=== PATIENT | female | born 1955 | race Caucasian/White ===

== ENCOUNTER 2018-09-19 03:18 | Emergency (ER) | payer MEDICARE, OTHER ==
[2018-09-19 03:24] VITALS: RESP 18
[2018-09-19] MEDS ORDERED: SODIUM CHLORIDE 0.9% 1,000 ML IV STA (03:46)
[2018-09-19] MEDS ORDERED: IPRATROPIUM-ALBUTEROL 3 ML NEB INHALATION STA ×2 (03:46→05:20)
[2018-09-19] MEDS ORDERED: ASPIRIN 81 MG PO STA (03:46)
--- NOTE | 2018-09-19 03:55 | ED ---
SOB HPI - General Chief Complaint: Shortness of Breath Stated Complaint: SOB Time Seen by Provider: 09/19/18 03:28 Source: patient Mode of arrival: wheelchair Limitations: no limitations - History of Present Illness Initial Comments: Jessy is a 53 yo female who is brought to the ED today by her son for evaluation of shortness of breath and palpitations. Patient reports that around 1 AM this morning she was watching TV when she began to feel worsening shortness of breath and palpitations and she did feel some mild discomfort upon deep inspiration in her left shoulder blade. Patient reports that this seemed to improve for a while but then got worse. Patient states she did not try to use a breathing treatment had her son bring her to the ER for evaluation. Patient denies any recent fevers, chills, nausea or vomiting. She does have a history of COPD, she does use breathing treatments at home, she does still smoke. - Related Data Home Medications Medication Instructions Recorded Confirmed Albuterol Nebulized [Ventolin 1 ampul INHALATION BID 01/28/14 01/29/14 Nebulized] Albuterol Sulfate [Proair Hfa] 2 puff INHALATION DIRECTED PRN 01/28/14 Ibuprofen [Motrin] 800 mg PO QID PRN 01/28/14 01/29/14 Omeprazole [PriLOSEC] 20 mg PO DAILY 01/28/14 01/29/14 Oxybutynin Chloride [Ditropan XL] 15 mg PO BID 01/28/14 01/29/14 Topiramate [Topamax] 50 mg PO BID 01/28/14 01/29/14 Vortioxetine Hydrobromide 10 mg PO DAILY 01/28/14 01/29/14 [Trintellix] metFORMIN HCL [Glucophage] 500 mg PO DAILY 01/28/14 01/29/14 risperiDONE [RisperDAL] 2 mg PO HS 01/28/14 01/29/14 traZODone HCL 2 tab PO HS 01/28/14 01/29/14 Allergies Allergy/AdvReac Type Severity Reaction Status Date / Time fluticasone propionate Allergy Rash/Hives Verified 01/29/14 11:22 [From Advair Diskus] oxycodone HCl [From Percodan] Allergy Rash/Hives Verified 01/29/14 11:22 oxycodone terephthalate Allergy Rash/Hives Verified 01/29/14 11:22 [From Percodan] propoxyphene HCl Allergy Rash/Hives Verified 01/29/14 11:22 [From Darvon] salmeterol xinafoate Allergy Rash/Hives Verified 01/29/14 11:22 [From Advair Diskus] tramadol HCl [From Ultram] Allergy Rash/Hives Verified 01/29/14 11:22 Review of Systems ROS Statement: Those systems with pertinent positive or pertinent negative responses have been documented in the HPI. ROS Other: All systems not noted in ROS Statement are negative. Past Medical History Past Medical History: Asthma, COPD, Diabetes Mellitus, GERD/Reflux, Neurologic Disorder, Osteoarthritis (OA), Respiratory Disorder Additional Past Medical History / Comment(s): MIGRAINES History of Any Multi-Drug Resistant Organisms: None Reported Past Surgical History: Bariatric Surgery, Cholecystectomy, Hysterectomy, Tonsillectomy Additional Past Surgical History / Comment(s): LAP BAND Past Anesthesia/Blood Transfusion Reactions: No Reported Reaction Past Psychological History: Anxiety Smoking Status: Current every day smoker Past Alcohol Use History: None Reported Past Drug Use History: None Reported - Past Family History Mother Family Medical History: Cancer Father Family Medical History: Cancer General Exam - General Exam Comments Initial Comments: Physical Exam GENERAL: Appears much older than stated age skin changes consistent with chronic tobacco abuse In no acute distress HENT: Normocephalic, Atraumatic. Edentulous EYES: PERRL, EOMI PULMONARY: Mild expiratory wheezing in all lung gilman CARDIOVASCULAR: There is a regular rate and rhythm without any murmurs gallops or rubs. ABDOMEN: Soft and nontender with normal bowel sounds. SKIN: Skin is clear with no lesions or rashes and otherwise unremarkable. Color change to the skin and nails of the hands consistent with cigarette smoking : Deferred NEUROLOGIC: Patient is alert and oriented x3. Moving all extremities spontaneously MUSCULOSKELETAL: Normal extremities with adequate strength and full range of motion. No lower extremity swelling or edema. No calf tenderness. PSYCHIATRIC: Normal psychiatric evaluation. Limitations: no limitations Limitations: no limitations Course Vital Signs 09/19/18 09/19/18 09/19/18 03:19 03:58 04:02 Temperature 98.1 F Pulse Rate 106 H 106 H 108 H Respiratory 18 Rate Blood Pressure 99/64 O2 Sat by Pulse 98 Oximetry 09/19/18 09/19/18 05:30 05:45 Temperature Pulse Rate 86 90 Respiratory Rate Blood Pressure O2 Sat by Pulse Oximetry Medical Decision Making - Medical Decision Making Patient was seen and evaluated upon arrival, patient with a history of COPD has not been oozing her nebulizer over the past 48 hours presenting to the ER today with wheezing and shortness of breath On physical exam the patient has mild retraction and wheezing in all lung gilman Labs chest x-ray DuoNeb's were ordered Patient improved significantly after DuoNeb, patient reported feeling better at this time and will give patient a repeat dose of DuoNeb. Neck Evaluated the patient after repeat dose of DuoNeb she reports significant improvement in her wheezing and shortness of breath. She is no longer hypoxic or tachycardic at this time I feel the patient is stable for discharge home, I did discuss with her the importance of compliance with use of her nebulizer. All questions pertaining care were answered best my ability patient was discharged home in stable condition. - Lab Data Result diagrams: 09/19/18 04:05 09/19/18 04:05 Lab Results 09/19/18 09/19/18 09/19/18 Range/Units 04:05 04:05 04:05 WBC 9.3 (3.8-10.6) k/uL RBC 5.18 (3.80-5.40) m/uL Hgb 15.3 (11.4-16.0) gm/dL Hct 48.5 H (34.0-46.0) % MCV 93.6 (80.0-100.0) fL MCH 29.6 (25.0-35.0) pg MCHC 31.6 (31.0-37.0) g/dL RDW 14.3 (11.5-15.5) % Plt Count 224 (150-450) k/uL Neutrophils % 58 % Lymphocytes % 31 % Monocytes % 6 % Eosinophils % 3 % Basophils % 1 % Neutrophils # 5.3 (1.3-7.7) k/uL Lymphocytes # 2.9 (1.0-4.8) k/uL Monocytes # 0.6 (0-1.0) k/uL Eosinophils # 0.3 (0-0.7) k/uL Basophils # 0.0 (0-0.2) k/uL PT (9.0-12.0) sec INR (<1.2) APTT (22.0-30.0) sec Sodium 139 (137-145) mmol/L Potassium 4.3 (3.5-5.1) mmol/L Chloride 107 (98-107) mmol/L Carbon Dioxide 26 (22-30) mmol/L Anion Gap 6 mmol/L BUN 5 L (7-17) mg/dL Creatinine 0.44 L (0.52-1.04) mg/dL Est GFR (CKD-EPI)AfAm >90 (>60 ml/min/1.73 sqM) Est GFR (CKD-EPI)NonAf >90 (>60 ml/min/1.73 sqM) Glucose 112 H (74-99) mg/dL Calcium 9.8 (8.4-10.2) mg/dL Magnesium 1.8 (1.6-2.3) mg/dL Total Bilirubin 0.5 (0.2-1.3) mg/dL AST 17 (14-36) U/L ALT 26 (9-52) U/L Alkaline Phosphatase 65 (38-126) U/L Total Creatine Kinase 46 (30-135) U/L CK-MB (CK-2) 0.5 (0.0-2.4) ng/mL CK-MB (CK-2) Rel Index 1.1 Troponin I <0.012 (0.000-0.034) ng/mL NT-Pro-B Natriuret Pep pg/mL Total Protein 7.1 (6.3-8.2) g/dL Albumin 4.3 (3.5-5.0) g/dL 09/19/18 09/19/18 Range/Units 04:05 04:05 WBC (3.8-10.6) k/uL RBC (3.80-5.40) m/uL Hgb (11.4-16.0) gm/dL Hct (34.0-46.0) % MCV (80.0-100.0) fL MCH (25.0-35.0) pg MCHC (31.0-37.0) g/dL RDW (11.5-15.5) % Plt Count (150-450) k/uL Neutrophils % % Lymphocytes % % Monocytes % % Eosinophils % % Basophils % % Neutrophils # (1.3-7.7) k/uL Lymphocytes # (1.0-4.8) k/uL Monocytes # (0-1.0) k/uL Eosinophils # (0-0.7) k/uL Basophils # (0-0.2) k/uL PT 10.5 (9.0-12.0) sec INR 1.0 (<1.2) APTT 26.0 (22.0-30.0) sec Sodium (137-145) mmol/L Potassium (3.5-5.1) mmol/L Chloride (98-107) mmol/L Carbon Dioxide (22-30) mmol/L Anion Gap mmol/L BUN (7-17) mg/dL Creatinine (0.52-1.04) mg/dL Est GFR (CKD-EPI)AfAm (>60 ml/min/1.73 sqM) Est GFR (CKD-EPI)NonAf (>60 ml/min/1.73 sqM) Glucose (74-99) mg/dL Calcium (8.4-10.2) mg/dL Magnesium (1.6-2.3) mg/dL Total Bilirubin (0.2-1.3) mg/dL AST (14-36) U/L ALT (9-52) U/L Alkaline Phosphatase (38-126) U/L Total Creatine Kinase (30-135) U/L CK-MB (CK-2) (0.0-2.4) ng/mL CK-MB (CK-2) Rel Index Troponin I (0.000-0.034) ng/mL NT-Pro-B Natriuret Pep 40 pg/mL Total Protein (6.3-8.2) g/dL Albumin (3.5-5.0) g/dL Disposition Clinical Impression: COPD exacerbation Disposition: HOME SELF-CARE Instructions: Chronic Cough (ED) Additional Instructions: Use your nebulizer every 4 hours as needed for wheezing or shortness of breath Is patient prescribed a controlled substance at d/c from ED?: No Referrals: Ky De La O MD [Primary Care Provider] - 1-2 days
--- NOTE | 2018-09-19 04:01 | XR ---
EXAMINATION TYPE: XR chest 2V DATE OF EXAM: 09/19/2018 COMPARISON: NONE HISTORY: Difficulty breathing TECHNIQUE: Frontal and lateral views of the chest are obtained. FINDINGS: Heart and mediastinum are normal. Lungs are clear. Costophrenic angles are clear. There ar e no hilar masses. There is cervical spine fusion surgery. Bony thorax appears intact. IMPRESSION: No active cardiopulmonary disease.
[2018-09-19 04:25] LABS: Basophils % (A) 1 %; Eosinophils # (A) 0.3 k/uL (0-0.7); Eosinophils % (A) 3 %; HCT 48.5 % (34.0-46.0); HGB 15.3 gm/dL (11.4-16.0); Lymphocytes # (A) 2.9 k/uL (1.0-4.8); Lymphocytes % (A) 31 %; MCH 29.6 pg (25.0-35.0); MCHC 31.6 g/dL (31.0-37.0); MCV 93.6 fL (80.0-100.0); Mean Platelet Volume 6.8; Monocytes # (A) 0.6 k/uL (0-1.0); Monocytes % (A) 6 %; Neutrophils # (A) 5.3 k/uL (1.3-7.7); Neutrophils % (A) 58 %; Platelet Count 224 k/uL (150-450); RBC 5.18 m/uL (3.80-5.40); RDW 14.3 % (11.5-15.5); WBC 9.3 k/uL (3.8-10.6)
[2018-09-19 04:28] LABS: Prothrombin Time 10.5 sec (9.0-12.0)
[2018-09-19 04:29] LABS: ALT 26 U/L (9-52); AST 17 U/L (14-36); Albumin 4.3 g/dL (3.5-5.0); Alkaline Phosphatase 65 U/L (38-126); Anion Gap 6 mmol/L; Blood Urea Nitrogen 5 mg/dL (7-17); Calcium 9.8 mg/dL (8.4-10.2); Carbon Dioxide 26 mmol/L (22-30); Chloride 107 mmol/L (98-107); Glucose 112 mg/dL (74-99); Magnesium 1.8 mg/dL (1.6-2.3); Potassium 4.3 mmol/L (3.5-5.1); Sodium 139 mmol/L (137-145); Total Bilirubin 0.5 mg/dL (0.2-1.3); Total Protein 7.1 g/dL (6.3-8.2)
[2018-09-19 04:41] LABS: Creatine Kinase 46 U/L (30-135)
[2018-09-19 04:54] LABS: Creatine Kinase MB 0.5 ng/mL (0.0-2.4); Troponin I <0.012 ng/mL (0.000-0.034)
[2018-09-19 07:02] VITALS: BP 109/73; PULSE 87; TEMP 98.7
== END 2018-09-19 07:02 | disposition home or self-care (01) ==
LOC: EC 03:18
DX: J44.1 Chronic obstructive pulmonary disease with (acute) exacerbation (principal); R00.0 Tachycardia, unspecified; K21.9 Gastro-esophageal reflux disease without esophagitis; E11.9 Type 2 diabetes mellitus without complications; F41.9 Anxiety disorder, unspecified; F17.210 Nicotine dependence, cigarettes, uncomplicated; Z88.5 Allergy status to narcotic agent; Z88.8 Allergy status to other drugs, medicaments and biological substances; Z79.84 Long term (current) use of oral hypoglycemic drugs; Z79.899 Other long term (current) drug therapy; Z86.69 Personal history of other diseases of the nervous system and sense organs
CPT/HCPCS: 36415; 71046; 80053; 82550; 82553; 83735; 83880; 84484; 85025; 85610; 85730; 93005; 94640; 96360; 99285

== ENCOUNTER 2018-11-01 00:18 | Emergency (ER) | payer MEDICARE, OTHER ==
[2018-11-01] MEDS ORDERED: SODIUM CHLORIDE 0.9% 500 ML 500 ML IV STA (00:56)
[2018-11-01] MEDS ORDERED: IPRATROPIUM-ALBUTEROL 3 ML NEB INHALATION STA (01:08)
[2018-11-01] MEDS ORDERED: methylPREDNISolone SOD SUCCI 125 MG/2 ML VIAL IV STA (01:08)
--- NOTE | 2018-11-01 01:09 | ED ---
General Adult HPI - General Source: patient Mode of arrival: wheelchair Limitations: no limitations <Nadira Vargas - Last Filed: 11/01/18 05:44> <Rosa Isela Awan - Last Filed: 11/01/18 06:45> - General Chief complaint: Dizziness Stated complaint: Dizziness, Weakness Time Seen by Provider: 11/01/18 00:55 - History of Present Illness Initial comments: 62-year-old female presenting today for chief complaint of lightheadedness, dizziness, presyncopal episode and decreased appetite for past 3 months. Patient states she has not had much to eat a decreased appetite for the past 3 months, she states she has been drinking a lot of coffee and creamer. Patient states she tries to eat and expresses nausea, she states she does tolerate water. Patient states that for the past few day she's felt lightheaded and dizzy, she states today she fell forward feeling as though she might pass out. Patient states she did not hit her head or experienced injury to neck or extremities. Patient denies any chest pain, dyspnea, dyspnea on exertion. She states she hasn't ever day smoker and has COPD. Patient denies any fever, chills, night sweats, cough, bowel pain, nausea, vomiting, jaw pain, upper etc. he paresthesias. Patient denies any thoracic back pain, headache, visual changes, diplopia, speech changes or focalized muscle weakness. Patient does admit to generalized weakness. Patient states she is concerned as to why she has not been able to eat very much over the past 3 months. She states this is the most concerning thing to her today. Remaining review of systems negative, upon arrival patient is well-appearing. Vital signs within acceptable limits.Patient denies anyabdominal pain, numbness or tingling, dysuria or hematuria, constipation or diarrhea, melena, hematochezia, hemoptysis, vomiting any other complaints. (Nadira Vagras) - Related Data Home Medications Medication Instructions Recorded Confirmed Albuterol Nebulized [Ventolin 1 ampul INHALATION BID 01/28/14 11/01/18 Nebulized] Albuterol Sulfate [Proair Hfa] 2 puff INHALATION DIRECTED PRN 01/28/14 Ibuprofen [Motrin] 800 mg PO QID PRN 01/28/14 11/01/18 Omeprazole [PriLOSEC] 20 mg PO DAILY 01/28/14 11/01/18 Oxybutynin Chloride [Ditropan XL] 15 mg PO BID 01/28/14 11/01/18 Topiramate [Topamax] 50 mg PO BID 01/28/14 11/01/18 Vortioxetine Hydrobromide 10 mg PO DAILY 01/28/14 11/01/18 [Trintellix] metFORMIN HCL [Glucophage] 500 mg PO DAILY 01/28/14 11/01/18 risperiDONE [RisperDAL] 2 mg PO HS 01/28/14 11/01/18 traZODone HCL 2 tab PO HS 01/28/14 11/01/18 Previous Rx's Medication Instructions Recorded Cephalexin [Keflex] 500 mg PO Q12HR 5 Days #10 cap 11/01/18 Allergies Allergy/AdvReac Type Severity Reaction Status Date / Time fluticasone propionate Allergy Rash/Hives Verified 01/29/14 11:22 [From Advair Diskus] oxycodone HCl [From Percodan] Allergy Rash/Hives Verified 01/29/14 11:22 oxycodone terephthalate Allergy Rash/Hives Verified 01/29/14 11:22 [From Percodan] propoxyphene HCl Allergy Rash/Hives Verified 01/29/14 11:22 [From Darvon] salmeterol xinafoate Allergy Rash/Hives Verified 01/29/14 11:22 [From Advair Diskus] tramadol HCl [From Ultram] Allergy Rash/Hives Verified 01/29/14 11:22 Review of Systems ROS Other: All systems not noted in ROS Statement are negative. <Nadira Vargas L - Last Filed: 11/01/18 05:44> ROS Other: All systems not noted in ROS Statement are negative. <Rosa Isela Awan P - Last Filed: 11/01/18 06:45> ROS Statement: Those systems with pertinent positive or pertinent negative responses have been documented in the HPI. Past Medical History Past Medical History: Asthma, COPD, Diabetes Mellitus, GERD/Reflux, Neurologic Disorder, Osteoarthritis (OA), Respiratory Disorder Additional Past Medical History / Comment(s): MIGRAINES History of Any Multi-Drug Resistant Organisms: None Reported Past Surgical History: Bariatric Surgery, Cholecystectomy, Hysterectomy, Tonsillectomy Additional Past Surgical History / Comment(s): LAP BAND Past Anesthesia/Blood Transfusion Reactions: No Reported Reaction Past Psychological History: Anxiety Smoking Status: Current every day smoker Past Alcohol Use History: None Reported Past Drug Use History: None Reported - Past Family History Mother Family Medical History: Cancer Father Family Medical History: Cancer <Nadira Vargas - Last Filed: 11/01/18 05:44> General Exam Limitations: no limitations <Nadira Vargas - Last Filed: 11/01/18 05:44> <Rosa Isela Awan Lucas - Last Filed: 11/01/18 06:45> - General Exam Comments Initial Comments: General: The patient is awake and alert, in no distress, and does not appear acutely ill. Eye: +3 mm pupils are equal, round and reactive to light, extra-ocular movements are intact. No nystagmus. There is normal conjunctiva bilaterally. No signs of icterus. Ears, nose, mouth and throat: There are moist mucous membranes and no oral lesions. Neck: The neck is supple, there is no tenderness or JVD. Cardiovascular: There is a regular rate and rhythm. No murmur, rub or gallop is appreciated. Respiratory: Respirations are non-labored, breath sounds are equal. End Expiratory wheezes, no stridor rales or rhonchi. No signs of respiratory distress, patient denies any current dyspnea. Gastrointestinal: Soft, non-distended, non-tender abdomen without masses or organomegaly noted. There is no rebound or guarding present. No CVA tenderness. Bowel sounds are unremarkable. Musculoskeletal: Normal ROM, no tenderness. Strength 5/5. Sensation intact. Pulses equal bilaterally 2+. Neurological: A&O x 3. CN II-XII intact, There are no obvious motor or sensory deficits. Coordination appears grossly intact. Speech is normal. Skin: Skin is warm and dry and no rashes or lesions are noted. Negative Homans , no lower extremity edema Psychiatric: Cooperative, appropriate mood & affect, normal judgment. (Nadira Vargas) Vital Signs 11/01/18 11/01/18 11/01/18 00:21 00:37 00:40 Temperature 98.5 F Pulse Rate 94 92 101 H Respiratory 18 19 17 Rate Blood Pressure 117/81 O2 Sat by Pulse 96 Oximetry 11/01/18 11/01/18 11/01/18 00:50 01:00 01:20 Temperature Pulse Rate 92 104 H 85 Respiratory 18 9 L 16 Rate Blood Pressure 120/87 103/79 O2 Sat by Pulse 94 L 96 Oximetry 11/01/18 11/01/18 11/01/18 01:21 01:28 01:30 Temperature Pulse Rate 85 85 97 Respiratory 19 Rate Blood Pressure 103/79 O2 Sat by Pulse 97 Oximetry 11/01/18 11/01/18 11/01/18 01:40 01:50 02:10 Temperature Pulse Rate 92 97 91 Respiratory 12 18 14 Rate Blood Pressure 109/72 94/74 113/63 O2 Sat by Pulse 92 L 95 92 L Oximetry 11/01/18 11/01/18 11/01/18 02:20 02:40 02:41 Temperature Pulse Rate 97 90 Respiratory 20 15 16 Rate Blood Pressure 109/68 107/76 121/76 O2 Sat by Pulse 92 L 96 Oximetry 11/01/18 11/01/18 11/01/18 02:50 03:10 04:19 Temperature 98.3 F Pulse Rate 96 Respiratory 15 Rate Blood Pressure 112/69 111/71 O2 Sat by Pulse 90 L Oximetry EKG Findings - EKG Comments: EKG Findings:: Ventricular rate 95 bpm, NJ interval 134 ms, QRS duration 92 ms, QT/QTC 354/444 ms, this is a normal sinus rhythm, there is a nonspecific T-wave abnormality. There is no ST elevation or depression. No findings concerning for acute coronary syndrome at this time. Normal R-wave progression. EKG was reviewed by myself and Dr. Awan <Nadira Vargas - Last Filed: 11/01/18 05:44> Medical Decision Making - Lab Data Result diagrams: 11/01/18 00:42 11/01/18 00:42 <Nadira Vargas - Last Filed: 11/01/18 05:44> - Lab Data Result diagrams: 11/01/18 00:42 11/01/18 00:42 <Rosa Isela Awan - Last Filed: 11/01/18 06:45> - Medical Decision Making 63-year-old female past history of COPD. Patient states she has not been eating very much for the past few months, she states she does drink some water mostly coughing creamer. Patient is complaining of dizziness week and asked that is generalized and possible presyncopal episode when she got up to walk today. Patient appears dry on exam. EKG revealed no acute abdomen abnormalities. Patient denies any chest pain or dyspnea.. Troponin negative. After studies unremarkable. Lipase elevated, CT of the abdomen negative for acute process of the pancreas. Alk phos and transaminases within normal limits. Patient did have previous gallbladder removal. Chest x-ray negative for acute cardiopulmonary process. She does have chronic COPD and had an expiratory wheeze consistent with this diagnosis, denied any shortness of breath. Patient was given DuoNeb and Solu-Medrol. This significantly improved patient's x-ray wheeze. Patient given 1 L bolus of IV fluids. I do feel patient's symptoms most likely due to months of decreased ingestion of food and decreased water intake. Patient had +1 ketones and urine. I did discuss the case with attending provider Dr. Awan at this time we do feel patient is stable for discharge with outpatient follow-up with gastroenterology for decreased appetite as well as primary care provider. Patient is agreeable plan discharge. Patient denies questions at this time. Return parameters were discussed at length with patient who verbalizes understanding. (Nadira Vargas) I was available for consultation in the emergency department. The history and physical exam were done by the midlevel provider. I was consulted for this patient's care. I reviewed the case with the midlevel provider and based on their presentation of the patient, I agree with the assessment, medical decision making and plan of care as documented. (Rosa Isela Awan) - Lab Data Lab Results 11/01/18 11/01/18 11/01/18 Range/Units 00:42 00:42 00:42 WBC 9.4 (3.8-10.6) k/uL RBC 5.14 (3.80-5.40) m/uL Hgb 14.7 (11.4-16.0) gm/dL Hct 47.5 H (34.0-46.0) % MCV 92.4 (80.0-100.0) fL MCH 28.6 (25.0-35.0) pg MCHC 31.0 (31.0-37.0) g/dL RDW 14.0 (11.5-15.5) % Plt Count 272 (150-450) k/uL Neutrophils % 45 % Lymphocytes % 43 % Monocytes % 6 % Eosinophils % 3 % Basophils % 1 % Neutrophils # 4.3 (1.3-7.7) k/uL Lymphocytes # 4.0 (1.0-4.8) k/uL Monocytes # 0.6 (0-1.0) k/uL Eosinophils # 0.3 (0-0.7) k/uL Basophils # 0.1 (0-0.2) k/uL PT (9.0-12.0) sec INR (<1.2) Sodium 137 (137-145) mmol/L Potassium 4.1 (3.5-5.1) mmol/L Chloride 105 (98-107) mmol/L Carbon Dioxide 26 (22-30) mmol/L Anion Gap 6 mmol/L BUN 7 (7-17) mg/dL Creatinine 0.48 L (0.52-1.04) mg/dL Est GFR (CKD-EPI)AfAm >90 (>60 ml/min/1.73 sqM) Est GFR (CKD-EPI)NonAf >90 (>60 ml/min/1.73 sqM) Glucose 95 (74-99) mg/dL Plasma Lactic Acid Nehemias 1.3 (0.7-2.0) mmol/L Calcium 9.7 (8.4-10.2) mg/dL Total Bilirubin 0.6 (0.2-1.3) mg/dL AST 15 (14-36) U/L ALT 20 (9-52) U/L Alkaline Phosphatase 66 (38-126) U/L Troponin I (0.000-0.034) ng/mL Total Protein 7.0 (6.3-8.2) g/dL Albumin 4.1 (3.5-5.0) g/dL Lipase 475 H (23-300) U/L Urine Color Urine Appearance (Clear) Urine pH (5.0-8.0) Ur Specific [place] (1.001-1.035) Urine Protein (Negative) Urine Glucose (UA) (Negative) Urine Ketones (Negative) Urine Blood (Negative) Urine Nitrite (Negative) Urine Bilirubin (Negative) Urine Urobilinogen (<2.0) mg/dL Ur Leukocyte Esterase (Negative) Urine RBC (0-5) /hpf Urine WBC (0-5) /hpf Ur Squamous Epith Cells (0-4) /hpf Amorphous Sediment (None) /hpf Urine Bacteria (None) /hpf Urine Mucus (None) /hpf 11/01/18 11/01/18 11/01/18 Range/Units 00:42 00:42 02:40 WBC (3.8-10.6) k/uL RBC (3.80-5.40) m/uL Hgb (11.4-16.0) gm/dL Hct (34.0-46.0) % MCV (80.0-100.0) fL MCH (25.0-35.0) pg MCHC (31.0-37.0) g/dL RDW (11.5-15.5) % Plt Count (150-450) k/uL Neutrophils % % Lymphocytes % % Monocytes % % Eosinophils % % Basophils % % Neutrophils # (1.3-7.7) k/uL Lymphocytes # (1.0-4.8) k/uL Monocytes # (0-1.0) k/uL Eosinophils # (0-0.7) k/uL Basophils # (0-0.2) k/uL PT 10.4 (9.0-12.0) sec INR 1.0 (<1.2) Sodium (137-145) mmol/L Potassium (3.5-5.1) mmol/L Chloride (98-107) mmol/L Carbon Dioxide (22-30) mmol/L Anion Gap mmol/L BUN (7-17) mg/dL Creatinine (0.52-1.04) mg/dL Est GFR (CKD-EPI)AfAm (>60 ml/min/1.73 sqM) Est GFR (CKD-EPI)NonAf (>60 ml/min/1.73 sqM) Glucose (74-99) mg/dL Plasma Lactic Acid Nehemias (0.7-2.0) mmol/L Calcium (8.4-10.2) mg/dL Total Bilirubin (0.2-1.3) mg/dL AST (14-36) U/L ALT (9-52) U/L Alkaline Phosphatase (38-126) U/L Troponin I <0.012 (0.000-0.034) ng/mL Total Protein (6.3-8.2) g/dL Albumin (3.5-5.0) g/dL Lipase (23-300) U/L Urine Color Yellow Urine Appearance Clear (Clear) Urine pH 5.5 (5.0-8.0) Ur Specific [place] 1.008 (1.001-1.035) Urine Protein Negative (Negative) Urine Glucose (UA) Negative (Negative) Urine Ketones 1+ H (Negative) Urine Blood Negative (Negative) Urine Nitrite Positive H (Negative) Urine Bilirubin Negative (Negative) Urine Urobilinogen <2.0 (<2.0) mg/dL Ur Leukocyte Esterase Trace H (Negative) Urine RBC <1 (0-5) /hpf Urine WBC 3 (0-5) /hpf Ur Squamous Epith Cells 1 (0-4) /hpf Amorphous Sediment Rare H (None) /hpf Urine Bacteria Occasional H (None) /hpf Urine Mucus Rare H (None) /hpf Disposition Is patient prescribed a controlled substance at d/c from ED?: No Time of Disposition: 03:59 <Nadira Vargas L - Last Filed: 11/01/18 05:44> <Rosa Isela Awan P - Last Filed: 11/01/18 06:45> Clinical Impression: General weakness, UTI (urinary tract infection), Dizziness Disposition: HOME SELF-CARE Condition: Good Instructions (If sedation given, give patient instructions): Weakness (ED), Dizziness (ED) Additional Instructions: Please use medication as discussed. Please follow-up with family doctor in the next 2 days. Please return to emergency room if the symptoms increase or worsen or for any other concerns. Prescriptions: Cephalexin [Keflex] 500 mg PO Q12HR 5 Days #10 cap Referrals: Ky De La O MD [Primary Care Provider] - 1-2 days Rickie De La O MD [STAFF PHYSICIAN] - 1-2 days
[2018-11-01 01:38] LABS: Prothrombin Time 10.4 sec (9.0-12.0)
--- NOTE | 2018-11-01 01:45 | XR ---
EXAM: XR Chest, 2 Views CLINICAL HISTORY: ITS.REASON XR Reason: lightheaded TECHNIQUE: Frontal and lateral views of the chest. COMPARISON: Chest x-ray dated 09/19/2018. FINDINGS: Lungs: Unremarkable. The lungs are clear. Pleural space: Unremarkable. No pneumothorax. Heart: Unremarkable. No cardiomegaly. Mediastinum: Unremarkable. Bones/joints: Partially imaged anterior cervical fusion. Mild degenerative changes of the thoracic spine. IMPRESSION: No acute findings.
[2018-11-01 01:46] LABS: Basophils # (A) 0.1 k/uL (0-0.2); Basophils % (A) 1 %; Eosinophils # (A) 0.3 k/uL (0-0.7); Eosinophils % (A) 3 %; HCT 47.5 % (34.0-46.0); HGB 14.7 gm/dL (11.4-16.0); Lymphocytes % (A) 43 %; MCH 28.6 pg (25.0-35.0); MCV 92.4 fL (80.0-100.0); Mean Platelet Volume 7.2; Monocytes # (A) 0.6 k/uL (0-1.0); Monocytes % (A) 6 %; Neutrophils # (A) 4.3 k/uL (1.3-7.7); Neutrophils % (A) 45 %; Platelet Count 272 k/uL (150-450); RBC 5.14 m/uL (3.80-5.40); WBC 9.4 k/uL (3.8-10.6)
[2018-11-01 01:54] LABS: ALT 20 U/L (9-52); AST 15 U/L (14-36); Albumin 4.1 g/dL (3.5-5.0); Alkaline Phosphatase 66 U/L (38-126); Anion Gap 6 mmol/L; Blood Urea Nitrogen 7 mg/dL (7-17); Calcium 9.7 mg/dL (8.4-10.2); Carbon Dioxide 26 mmol/L (22-30); Chloride 105 mmol/L (98-107); Glucose 95 mg/dL (74-99); Lipase 475 U/L (23-300); Potassium 4.1 mmol/L (3.5-5.1); Sodium 137 mmol/L (137-145); Total Bilirubin 0.6 mg/dL (0.2-1.3)
[2018-11-01 02:51] LABS: Amorphous Sediment,Urine Rare /hpf; Appearance,Urine Clear (Clear); Bacteria,Urine Occasional /hpf; Bilirubin,Urine Negative (Negative); Blood,Urine Negative (Negative); Color,Urine Yellow; Glucose,Urine (UA) Negative (Negative); Ketones,Urine 1+ (Negative); Leukocyte Esterase,Urine Trace (Negative); Mucus,Urine Rare /hpf; Nitrite,Urine Positive (Negative); PH, Urine 5.5 (5.0-8.0); Protein,Urine Negative (Negative); RBC,Urine <1 /hpf (0-5); Specific Gravity,Urine 1.008 (1.001-1.035); Squamous Epithelial Cell,Urine 1 /hpf (0-4); Urobilinogen,Urine <2.0 mg/dL (<2.0); WBC,Urine 3 /hpf (0-5)
[2018-11-01 03:36] VITALS: BP 111/71; PULSE 96; RESP 15
--- NOTE | 2018-11-01 03:43 | CT ---
EXAM: CT Abdomen and Pelvis With Intravenous Contrast CLINICAL HISTORY: ITS.REASON CT Reason: Pain TECHNIQUE: Axial computed tomography images of the abdomen and pelvis with intravenous contrast. CTDI is 416.7+261.9+4.7+4.7 mGy and DLP is 688 mGy- cm. This CT exam was performed using one or more of the following dose reduction techniques: automated exposure control, adjustment of the mA and/or kV according to patient size, and/or use of iterative reconstruction technique. COMPARISON: CT dated 07/21/2015. FINDINGS: Lung bases: Unremarkable. No mass. No consolidation. ABDOMEN: Liver: Unremarkable. No mass. Gallbladder and bile ducts: Prior cholecystectomy. No ductal dilation. Pancreas: Unremarkable. No evidence of mass. No ductal dilation. Spleen: Unremarkable. No splenomegaly. Adrenals: Unremarkable. No mass. 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 No hydronephrosis. Stomach and bowel: Diverticulosis without evidence of diverticulitis. Moderate amount of stool throughout the colon. No obstruction. PELVIS: Appendix: No findings to suggest acute appendicitis. Bladder: Unremarkable. No evidence of mass. Reproductive: Unremarkable as visualized. ABDOMEN and PELVIS: Intraperitoneal space: Unremarkable. No free air. No significant fluid collection. Bones/joints: Small sclerotic focus in the right hemisacrum likely represents a benign bone island. Soft tissues: Unremarkable. Vasculature: Unremarkable. No abdominal aortic aneurysm. Lymph nodes: Unremarkable. No enlarged lymph nodes. Tubes, lines and devices: Lap band in position without evidence of complication. IMPRESSION: 1. Lap band in position without evidence of complication. 2. 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 3. Diverticulosis without evidence of diverticulitis.
[2018-11-01] MEDS ORDERED: CEPHALEXIN 500MG STARTER PACK 4 CAP BTL PO STA (03:57)
[2018-11-01] MEDS ORDERED: ONDANSETRON 4 MG ODT STARTER PACK 2 TAB BTL PO STA (04:05)
[2018-11-01 04:21] VITALS: TEMP 98.3
== END 2018-11-01 04:19 | disposition home or self-care (01) ==
LOC: EC 00:18
DX: N39.0 Urinary tract infection, site not specified (principal); R53.1 Weakness; R42 Dizziness and giddiness; R74.8 Abnormal levels of other serum enzymes; R63.8 Other symptoms and signs concerning food and fluid intake; R11.0 Nausea; J44.9 Chronic obstructive pulmonary disease, unspecified; E11.9 Type 2 diabetes mellitus without complications; K21.9 Gastro-esophageal reflux disease without esophagitis; F41.9 Anxiety disorder, unspecified; F17.200 Nicotine dependence, unspecified, uncomplicated; Z88.5 Allergy status to narcotic agent; Z88.8 Allergy status to other drugs, medicaments and biological substances; Z79.84 Long term (current) use of oral hypoglycemic drugs; Z79.899 Other long term (current) drug therapy; Z86.69 Personal history of other diseases of the nervous system and sense organs; Z90.49 Acquired absence of other specified parts of digestive tract; Z98.84 Bariatric surgery status; Z90.89 Acquired absence of other organs; W19.XXXA Unspecified fall, initial encounter
CPT/HCPCS: 99284; 96374; 36415; 94640; 93005; 80053; 83605; 83690; 84484; 85025; 85610; 81001; 71046; 74177; J2930; S0119; Q9967

== ENCOUNTER 2018-11-08 15:00 | Emergency (ER) | payer MEDICARE, OTHER ==
[2018-11-08] MEDS ORDERED: SODIUM CHLORIDE 0.9% 1,000 ML IV STA ×2 (15:12→15:34)
[2018-11-08 15:55] LABS: Basophils # (A) 0.1 k/uL (0-0.2); Basophils % (A) 1 %; Eosinophils # (A) 0.2 k/uL (0-0.7); Eosinophils % (A) 3 %; HCT 49.4 % (34.0-46.0); HGB 15.4 gm/dL (11.4-16.0); Lymphocytes % (A) 32 %; MCH 28.4 pg (25.0-35.0); MCHC 31.1 g/dL (31.0-37.0); MCV 91.4 fL (80.0-100.0); Mean Platelet Volume 6.4; Monocytes # (A) 0.5 k/uL (0-1.0); Monocytes % (A) 8 %; Neutrophils # (A) 3.4 k/uL (1.3-7.7); Neutrophils % (A) 54 %; Platelet Count 241 k/uL (150-450); RDW 13.8 % (11.5-15.5); WBC 6.3 k/uL (3.8-10.6)
[2018-11-08 16:07] LABS: ALT 22 U/L (9-52); AST 17 U/L (14-36); Albumin 3.6 g/dL (3.5-5.0); Alkaline Phosphatase 54 U/L (38-126); Anion Gap 6 mmol/L; Blood Urea Nitrogen 9 mg/dL (7-17); Calcium 9.1 mg/dL (8.4-10.2); Carbon Dioxide 23 mmol/L (22-30); Chloride 108 mmol/L (98-107); Glucose 101 mg/dL (74-99); INR 0.9 (<1.2); Magnesium 1.9 mg/dL (1.6-2.3); Partial Thromboplastin Time 24.1 sec (22.0-30.0); Potassium 4.1 mmol/L (3.5-5.1); Prothrombin Time 10.2 sec (9.0-12.0); Sodium 137 mmol/L (137-145); Total Bilirubin 0.8 mg/dL (0.2-1.3); Total Protein 6.4 g/dL (6.3-8.2)
--- NOTE | 2018-11-08 16:50 | CT ---
EXAMINATION TYPE: CT brain bereket rocha DATE OF EXAM: 11/08/2018 COMPARISON: None HISTORY: 63-year-old female syncope CT DLP: 1262.8 mGycm Automated exposure control for dose reduction was used. Technique: Examination of the head was done in axial plane without intravenous contrast. Coronal and sagittal reconstructions performed. CT of the cervical spine was obtained in axial plane without intravenous injection of contrast mater ial. Coronal and sagittal reformatted images were obtained from the axial views for evaluation of f ractures, spinal alignment and canal. FINDINGS: Head: There is scattered mild subarachnoid blood seen along the bifrontal convexities, for example, refer t o coronal image 19 and axial image 41. No subdural or epidural hematoma seen. No mass effect or midli ne shift. No hydrocephalus or herniation. Mild mucosal thickening ethmoid air cells and right maxillary sinus. Mastoid air cells well pneumatiz ed. Orbits and globes are intact. No calvarial fracture. Cervical spine: No craniocervical junction and remotely, predental space widening, or prevertebral soft tissue swelli ng. Preserved alignment of the cervical spine. Post surgical changes of C5-C7 ACDF. Posterior osteophytic ridging at the fused C6-C7 level. This mil dly narrows the spinal canal. No acute fracture. There is a focal posterior disc protrusion at C3-C4 which does not seem to contribute any significant spinal canal stenosis. Scattered facet and uncovertebral joint degenerative change with very minimal mild narrowing of the s pratima canal. Minimal emphysematous change in the upper lungs. Sagittal and coronal reformatted images confirm above findings. COMBINED IMPRESSION: 1. Scattered mild subarachnoid hemorrhage along the frontal convexities. No mass effect or midline sh ift. 2. No acute fracture or malalignment of the cervical spine. C5-C7 ACDF changes. 3. Posterior disc protrusion at C3-C4 could be on a degenerative basis or could be posttraumatic. No spinal canal compromise at this level. Critical findings called to Dr. Wilson in the ER at 4:45 PM.
--- NOTE | 2018-11-08 17:02 | ED ---
Syncope HPI - General Chief Complaint: Syncope Stated Complaint: Syncope Time Seen by Provider: 11/08/18 15:12 Source: patient, EMS Mode of arrival: EMS Limitations: no limitations - History of Present Illness Initial Comments: Patient presents with a syncopal episode. She is complaining of a headache. She might of hit her head. She does not think her neck hurts. She has no chest or belly or back pain. She has no nausea or vomiting. She has no change in vision or hearing. She does rate her headache 8/10. Nothing makes it better or worse. She has taken no pain medicine for this. She denies any recent illnesses or sick contacts. - Related Data Home Medications Medication Instructions Recorded Confirmed Albuterol Nebulized [Ventolin 2.5 mg INHALATION RT-BID 01/28/14 11/08/18 Nebulized] Albuterol Sulfate [Proair Hfa] 2 puff INHALATION RT-QID PRN 01/28/14 11/08/18 Omeprazole [PriLOSEC] 20 mg PO DAILY 01/28/14 11/08/18 Oxybutynin Chloride [Ditropan XL] 15 mg PO BID 01/28/14 11/08/18 Topiramate [Topamax] 50 mg PO BID 01/28/14 11/08/18 metFORMIN HCL [Glucophage] 500 mg PO DAILY 01/28/14 11/08/18 Atorvastatin [Lipitor] 40 mg PO HS 11/08/18 11/08/18 Fluticasone Nasal [place] [Flonase 2 spray EA NOSTRIL BID PRN 11/08/18 11/08/18 Nasal [place]] Vortioxetine Hydrobromide 20 mg PO DAILY 11/08/18 11/08/18 [Trintellix] risperiDONE 3 mg PO HS 11/08/18 11/08/18 traZODone HCL 100 mg PO HS 11/08/18 11/08/18 Allergies Allergy/AdvReac Type Severity Reaction Status Date / Time fluticasone propionate Allergy Rash/Hives Verified 11/08/18 15:56 [From Advair Diskus] oxycodone HCl [From Percodan] Allergy Rash/Hives Verified 11/08/18 15:56 oxycodone terephthalate Allergy Rash/Hives Verified 11/08/18 15:56 [From Percodan] propoxyphene HCl Allergy Rash/Hives Verified 11/08/18 15:56 [From Darvon] salmeterol xinafoate Allergy Rash/Hives Verified 11/08/18 15:56 [From Advair Diskus] tramadol HCl [From Ultram] Allergy Rash/Hives Verified 11/08/18 15:56 Review of Systems ROS Statement: Those systems with pertinent positive or pertinent negative responses have been documented in the HPI. ROS Other: All systems not noted in ROS Statement are negative. Past Medical History Past Medical History: Asthma, COPD, GERD/Reflux, Neurologic Disorder, Osteoarthritis (OA), Respiratory Disorder Additional Past Medical History / Comment(s): MIGRAINES History of Any Multi-Drug Resistant Organisms: None Reported Past Surgical History: Bariatric Surgery, Cholecystectomy, Hysterectomy, Tonsillectomy Additional Past Surgical History / Comment(s): LAP BAND Past Anesthesia/Blood Transfusion Reactions: No Reported Reaction Past Psychological History: Anxiety Smoking Status: Current every day smoker Past Alcohol Use History: None Reported Past Drug Use History: None Reported - Past Family History Mother Family Medical History: Cancer Father Family Medical History: Cancer General Exam Limitations: no limitations General appearance: alert, in no apparent distress Head exam: Present: atraumatic, normocephalic, normal inspection Eye exam: Present: normal appearance, PERRL, EOMI. Absent: scleral icterus, conjunctival injection, periorbital swelling ENT exam: Present: normal exam, mucous membranes moist Neck exam: Present: normal inspection. Absent: tenderness, meningismus, lymphadenopathy Respiratory exam: Present: normal lung sounds bilaterally. Absent: respiratory distress, wheezes, rales, rhonchi, stridor Cardiovascular Exam: Present: regular rate, normal rhythm, normal heart sounds. Absent: systolic murmur, diastolic murmur, rubs, gallop, clicks GI/Abdominal exam: Present: soft, normal bowel sounds. Absent: distended, tenderness, guarding, rebound, rigid Extremities exam: Present: normal inspection, full ROM, normal capillary refill. Absent: tenderness, pedal edema, joint swelling, calf tenderness Back exam: Present: normal inspection Neurological exam: Present: alert, oriented X3, CN II-XII intact Psychiatric exam: Present: normal affect, normal mood Skin exam: Present: warm, dry, intact, normal color. Absent: rash Course Vital Signs 11/08/18 11/08/18 11/08/18 15:01 15:06 15:10 Temperature 98.4 F Pulse Rate 110 H Respiratory 20 Rate Blood Pressure 111/78 111/78 O2 Sat by Pulse 94 L 89 L Oximetry 11/08/18 11/08/18 11/08/18 15:20 15:30 15:40 Temperature Pulse Rate Respiratory 20 Rate Blood Pressure 111/78 111/78 101/87 O2 Sat by Pulse 94 L Oximetry 11/08/18 11/08/18 11/08/18 15:50 16:00 16:10 Temperature Pulse Rate 102 H 96 94 Respiratory 22 22 21 Rate Blood Pressure 101/87 101/87 106/67 O2 Sat by Pulse 91 L 87 L 89 L Oximetry 11/08/18 11/08/18 16:20 16:30 Temperature Pulse Rate 96 Respiratory 11 L Rate Blood Pressure 106/67 104/51 O2 Sat by Pulse 92 L Oximetry EKG Findings - EKG Comments: EKG Findings:: Twelve-lead EKG shows ventricular rate 100 bpm, normal CA interval and QRS complexes, no ST elevation or depression, interpreted by me as normal sinus rhythm. Medical Decision Making - Medical Decision Making Patient presents with syncope. Her laboratory studies are essentially unremarkable. EKG is normal. CT the head does show a subarachnoid bleed. Therefore patient be transferred to outside facility or higher level of care. - Lab Data Result diagrams: 11/08/18 15:25 11/08/18 15:25 Lab Results 11/08/18 11/08/18 11/08/18 Range/Units 15:25 15:25 15:25 WBC 6.3 (3.8-10.6) k/uL RBC 5.40 (3.80-5.40) m/uL Hgb 15.4 (11.4-16.0) gm/dL Hct 49.4 H (34.0-46.0) % MCV 91.4 (80.0-100.0) fL MCH 28.4 (25.0-35.0) pg MCHC 31.1 (31.0-37.0) g/dL RDW 13.8 (11.5-15.5) % Plt Count 241 (150-450) k/uL Neutrophils % 54 % Lymphocytes % 32 % Monocytes % 8 % Eosinophils % 3 % Basophils % 1 % Neutrophils # 3.4 (1.3-7.7) k/uL Lymphocytes # 2.0 (1.0-4.8) k/uL Monocytes # 0.5 (0-1.0) k/uL Eosinophils # 0.2 (0-0.7) k/uL Basophils # 0.1 (0-0.2) k/uL PT 10.2 (9.0-12.0) sec INR 0.9 (<1.2) APTT 24.1 (22.0-30.0) sec Sodium 137 (137-145) mmol/L Potassium 4.1 (3.5-5.1) mmol/L Chloride 108 H (98-107) mmol/L Carbon Dioxide 23 (22-30) mmol/L Anion Gap 6 mmol/L BUN 9 (7-17) mg/dL Creatinine 0.47 L (0.52-1.04) mg/dL Est GFR (CKD-EPI)AfAm >90 (>60 ml/min/1.73 sqM) Est GFR (CKD-EPI)NonAf >90 (>60 ml/min/1.73 sqM) Glucose 101 H (74-99) mg/dL Calcium 9.1 (8.4-10.2) mg/dL Magnesium 1.9 (1.6-2.3) mg/dL Total Bilirubin 0.8 (0.2-1.3) mg/dL AST 17 (14-36) U/L ALT 22 (9-52) U/L Alkaline Phosphatase 54 (38-126) U/L Troponin I (0.000-0.034) ng/mL Total Protein 6.4 (6.3-8.2) g/dL Albumin 3.6 (3.5-5.0) g/dL 11/08/18 Range/Units 15:25 WBC (3.8-10.6) k/uL RBC (3.80-5.40) m/uL Hgb (11.4-16.0) gm/dL Hct (34.0-46.0) % MCV (80.0-100.0) fL MCH (25.0-35.0) pg MCHC (31.0-37.0) g/dL RDW (11.5-15.5) % Plt Count (150-450) k/uL Neutrophils % % Lymphocytes % % Monocytes % % Eosinophils % % Basophils % % Neutrophils # (1.3-7.7) k/uL Lymphocytes # (1.0-4.8) k/uL Monocytes # (0-1.0) k/uL Eosinophils # (0-0.7) k/uL Basophils # (0-0.2) k/uL PT (9.0-12.0) sec INR (<1.2) APTT (22.0-30.0) sec Sodium (137-145) mmol/L Potassium (3.5-5.1) mmol/L Chloride (98-107) mmol/L Carbon Dioxide (22-30) mmol/L Anion Gap mmol/L BUN (7-17) mg/dL Creatinine (0.52-1.04) mg/dL Est GFR (CKD-EPI)AfAm (>60 ml/min/1.73 sqM) Est GFR (CKD-EPI)NonAf (>60 ml/min/1.73 sqM) Glucose (74-99) mg/dL Calcium (8.4-10.2) mg/dL Magnesium (1.6-2.3) mg/dL Total Bilirubin (0.2-1.3) mg/dL AST (14-36) U/L ALT (9-52) U/L Alkaline Phosphatase (38-126) U/L Troponin I <0.012 (0.000-0.034) ng/mL Total Protein (6.3-8.2) g/dL Albumin (3.5-5.0) g/dL Disposition Clinical Impression: Subarachnoid bleed Disposition: OTHER INSTITUTION NOT DEFINED Condition: Serious Is patient prescribed a controlled substance at d/c from ED?: No Referrals: Ky De La O MD [Primary Care Provider] - 1-2 days - Out of Hospital Transfer - Req. Specs Out of Hospital Transfer - Requested Specifics: Other Emergency Center ([facility]
[2018-11-08] MEDS ORDERED: HYDROcodone/APAP 5-325MG 1 EACH TAB PO STA (17:23)
[2018-11-08 17:27] VITALS: BP 113/57
[2018-11-08 17:37] VITALS: PULSE 88
[2018-11-08 17:38] VITALS: RESP 14; TEMP 98
--- NOTE | 2018-11-08 17:41 | XR ---
EXAMINATION TYPE: XR chest 1V DATE OF EXAM: 11/08/2018 COMPARISON: 11/01/2018 HISTORY: Syncope TECHNIQUE: Single frontal view of the chest is obtained. FINDINGS: There is no heart failure nor confluent pneumonic infiltrate. Costophrenic angles are brianna r. There are chest leads. Heart and mediastinum are normal. There is cervical spine fusion surgery no savage. IMPRESSION: Normal chest. No change.
[2018-11-08 17:45] LABS: Appearance,Urine Clear (Clear); Bacteria,Urine Rare /hpf; Bilirubin,Urine Negative (Negative); Blood,Urine Negative (Negative); Color,Urine Yellow; Glucose,Urine (UA) Negative (Negative); Hyaline Casts,Urine 9 /lpf (0-2); Ketones,Urine 1+ (Negative); Leukocyte Esterase,Urine Negative (Negative); Mucus,Urine Moderate /hpf; Nitrite,Urine Negative (Negative); Protein,Urine 1+ (Negative); RBC,Urine 5 /hpf (0-5); Specific Gravity,Urine 1.016 (1.001-1.035); Squamous Epithelial Cell,Urine 1 /hpf (0-4); WBC,Urine 2 /hpf (0-5)
== END 2018-11-08 17:49 | disposition other institution (70) ==
LOC: EC 15:00
DX: I60.9 Nontraumatic subarachnoid hemorrhage, unspecified (principal); J44.9 Chronic obstructive pulmonary disease, unspecified; K21.9 Gastro-esophageal reflux disease without esophagitis; M19.90 Unspecified osteoarthritis, unspecified site; G43.909 Migraine, unspecified, not intractable, without status migrainosus; F41.9 Anxiety disorder, unspecified; F17.200 Nicotine dependence, unspecified, uncomplicated; Z79.84 Long term (current) use of oral hypoglycemic drugs; Z79.899 Other long term (current) drug therapy; Z88.5 Allergy status to narcotic agent; Z88.8 Allergy status to other drugs, medicaments and biological substances
CPT/HCPCS: 36415; 70450; 71045; 72125; 80053; 81001; 83735; 84484; 85025; 85610; 85730; 93005; 96360; 96361; 99285

== ENCOUNTER 2018-11-21 20:35 | Emergency (ER) | payer MEDICARE, OTHER ==
[2018-11-21 20:44] VITALS: RESP 16
--- NOTE | 2018-11-21 21:39 | ED ---
Syncope HPI - General Chief Complaint: Syncope Stated Complaint: Syncope,face injury Time Seen by Provider: 11/21/18 21:30 Source: patient Mode of arrival: ambulatory Limitations: no limitations - History of Present Illness Initial Comments: Recent is a 63-year-old female with extensive past medical history most significant for recent stroke who presents to the emergency department today for evaluation of nasal pain after a syncopal episode at home resulted in her falling forward and injuring her nose. Patient reports that between 1:30 and 2 AM today she got up from bed to use the restroom. Upon standing after using the restroom she felt very lightheaded and passed out falling forward striking her face on the ground. She doesn't believe she had a bloody nose. She reports that this morning she continued to feel somewhat lightheaded but that is improving throughout the day. Despite taking her home oral narcotic she reports she has persistent pain in her nose which prompted her to come to the ER for evaluation. She reports she has frequent bouts of lightheadedness, dizziness and his experienced syncope multiple times in the past. - Related Data Home Medications Medication Instructions Recorded Confirmed Albuterol Nebulized [Ventolin 2.5 mg INHALATION RT-BID 01/28/14 11/21/18 Nebulized] Albuterol Sulfate [Proair Hfa] 2 puff INHALATION RT-QID PRN 01/28/14 11/21/18 Omeprazole [PriLOSEC] 20 mg PO DAILY 01/28/14 11/21/18 Oxybutynin Chloride [Ditropan XL] 15 mg PO BID 01/28/14 11/21/18 Topiramate [Topamax] 50 mg PO BID 01/28/14 11/21/18 Atorvastatin [Lipitor] 40 mg PO HS 11/08/18 11/21/18 Vortioxetine Hydrobromide 20 mg PO DAILY 11/08/18 11/21/18 [Trintellix] risperiDONE 3 mg PO HS 11/08/18 11/21/18 traZODone HCL 100 mg PO HS 11/08/18 11/21/18 HYDROcodone/APAP 7.5-325MG [[place] 1 tab PO BID PRN 11/21/18 11/21/18 7.5-325] Allergies Allergy/AdvReac Type Severity Reaction Status Date / Time fluticasone propionate Allergy Rash/Hives Verified 11/21/18 21:32 [From Advair Diskus] oxycodone HCl [From Percodan] Allergy Rash/Hives Verified 11/21/18 21:32 oxycodone terephthalate Allergy Rash/Hives Verified 11/21/18 21:32 [From Percodan] propoxyphene HCl Allergy Rash/Hives Verified 11/21/18 21:32 [From Darvon] salmeterol xinafoate Allergy Rash/Hives Verified 11/21/18 21:32 [From Advair Diskus] tramadol HCl [From Ultram] Allergy Rash/Hives Verified 11/21/18 21:32 Review of Systems ROS Statement: Those systems with pertinent positive or pertinent negative responses have been documented in the HPI. ROS Other: All systems not noted in ROS Statement are negative. Past Medical History Past Medical History: Asthma, COPD, CVA/TIA, GERD/Reflux, Neurologic Disorder, Osteoarthritis (OA), Respiratory Disorder Additional Past Medical History / Comment(s): MIGRAINES History of Any Multi-Drug Resistant Organisms: None Reported Past Surgical History: Bariatric Surgery, Cholecystectomy, Hysterectomy, Tonsillectomy Additional Past Surgical History / Comment(s): LAP BAND Past Anesthesia/Blood Transfusion Reactions: No Reported Reaction Past Psychological History: Anxiety Smoking Status: Current every day smoker Past Alcohol Use History: None Reported Past Drug Use History: None Reported - Past Family History Mother Family Medical History: Cancer Father Family Medical History: Cancer General Exam - General Exam Comments Initial Comments: Physical Exam GENERAL: Chronically ill-appearing, appears much older than stated age, smells of cigarette smoke HENT: Normocephalic Slight bruising over bridge of nose, no septal hematoma no evidence of epistaxis Hands normal bilaterally with no hemotympanum EYES: Pupils 2 mm minimally reactive bilaterally consistent with narcotic use EOMI PULMONARY: Unlabored respirations CARDIOVASCULAR: RRR ABDOMEN: Soft and nontender with normal bowel sounds. SKIN: Skin is clear with no lesions or rashes and otherwise unremarkable. : Deferred NEUROLOGIC: Patient is alert and oriented x3. Moving all extremities spontaneously MUSCULOSKELETAL: Normal extremities with adequate strength and full range of motion. No lower extremity swelling or edema. No calf tenderness. PSYCHIATRIC: Normal psychiatric evaluation. Limitations: no limitations Limitations: no limitations Course Vital Signs 11/21/18 11/21/18 11/22/18 20:39 23:47 01:47 Temperature 98.2 F 98.0 F 98.3 F Pulse Rate 94 72 75 Respiratory 16 16 16 Rate Blood Pressure 107/72 102/67 110/65 O2 Sat by Pulse 99 96 95 Oximetry EKG Findings - EKG Comments: EKG Findings:: EKG was obtained at 1 04/27/2011, rate is 87 rhythm is sinus there is normal axis there are normal intervals, IN 126, QRS 90, QTC is 464. There are no acute ST elevations or depressions there is no evidence of acute ischemia or infarction or arrhythmia. Medical Decision Making - Medical Decision Making Patient was seen and evaluated history is obtained from patient and review of medical records next line patient with episodes of syncope in the past, apparent orthostatic hypotension reports that she had a syncopal episode after using the restroom at 1:30 this morning fell forward and feels that her nose is bruised. In certain for nasal fracture. Physical Exam was unremarkable Imaging was obtained Labs are baseline CT of the brain revealed resolution of the previously identified subarachnoid hemorrhage, CT of the face revealed no acute fractures Results were discussed with the patient who expresses relief of this. At this time I offered the patient admission for reevaluation of her recurrent syncope at this time patient would prefer to be discharged home. Patient remained hemodynamically stable in the emergency department return parameters were discussed patient was discharged home in stable condition. - Lab Data Result diagrams: 11/21/18 22:16 11/21/18 22:16 Lab Results 11/21/18 11/21/18 11/21/18 Range/Units 22:16 22:16 22:16 WBC 8.7 (3.8-10.6) k/uL RBC 5.01 (3.80-5.40) m/uL Hgb 14.5 (11.4-16.0) gm/dL Hct 45.6 (34.0-46.0) % MCV 90.9 (80.0-100.0) fL MCH 28.9 (25.0-35.0) pg MCHC 31.7 (31.0-37.0) g/dL RDW 14.1 (11.5-15.5) % Plt Count 275 (150-450) k/uL Neutrophils % 58 % Lymphocytes % 33 % Monocytes % 4 % Eosinophils % 3 % Basophils % 1 % Neutrophils # 5.0 (1.3-7.7) k/uL Lymphocytes # 2.9 (1.0-4.8) k/uL Monocytes # 0.3 (0-1.0) k/uL Eosinophils # 0.2 (0-0.7) k/uL Basophils # 0.1 (0-0.2) k/uL PT 10.2 (9.0-12.0) sec INR 0.9 (<1.2) APTT 24.0 (22.0-30.0) sec Sodium 138 (137-145) mmol/L Potassium 4.2 (3.5-5.1) mmol/L Chloride 105 (98-107) mmol/L Carbon Dioxide 27 (22-30) mmol/L Anion Gap 6 mmol/L BUN 7 (7-17) mg/dL Creatinine 0.45 L (0.52-1.04) mg/dL Est GFR (CKD-EPI)AfAm >90 (>60 ml/min/1.73 sqM) Est GFR (CKD-EPI)NonAf >90 (>60 ml/min/1.73 sqM) Glucose 119 H (74-99) mg/dL Calcium 9.6 (8.4-10.2) mg/dL Total Bilirubin 0.5 (0.2-1.3) mg/dL AST 15 (14-36) U/L ALT 22 (9-52) U/L Alkaline Phosphatase 90 (38-126) U/L Troponin I (0.000-0.034) ng/mL Total Protein 6.4 (6.3-8.2) g/dL Albumin 3.9 (3.5-5.0) g/dL Urine Color Urine Appearance (Clear) Urine pH (5.0-8.0) Ur Specific [place] (1.001-1.035) Urine Protein (Negative) Urine Glucose (UA) (Negative) Urine Ketones (Negative) Urine Blood (Negative) Urine Nitrite (Negative) Urine Bilirubin (Negative) Urine Urobilinogen (<2.0) mg/dL Ur Leukocyte Esterase (Negative) 11/21/18 11/21/18 Range/Units 22:16 22:16 WBC (3.8-10.6) k/uL RBC (3.80-5.40) m/uL Hgb (11.4-16.0) gm/dL Hct (34.0-46.0) % MCV (80.0-100.0) fL MCH (25.0-35.0) pg MCHC (31.0-37.0) g/dL RDW (11.5-15.5) % Plt Count (150-450) k/uL Neutrophils % % Lymphocytes % % Monocytes % % Eosinophils % % Basophils % % Neutrophils # (1.3-7.7) k/uL Lymphocytes # (1.0-4.8) k/uL Monocytes # (0-1.0) k/uL Eosinophils # (0-0.7) k/uL Basophils # (0-0.2) k/uL PT (9.0-12.0) sec INR (<1.2) APTT (22.0-30.0) sec Sodium (137-145) mmol/L Potassium (3.5-5.1) mmol/L Chloride (98-107) mmol/L Carbon Dioxide (22-30) mmol/L Anion Gap mmol/L BUN (7-17) mg/dL Creatinine (0.52-1.04) mg/dL Est GFR (CKD-EPI)AfAm (>60 ml/min/1.73 sqM) Est GFR (CKD-EPI)NonAf (>60 ml/min/1.73 sqM) Glucose (74-99) mg/dL Calcium (8.4-10.2) mg/dL Total Bilirubin (0.2-1.3) mg/dL AST (14-36) U/L ALT (9-52) U/L Alkaline Phosphatase (38-126) U/L Troponin I <0.012 (0.000-0.034) ng/mL Total Protein (6.3-8.2) g/dL Albumin (3.5-5.0) g/dL Urine Color Light Yellow Urine Appearance Clear (Clear) Urine pH 6.5 (5.0-8.0) Ur Specific [place] 1.002 (1.001-1.035) Urine Protein Negative (Negative) Urine Glucose (UA) Negative (Negative) Urine Ketones Negative (Negative) Urine Blood Negative (Negative) Urine Nitrite Negative (Negative) Urine Bilirubin Negative (Negative) Urine Urobilinogen <2.0 (<2.0) mg/dL Ur Leukocyte Esterase Negative (Negative) - EKG Data -: EKG Interpreted by Me Disposition Clinical Impression: Syncope due to orthostatic hypotension, Nasal contusion Disposition: HOME SELF-CARE Condition: Good Instructions (If sedation given, give patient instructions): Fall Prevention for Older Adults (ED) Is patient prescribed a controlled substance at d/c from ED?: No Referrals: Ky De La O MD [Primary Care Provider] - 1-2 days
[2018-11-21] MEDS ORDERED: SODIUM CHLORIDE 0.9% 1,000 ML IV STA (21:57)
[2018-11-21 22:28] LABS: Appearance,Urine Clear (Clear); Bilirubin,Urine Negative (Negative); Blood,Urine Negative (Negative); Color,Urine Light Yellow; Glucose,Urine (UA) Negative (Negative); Ketones,Urine Negative (Negative); Leukocyte Esterase,Urine Negative (Negative); Nitrite,Urine Negative (Negative); PH, Urine 6.5 (5.0-8.0); Protein,Urine Negative (Negative); Specific Gravity,Urine 1.002 (1.001-1.035); Urobilinogen,Urine <2.0 mg/dL (<2.0)
[2018-11-21 22:31] LABS: Basophils # (A) 0.1 k/uL (0-0.2); Basophils % (A) 1 %; Eosinophils # (A) 0.2 k/uL (0-0.7); Eosinophils % (A) 3 %; HCT 45.6 % (34.0-46.0); HGB 14.5 gm/dL (11.4-16.0); Lymphocytes # (A) 2.9 k/uL (1.0-4.8); Lymphocytes % (A) 33 %; MCH 28.9 pg (25.0-35.0); MCHC 31.7 g/dL (31.0-37.0); MCV 90.9 fL (80.0-100.0); Mean Platelet Volume 6.3; Monocytes # (A) 0.3 k/uL (0-1.0); Monocytes % (A) 4 %; Neutrophils % (A) 58 %; Platelet Count 275 k/uL (150-450); RBC 5.01 m/uL (3.80-5.40); RDW 14.1 % (11.5-15.5); WBC 8.7 k/uL (3.8-10.6)
[2018-11-21 22:39] LABS: INR 0.9 (<1.2); Prothrombin Time 10.2 sec (9.0-12.0)
[2018-11-21 22:44] LABS: Albumin 3.9 g/dL (3.5-5.0); Chloride 105 mmol/L (98-107); Glucose 119 mg/dL (74-99); Potassium 4.2 mmol/L (3.5-5.1); Total Protein 6.4 g/dL (6.3-8.2)
[2018-11-21 22:45] LABS: ALT 22 U/L (9-52); AST 15 U/L (14-36); Alkaline Phosphatase 90 U/L (38-126); Anion Gap 6 mmol/L; Blood Urea Nitrogen 7 mg/dL (7-17); Calcium 9.6 mg/dL (8.4-10.2); Carbon Dioxide 27 mmol/L (22-30); Sodium 138 mmol/L (137-145); Total Bilirubin 0.5 mg/dL (0.2-1.3)
--- NOTE | 2018-11-21 23:17 | XR ---
EXAM: XR Chest, 2 Views CLINICAL HISTORY: ITS.REASON XR Reason: syncope TECHNIQUE: Frontal and lateral views of the chest. COMPARISON: No relevant prior studies available. FINDINGS: Lungs:. Pulmonary hyperexpansion. No consolidation. Pleural space: Unremarkable. No pneumothorax. Heart: Unremarkable. No cardiomegaly. Mediastinum: Unremarkable. Bones/joints: Cervical spinal fusion hardware.. Thoracolumbar spondylosis. IMPRESSION: Pulmonary hyperexpansion. No consolidation
--- NOTE | 2018-11-21 23:43 | CT ---
EXAM: CT Maxillofacial Without Intravenous Contrast CLINICAL HISTORY: ITS.REASON CT Reason: syncope, nasal trauma hx hemorrhagic cva TECHNIQUE: Axial computed tomography images of the face without intravenous contrast. CTDI is 7.1 mGy and DLP is 199.4 mGy-cm. This CT exam was performed using one or more of the following dose reduction techniques: automated exposure control, adjustment of the mA and/or kV according to patient size, and/or use of iterative reconstruction technique. COMPARISON: 11/08/18 FINDINGS: Bones/joints: No acute fracture. Incompletely assessed. Cervical spinal fusion hardware. Soft tissues: Unremarkable. Orbits: Unremarkable. Sinuses: Mild maxillary sinus mucosal thickening. IMPRESSION: No facial fracture.
--- NOTE | 2018-11-21 23:49 | CT ---
EXAM: CT Head Without Intravenous Contrast CLINICAL HISTORY: ITS.REASON CT Reason: syncope, nasal trauma hx hemorrhagic cva TECHNIQUE: Axial computed tomography images of the head/brain without intravenous contrast. CTDI is 25.8 mGy and DLP is 754.7 mGy-cm. This CT exam was performed using one or more of the following dose reduction techniques: automated exposure control, adjustment of the mA and/or kV according to patient size, and/or use of iterative reconstruction technique. COMPARISON: 11/08/18 FINDINGS: Brain: No intracranial hemorrhage. Previously noted subarachnoid blood has resorbed in the interval. No mass effect. Mild atrophy. Ventricles: Unremarkable. No ventriculomegaly. Bones/joints: Unremarkable. No acute fracture. Soft tissues: Unremarkable. Mastoid air cells: Unremarkable as visualized. No mastoid effusion. IMPRESSION: No acute brain or skull injury EXAM: CT Cervical Spine Without Intravenous Contrast CLINICAL HISTORY: ITS.REASON CT Reason: syncope, nasal trauma hx hemorrhagic cva TECHNIQUE: Axial computed tomography images of the cervical spine without intravenous contrast. CTDI is 7.1 mGy and DLP is 199.4 mGy-cm. This CT exam was performed using one or more of the following dose reduction techniques: automated exposure control, adjustment of the mA and/or kV according to patient size, and/or use of iterative reconstruction technique. COMPARISON: 11/08/18 FINDINGS: Vertebrae: No acute fracture. Redemonstrated is C5-C7 fusion with anterior plate and screws and interbody grafts, which are well integrated. Discs/spinal canal/neural foramina: Small disc protrusion and osteophyte complex again noted at or. Other multilevel disc and facet degenerative changes. Soft tissues: Mild calcification of the left internal carotid artery. IMPRESSION: No fracture.
[2018-11-22 01:48] VITALS: BP 110/65; PULSE 75; TEMP 98.3
== END 2018-11-22 01:47 | disposition home or self-care (01) ==
LOC: EC 20:35
DX: S00.33XA Contusion of nose, initial encounter (principal); I95.1 Orthostatic hypotension; J44.9 Chronic obstructive pulmonary disease, unspecified; K21.9 Gastro-esophageal reflux disease without esophagitis; G43.909 Migraine, unspecified, not intractable, without status migrainosus; F41.9 Anxiety disorder, unspecified; F17.200 Nicotine dependence, unspecified, uncomplicated; Z86.73 Personal history of transient ischemic attack (TIA), and cerebral infarction without residual deficits; Z79.899 Other long term (current) drug therapy; Z88.8 Allergy status to other drugs, medicaments and biological substances; Z88.5 Allergy status to narcotic agent; W19.XXXA Unspecified fall, initial encounter; Y92.009 Unspecified place in unspecified non-institutional (private) residence as the place of occurrence of the external cause
CPT/HCPCS: 36415; 70450; 70486; 71046; 72125; 80053; 81003; 84484; 85025; 85610; 85730; 93005; 96360; 99284

== ENCOUNTER 2018-12-21 22:04 | Emergency (ER) | payer MEDICARE, OTHER ==
[2018-12-21 22:22] VITALS: RESP 18; TEMP 97.9
[2018-12-21] MEDS ORDERED: SODIUM CHLORIDE 0.9% 1,000 ML IV STA (22:33)
[2018-12-21 22:57] LABS: Basophils % (A) 1 %; Eosinophils # (A) 0.4 k/uL (0-0.7); Eosinophils % (A) 4 %; Hypochromasia Slight; Lymphocytes % (A) 47 %; MCH 28.4 pg (25.0-35.0); MCHC 31.7 g/dL (31.0-37.0); MCV 89.5 fL (80.0-100.0); Mean Platelet Volume 6.8; Monocytes # (A) 0.6 k/uL (0-1.0); Monocytes % (A) 7 %; Neutrophils # (A) 3.3 k/uL (1.3-7.7); Neutrophils % (A) 40 %; Platelet Count 257 k/uL (150-450); RBC 4.91 m/uL (3.80-5.40); RDW 14.3 % (11.5-15.5); WBC 8.4 k/uL (3.8-10.6)
[2018-12-21 23:03] LABS: Appearance,Urine Clear (Clear); Bilirubin,Urine Negative (Negative); Blood,Urine Negative (Negative); Color,Urine Light Yellow; Glucose,Urine (UA) Negative (Negative); Ketones,Urine Negative (Negative); Leukocyte Esterase,Urine Negative (Negative); Nitrite,Urine Negative (Negative); Protein,Urine Negative (Negative); Urobilinogen,Urine <2.0 mg/dL (<2.0)
[2018-12-21 23:05] LABS: INR 0.9 (<1.2); Prothrombin Time 9.9 sec (9.0-12.0)
[2018-12-21 23:06] LABS: ALT 20 U/L (9-52); AST 17 U/L (14-36); Alkaline Phosphatase 73 U/L (38-126); Anion Gap 6 mmol/L; Blood Urea Nitrogen 6 mg/dL (7-17); Calcium 9.6 mg/dL (8.4-10.2); Carbon Dioxide 22 mmol/L (22-30); Chloride 107 mmol/L (98-107); Glucose 94 mg/dL (74-99); Magnesium 1.8 mg/dL (1.6-2.3); Potassium 4.2 mmol/L (3.5-5.1); Sodium 135 mmol/L (137-145); Total Bilirubin 0.5 mg/dL (0.2-1.3); Total Protein 6.6 g/dL (6.3-8.2)
--- NOTE | 2018-12-21 23:08 | ED ---
Syncope HPI - General Chief Complaint: Syncope Stated Complaint: Fall, head injury Time Seen by Provider: 12/21/18 22:33 Source: patient Mode of arrival: ambulatory Limitations: no limitations - History of Present Illness Initial Comments: Jessy is a 63 yo female who presents to the emergency department today for evaluation of headache after a syncopal episode and striking her head around. Patient reports she was in her usual state of health throughout the day, she's not been feeling that great but she's been eating and drinking well afebrile no chest pain or palpitations. She reports she's been sitting on the couch watching TV when she decided to stand up. She reports she stood up became very lightheaded and fell forward striking her head on the table in front of her. Patient does believe she lost consciousness briefly. She was then able to ambulate independently. She reports a mild headache. Patient is not on any antiplatelet or anticoagulant medications. He reports she is currently following with her primary care physician for evaluation of low blood pressures chronically. - Related Data Home Medications Medication Instructions Recorded Confirmed Albuterol Nebulized [Ventolin 2.5 mg INHALATION RT-BID 01/28/14 12/21/18 Nebulized] Albuterol Sulfate [Proair Hfa] 2 puff INHALATION RT-QID PRN 01/28/14 12/21/18 Omeprazole [PriLOSEC] 20 mg PO DAILY 01/28/14 12/21/18 Oxybutynin Chloride [Ditropan XL] 15 mg PO BID 01/28/14 12/21/18 Topiramate [Topamax] 50 mg PO BID 01/28/14 12/21/18 Atorvastatin [Lipitor] 40 mg PO HS 11/08/18 12/21/18 Vortioxetine Hydrobromide 20 mg PO DAILY 11/08/18 12/21/18 [Trintellix] risperiDONE 3 mg PO HS 11/08/18 12/21/18 traZODone HCL 100 mg PO HS 11/08/18 12/21/18 HYDROcodone/APAP 7.5-325MG [[place] 1 tab PO TID PRN 11/21/18 12/21/18 7.5-325] Multivitamin,Therapeutic [Thera] 1 tab PO DAILY 12/21/18 12/21/18 Allergies Allergy/AdvReac Type Severity Reaction Status Date / Time fluticasone propionate Allergy Rash/Hives Verified 12/21/18 22:43 [From Advair Diskus] oxycodone HCl [From Percodan] Allergy Rash/Hives Verified 12/21/18 22:43 oxycodone terephthalate Allergy Rash/Hives Verified 12/21/18 22:43 [From Percodan] propoxyphene HCl Allergy Rash/Hives Verified 12/21/18 22:43 [From Darvon] salmeterol xinafoate Allergy Rash/Hives Verified 12/21/18 22:43 [From Advair Diskus] tramadol HCl [From Ultram] Allergy Rash/Hives Verified 12/21/18 22:43 Review of Systems ROS Statement: Those systems with pertinent positive or pertinent negative responses have been documented in the HPI. ROS Other: All systems not noted in ROS Statement are negative. Past Medical History Past Medical History: Asthma, COPD, CVA/TIA, GERD/Reflux, Neurologic Disorder, Osteoarthritis (OA), Respiratory Disorder Additional Past Medical History / Comment(s): MIGRAINES History of Any Multi-Drug Resistant Organisms: None Reported Past Surgical History: Bariatric Surgery, Cholecystectomy, Hysterectomy, Tonsillectomy Additional Past Surgical History / Comment(s): LAP BAND Past Anesthesia/Blood Transfusion Reactions: No Reported Reaction Past Psychological History: Anxiety, Depression Smoking Status: Current every day smoker Past Alcohol Use History: None Reported Past Drug Use History: None Reported - Past Family History Mother Family Medical History: Cancer Father Family Medical History: Cancer General Exam - General Exam Comments Initial Comments: Physical Exam GENERAL: Chronically ill-appearing female appears much older than stated age HENT: Normocephalic, Atraumatic, obvious signs of head injury Edentulous EYES: PERRL, EOMI PULMONARY: Unlabored respirations. No audible rales rhonchi or wheezing was noted. CARDIOVASCULAR: There is a regular rate and rhythm without any murmurs gallops or rubs. ABDOMEN: Soft and nontender with normal bowel sounds. SKIN: Skin is clear with no lesions or rashes and otherwise unremarkable. : Deferred NEUROLOGIC: Patient is alert and oriented x3. Moving all extremities spontaneously MUSCULOSKELETAL: Normal extremities with adequate strength and full range of motion. No lower extremity swelling or edema. No calf tenderness. PSYCHIATRIC: Normal psychiatric evaluation. Limitations: no limitations Limitations: no limitations Course Vital Signs 12/21/18 12/21/18 12/22/18 22:19 23:33 01:12 Temperature 97.9 F Pulse Rate 78 71 72 Respiratory 18 18 18 Rate Blood Pressure 108/60 105/65 97/62 Blood Pressure [Left Arm] O2 Sat by Pulse 97 95 96 Oximetry 12/22/18 01:43 Temperature Pulse Rate Respiratory Rate Blood Pressure Blood Pressure 93/65 [Left Arm] O2 Sat by Pulse Oximetry EKG Findings - EKG Comments: EKG Findings:: EKG obtained at 2230, rate is 73 there is a P-wave before each QRS, rhythm is sinus, there is a normal axis, there are normal intervals, NC 138, QRS 92, QTc 438 there are no acute ST elevations or depressions there is no evidence of acute ischemia or infarction. Medical Decision Making - Medical Decision Making She was seen and evaluated history was obtained from the patient and son at bedside Patient presents after an apparent orthostatic syncopal episode in which she stood from the couch became lightheaded fell forward struck her forehead on the ground sign labs and imaging ordered EKG was nonischemic next I labs are unremarkable neck sign Patient received 1 L IV fluid orthostatic vital signs were reviewed Laying flat blood pressure 93/65 heart rate 63 Sitting blood pressure 107/67 heart rate 78 Standing blood pressure 97/72 heart rate 97 Patient's blood pressure did not have a significant change in position patient also reports no symptoms at that time. Results were discussed with the patient at this time is comfortable with the plan for discharge home She has established follow-up visit with her primary care physician for Tuesday of next week - Lab Data Result diagrams: 12/21/18 22:33 12/21/18 22:33 Lab Results 12/21/18 12/21/18 12/21/18 Range/Units 22:33 22:33 22:33 WBC 8.4 (3.8-10.6) k/uL RBC 4.91 (3.80-5.40) m/uL Hgb 14.0 (11.4-16.0) gm/dL Hct 44.0 (34.0-46.0) % MCV 89.5 (80.0-100.0) fL MCH 28.4 (25.0-35.0) pg MCHC 31.7 (31.0-37.0) g/dL RDW 14.3 (11.5-15.5) % Plt Count 257 (150-450) k/uL Neutrophils % 40 % Lymphocytes % 47 % Monocytes % 7 % Eosinophils % 4 % Basophils % 1 % Neutrophils # 3.3 (1.3-7.7) k/uL Lymphocytes # 4.0 (1.0-4.8) k/uL Monocytes # 0.6 (0-1.0) k/uL Eosinophils # 0.4 (0-0.7) k/uL Basophils # 0.0 (0-0.2) k/uL Hypochromasia Slight PT 9.9 (9.0-12.0) sec INR 0.9 (<1.2) APTT 25.0 (22.0-30.0) sec Sodium 135 L (137-145) mmol/L Potassium 4.2 (3.5-5.1) mmol/L Chloride 107 (98-107) mmol/L Carbon Dioxide 22 (22-30) mmol/L Anion Gap 6 mmol/L BUN 6 L (7-17) mg/dL Creatinine 0.47 L (0.52-1.04) mg/dL Est GFR (CKD-EPI)AfAm >90 (>60 ml/min/1.73 sqM) Est GFR (CKD-EPI)NonAf >90 (>60 ml/min/1.73 sqM) Glucose 94 (74-99) mg/dL Calcium 9.6 (8.4-10.2) mg/dL Magnesium 1.8 (1.6-2.3) mg/dL Total Bilirubin 0.5 (0.2-1.3) mg/dL AST 17 (14-36) U/L ALT 20 (9-52) U/L Alkaline Phosphatase 73 (38-126) U/L Troponin I (0.000-0.034) ng/mL Total Protein 6.6 (6.3-8.2) g/dL Albumin 4.0 (3.5-5.0) g/dL Urine Color Urine Appearance (Clear) Urine pH (5.0-8.0) Ur Specific [place] (1.001-1.035) Urine Protein (Negative) Urine Glucose (UA) (Negative) Urine Ketones (Negative) Urine Blood (Negative) Urine Nitrite (Negative) Urine Bilirubin (Negative) Urine Urobilinogen (<2.0) mg/dL Ur Leukocyte Esterase (Negative) 12/21/18 12/21/18 Range/Units 22:33 22:51 WBC (3.8-10.6) k/uL RBC (3.80-5.40) m/uL Hgb (11.4-16.0) gm/dL Hct (34.0-46.0) % MCV (80.0-100.0) fL MCH (25.0-35.0) pg MCHC (31.0-37.0) g/dL RDW (11.5-15.5) % Plt Count (150-450) k/uL Neutrophils % % Lymphocytes % % Monocytes % % Eosinophils % % Basophils % % Neutrophils # (1.3-7.7) k/uL Lymphocytes # (1.0-4.8) k/uL Monocytes # (0-1.0) k/uL Eosinophils # (0-0.7) k/uL Basophils # (0-0.2) k/uL Hypochromasia PT (9.0-12.0) sec INR (<1.2) APTT (22.0-30.0) sec Sodium (137-145) mmol/L Potassium (3.5-5.1) mmol/L Chloride (98-107) mmol/L Carbon Dioxide (22-30) mmol/L Anion Gap mmol/L BUN (7-17) mg/dL Creatinine (0.52-1.04) mg/dL Est GFR (CKD-EPI)AfAm (>60 ml/min/1.73 sqM) Est GFR (CKD-EPI)NonAf (>60 ml/min/1.73 sqM) Glucose (74-99) mg/dL Calcium (8.4-10.2) mg/dL Magnesium (1.6-2.3) mg/dL Total Bilirubin (0.2-1.3) mg/dL AST (14-36) U/L ALT (9-52) U/L Alkaline Phosphatase (38-126) U/L Troponin I <0.012 (0.000-0.034) ng/mL Total Protein (6.3-8.2) g/dL Albumin (3.5-5.0) g/dL Urine Color Light Yellow Urine Appearance Clear (Clear) Urine pH 7.0 (5.0-8.0) Ur Specific [place] 1.000 L (1.001-1.035) Urine Protein Negative (Negative) Urine Glucose (UA) Negative (Negative) Urine Ketones Negative (Negative) Urine Blood Negative (Negative) Urine Nitrite Negative (Negative) Urine Bilirubin Negative (Negative) Urine Urobilinogen <2.0 (<2.0) mg/dL Ur Leukocyte Esterase Negative (Negative) Disposition Clinical Impression: Fainting spell Disposition: HOME SELF-CARE Condition: Stable Instructions (If sedation given, give patient instructions): Syncope (DC) Is patient prescribed a controlled substance at d/c from ED?: No Referrals: Ky De La O MD [Primary Care Provider] - 1-2 days
[2018-12-22 01:12] VITALS: PULSE 72
[2018-12-22 02:01] VITALS: BP 97/72
--- NOTE | 2018-12-22 08:49 | CT ---
EXAMINATION TYPE: CT brain cspine wo con DATE OF EXAM: 12/22/2018 COMPARISON: CT brain and cervical spine November 21, 2018 HISTORY: Fall after syncopal episode with headache and neck pain. CT DLP: 1157.5 mGycm. Automated Exposure Control for Dose Reduction was Utilized. TECHNIQUE: CT scan of the head and cervical spine are performed without contrast. FINDINGS: There is no acute intracranial hemorrhage, mass effect, or midline shift identified. The ventricles and sulci are within normal limits in size for patient's age. Buckley-white matter different iation is preserved. The globes are intact and the visualized sinuses are clear. The calvarium is int act. Cervical spine is visualized in its entirety from C1 through upper thoracic levels and demonstrates s table alignment without evidence of acute fracture or dislocation. Prevertebral soft tissue appears within normal limits. The C1-C2 articulation is within normal limits on the coronal images. There i s persistent anterior fusion plate C5-C7 levels with inferior screws extending into the C7-T1 disc sp vince. Some ossific fusion at this level is redemonstrated. There is moderate disc space narrowing with moderate to severe anterior spurring C7-T1 level redemonstrated. There is mild to moderate anterior spurring T1-T2 level. There is severe anterior spurring C4-C5 level redemonstrated. Posterior spurrin g C3-C4 level effaces anterior thecal sac. Posterior spurring or ossific projection at C6 level sagit alice image 51 effaces anterior thecal sac similar to prior. Review of axial images shows right-sided u ncovertebral facet degenerative changes C3-C4 and left-sided C4-C5 levels causing mild neural foramin al narrowing. Thyroid gland is normal in size. Lung apices show respiratory motion artifact degradati on without pneumothorax. IMPRESSION: 1. There is no acute fracture or dislocation evident in the cervical spine. 2. No acute intracranial hemorrhage or midline shift is seen. No significant change from recent prior CT. Preliminary report for this study was provided by [facility] .
--- NOTE | 2018-12-22 08:58 | XR ---
EXAMINATION TYPE: XR chest 2V DATE OF EXAM: 12/22/2018 COMPARISON: 11/21/2018 TECHNIQUE: PA and lateral views submitted. HISTORY: Pain FINDINGS: Preliminary report provided by stat rad The lungs are clear and there is no pneumothorax, pleural effusion, or focal pneumonia. Postsurgica l change overlying cervical spine. No overt failure or pneumothorax. Hyperinflation suggests COPD. De generative change of the spine. Previous lap band surgery noted. IMPRESSION: 1. Findings suggestive of COPD.
== END 2018-12-22 02:10 | disposition home or self-care (01) ==
LOC: EC 22:04
DX: S09.90XA Unspecified injury of head, initial encounter (principal); J44.9 Chronic obstructive pulmonary disease, unspecified; K21.9 Gastro-esophageal reflux disease without esophagitis; G43.909 Migraine, unspecified, not intractable, without status migrainosus; F41.9 Anxiety disorder, unspecified; F32.9 Major depressive disorder, single episode, unspecified; F17.200 Nicotine dependence, unspecified, uncomplicated; Z86.73 Personal history of transient ischemic attack (TIA), and cerebral infarction without residual deficits; Z79.899 Other long term (current) drug therapy; Z88.8 Allergy status to other drugs, medicaments and biological substances; Z88.5 Allergy status to narcotic agent; W19.XXXA Unspecified fall, initial encounter; Y92.009 Unspecified place in unspecified non-institutional (private) residence as the place of occurrence of the external cause
CPT/HCPCS: 36415; 70450; 71046; 72125; 80053; 81003; 83735; 84484; 85025; 85610; 85730; 93005; 96360; 99284

== ENCOUNTER → 2019-01-04 | Outpatient (CLI) | payer MEDICARE, OTHER ==
--- NOTE | 2019-01-04 12:30 | US ---
EXAMINATION TYPE: US carotid duplex BILAT DATE OF EXAM: 01/04/2019 COMPARISON: NONE CLINICAL HISTORY: R55 syncope. Syncope, TIA EXAM MEASUREMENTS: RIGHT: Peak Systolic Velocity (PSV) cm/sec ----- Right CCA: 71.1 ----- Right ICA: 58.2 ----- Right ECA: 51.5 ICA/CCA ratio: 0.8 RIGHT: End Diastole cm/sec ----- Right CCA: 32.6 ----- Right ICA: 37.1 ----- Right ECA: 8.3 LEFT: Peak Systolic Velocity (PSV) cm/sec ----- Left CCA: 65.8 ----- Left ICA: 100.3 ----- Left ECA: 55.1 ICA/CCA ratio: 1.5 LEFT: End Diastole cm/sec ----- Left CCA: 31.9 ----- Left ICA: 56.3 ----- Left ECA: 13.0 VERTEBRALS (direction of flow): Right Vertebral: Antegrade Left Vertebral: Antegrade Rhythm: Normal Bilateral intimal thickening, plaque left bulb, no elevated velocities, no significant stenosis. Grayscale, color Doppler, spectral Doppler imaging performed of the carotid arteries. Waveform analys is does not show significant stenosis in the internal carotid arteries. IMPRESSION: No hemodynamic significant stenosis of the proximal internal carotid arteries bilaterall y by Doppler criteria, an indirect measurement of carotid stenosis
--- NOTE | 2019-01-05 12:00 | P.STRESS ---
- Stress Test Note Stress Test Results/Findings: Exam Performed: stress test Exam Date: 01/04/19 Reason for Exam: SYNCOPE Height: 5 ft 2 in Weight: 62.596 kg Protocol: OMAR Stage: 2 Duration of Exercise: 3:35 Resting Heart Rate: 73 Resting Blood Pressure: 109/73 Maximum Achieved Heart Rate: 136 Maximum Achieved Blood Pressure: 114/83 85% PMHR: 133 100% PMHR: 157 METS: 5.0 Technologist Comment: Stress Test Results/Findings: This is a 62-year-old female being evaluated for symptoms of syncope. Patient has history of CVA, hypercholesterolemia, palpitation and smoking. Stress data: Baseline EKG showed sinus rhythm with normal TN interval and QRS duration. Blood pressure at rest is on 9/73 with pulse rate of 73. Patient walked on the Omar protocol for 3 minutes and 35 seconds achieving a maximal heart rate of 136 with a blood pressure 114/83. EKGs taken during and after exercise did not reveal reveal any changes compared to the baseline. Patient did not express any chest pain. The test was stopped because patient has achieved 86% of the predicted heart rate. Final impression: #1. Negative stress test #2. Limited excess capacity #3. No arrhythmias detected #4. Patient did not express any symptoms.
--- NOTE | 2019-01-08 17:21 | EST ---
Stress Test Results/Findings: Exam Performed: stress test Exam Date: 01/04/19 Reason for Exam: SYNCOPE Height: 5 ft 2 in Weight: 62.596 kg Protocol: OMAR Stage: 2 Duration of Exercise: 3:35 Resting Heart Rate: 73 Resting Blood Pressure: 109/73 Maximum Achieved Heart Rate: 136 Maximum Achieved Blood Pressure: 114/83 85% PMHR: 133 100% PMHR: 157 METS: 5.0 Technologist Comment: Stress Test Results/Findings: This is a 62-year-old female being evaluated for symptoms of syncope. Patient has history of CVA, hypercholesterolemia, palpitation and smoking. Stress data: Baseline EKG showed sinus rhythm with normal MD interval and QRS duration. Blood pressure at rest is on 9/73 with pulse rate of 73. Patient walked on the Omar protocol for 3 minutes and 35 seconds achieving a maximal heart rate of 136 with a blood pressure 114/83. EKGs taken during and after exercise did not reveal reveal any changes compared to the baseline. Patient did not express any chest pain. The test was stopped because patient has achieved 86% of the predicted heart rate. Final impression: #1. Negative stress test #2. Limited excess capacity #3. No arrhythmias detected #4. Patient did not express any symptoms. MTDD
--- NOTE | 2019-01-13 09:40 | HM ---
HOLTER MONITOR REPORT A 24-hour Holter report. Patient in her diary indicated mostly activities. Apparently she did not have any significant symptoms. Predominant rhythm is sinus with a heart rate ranging from 54 to 156 beats per minute with average heart rate of 87 beats per minute. There were rare isolated PACs and PVCs noted. There was no evidence of any significant bradyarrhythmia. The patient did not report any symptoms in the diary. There is also evidence of some sinus arrhythmia. FINAL IMPRESSION: Predominant rhythm is sinus. There is evidence of sinus tachycardia that occurred at 5:45 in the morning, but no specific activities were reported at that time. There were rare isolated PACs and PVCs. Average heart rate is 87 beats per minute. No ventricular or supraventricular ectopy of significance was noted and there was no bradyarrhythmia. MMODL / IJN: [id number] /
== END ==
LOC: RADUSMAIN 08:24
PROVIDERS: ATTEND Family Medicine
DX: R55 Syncope and collapse (principal)
CPT/HCPCS: 93017; 93225; 93226; 93880

== ENCOUNTER → 2019-01-11 | Day surgery (SDC) | payer MEDICARE, OTHER ==
[2019-01-08 11:38] VITALS: BMI 25.2
[~2019-01-11] MED LIST: SODIUM CHLORIDE 0.9% 500 ML 500 ML IV ONE
[2019-01-11 11:28] VITALS: BP 110/58; PULSE 78; RESP 16; TEMP 98
--- NOTE | 2019-01-11 18:59 | P.PCN ---
Preoperative Diagnosis: Diagnosis Recurrent dizzy spells Twelve-lead ECG shows sinus rhythm normal heart rates normal TX narrow QRS normal ST segments normal QT interval no delta waves Tilt table test per protocol Baseline blood pressure 107/61 mmHg Baseline heart rate 72 beats a minute patient was tilted upright at an angle of 70 per protocol in the heart rates immediately increased 200 beats a minute and remained between 100 and 120 beats a minute. 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
== END | disposition home or self-care (01) ==
LOC: CATHEP 10:52
PROVIDERS: ATTEND Internal Medicine Clinical Cardiac Electrophysiology
DX: R42 Dizziness and giddiness (principal)
CPT/HCPCS: 93660

== ENCOUNTER → 2019-06-28 | Outpatient (CLI) | payer MEDICARE, OTHER ==
--- NOTE | 2019-06-28 09:20 | CTL ---
EXAMINATION TYPE: CT Low Dose Lung DATE OF EXAM ORDERED: 06/28/2019 HISTORY: 64-year-old female Personal history of tobacco use. Lung cancer screening CT DLP: 63.[address] CTDI: 1.9 mGy Automated exposure control for dose reduction was used. SCREENING VISIT: Baseline COMPARISON: 07/21/2015 TECHNIQUE: Low dose computed tomography scan was performed through the chest at 1 mm thick sections a nd reconstructed images in the coronal and sagittal plane. Additional coronal MIP reconstructions per formed. CT DIAGNOSTIC QUALITY: Satisfactory FINDINGS: Heart normal size with trace anterior pericardial fluid measuring 4 mm thick. Mild scattered coronary vessel calcifications are present. Aorta normal caliber with mild atherosclerotic arch calcifications and conventional arterial branchin g anatomy. No thoracic lymphadenopathy by CT size criteria. Mild diffuse bronchial wall thickening. Prominent dependent atelectasis posterior right base and stra ndy left basilar atelectasis. 4 mm peripheral left basilar pulmonary nodule, axial image 246. Not clearly seen previously. 4 mm peripheral left lower lobe pulmonary nodule, axial image 216 is stable. 4 mm fissural pulmonary nodule left midlung, axial image 131 subtly seen previously. 4 mm left upper lobe pulmonary nodule, axial and 123 subtly seen previously. Axial image 123. 4 mm left upper lobe pulmonary nodule, axial image 95 subtly seen previously. Some endobronchial opacification involving segmental basilar right lower lobe bronchus, axial image 1 97. No consolidation or pleural effusion. A less than device is demonstrated. Cholecystectomy clips. Moderate degenerative disc disease lower thoracic spine. IMPRESSION: 1. LungsRADS 3, probably benign - Focal endobronchial opacification basilar right lower lobe segmenta l bronchus (mucoid debris versus endobronchial lesion) and a new 4 mm peripheral left basilar pulmona ry nodule. RECOMMENDATION: 1. Six-month follow-up low-dose CT chest. 2. Smoking cessation. FOLLOW UP CT CHEST RECOMMENDATION: [address] LUNG RAD: Lung-Rad 3 Probably Benign
== END | disposition home or self-care (01) ==
LOC: RADCTMAIN 08:14
PROVIDERS: ATTEND Family Medicine
DX: Z12.2 Encounter for screening for malignant neoplasm of respiratory organs (principal); R91.1 Solitary pulmonary nodule; Z87.891 Personal history of nicotine dependence

== ENCOUNTER 2019-07-04 10:24 | Day surgery (SDC) | payer MEDICARE, OTHER ==
[2019-07-02 15:34] VITALS: BMI 24.4
[~2019-07-04 10:24] MED LIST changes: +LACTATED RINGERS 1,000 ML IV SCH; +LIDOCAINE 1% 20 ML VIAL (10MG/ML) FOR IV START INTRADERMA PRN; -SODIUM CHLORIDE 0.9% 500 ML 500 ML IV ONE
[2019-07-04 10:54] VITALS: TEMP 96.4
--- NOTE | 2019-07-04 11:02 | P.GSHP ---
History of Present Illness H&P Date: 07/04/19 Chief Complaint: Reflux, intractable vomiting Patient presents today for upper endoscopy. Patient is followed in the bariatric clinic at [facility]. Patient has history of previous lap band placement. Her band has been emptied for the last several months. Patient has had difficulty maintaining her weight despite emptying the band. Lately she has noticed some increased reflux and vomiting. Here today for upper endoscopy. Past Medical History Past Medical History: Asthma, COPD, CVA/TIA, GERD/Reflux, Neurologic Disorder, Osteoarthritis (OA), Respiratory Disorder Additional Past Medical History / Comment(s): MIGRAINES, stroke & then TIA in 2018-intermittent dizziness, balance issues, can't eat much, gets full quickly, states no fluid in lap band History of Any Multi-Drug Resistant Organisms: None Reported Past Surgical History: Bariatric Surgery, Cholecystectomy, Hysterectomy, Tonsillectomy Additional Past Surgical History / Comment(s): LAP BAND Past Anesthesia/Blood Transfusion Reactions: No Reported Reaction Smoking Status: Current every day smoker - Past Family History Mother Family Medical History: Cancer Father Family Medical History: Cancer Medications and Allergies Home Medications Medication Instructions Recorded Confirmed Type Albuterol Nebulized [Ventolin 2.5 mg INHALATION RT-BID PRN 01/28/14 07/02/19 History Nebulized] Albuterol Sulfate [Proair Hfa] 2 puff INHALATION RT-QID PRN 01/28/14 07/02/19 History Omeprazole [PriLOSEC] 20 mg PO DAILY 01/28/14 07/02/19 History Oxybutynin Chloride [Ditropan XL] 15 mg PO BID 01/28/14 07/02/19 History Topiramate [Topamax] 50 mg PO BID 01/28/14 07/02/19 History Atorvastatin [Lipitor] 40 mg PO HS 11/08/18 07/02/19 History Vortioxetine Hydrobromide 20 mg PO DAILY 11/08/18 07/02/19 History [Trintellix] risperiDONE 3 mg PO HS 11/08/18 07/02/19 History traZODone HCL 100 mg PO HS 11/08/18 07/02/19 History HYDROcodone/APAP 7.5-325MG [[place] 1 tab PO BID PRN 11/21/18 07/02/19 History 7.5-325] Multivitamin,Therapeutic [Thera] 1 tab PO DAILY 12/21/18 07/02/19 History Allergies Allergy/AdvReac Type Severity Reaction Status Date / Time fluticasone propionate Allergy Rash/Hives Verified 07/04/19 10:54 [From Advair Diskus] oxycodone HCl [From Percodan] Allergy Rash/Hives Verified 07/04/19 10:54 oxycodone terephthalate Allergy Rash/Hives Verified 07/04/19 10:54 [From Percodan] propoxyphene HCl Allergy Rash/Hives Verified 07/04/19 10:54 [From Darvon] salmeterol xinafoate Allergy Rash/Hives Verified 07/04/19 10:54 [From Advair Diskus] tramadol HCl [From Ultram] Allergy Rash/Hives Verified 07/04/19 10:54 Surgical - Exam Vital Signs Temp Pulse Resp BP Pulse Ox 96.4 F L 102 H 20 119/69 95 07/04/19 10:52 07/04/19 10:52 07/04/19 10:52 07/04/19 10:52 07/04/19 10:52 Physical exam: General: Well-developed, somewhat malnourished appearing HEENT: Normocephalic, sclerae nonicteric Abdomen: Nontender, nondistended Extremities: No edema Neuro: Alert and oriented Assessment and Plan (1) GERD (gastroesophageal reflux disease) Narrative/Plan: Will proceed with upper endoscopy at this time. Current Visit: Yes Status: Acute Code(s): K21.9 - GASTRO-ESOPHAGEAL REFLUX DISEASE WITHOUT ESOPHAGITIS SNOMED Code(s): 302560730
[2019-07-04] MEDS ORDERED: PROPOFOL 10 MG/ML 20 ML VIAL IV ONE (11:17)
[2019-07-04] MEDS ORDERED: LIDOCAINE 1% INJ 10MG/ML (20 ML MDV) ONE (11:17)
[2019-07-04 11:43] VITALS: BP 95/65; PULSE 100; RESP 17
--- NOTE | 2019-07-04 12:11 | P.PCN ---
Date of Procedure: 07/04/19 Procedure(s) Performed: Preoperative Dx: Vomiting, GERD Postoperative Dx: Gastritis Procedure: EGD with Bx Anesthesia: Sedation Endoscopist: Dr. Nix Specimens: Antrum Endoscopic Procedure: The patient was on the endoscopy table in the left decubitus position. The Olympus gastroscope was inserted into the oropharynx and passed under direct visualization to the region of the third portion of the duodenum. From that point the scope was slowly withdrawn inspecting all surfaces carefully. There were no neoplastic inflammatory or polypoid lesions throughout the duodenum. The pylorus was widely patent. The stomach was carefully inspected. There was gastritis present in the prepyloric region. Bio psies were taken. Retroflexion revealed a band plication. There was no evidence of prolapse or erosion.. The esophagus was then carefully examined. There were no neoplastic inflammatory or polypoid lesions throughout the visualized esophagus. The patient was then taken to the recovery room in stable condition per anesthesia guidelines. Recommendations: Resume diet. Await biopsy results. Consider oncology evaluation given persistent weight loss.
== END 2019-07-04 12:09 | disposition home or self-care (01) ==
LOC: ORWHC2ENDO 10:24
PROVIDERS: ATTEND Surgery
DX: K29.50 Unspecified chronic gastritis without bleeding (principal); K21.9 Gastro-esophageal reflux disease without esophagitis; Z98.84 Bariatric surgery status; R68.81 Early satiety; J44.9 Chronic obstructive pulmonary disease, unspecified; R63.4 Abnormal weight loss; Z68.24 Body mass index [BMI] 24.0-24.9, adult; M19.90 Unspecified osteoarthritis, unspecified site; G43.909 Migraine, unspecified, not intractable, without status migrainosus; I69.398 Other sequelae of cerebral infarction; Z90.49 Acquired absence of other specified parts of digestive tract; Z90.710 Acquired absence of both cervix and uterus; Z97.2 Presence of dental prosthetic device (complete) (partial); F17.200 Nicotine dependence, unspecified, uncomplicated; Z79.899 Other long term (current) drug therapy; Z88.5 Allergy status to narcotic agent; Z88.8 Allergy status to other drugs, medicaments and biological substances; E78.49 Other hyperlipidemia
CPT/HCPCS: 88305; 43239; J2001; J2704

== ENCOUNTER → 2019-08-14 | Outpatient (CLI) | payer MEDICARE, OTHER ==
[2019-08-14 13:25] VITALS: BP 116/76; PULSE 74; TEMP 98.3; BMI 24.3
--- NOTE | 2019-08-14 13:50 | P.BASOAP ---
Subjective Progress Note Date: 08/14/19 Principal diagnosis: Morbid obesity Patient follows up with us here now from [facility]. Patient was having ongoing weight loss and ongoing anorexia. She has gained 3 pounds since her last visit. She has undergone a recent EGD and also bronchoscopy. No signs of malignancy seen. Patient still having some anorexia. Denies nausea or vomiting. No GERD symptoms currently. Band is empty. Objective - Vital Signs Vital signs: Vital Signs Temp 98.3 F 08/14/19 13:20 Pulse 74 08/14/19 13:20 Resp BP 116/76 08/14/19 13:20 Pulse Ox Intake & Output 08/13/19 08/14/19 08/14/19 18:59 06:59 18:59 Weight 60.328 kg - Exam Abdomen: Soft, nontender, nondistended Assessment/Plan (1) Morbid obesity Narrative/Plan: Patient seems to be doing better. She has gained some weight recently. If weight loss and anorexia persist patient will discuss oncology evaluation with her primary care physician. Will plan follow-up visit 2 months. Plan: Date: 08/14/19 Initial Weight: 119.748 kg Initial BMI: 48.2 Current Weight: 60.328 kg Current BMI: 24.3 Type of Surgery: Total Volume in Band: Previous Volume: 0 Volume Removed: Volume Added: Band Size:
== END | disposition home or self-care (01) ==
LOC: BARWHC3 12:30
PROVIDERS: ATTEND Surgery
DX: E66.01 Morbid (severe) obesity due to excess calories (principal); Z68.24 Body mass index [BMI] 24.0-24.9, adult
CPT/HCPCS: 99211

== ENCOUNTER → 2019-10-09 | Outpatient (CLI) | payer MEDICARE, OTHER ==
[2019-10-09 13:12] VITALS: BP 103/68; PULSE 76; TEMP 97.7; BMI 23.6
--- NOTE | 2019-10-09 14:18 | P.BASOAP ---
Subjective Progress Note Date: 10/09/19 Principal diagnosis: Morbid obesity Patient states she is doing better. Eating more. Unfortunately she did lose 4 pounds. No additional symptoms. Denies nausea vomiting or reflux. No abdominal pain. She is willing to see the dietitian next visit. She states she does not have time today. Objective - Vital Signs Vital signs: Vital Signs Temp 97.7 F 10/09/19 13:09 Pulse 76 10/09/19 13:09 Resp BP 103/68 10/09/19 13:09 Pulse Ox Intake & Output 10/08/19 10/09/19 10/09/19 18:59 06:59 18:59 Weight 58.513 kg - Exam Abdomen: Soft, nontender, nondistended Assessment/Plan (1) Morbid obesity Narrative/Plan: Patient with history of morbid obesity and progressive weight loss. Band remains empty. Continue encouraging oral intake. Continue encouraging calorie count. We'll see dietitian next visit. Follow-up 2 months. Plan: Date: 10/09/19 Initial Weight: 119.748 kg Initial BMI: 48.2 Current Weight: 58.513 kg Current BMI: 23.6 Type of Surgery: Total Volume in Band: Previous Volume: Volume Removed: Volume Added: Band Size:
== END | disposition home or self-care (01) ==
LOC: BARWHC3 12:30
PROVIDERS: ATTEND Surgery
DX: E66.01 Morbid (severe) obesity due to excess calories (principal); Z68.23 Body mass index [BMI] 23.0-23.9, adult
CPT/HCPCS: 99211

== ENCOUNTER → 2019-12-04 | Outpatient (CLI) | payer MEDICARE, OTHER ==
[2019-12-04 13:27] VITALS: BP 99/67; PULSE 103; TEMP 97.5; BMI 24.1
--- NOTE | 2019-12-04 13:46 | P.BASOAP ---
Subjective Progress Note Date: 12/04/19 Principal diagnosis: Morbid obesity Patient doing well today. She has gained 3 pounds. She says she eats about 40- 60 g of protein per day. No GERD or nausea vomiting. Patient is not interested in seeing the dietitian. Denies pain. Objective - Vital Signs Vital signs: Vital Signs Temp 97.5 F L 12/04/19 13:25 Pulse 103 H 12/04/19 13:25 Resp BP 99/67 12/04/19 13:25 Pulse Ox Intake & Output 12/03/19 12/04/19 12/04/19 18:59 06:59 18:59 Weight 59.874 kg - Exam Abdomen: Soft, nontender, nondistended Assessment/Plan (1) Morbid obesity Narrative/Plan: Patient history of morbid obesity. Doing better at this time. 3 pound weight gain. Band remains empty. She is not interested in dietitian evaluation unless her weight loss resumes. Plan follow up 2 months. Plan: Date: 12/04/19 Initial Weight: 119.748 kg Initial BMI: 48.2 Current Weight: 59.874 kg Current BMI: 24.1 Type of Surgery: Total Volume in Band: Previous Volume: Volume Removed: Volume Added: Band Size:
== END | disposition home or self-care (01) ==
LOC: BARWHC3 13:03
PROVIDERS: ATTEND Surgery
DX: E66.01 Morbid (severe) obesity due to excess calories (principal); Z68.24 Body mass index [BMI] 24.0-24.9, adult
CPT/HCPCS: 99211

== ENCOUNTER 2019-12-05 18:45 | Inpatient (IN) | payer MEDICARE, OTHER ==
[2019-12-05] MEDS ORDERED: ONDANSETRON 4 MG/2 ML VIAL IVP STA (20:33)
[2019-12-05] MEDS ORDERED: SODIUM CHLORIDE 0.9% 1,000 ML IV STA (20:33)
[2019-12-05] MEDS ORDERED: MORPHINE SULFATE 4 MG/ML SYRINGE IV STA (20:33)
[2019-12-05 21:14] LABS: Basophils % (A) 0 %; Eosinophils # (A) 0.3 k/uL (0-0.7); Eosinophils % (A) 3 %; HCT 43.9 % (34.0-46.0); HGB 13.8 gm/dL (11.4-16.0); Lymphocytes # (A) 3.6 k/uL (1.0-4.8); Lymphocytes % (A) 36 %; MCH 29.5 pg (25.0-35.0); MCHC 31.4 g/dL (31.0-37.0); MCV 93.9 fL (80.0-100.0); Mean Platelet Volume 7.8; Monocytes # (A) 0.6 k/uL (0-1.0); Monocytes % (A) 6 %; Neutrophils # (A) 5.3 k/uL (1.3-7.7); Neutrophils % (A) 53 %; Platelet Count 250 k/uL (150-450); RBC 4.67 m/uL (3.80-5.40); RDW 13.9 % (11.5-15.5)
[2019-12-05 21:22] LABS: Appearance,Urine Cloudy (Clear); Bacteria,Urine Rare /hpf; Bilirubin,Urine Negative (Negative); Blood,Urine Large (Negative); Color,Urine Yellow; Glucose,Urine (UA) Negative (Negative); Ketones,Urine 1+ (Negative); Leukocyte Esterase,Urine Large (Negative); Mucus,Urine Rare /hpf; Nitrite,Urine Negative (Negative); Protein,Urine 1+ (Negative); RBC,Urine >182 /hpf (0-5); Specific Gravity,Urine 1.012 (1.001-1.035); Urobilinogen,Urine <2.0 mg/dL (<2.0); WBC,Urine 107 /hpf (0-5)
[2019-12-05 21:23] LABS: Partial Thromboplastin Time 25.5 sec (22.0-30.0); Prothrombin Time 10.1 sec (9.0-12.0)
[2019-12-05 21:32] LABS: ALT 16 U/L (4-34); AST 24 U/L (14-36); African American GFR (CKD) >90 (>60 ml/min/1.73 sqM); Albumin 4.4 g/dL (3.5-5.0); Alkaline Phosphatase 82 U/L (38-126); Anion Gap 8 mmol/L; Blood Urea Nitrogen 9 mg/dL (7-17); Calcium 9.7 mg/dL (8.4-10.2); Carbon Dioxide 22 mmol/L (22-30); Chloride 104 mmol/L (98-107); Glucose 115 mg/dL (74-99); Non-African American GFR(CKD) >90 (>60 ml/min/1.73 sqM); Potassium 3.8 mmol/L (3.5-5.1); Sodium 134 mmol/L (137-145); Total Bilirubin 0.4 mg/dL (0.2-1.3)
[2019-12-05] MEDS ORDERED: cefTRIAXone IN SWFI 1,000 MG/10 ML SYRINGE IVP STA (22:00)
--- NOTE | 2019-12-05 22:32 | CT ---
EXAMINATION TYPE: CT abdomen pelvis w con DATE OF EXAM: 12/05/2019 COMPARISON: 11/01/2018 HISTORY: abd pain CT DLP: 725 mGycm Automated exposure control for dose reduction was used. CONTRAST: Performed with IV Contrast, patient injected with 80 mL of Isovue 300. There is a gastric sleeve noted at the gastric fundus. There is minimal subsegmental atelectasis at t he lung bases. There is no pleural effusion. Heart size is normal. Liver shows no focal defect. There are clips from cholecystectomy. Spleen appears normal. There is no pancreatic mass. There is no adrenal mass. There is 8 mm calculus at the right renal pelvis. Kidneys show satisfactory contrast opacification. There is no hydronephrosis. There is 1 cm lipoma in the lateral right kidney . Unchanged. There is mild right side hydronephrosis and hydroureter. No calculus seen. There is fair ly symmetric renal function on the delayed images. There is no retroperitoneal adenopathy. Abdominal aorta is atheromatous. Bladder distends smoothly. There is no inguinal hernia. There is no free fluid in the pelvis. There is hysterectomy. Appendix is not seen. There is no sign of thickened appendix. There is no mesenteric edema. There is no ascites or free air. There is no sign of a bowel obstructio n.. Lumbar vertebra show fairly normal alignment. There is mild disc space narrowing at L1-L2 3 with spurring. There is no lumbar compression fracture. Bony pelvis appears intact. IMPRESSION: Compared to last exam there is new right side hydronephrosis and hydroureter. Renal function is fairl y normal. No obstructing calculus seen. There is a calculus in the right renal pelvis. Calculus is ne w compared to old exam. Appearance could relate to nonopaque stone with partial obstruction or recent ly passed stone.
[2019-12-05] MEDS ORDERED: ONDANSETRON 4 MG/2 ML VIAL IVP PRN (23:32)
[2019-12-05] MEDS ORDERED: NALOXONE 0.4 MG/ML 1 ML VIAL IV PRN (23:32)
--- NOTE | 2019-12-05 23:32 | ED ---
Abdominal Pain HPI - General Chief Complaint: Abdominal Pain Stated Complaint: rt sided abd pain Time Seen by Provider: 12/05/19 19:30 Source: patient Mode of arrival: wheelchair Limitations: no limitations - History of Present Illness Initial Comments: The patient is a 64-year-old female who presents to the ER with reported right- sided flank pain. She states it started approximately 3 hours prior to hospital arrival. It is described as a sharp shooting pain in her right lower quadrant without radiation. Admits that is worse with movement. Denies any provocative factors. States she was just sitting at home when the pain came on. She denies any changes in her urination to include dysuria, hematuria or difficulty voiding. Denies any issues with her stooling to include melanic stools, hematochezia, diarrhea or constipation. No fevers or chills. No history of similar pain in the past. Denies any chest pain or shortness of breath. No f katherine or chills. There are no other alleviating, precipitating or modifying factors - Related Data Home Medications Medication Instructions Recorded Confirmed Albuterol Nebulized [Ventolin 2.5 mg INHALATION RT-QID PRN 01/28/14 12/06/19 Nebulized] Albuterol Sulfate [Proair Hfa] 2 puff INHALATION RT-QID PRN 01/28/14 12/06/19 Omeprazole [PriLOSEC] 20 mg PO DAILY 01/28/14 12/06/19 Oxybutynin Chloride [Ditropan XL] 15 mg PO BID 01/28/14 12/06/19 Topiramate [Topamax] 50 mg PO BID 01/28/14 12/06/19 Vortioxetine Hydrobromide 20 mg PO DAILY 11/08/18 12/06/19 [Trintellix] risperiDONE 3 mg PO HS 11/08/18 12/06/19 traZODone HCL 100 mg PO HS 11/08/18 12/06/19 HYDROcodone/APAP 7.5-325MG [[place] 1 tab PO BID PRN 11/21/18 12/06/19 7.5-325] Multivitamin,Therapeutic [Thera] 1 tab PO DAILY 12/21/18 12/06/19 Atorvastatin [Lipitor] 80 mg PO HS 12/06/19 12/06/19 Ergocalciferol (Vitamin D2) 50,000 unit PO Q14D 12/06/19 12/06/19 [Drisdol] Allergies Allergy/AdvReac Type Severity Reaction Status Date / Time fluticasone propionate Allergy Rash/Hives Verified 12/06/19 09:03 [From Advair Diskus] oxycodone HCl [From Percodan] Allergy Rash/Hives Verified 12/06/19 09:03 oxycodone terephthalate Allergy Rash/Hives Verified 12/06/19 09:03 [From Percodan] propoxyphene HCl Allergy Rash/Hives Verified 12/06/19 09:03 [From Darvon] salmeterol xinafoate Allergy Rash/Hives Verified 12/06/19 09:03 [From Advair Diskus] tramadol HCl [From Ultram] Allergy Rash/Hives Verified 12/06/19 09:03 Review of Systems ROS Statement: Those systems with pertinent positive or pertinent negative responses have been documented in the HPI. ROS Other: All systems not noted in ROS Statement are negative. Past Medical History Past Medical History: Asthma, COPD, CVA/TIA, GERD/Reflux, Neurologic Disorder, Osteoarthritis (OA), Respiratory Disorder Additional Past Medical History / Comment(s): MIGRAINES, stroke & then TIA in 2018-intermittent dizziness, balance issues, can't eat much, gets full quickly, states no fluid in lap band History of Any Multi-Drug Resistant Organisms: None Reported Past Surgical History: Bariatric Surgery, Cholecystectomy, Hysterectomy, Tonsillectomy Additional Past Surgical History / Comment(s): LAP BAND 2014 Past Anesthesia/Blood Transfusion Reactions: No Reported Reaction Past Psychological History: Anxiety, Depression Smoking Status: Current every day smoker Past Alcohol Use History: None Reported Past Drug Use History: None Reported - Past Family History Mother Family Medical History: Cancer Father Family Medical History: Cancer General Exam Limitations: no limitations General appearance: alert, in no apparent distress Head exam: Present: atraumatic, normocephalic, normal inspection Eye exam: Present: normal appearance, PERRL, EOMI. Absent: scleral icterus, conjunctival injection, periorbital swelling ENT exam: Present: normal exam, mucous membranes moist Neck exam: Present: normal inspection. Absent: tenderness, meningismus, lymphadenopathy Respiratory exam: Present: normal lung sounds bilaterally. Absent: respiratory distress, wheezes, rales, rhonchi, stridor Cardiovascular Exam: Present: regular rate, normal rhythm, normal heart sounds. Absent: systolic murmur, diastolic murmur, rubs, gallop, clicks GI/Abdominal exam: Present: soft, tenderness (RLQ), normal bowel sounds. Absent: distended, guarding, rebound, rigid Extremities exam: Present: normal inspection, full ROM, normal capillary refill. Absent: tenderness, pedal edema, joint swelling, calf tenderness Back exam: Present: normal inspection Neurological exam: Present: alert, oriented X3, CN II-XII intact Psychiatric exam: Present: normal mood, flat affect Skin exam: Present: warm, dry, intact, normal color. Absent: rash Course Vital Signs 12/05/19 12/05/19 12/05/19 19:26 20:53 21:30 Temperature 97.7 F Pulse Rate 74 75 68 Pulse Rate [ Pulse Oximetery ] Respiratory 18 16 18 Rate Blood Pressure 121/78 113/61 108/61 Blood Pressure [Left Arm] O2 Sat by Pulse 95 95 97 Oximetry 12/06/19 12/06/19 12/06/19 00:29 01:00 07:00 Temperature 97.3 F L Pulse Rate 60 72 Pulse Rate [ 54 L Pulse Oximetery ] Respiratory 16 16 16 Rate Blood Pressure 110/64 110/64 Blood Pressure 111/58 [Left Arm] O2 Sat by Pulse 96 96 95 Oximetry Medical Decision Making - Medical Decision Making Upon arrival the patient was placed into room 6. A thorough history and physical exam was performed. Peripheral IV was established. The patient was given morphine for pain control and Zofran for nausea. Laboratory studies were conducted. CBC is unremarkable. CMP shows a glucose of 1:15. Urinalysis is abnormal with 1+ ketones, large blood, large leukocyte esterase, greater than 182 red blood cells, 107 white blood cells and rare bacteria. I did obtain blood cultures and initiate the patient on Rocephin. The patient was sent for a CT of her abdomen and pelvis which demonstrates a right renal stone measuring 8 mm. There is also right-sided hydronephrosis and hydroureter. Considerations are for previously passed stone or nonopaque stone. I did reevaluate the patient. She continues to have 8 out of 10 flank pain. Because of this I did call discuss case with Dr. Etienne who requested that we place the patient on antibiotics and admits. He requests to have her nothing by mouth. I called and discussed case with Dr. De La O who accepted admission for the patient. She is currently awaiting a bed on the floor - Lab Data Result diagrams: 12/06/19 10:07 12/06/19 10:07 Lab Results 12/05/19 12/05/19 12/05/19 Range/Units 20:10 20:10 20:10 WBC 10.0 (3.8-10.6) k/uL RBC 4.67 (3.80-5.40) m/uL Hgb 13.8 (11.4-16.0) gm/dL Hct 43.9 (34.0-46.0) % MCV 93.9 (80.0-100.0) fL MCH 29.5 (25.0-35.0) pg MCHC 31.4 (31.0-37.0) g/dL RDW 13.9 (11.5-15.5) % Plt Count 250 (150-450) k/uL Neutrophils % 53 % Lymphocytes % 36 % Monocytes % 6 % Eosinophils % 3 % Basophils % 0 % Neutrophils # 5.3 (1.3-7.7) k/uL Lymphocytes # 3.6 (1.0-4.8) k/uL Monocytes # 0.6 (0-1.0) k/uL Eosinophils # 0.3 (0-0.7) k/uL Basophils # 0.0 (0-0.2) k/uL PT 10.1 (9.0-12.0) sec INR 1.0 (<1.2) APTT 25.5 (22.0-30.0) sec Sodium 134 L (137-145) mmol/L Potassium 3.8 (3.5-5.1) mmol/L Chloride 104 (98-107) mmol/L Carbon Dioxide 22 (22-30) mmol/L Anion Gap 8 mmol/L BUN 9 (7-17) mg/dL Creatinine 0.56 (0.52-1.04) mg/dL Est GFR (CKD-EPI)AfAm >90 (>60 ml/min/1.73 sqM) Est GFR (CKD-EPI)NonAf >90 (>60 ml/min/1.73 sqM) Glucose 115 H (74-99) mg/dL Plasma Lactic Acid Nehemias (0.7-2.0) mmol/L Calcium 9.7 (8.4-10.2) mg/dL Total Bilirubin 0.4 (0.2-1.3) mg/dL AST 24 (14-36) U/L ALT 16 (4-34) U/L Alkaline Phosphatase 82 (38-126) U/L Total Protein 7.0 (6.3-8.2) g/dL Albumin 4.4 (3.5-5.0) g/dL Lipase 104 (23-300) U/L Urine Color Urine Appearance (Clear) Urine pH (5.0-8.0) Ur Specific Gate (1.001-1.035) Urine Protein (Negative) Urine Glucose (UA) (Negative) Urine Ketones (Negative) Urine Blood (Negative) Urine Nitrite (Negative) Urine Bilirubin (Negative) Urine Urobilinogen (<2.0) mg/dL Ur Leukocyte Esterase (Negative) Urine RBC (0-5) /hpf Urine WBC (0-5) /hpf Urine Bacteria (None) /hpf Urine Mucus (None) /hpf 12/05/19 12/05/19 Range/Units 20:10 20:10 WBC (3.8-10.6) k/uL RBC (3.80-5.40) m/uL Hgb (11.4-16.0) gm/dL Hct (34.0-46.0) % MCV (80.0-100.0) fL MCH (25.0-35.0) pg MCHC (31.0-37.0) g/dL RDW (11.5-15.5) % Plt Count (150-450) k/uL Neutrophils % % Lymphocytes % % Monocytes % % Eosinophils % % Basophils % % Neutrophils # (1.3-7.7) k/uL Lymphocytes # (1.0-4.8) k/uL Monocytes # (0-1.0) k/uL Eosinophils # (0-0.7) k/uL Basophils # (0-0.2) k/uL PT (9.0-12.0) sec INR (<1.2) APTT (22.0-30.0) sec Sodium (137-145) mmol/L Potassium (3.5-5.1) mmol/L Chloride (98-107) mmol/L Carbon Dioxide (22-30) mmol/L Anion Gap mmol/L BUN (7-17) mg/dL Creatinine (0.52-1.04) mg/dL Est GFR (CKD-EPI)AfAm (>60 ml/min/1.73 sqM) Est GFR (CKD-EPI)NonAf (>60 ml/min/1.73 sqM) Glucose (74-99) mg/dL Plasma Lactic Acid Nehemias 1.7 (0.7-2.0) mmol/L Calcium (8.4-10.2) mg/dL Total Bilirubin (0.2-1.3) mg/dL AST (14-36) U/L ALT (4-34) U/L Alkaline Phosphatase (38-126) U/L Total Protein (6.3-8.2) g/dL Albumin (3.5-5.0) g/dL Lipase (23-300) U/L Urine Color Yellow Urine Appearance Cloudy H (Clear) Urine pH 6.0 (5.0-8.0) Ur Specific Gate 1.012 (1.001-1.035) Urine Protein 1+ H (Negative) Urine Glucose (UA) Negative (Negative) Urine Ketones 1+ H (Negative) Urine Blood Large H (Negative) Urine Nitrite Negative (Negative) Urine Bilirubin Negative (Negative) Urine Urobilinogen <2.0 (<2.0) mg/dL Ur Leukocyte Esterase Large H (Negative) Urine RBC >182 H (0-5) /hpf Urine WBC 107 H (0-5) /hpf Urine Bacteria Rare H (None) /hpf Urine Mucus Rare H (None) /hpf - EKG Data EKG Comments: EKG demonstrates normal sinus rhythm with a ventricular rate of 60. NH interval 150. QRS 84. QTC of 412. No acute ST segment elevations or depressions concerning for ischemic changes. Disposition Clinical Impression: Right flank pain, Hydronephrosis, Hydroureter, Urinary tract infection Disposition: ADMITTED IP TO THIS HOSP Condition: Stable Is patient prescribed a controlled substance at d/c from ED?: No Decision to Admit Reason: Admit from EC Decision Date: 12/05/19 Decision Time: 23:32
[2019-12-05] MEDS: SODIUM CHLORIDE 0.9% 1,000 ML IV SCH (23:45)
[2019-12-06] MEDS: KETOROLAC 30 MG/ML 1 ML VIAL IVP PRN ×2 (01:02→07:11)
[2019-12-06] MEDS: MORPHINE SULFATE 4 MG/ML SYRINGE IV PRN ×4 (01:03→14:42)
[2019-12-06] MEDS: SODIUM CHLORIDE 0.9% 1,000 ML IV SCH ×2 (08:04→17:34)
[2019-12-06 10:41] LABS: Basophils % (A) 0 %; Eosinophils # (A) 0.2 k/uL (0-0.7); Eosinophils % (A) 3 %; HCT 39.9 % (34.0-46.0); HGB 12.4 gm/dL (11.4-16.0); Hypochromasia Slight; Lymphocytes # (A) 2.6 k/uL (1.0-4.8); Lymphocytes % (A) 33 %; MCH 29.4 pg (25.0-35.0); MCHC 31.1 g/dL (31.0-37.0); MCV 94.4 fL (80.0-100.0); Mean Platelet Volume 7.2; Monocytes # (A) 0.5 k/uL (0-1.0); Monocytes % (A) 6 %; Neutrophils # (A) 4.4 k/uL (1.3-7.7); Neutrophils % (A) 56 %; Platelet Count 220 k/uL (150-450); RBC 4.23 m/uL (3.80-5.40); RDW 13.9 % (11.5-15.5)
[2019-12-06 10:52] LABS: African American GFR (CKD) >90 (>60 ml/min/1.73 sqM); Anion Gap 6 mmol/L; Blood Urea Nitrogen 8 mg/dL (7-17); Calcium 8.6 mg/dL (8.4-10.2); Carbon Dioxide 23 mmol/L (22-30); Chloride 109 mmol/L (98-107); Glucose 84 mg/dL (74-99); Non-African American GFR(CKD) >90 (>60 ml/min/1.73 sqM); Potassium 4.1 mmol/L (3.5-5.1); Sodium 138 mmol/L (137-145)
--- NOTE | 2019-12-06 18:43 | HP ---
HISTORY AND PHYSICAL CHIEF COMPLAINT: Right lower quadrant abdominal pain. HISTORY OF PRESENT ILLNESS: This lady was experiencing right lower quadrant pain for a day and she came to the emergency room. She was not complaining of flank pain. She had no fever, no chills, hematuria, dysuria, urgency, incontinence, etc. In the emergency room, she had a right ureteral obstruction. Stone was not seen. She has been in relatively poor health over the last three years and has been steadily losing weight with no obvious cause. She does have diabetes mellitus but is diet controlled. She has had no nausea, vomiting, hematemesis, melena, hematochezia, vaginal discharge or bleeding, etc. REVIEW OF SYSTEMS: Review of systems is otherwise unremarkable. She has had no headaches, neurologic problems, cough, hemoptysis, sputum production, angina, infarctions, hypertension, orthopnea, paroxysmal nocturnal dyspnea, murmurs, rheumatic fever, pancreatitis, cirrhosis, ulcer disease, melena, hematochezia, jaundice, hepatitis, renal failure, etc. Past medical history, family history and personal and social histories reveal that she cannot take ADVAIR, PERCOCET OR ULTRAM. CURRENT MEDICATIONS: Her current medications include Vitamin D3 once a month, Lipitor 80 at bedtime, topiramate 50 mg twice a day, Risperdal 3 mg once a day at bedtime, trazodone 100 mg one or two at bedtime as needed, Trintellix 10 mg once a day, Vicodin 7.5 once or twice a day as needed, albuterol nebulizer, oxybutynin 15 mg twice a day, omeprazole 20 mg once a day, ibuprofen 800 mg four times a day as needed. She has had problems with cervical spondylosis and arthritis in the past. Surgically, she has had a hysterectomy, cholecystectomy, T and A, and an ulnar release in the left arm. She currently smokes 1/2 to a full pack of cigarettes a day. She does not drink alcohol. PHYSICAL EXAMINATION: Blood pressure is 98/50 with a pulse of 80, respirations 18, and she is afebrile. In general, she appeared to be slightly dehydrated and in no acute distress. Skin color is normal. Skin is warm and dry. Lymph nodes are not enlarged. Head, ears, eyes, nose, mouth, and throat were normal. Neck veins are not distended. Thyroid is not enlarged. Chest is clear. Cardiac exam is normal. The abdomen is soft, and no masses or visceromegaly. Bowel sounds are present. Extremities are normal. Neurologically, she is intact. DIAGNOSES: She was admitted to the hospital with the diagnoses of: 1. Right-sided pain. 2. Right ureteral obstruction with hydronephrosis. 3. Chronic obstructive pulmonary disease. PLAN: 1. Bedrest. 2. Intravenous fluids. 3. Urology consult. MMODL / IJN: [id number] /
--- NOTE | 2019-12-06 18:58 | PN ---
PROGRESS NOTE DATE OF SERVICE: 12/06/2019 CHIEF COMPLAINT: Right-sided abdominal pain. HISTORY OF PRESENT ILLNESS: This lady's pain is about the same. There has been no interval change. She has had no fever, no chills, vomiting, etc. PHYSICAL EXAMINATION: On physical examination, she continues to look pale, slightly dehydrated, chronically ill. Chest is clear. Cardiac exam is unremarkable. The abdomen is soft and a little bit tender in the right lower quadrant. IMPRESSION: 1. Right-sided abdominal pain. 2. Obstructive right ureter. 3. Chronic obstructive pulmonary disease. 4. History of weight loss. PLAN: 1. Urology consult. 2. Continue to look for etiology of right ureteral obstruction. MMODL / IJN: [id number] /
[2019-12-06 20:08] VITALS: RESP 16
[2019-12-06] MEDS: TOPIRAMATE 25 MG TAB PO SCH (20:15)
[2019-12-06] MEDS ORDERED: traZODone HCL 100 MG TAB PO SCH (21:00)
[2019-12-06] MEDS ORDERED: risperiDONE 1 MG TAB PO SCH (21:00)
--- NOTE | 2019-12-06 23:18 | P.GSCN ---
History of Present Illness Consult date: 12/06/19 Reason for Consult: Ms Hollingsworth is a 64 yo female with admitted to the hospital with intractable right sided flank pain. She indicates it started last night History of present illness: Ms Hollingsworth is 64 yo female that presented to the ED with right sided flank pain of new onset. She said pain was of sudden onset. Denies any urinary symptoms. Denies any gross hematuria or dysuria. Denies any urinary issues. She underwent a CT which showed a right sided hydronephrosis and stone in renal pelvis. She indicated her pain has improved since admission. She indicates her pain is now more focused in the RLQ. She denies any N/V, fever/chills. Review of Systems - Constitutional Denies chills, Denies fever, Denies weakness - Cardiovascular Denies chest pain, Denies dyspnea on exertion - Respiratory Denies cough, Denies wheezing - Gastrointestinal Reports abdominal pain, Denies nausea, Denies vomiting - Genitourinary Genitourinary: Reports flank pain, Denies dysuria, Denies kidney stones Past Medical History Past Medical History: Asthma, COPD, CVA/TIA, GERD/Reflux, Neurologic Disorder, Osteoarthritis (OA), Respiratory Disorder Additional Past Medical History / Comment(s): MIGRAINES, stroke & then TIA in 2018-intermittent dizziness, balance issues, can't eat much, gets full quickly, states no fluid in lap band History of Any Multi-Drug Resistant Organisms: None Reported Past Surgical History: Bariatric Surgery, Cholecystectomy, Hysterectomy, Tonsil lectomy Additional Past Surgical History / Comment(s): LAP BAND 2014 Past Anesthesia/Blood Transfusion Reactions: No Reported Reaction Past Psychological History: Anxiety, Depression Smoking Status: Current every day smoker Past Alcohol Use History: None Reported Past Drug Use History: None Reported - Past Family History Mother Family Medical History: Cancer Father Family Medical History: Cancer Medications and Allergies Home Medications Medication Instructions Recorded Confirmed Type Albuterol Nebulized [Ventolin 2.5 mg INHALATION RT-QID PRN 01/28/14 12/06/19 History Nebulized] Albuterol Sulfate [Proair Hfa] 2 puff INHALATION RT-QID PRN 01/28/14 12/06/19 History Omeprazole [PriLOSEC] 20 mg PO DAILY 01/28/14 12/06/19 History Oxybutynin Chloride [Ditropan XL] 15 mg PO BID 01/28/14 12/06/19 History Topiramate [Topamax] 50 mg PO BID 01/28/14 12/06/19 History Vortioxetine Hydrobromide 20 mg PO DAILY 11/08/18 12/06/19 History [Trintellix] risperiDONE 3 mg PO HS 11/08/18 12/06/19 History traZODone HCL 100 mg PO HS 11/08/18 12/06/19 History HYDROcodone/APAP 7.5-325MG [[place] 1 tab PO BID PRN 11/21/18 12/06/19 History 7.5-325] Multivitamin,Therapeutic [Thera] 1 tab PO DAILY 12/21/18 12/06/19 History Atorvastatin [Lipitor] 80 mg PO HS 12/06/19 12/06/19 History Ergocalciferol (Vitamin D2) 50,000 unit PO Q14D 12/06/19 12/06/19 History [Drisdol] Allergies Allergy/AdvReac Type Severity Reaction Status Date / Time fluticasone propionate Allergy Rash/Hives Verified 12/06/19 09:03 [From Advair Diskus] oxycodone HCl [From Percodan] Allergy Rash/Hives Verified 12/06/19 09:03 oxycodone terephthalate Allergy Rash/Hives Verified 12/06/19 09:03 [From Percodan] propoxyphene HCl Allergy Rash/Hives Verified 12/06/19 09:03 [From Darvon] salmeterol xinafoate Allergy Rash/Hives Verified 12/06/19 09:03 [From Advair Diskus] tramadol HCl [From Ultram] Allergy Rash/Hives Verified 12/06/19 09:03 Surgical - Exam Vital Signs Temp Pulse Resp BP Pulse Ox 97.7 F 74 18 121/78 95 12/05/19 19:26 12/05/19 19:26 12/05/19 19:26 12/05/19 19:26 12/05/19 19:26 - General well developed, well nourished, no distress, no pain - Eyes normal ocular movement, no loss of movement - ENT normal mucosa, no hearing loss - Respiratory normal expansion, normal respiratory effort - Abdomen Abdomen: soft, tender (RLQ), no distended - Psychiatric oriented to time, oriented to person, oriented to place Results - Labs 12/06/19 10:07 12/06/19 10:07 Abnormal Lab Results - Last 24 Hours (Table) 12/05/19 12/05/19 12/06/19 Range/Units 20:10 20:10 10:07 Sodium 134 L (137-145) mmol/L Chloride 109 H (98-107) mmol/L Creatinine 0.50 L (0.52-1.04) mg/dL Glucose 115 H (74-99) mg/dL Urine Appearance Cloudy H (Clear) Urine Protein 1+ H (Negative) Urine Ketones 1+ H (Negative) Urine Blood Large H (Negative) Ur Leukocyte Esterase Large H (Negative) Urine RBC >182 H (0-5) /hpf Urine WBC 107 H (0-5) /hpf Urine Bacteria Rare H (None) /hpf Urine Mucus Rare H (None) /hpf Microbiology - Last 24 Hours (Table) 12/05/19 20:10 Urine Culture - Preliminary Urine,Voided Diabetes panel 12/05/19 12/06/19 Range/Units 20:10 10:07 Sodium 134 L 138 (137-145) mmol/L Potassium 3.8 4.1 (3.5-5.1) mmol/L Chloride 104 109 H (98-107) mmol/L Carbon Dioxide 22 23 (22-30) mmol/L BUN 9 8 (7-17) mg/dL Creatinine 0.56 0.50 L (0.52-1.04) mg/dL Glucose 115 H 84 (74-99) mg/dL Calcium 9.7 8.6 (8.4-10.2) mg/dL AST 24 (14-36) U/L ALT 16 (4-34) U/L Alkaline Phosphatase 82 (38-126) U/L Total Protein 7.0 (6.3-8.2) g/dL Albumin 4.4 (3.5-5.0) g/dL Calcium panel 12/05/19 12/06/19 Range/Units 20:10 10:07 Calcium 9.7 8.6 (8.4-10.2) mg/dL Albumin 4.4 (3.5-5.0) g/dL Pituitary panel 03/11/20 03/12/20 Range/Units 20:10 10:07 Sodium 134 L 138 (137-145) mmol/L Potassium 3.8 4.1 (3.5-5.1) mmol/L Chloride 104 109 H (98-107) mmol/L Carbon Dioxide 22 23 (22-30) mmol/L BUN 9 8 (7-17) mg/dL Creatinine 0.56 0.50 L (0.52-1.04) mg/dL Glucose 115 H 84 (74-99) mg/dL Calcium 9.7 8.6 (8.4-10.2) mg/dL Adrenal panel 12/05/19 12/06/19 Range/Units 20:10 10:07 Sodium 134 L 138 (137-145) mmol/L Potassium 3.8 4.1 (3.5-5.1) mmol/L Chloride 104 109 H (98-107) mmol/L Carbon Dioxide 22 23 (22-30) mmol/L BUN 9 8 (7-17) mg/dL Creatinine 0.56 0.50 L (0.52-1.04) mg/dL Glucose 115 H 84 (74-99) mg/dL Calcium 9.7 8.6 (8.4-10.2) mg/dL Total Bilirubin 0.4 (0.2-1.3) mg/dL AST 24 (14-36) U/L ALT 16 (4-34) U/L Alkaline Phosphatase 82 (38-126) U/L Total Protein 7.0 (6.3-8.2) g/dL Albumin 4.4 (3.5-5.0) g/dL Assessment and Plan Assessment: 64 yo female admitted with right flank pain and RLQ abdominal pain. Underwent CT showed right sided hydronephrosis and stone in the renal pelvis. Pain improved since admission Plan: -Ok for discharge tomorrow if pain is controlled -F/U one urine culture -Will need right sided Retrograde pyelogram to evaluate her hydronephrosis as an outpatient.
[2019-12-07] MEDS: MORPHINE SULFATE 4 MG/ML SYRINGE IV PRN ×3 (00:02→08:41)
[2019-12-07] MEDS: SODIUM CHLORIDE 0.9% 1,000 ML IV SCH (04:16)
[2019-12-07] MEDS: TOPIRAMATE 25 MG TAB PO SCH (08:38)
[2019-12-07] MEDS ORDERED: VORTIOXETINE HYDROBROMIDE 20 MG TABLET PO SCH ×2 (09:00→18:00)
[2019-12-07 09:27] VITALS: BP 96/59; PULSE 67; TEMP 97.6
[2019-12-07] MEDS ORDERED: HYDROcodone/APAP 5-325MG 1 EACH TAB PO PRN (13:25)
--- NOTE | 2019-12-07 18:25 | P.PN ---
Subjective Progress Note Date: 12/07/19 No acute overnight event, pain is improving compared to yesterday. Indicates right flank pain has completely resolved, but still having RLQ abdominal pain Objective - Vital Signs Vital signs: Vital Signs Temp 97.6 F 12/07/19 07:00 Pulse 67 12/07/19 08:00 Resp 16 12/07/19 08:00 BP 96/59 12/07/19 07:00 Pulse Ox 92 L 12/07/19 07:00 Intake & Output 12/06/19 12/07/19 12/07/19 18:59 06:59 18:59 Intake Total 1340 1292 Output Total 150 Balance 1190 1292 Intake: Intake, IV Titration 750 700 Amount Sodium Chloride 0.9% 1, 750 700 000 ml @ 100 mls/hr IV . Q10H TAMI Rx#:[id number] Oral 590 592 Output: Urine 150 Other: Voiding Method Toilet Toilet Toilet # Voids 0 3 - Gastrointestinal General gastrointestinal: Present: soft, tenderness (RLQ). Absent: distended, rigid - Psychiatric Psychiatric: Present: A&O x's 3 - Labs CBC & Chem 7: 12/06/19 10:07 12/06/19 10:07 Labs: Microbiology - Last 24 Hours (Table) 12/05/19 20:10 Urine Culture - Preliminary Urine,Voided Gram Neg Bacilli 12/05/19 22:00 Blood Culture - Preliminary Blood No Growth after 24 hours Assessment and Plan Assessment: 64 yo female admitted with right flank pain and RLQ abdominal pain. Underwent CT showed right sided hydronephrosis and stone in the renal pelvis. Pain improved since admission Plan: -Pain improving, D/C IV pain medications, trial of PO pain medications. If pain is controlled with PO pain medication, ok for discharge from urology standpoint -F/U one urine culture -Will need right sided Retrograde pyelogram to evaluate her hydronephrosis as an outpatient.
--- NOTE | 2019-12-08 09:45 | DS ---
DISCHARGE SUMMARY CHIEF COMPLAINT: Right flank and right lower quadrant pain. HISTORY OF PRESENT ILLNESS AND PHYSICAL EXAMINATION: Details of this lady's history and physical can be found in the initial workup. LABORATORY STUDIES: While she was in the hospital she had laboratory studies, details of which can be found in the laboratory section of her chart. COURSE IN THE HOSPITAL: After admission she was placed on bedrest and started on intravenous fluids and she was seen by Urology. She had hematuria, and it was felt that she probably had passed a right ureteral calculus. She was doing well and it was felt that she could be discharged on December 06 and sent home on her usual activity, diet and medication. She will be seen in the office in several days. FINAL DIAGNOSES: 1. Right ureteral calculus. 2. Hematuria. 3. Chronic obstructive pulmonary disease. OPERATIONS: None. CONSULTATION: Urology. She is improved. KARLO / KIERAN: [id number] /
== END 2019-12-07 17:41 | disposition home or self-care (01) | DRG 694 ==
LOC: EC 18:45 → 4SSUR 23:34 → UNDOADMIN 12-06 → 4SSUR 12-06
PROVIDERS: ADMIT Family Medicine; ATTEND Family Medicine
DX: N20.2 Calculus of kidney with calculus of ureter (principal); N13.6 Pyonephrosis; E11.9 Type 2 diabetes mellitus without complications; F17.210 Nicotine dependence, cigarettes, uncomplicated; J44.9 Chronic obstructive pulmonary disease, unspecified; Z86.73 Personal history of transient ischemic attack (TIA), and cerebral infarction without residual deficits; Z90.710 Acquired absence of both cervix and uterus; Z98.84 Bariatric surgery status; Z79.899 Other long term (current) drug therapy; Z79.891 Long term (current) use of opiate analgesic; Z88.6 Allergy status to analgesic agent; Z88.5 Allergy status to narcotic agent; Z88.8 Allergy status to other drugs, medicaments and biological substances; Z90.49 Acquired absence of other specified parts of digestive tract; R63.4 Abnormal weight loss
CPT/HCPCS: 36415; 74177; 80048; 80053; 81001; 83605; 83690; 85025; 85610; 85730; 87040; 87077; 87086; 87186; 93005; 96361; 96374; 96375; 96376; 99211; 99285

== ENCOUNTER 2020-01-13 20:22 | Inpatient (IN) | payer MEDICARE, OTHER ==
--- NOTE | 2020-01-13 20:41 | ED ---
Abdominal Pain HPI - General Chief Complaint: Abdominal Pain Stated Complaint: Abd pain Time Seen by Provider: 01/13/20 20:30 Source: patient Mode of arrival: ambulatory Limitations: no limitations - History of Present Illness Initial Comments: The patient is a 64 year old female past history of asthma, COPD who presents emergency room with reported sudden onset of abdominal pain. Patient states that around 2:30 she began having sudden onset of excruciating right flank and right lower quadrant abdominal pain. Does admit to a history of similar and states she was diagnosed perinephritis at that time. She denies dysuria, hematuria voiding. Denies any fevers or chills. No nausea or vomiting. She took [place] at home for her pain and states it didn't help. She denies diarrhea, constipation, melenic stools or hematochezia. There are no alleviating, precipitating or modifying factors. - Related Data Home Medications Medication Instructions Recorded Confirmed Albuterol Nebulized [Ventolin 2.5 mg INHALATION RT-QID PRN 01/28/14 01/14/20 Nebulized] Albuterol Sulfate [Proair Hfa] 2 puff INHALATION RT-QID PRN 01/28/14 01/14/20 Omeprazole [PriLOSEC] 20 mg PO DAILY 01/28/14 01/14/20 Oxybutynin Chloride [Ditropan XL] 15 mg PO BID 01/28/14 01/14/20 Topiramate [Topamax] 50 mg PO BID 01/28/14 01/14/20 Vortioxetine Hydrobromide 20 mg PO DAILY 11/08/18 01/14/20 [Trintellix] risperiDONE 3 mg PO HS 11/08/18 01/14/20 traZODone HCL 100 mg PO HS 11/08/18 01/14/20 HYDROcodone/APAP 7.5-325MG [[place] 1 tab PO BID PRN 11/21/18 01/14/20 7.5-325] Multivitamin,Therapeutic [Thera] 1 tab PO DAILY 12/21/18 01/14/20 Atorvastatin [Lipitor] 80 mg PO HS 12/06/19 01/14/20 Ergocalciferol (Vitamin D2) 50,000 unit PO Q14D 12/06/19 01/14/20 [Drisdol] Allergies Allergy/AdvReac Type Severity Reaction Status Date / Time fluticasone propionate Allergy Rash/Hives Verified 01/14/20 10:38 [From Advair Diskus] oxycodone HCl [From Percodan] Allergy Rash/Hives Verified 01/14/20 10:38 oxycodone terephthalate Allergy Rash/Hives Verified 01/14/20 10:38 [From Percodan] propoxyphene HCl Allergy Rash/Hives Verified 01/14/20 10:38 [From Darvon] salmeterol xinafoate Allergy Rash/Hives Verified 01/14/20 10:38 [From Advair Diskus] tramadol HCl [From Ultram] Allergy Rash/Hives Verified 01/14/20 10:38 Review of Systems ROS Statement: Those systems with pertinent positive or pertinent negative responses have been documented in the HPI. ROS Other: All systems not noted in ROS Statement are negative. Past Medical History Past Medical History: Asthma, COPD, CVA/TIA, GERD/Reflux, Neurologic Disorder, Osteoarthritis (OA), Respiratory Disorder Additional Past Medical History / Comment(s): MIGRAINES, stroke & then TIA in 2018-intermittent dizziness, balance issues, can't eat much, gets full quickly, states no fluid in lap band History of Any Multi-Drug Resistant Organisms: None Reported Past Surgical History: Bariatric Surgery, Cholecystectomy, Hysterectomy, Tonsillectomy Additional Past Surgical History / Comment(s): LAP BAND 2014 Past Anesthesia/Blood Transfusion Reactions: No Reported Reaction Past Psychological History: Anxiety, Depression Smoking Status: Current every day smoker Past Alcohol Use History: None Reported Past Drug Use History: None Reported - Past Family History Mother Family Medical History: Cancer Father Family Medical History: Cancer General Exam Limitations: no limitations General appearance: alert, in no apparent distress Head exam: Present: atraumatic, normocephalic, normal inspection Eye exam: Present: normal appearance, PERRL, EOMI. Absent: scleral icterus, conjunctival injection, periorbital swelling ENT exam: Present: normal exam, mucous membranes moist Neck exam: Present: normal inspection. Absent: tenderness, meningismus, lymphadenopathy Respiratory exam: Present: normal lung sounds bilaterally. Absent: respiratory distress, wheezes, rales, rhonchi, stridor Cardiovascular Exam: Present: regular rate, normal rhythm, normal heart sounds. Absent: systolic murmur, diastolic murmur, rubs, gallop, clicks GI/Abdominal exam: Present: tenderness (RLQ. No peritoneal signs), normal bowel sounds. Absent: distended, guarding, rebound, rigid Extremities exam: Present: normal inspection, full ROM, normal capillary refill. Absent: tenderness, pedal edema, joint swelling, calf tenderness Back exam: Present: normal inspection Neurological exam: Present: alert, oriented X3, CN II-XII intact Psychiatric exam: Present: normal affect, normal mood Skin exam: Present: warm, dry, intact, normal color. Absent: rash Course Vital Signs 01/13/20 01/13/20 20:27 23:11 Temperature 97.6 F 98.5 F Pulse Rate 76 71 Respiratory 20 16 Rate Blood Pressure 133/81 135/71 O2 Sat by Pulse 96 97 Oximetry Medical Decision Making - Medical Decision Making Upon arrival the patient is placed into room 15. A thorough history and physical exam was performed. Vitals are stable - patient afebrile. Peripheral IV was established. The patient is given 4 mg of morphine for pain and 4 mg of Zofran for nausea. Laboratory studies were conducted. It is remarkable for white blood cell count of 15.7. Urinalysis shows moderate blood, large leukocyte [place], 62 red blood cells, 159 with blood cells. I did obtain blood cultures and give the patient a dose of Rocephin prophylactically even though UA does not demonstrate bacteria or nitrites. WBC count elevated however patient does not meet any other SIRS/sepsis criteria upon evaluation in ED. CT of the patient's abdomen and pelvis demonstrates a large right-sided distal ureteral stone which measures 1 cm. The patient is reevaluated and continues to have pain. I did give her a dose of Toradol at this time. Patient is an reevaluated and continues to have abdominal pain. I discussed diagnosis, differential and treatment options. I did recommend hospital admission. I called and discussed the case with Dr. Davis who refused admission to his service and requested medicine admission with him to be placed on consult. I then called and discussed the case with Dr. De La O who accepted admission for the patient but requested that I not place a formal consult for urology therefore I will hold off on placing the order in the computer at this time. Patients vitals remained stable. I did order pain medications for the floor and the patient was transferred to the floor in hemodynamically stable condition - Lab Data Result diagrams: 01/14/20 05:41 01/14/20 05:41 Lab Results 01/13/20 01/13/20 01/13/20 Range/Units 21:50 21:50 21:50 WBC 15.7 H (3.8-10.6) k/uL RBC 5.04 (3.80-5.40) m/uL Hgb 14.7 (11.4-16.0) gm/dL Hct 46.5 H (34.0-46.0) % MCV 92.2 (80.0-100.0) fL MCH 29.1 (25.0-35.0) pg MCHC 31.6 (31.0-37.0) g/dL RDW 13.9 (11.5-15.5) % Plt Count 234 (150-450) k/uL Neutrophils % 89 % Lymphocytes % 7 % Monocytes % 4 % Eosinophils % 0 % Basophils % 0 % Neutrophils # 14.0 H (1.3-7.7) k/uL Lymphocytes # 1.1 (1.0-4.8) k/uL Monocytes # 0.6 (0-1.0) k/uL Eosinophils # 0.0 (0-0.7) k/uL Basophils # 0.0 (0-0.2) k/uL PT 10.5 (9.0-12.0) sec INR 1.0 (<1.2) APTT 24.2 (22.0-30.0) sec Sodium (137-145) mmol/L Potassium (3.5-5.1) mmol/L Chloride (98-107) mmol/L Carbon Dioxide (22-30) mmol/L Anion Gap mmol/L BUN (7-17) mg/dL Creatinine (0.52-1.04) mg/dL Est GFR (CKD-EPI)AfAm (>60 ml/min/1.73 sqM) Est GFR (CKD-EPI)NonAf (>60 ml/min/1.73 sqM) Glucose (74-99) mg/dL Calcium (8.4-10.2) mg/dL Total Bilirubin (0.2-1.3) mg/dL AST (14-36) U/L ALT (4-34) U/L Alkaline Phosphatase (38-126) U/L Total Protein (6.3-8.2) g/dL Albumin (3.5-5.0) g/dL Lipase (23-300) U/L Urine Color Yellow Urine Appearance Turbid H (Clear) Urine pH 6.5 (5.0-8.0) Ur Specific [place] 1.015 (1.001-1.035) Urine Protein Trace H (Negative) Urine Glucose (UA) Negative (Negative) Urine Ketones 1+ H (Negative) Urine Blood Moderate H (Negative) Urine Nitrite Negative (Negative) Urine Bilirubin Negative (Negative) Urine Urobilinogen <2.0 (<2.0) mg/dL Ur Leukocyte Esterase Large H (Negative) Urine RBC 62 H (0-5) /hpf Urine WBC 159 H (0-5) /hpf Ur Squamous Epith Cells 1 (0-4) /hpf Amorphous Sediment Occasional H (None) /hpf Urine Mucus Rare H (None) /hpf 01/13/20 Range/Units 21:50 WBC (3.8-10.6) k/uL RBC (3.80-5.40) m/uL Hgb (11.4-16.0) gm/dL Hct (34.0-46.0) % MCV (80.0-100.0) fL MCH (25.0-35.0) pg MCHC (31.0-37.0) g/dL RDW (11.5-15.5) % Plt Count (150-450) k/uL Neutrophils % % Lymphocytes % % Monocytes % % Eosinophils % % Basophils % % Neutrophils # (1.3-7.7) k/uL Lymphocytes # (1.0-4.8) k/uL Monocytes # (0-1.0) k/uL Eosinophils # (0-0.7) k/uL Basophils # (0-0.2) k/uL PT (9.0-12.0) sec INR (<1.2) APTT (22.0-30.0) sec Sodium 137 (137-145) mmol/L Potassium 4.2 (3.5-5.1) mmol/L Chloride 101 (98-107) mmol/L Carbon Dioxide 27 (22-30) mmol/L Anion Gap 9 mmol/L BUN 15 (7-17) mg/dL Creatinine 0.65 (0.52-1.04) mg/dL Est GFR (CKD-EPI)AfAm >90 (>60 ml/min/1.73 sqM) Est GFR (CKD-EPI)NonAf >90 (>60 ml/min/1.73 sqM) Glucose 151 H (74-99) mg/dL Calcium 10.2 (8.4-10.2) mg/dL Total Bilirubin 0.5 (0.2-1.3) mg/dL AST 29 (14-36) U/L ALT 20 (4-34) U/L Alkaline Phosphatase 71 (38-126) U/L Total Protein 7.6 (6.3-8.2) g/dL Albumin 4.7 (3.5-5.0) g/dL Lipase 45 (23-300) U/L Urine Color Urine Appearance (Clear) Urine pH (5.0-8.0) Ur Specific [place] (1.001-1.035) Urine Protein (Negative) Urine Glucose (UA) (Negative) Urine Ketones (Negative) Urine Blood (Negative) Urine Nitrite (Negative) Urine Bilirubin (Negative) Urine Urobilinogen (<2.0) mg/dL Ur Leukocyte Esterase (Negative) Urine RBC (0-5) /hpf Urine WBC (0-5) /hpf Ur Squamous Epith Cells (0-4) /hpf Amorphous Sediment (None) /hpf Urine Mucus (None) /hpf - EKG Data EKG Comments: EKG demonstrates normal sinus rhythm with rate of 65. DE interval 152. QRS 92. QTC of 428. No acute ST segment elevations or depressions concerning for ischemic changes. Disposition Clinical Impression: Right flank pain, Ureteral stone, Hydronephrosis Disposition: ADMITTED IP TO THIS [facility] Condition: Stable Is patient prescribed a controlled substance at d/c from ED?: No Decision to Admit Reason: Admit from EC Decision Date: 01/13/20 Decision Time: 23:40
[2020-01-13] MEDS ORDERED: SODIUM CHLORIDE 0.9% 1,000 ML IV ONE (20:54)
[2020-01-13] MEDS ORDERED: MORPHINE SULFATE 4 MG/ML SYRINGE IVP STA (20:54)
[2020-01-13] MEDS ORDERED: ONDANSETRON 4 MG/2 ML VIAL IVP STA (20:54)
[2020-01-13 22:12] LABS: Amorphous Sediment,Urine Occasional /hpf; Appearance,Urine Turbid (Clear); Bilirubin,Urine Negative (Negative); Blood,Urine Moderate (Negative); Color,Urine Yellow; Glucose,Urine (UA) Negative (Negative); Ketones,Urine 1+ (Negative); Leukocyte Esterase,Urine Large (Negative); Mucus,Urine Rare /hpf; Nitrite,Urine Negative (Negative); PH, Urine 6.5 (5.0-8.0); Protein,Urine Trace (Negative); RBC,Urine 62 /hpf (0-5); Specific Gravity,Urine 1.015 (1.001-1.035); Squamous Epithelial Cell,Urine 1 /hpf (0-4); Urobilinogen,Urine <2.0 mg/dL (<2.0); WBC,Urine 159 /hpf (0-5)
[2020-01-13 22:15] LABS: Partial Thromboplastin Time 24.2 sec (22.0-30.0); Prothrombin Time 10.5 sec (9.0-12.0)
[2020-01-13 22:24] LABS: Basophils % (A) 0 %; Eosinophils % (A) 0 %; HCT 46.5 % (34.0-46.0); HGB 14.7 gm/dL (11.4-16.0); Lymphocytes # (A) 1.1 k/uL (1.0-4.8); Lymphocytes % (A) 7 %; MCH 29.1 pg (25.0-35.0); MCHC 31.6 g/dL (31.0-37.0); MCV 92.2 fL (80.0-100.0); Mean Platelet Volume 7.2; Monocytes # (A) 0.6 k/uL (0-1.0); Monocytes % (A) 4 %; Neutrophils % (A) 89 %; Platelet Count 234 k/uL (150-450); RBC 5.04 m/uL (3.80-5.40); RDW 13.9 % (11.5-15.5); WBC 15.7 k/uL (3.8-10.6)
[2020-01-13 22:28] LABS: ALT 20 U/L (4-34); AST 29 U/L (14-36); African American GFR (CKD) >90 (>60 ml/min/1.73 sqM); Albumin 4.7 g/dL (3.5-5.0); Alkaline Phosphatase 71 U/L (38-126); Anion Gap 9 mmol/L; Blood Urea Nitrogen 15 mg/dL (7-17); Calcium 10.2 mg/dL (8.4-10.2); Carbon Dioxide 27 mmol/L (22-30); Chloride 101 mmol/L (98-107); Glucose 151 mg/dL (74-99); Non-African American GFR(CKD) >90 (>60 ml/min/1.73 sqM); Potassium 4.2 mmol/L (3.5-5.1); Sodium 137 mmol/L (137-145); Total Bilirubin 0.5 mg/dL (0.2-1.3); Total Protein 7.6 g/dL (6.3-8.2)
--- NOTE | 2020-01-13 22:47 | CT ---
EXAMINATION TYPE: CT abdomen pelvis w con DATE OF EXAM: 01/13/2020 COMPARISON: 12/05/2019 HISTORY: RLQ pain with nausea. CT DLP: 755.3 mGycm Automated exposure control for dose reduction was used. CONTRAST: Performed with IV Contrast, patient injected with 100 mL of Isovue 300. There is some mild atelectasis at the posterior lung bases. There is gastric sleeve noted. Stomach is distended with fluid. Liver shows no focal defect. The bile ducts are not dilated. There are clips f rom cholecystectomy. Spleen appears normal. There is no pancreatic mass. There is no adrenal mass. There is right side perinephric fluid. There is irregular 1 cm calculus low er pole right kidney. There is right-sided hydronephrosis and hydroureter. There is apparent 1 cm eileen culus in the lower right ureter. Bladder distends smoothly. There is no inguinal hernia. There is no free fluid in the pelvis. There is no mesenteric edema. There is no ascites or free air. There is no evidence of a bowel obstru ction. Appendix is not seen. No sign of thickened appendix. Bony structures are intact. There is spon dylotic changes with calcified posterior disc herniation at L1 to. Bony pelvis is intact. IMPRESSION: Right-sided hydronephrosis and hydroureter. Perinephric fluid on the right side consistent with obstr uction. Large obstructing calculus lower right ureter. Right renal calculus. No evidence of renal sto ne or obstruction on the left side. Obstruction of the right kidney is a change compared to old exam. Mild atelectasis at the lung bases unchanged compared to old exam.
[2020-01-13] MEDS ORDERED: cefTRIAXone IN SWFI 1,000 MG/10 ML SYRINGE IVP STA (23:01)
[2020-01-13] MEDS ORDERED: KETOROLAC 30 MG/ML 1 ML VIAL IVP STA (23:22)
[2020-01-13] MEDS ORDERED: MORPHINE SULFATE 4 MG/ML SYRINGE IV PRN (23:25)
[2020-01-13] MEDS ORDERED: KETOROLAC 30 MG/ML 1 ML VIAL IVP PRN (23:25)
[2020-01-13] MEDS ORDERED: NALOXONE 0.4 MG/ML 1 ML VIAL IV PRN (23:25)
[2020-01-13] MEDS: SODIUM CHLORIDE 0.9% 1,000 ML IV SCH (23:55)
[2020-01-14] MEDS ORDERED: SODIUM CHLORIDE 0.9% 500 ML 500 ML IV ONE ×3 (05:16→15:25)
[2020-01-14] MEDS: ACETAMINOPHEN IV (For NPO) 1,000 MG in EMPTY BAG 1 BAG IVPB PRN ×2 (05:30→05:57)
[2020-01-14 06:10] LABS: Basophils % (A) 0 %; Eosinophils % (A) 0 %; HCT 43.3 % (34.0-46.0); HGB 13.4 gm/dL (11.4-16.0); Hypochromasia Slight; Lymphocytes # (A) 0.3 k/uL (1.0-4.8); Lymphocytes % (A) 3 %; MCH 28.7 pg (25.0-35.0); MCHC 30.9 g/dL (31.0-37.0); MCV 92.9 fL (80.0-100.0); Mean Platelet Volume 7.5; Monocytes # (A) 0.1 k/uL (0-1.0); Monocytes % (A) 1 %; Neutrophils # (A) 9.6 k/uL (1.3-7.7); Neutrophils % (A) 96 %; Platelet Count 139 k/uL (150-450); RBC 4.66 m/uL (3.80-5.40)
[2020-01-14 06:26] LABS: Calcium 8.7 mg/dL (8.4-10.2); Potassium 3.6 mmol/L (3.5-5.1)
[2020-01-14] MEDS: AMPICILLIN-SULBACTAM 3 GM in SODIUM CHLORIDE 0.9% 100 ML IVPB SCH ×3 (06:27→17:28)
[2020-01-14] MEDS ORDERED: SODIUM CHLORIDE 0.9% 500 ML 250 ML IV ONE (06:42)
--- NOTE | 2020-01-14 08:31 | P.GSCN ---
History of Present Illness Consult date: 01/14/20 Reason for Consult: Right ureteral calculus Requesting physician: Ky De La O History of present illness: The patient is a 64-year-old white female admitted last month with right flank pain. She was found to have an 8 mm right renal pelvic calculus, as well as mild right hydronephrosis. A urine culture at that time showed Proteus mirabilis. She was seen by Dr. Etienne and was to have undergone cystoscopy with right retrograde pyelogram. However, she presents back with recurrent right flank pain. The CT scan now shows increased right hydronephrosis. There appears to be a 1 cm right distal ureteral calculus at the level of the iliac vessels, though there also appears to be a right lower pole calculus which was not present at the time of her previous computed tomography scan. Review of Systems - Constitutional Reports fever - Gastrointestinal Denies nausea, Denies vomiting - Genitourinary Genitourinary: Reports flank pain, Reports kidney stones, Denies dysuria, Denies hematuria Past Medical History Past Medical History: Asthma, COPD, CVA/TIA, GERD/Reflux, Neurologic Disorder, Osteoarthritis (OA), Respiratory Disorder Additional Past Medical History / Comment(s): MIGRAINES, stroke & then TIA in 2018-intermittent dizziness, balance issues, can't eat much, gets full quickly, states no fluid in lap band History of Any Multi-Drug Resistant Organisms: None Reported Past Surgical History: Bariatric Surgery, Cholecystectomy, Hysterectomy, Tonsillectomy Additional Past Surgical History / Comment(s): LAP BAND 2014 Past Anesthesia/Blood Transfusion Reactions: No Reported Reaction Past Psychological History: Anxiety, Depression Smoking Status: Current every day smoker Past Alcohol Use History: None Reported Past Drug Use History: None Reported - Past Family History Mother Family Medical History: Cancer Father Family Medical History: Cancer Medications and Allergies Home Medications Medication Instructions Recorded Confirmed Type Albuterol Nebulized [Ventolin 2.5 mg INHALATION RT-QID PRN 01/28/14 01/14/20 History Nebulized] Albuterol Sulfate [Proair Hfa] 2 puff INHALATION RT-QID PRN 01/28/14 01/14/20 History Omeprazole [PriLOSEC] 20 mg PO DAILY 01/28/14 01/14/20 History Oxybutynin Chloride [Ditropan XL] 15 mg PO BID 01/28/14 01/14/20 History Topiramate [Topamax] 50 mg PO BID 01/28/14 01/14/20 History Vortioxetine Hydrobromide 20 mg PO DAILY 11/08/18 01/14/20 History [Trintellix] risperiDONE 3 mg PO HS 11/08/18 01/14/20 History traZODone HCL 100 mg PO HS 11/08/18 01/14/20 History HYDROcodone/APAP 7.5-325MG [[place] 1 tab PO BID PRN 11/21/18 01/14/20 History 7.5-325] Multivitamin,Therapeutic [Thera] 1 tab PO DAILY 12/21/18 01/14/20 History Atorvastatin [Lipitor] 80 mg PO HS 12/06/19 01/14/20 History Ergocalciferol (Vitamin D2) 50,000 unit PO Q14D 12/06/19 01/14/20 History [Drisdol] Allergies Allergy/AdvReac Type Severity Reaction Status Date / Time fluticasone propionate Allergy Rash/Hives Verified 01/14/20 00:51 [From Advair Diskus] oxycodone HCl [From Percodan] Allergy Rash/Hives Verified 01/14/20 00:51 oxycodone terephthalate Allergy Rash/Hives Verified 01/14/20 00:51 [From Percodan] propoxyphene HCl Allergy Rash/Hives Verified 01/14/20 00:51 [From Darvon] salmeterol xinafoate Allergy Rash/Hives Verified 01/14/20 00:51 [From Advair Diskus] tramadol HCl [From Ultram] Allergy Rash/Hives Verified 01/14/20 00:51 Surgical - Exam Vital Signs Temp Pulse Resp BP Pulse Ox 97.6 F 76 20 133/81 96 01/13/20 20:27 01/13/20 20:27 01/13/20 20:27 01/13/20 20:27 01/13/20 20:27 - General well developed, well nourished, no distress - Respiratory normal respiratory effort - Abdomen Abdomen: soft, tender (Mild right lower quadrant tenderness), no masses, no guarding, no rigid, no rebound - Psychiatric oriented to time, oriented to person, oriented to place, speech is normal, memory intact Results - Labs 01/14/20 05:41 01/14/20 05:41 Abnormal Lab Results - Last 24 Hours (Table) 01/13/20 01/13/20 01/13/20 Range/Units 21:50 21:50 21:50 WBC 15.7 H (3.8-10.6) k/uL Hct 46.5 H (34.0-46.0) % Neutrophils # 14.0 H (1.3-7.7) k/uL Glucose 151 H (74-99) mg/dL Urine Appearance Turbid H (Clear) Urine Protein Trace H (Negative) Urine Ketones 1+ H (Negative) Urine Blood Moderate H (Negative) Ur Leukocyte Esterase Large H (Negative) Urine RBC 62 H (0-5) /hpf Urine WBC 159 H (0-5) /hpf Amorphous Sediment Occasional H (None) /hpf Urine Mucus Rare H (None) /hpf Diabetes panel 01/13/20 Range/Units 21:50 Sodium 137 (137-145) mmol/L Potassium 4.2 (3.5-5.1) mmol/L Chloride 101 (98-107) mmol/L Carbon Dioxide 27 (22-30) mmol/L BUN 15 (7-17) mg/dL Creatinine 0.65 (0.52-1.04) mg/dL Glucose 151 H (74-99) mg/dL Calcium 10.2 (8.4-10.2) mg/dL AST 29 (14-36) U/L ALT 20 (4-34) U/L Alkaline Phosphatase 71 (38-126) U/L Total Protein 7.6 (6.3-8.2) g/dL Albumin 4.7 (3.5-5.0) g/dL Calcium panel 01/13/20 Range/Units 21:50 Calcium 10.2 (8.4-10.2) mg/dL Albumin 4.7 (3.5-5.0) g/dL Pituitary panel 01/13/20 Range/Units 21:50 Sodium 137 (137-145) mmol/L Potassium 4.2 (3.5-5.1) mmol/L Chloride 101 (98-107) mmol/L Carbon Dioxide 27 (22-30) mmol/L BUN 15 (7-17) mg/dL Creatinine 0.65 (0.52-1.04) mg/dL Glucose 151 H (74-99) mg/dL Calcium 10.2 (8.4-10.2) mg/dL Adrenal panel 01/13/20 Range/Units 21:50 Sodium 137 (137-145) mmol/L Potassium 4.2 (3.5-5.1) mmol/L Chloride 101 (98-107) mmol/L Carbon Dioxide 27 (22-30) mmol/L BUN 15 (7-17) mg/dL Creatinine 0.65 (0.52-1.04) mg/dL Glucose 151 H (74-99) mg/dL Calcium 10.2 (8.4-10.2) mg/dL Total Bilirubin 0.5 (0.2-1.3) mg/dL AST 29 (14-36) U/L ALT 20 (4-34) U/L Alkaline Phosphatase 71 (38-126) U/L Total Protein 7.6 (6.3-8.2) g/dL Albumin 4.7 (3.5-5.0) g/dL - Imaging CT scan - abdomen: report reviewed, image reviewed Assessment and Plan (1) Ureteral stone Current Visit: Yes Status: Acute Code(s): N20.1 - CALCULUS OF URETER SNOMED Code(s): 10912325 (2) Hydronephrosis with renal and ureteral calculous obstruction Current Visit: Yes Status: Acute Code(s): N13.2 - HYDRONEPHROSIS WITH RENAL AND URETERAL CALCULOUS OBSTRUCTION SNOMED Code(s): 018221558 (3) Acute pyelonephritis Current Visit: Yes Status: Acute Code(s): N10 - ACUTE PYELONEPHRITIS SNOMED Code(s): 91047051 Plan: In summary, the patient was treated for a Proteus UTI last month. She is now admitted with recurrent right flank pain. CT scan shows increased right hydronephrosis as well as a probable right distal ureteral calculus. Urinalysis suggests recurrent infection. She is currently receiving Unasyn, to which the Proteus was sensitive to last month. She is hypotensive, likely due to sepsis, and she will undergo right ureteral stent insertion. In the meantime, she is be ing given a fluid bolus. Time with Patient: Greater than 30
[2020-01-14] MEDS: SODIUM CHLORIDE 0.9% 1,000 ML IV SCH ×2 (09:15→17:29)
[2020-01-14] MEDS ORDERED: SODIUM CHLORIDE 0.9% 1,000 ML IV ONE (09:25)
[2020-01-14] MEDS ORDERED: LACTATED RINGERS 1,000 ML IV ONE ×2 (10:00→11:58)
[2020-01-14] MEDS ORDERED: GENTAMICIN 40 MG/ML 2 ML VIAL ONE (10:27)
[2020-01-14] MEDS ORDERED: MIDAZOLAM 2 MG/2 ML VIAL ONE (10:27)
[2020-01-14] MEDS ORDERED: ALFENTANIL 500 MCG/ML 2 ML AMP IV ONE (10:27)
[2020-01-14] MEDS ORDERED: LIDOCAINE 1% INJ 10MG/ML (20 ML MDV) ONE (10:27)
[2020-01-14] MEDS ORDERED: PHENYLEPHRINE-0.9% NACL SYG 1 MG/10 ML SYRINGE ONE (10:27)
[2020-01-14] MEDS ORDERED: PROPOFOL 10 MG/ML 20 ML VIAL IV ONE (10:27)
[2020-01-14] MEDS ORDERED: ALBUTEROL NEBULIZED 2.5 MG/3 ML INHALATION PRN (10:32)
[2020-01-14] MEDS ORDERED: HYDROcodone/APAP 7.5-325MG 1 EACH TAB PO PRN (10:32)
--- NOTE | 2020-01-14 11:17 | FL ---
Fluoroscopy History: stent placement stent placement, 18sec fl time
--- NOTE | 2020-01-14 11:36 | P.OP ---
Date of Procedure: 01/14/20 Preoperative Diagnosis: right ureteral calculi Postoperative Diagnosis: same Procedure(s) Performed: cystoscopy, right ureteral stent placement Implants: 6Fr X 24 cm stent on right Anesthesia: ANNALEE Surgeon: Julián Etienne Pathology: none sent Condition: stable Disposition: PACU Indications for Procedure: Ms. benjamin is 64 yo female dmitted with recurrent right flank pain. CT scan shows increased right hydronephrosis as well as a probable right distal ureteral calculus. Urinalysis suggests recurrent infection. She is currently receiving Unasyn, to which the Proteus was sensitive to last month. She is hypotensive, likely due to sepsis. I discussed with her given her hydronephrosis, possible obstructive stone that she needs to proceed with stent placement., Operative Findings: purlent drainage from the right collecting system Description of Procedure: patient was brought to the operating room, she was prepped and draped in sterile fashion and placed in dorsal lithotimy position. A cystoscope fitted with 22 fr sheath was inserted per urethra. Given her sepsis, limited cystoscopy was performed which showed no abnormality within the bladder. The right ureteral orfice was intubated with 6 Fr open ended catheter. Catheter was advanced to the renal pelvis and renal aspirate was obtained and sent for culture. purlent drainage was obtained from right collecting system. Next, a 0.035 sensor wire was advanced through the catheter into the renal pelvis. Catheter was removed with wire in place. Next, 6Fr x 24 cm stent was passed over the wire. proximal curl visualized on fluoro and distal curl visualized using cystoscopy. a 16 Fr catheter was placed, with return of cloudy urine. Patient was awaken from anesthesia and taken to recovery in stable condition
[2020-01-14] MEDS: TOPIRAMATE 25 MG TAB PO SCH ×2 (12:31→22:21)
[2020-01-14] MEDS: PANTOPRAZOLE 40 MG TABLET PO SCH (12:44)
--- NOTE | 2020-01-14 14:43 | HP ---
HISTORY AND PHYSICAL CHIEF COMPLAINT: Right flank and abdominal pain for one day. HISTORY OF PRESENT ILLNESS: This is the first known admission for this 64-year-old white female. She developed right flank and right lower quadrant pain, came to emergency room where she was found to have a large distal ureteral calculus. She has had no fever, chills, hematuria, etc. REVIEW OF SYSTEMS: Otherwise head is otherwise normal. She has had no chest pain, palpitations, syncope, orthopnea, PND, abdominal pain, nausea, vomiting and hematemesis, melena, hematochezia, it is colitis, diverticulosis, diverticulitis, hemorrhoids, jaundice, hepatitis cancer cirrhosis, the dysuria, frequency, urgency. She does have some difficulties with incontinence. She has also a past medical history, family history personal and social histories reveal that she is a heavy smoker and has COPD. She also has a type 2 NIDDM, hypertension, hyperlipidemia and issues with depression. She is allergic to ADVAIR, ULTRAM, PERCODAN. Current medications are vitamin D3 fifty thousand units twice a month, Lipitor 80 at bedtime, Topamax 50 mg twice a day, Risperdal 3 mg once a day, trazodone 100 mg two at night p.r.n., Trintellix 10 mg once a day, Vicodin 7.5 b.i.d. p.r.n., albuterol MDI, albuterol updrafts q.i.d. and p.r.n., oxybutynin 15 mg twice a day and omeprazole 20 mg once a day, ibuprofen 800 mg q.i.d. p.r.n. Surgically, she has had hysterectomy, cholecystectomy and T & A. PHYSICAL EXAMINATION: Temperature 95.3. Her temperature is a 100.0, respirations are 36. Pulse is 88 and blood pressure is 90/50. In general, she appeared to be pale and dehydrated. Head, ears, eyes, nose, mouth, and throat were normal and neck veins not distended. Chest is clear. Cardiac exam demonstrates sinus rhythm with no murmurs or extra sounds, the abdomen is flat, soft and a little bit tender on the right side. There are no masses or visceromegaly. She was tender on the right flank. Extremities are normal Neurologically, she is intact. She is admitted to the hospital with diagnoses: 1. Right distal ureteral calculus. 2. Urinary tract infection. 3. Right-sided hydronephrosis. 4. Dehydration. 5. Chronic obstructive pulmonary disease. 6. Depression. 7. Rule out sepsis. PLAN: 1. Bed rest. 2. IV fluids. 3. Rehydrate. 4. IV antibiotics. 5. Strain urine. 6. Blood cultures. 7. Urology consult. KARLO / KIERAN: [id number] /
--- NOTE | 2020-01-14 14:51 | PN ---
PROGRESS NOTE DATE OF SERVICE: 01/14/2020 CHIEF COMPLAINT: Urinary tract infection, right-sided hydronephrosis and obstructing right ureteral calculus. HISTORY OF PRESENT ILLNESS: This lady is doing fairly well. She has been hypotensive, but has responded to fluid boluses. She is going to the operating room for cystoscopy and stent placement today. PHYSICAL EXAMINATION: She is feeling a little bit better, not having as much discomfort. Chest is clear. Cardiac exam is normal and the right flank is a little bit tender and she is shredder tender in the right side of the abdomen. IMPRESSION: 1. Right distal ureteral obstructing calculus. 2. Urinary tract infection. 3. Chronic obstructive pulmonary disease. PLAN: 1. Continue with IV fluids and antibiotics. 2. She is going to the operating room for placement of a stent. 3. Consult with Infectious Disease. MMODL / IJN: [id number] /
[2020-01-14] MEDS: VORTIOXETINE HYDROBROMIDE 20 MG TABLET PO SCH (17:28)
[2020-01-14] MEDS: CEFEPIME 2 GM in SODIUM CHLORIDE 0.9% 100 ML IVPB SCH (18:19)
--- NOTE | 2020-01-14 18:28 | CONS ---
CONSULTATION DATE OF SERVICE: 01/14/2020 REASON FOR CONSULTATION: Urinary tract infection and bacteremia. HISTORY OF PRESENT ILLNESS: The patient is a 64-year-old female who presented to the ER last night with the chief complaint of sudden onset of of abdominal pain. Apparently the patient's pain started around 2:30 and has been situated mostly in the right flank and right lower abdominal area. The patient describes the pain to be almost 10/10 in severity. The patient denies significant dysuria, hematuria. Some nausea but no vomiting. The patient took some [place] at home; however, she did not have any relief of the pain. With these symptoms the patient presented to the hospital. On arrival at the ER, the patient was afebrile. Subsequently she spiked a fever of 102.6 degrees Fahrenheit. The patient did have a white count of 15.7. She did have a positive UA and elevated lactic acid. The patient also had a CT of the abdomen and pelvis which showed right- sided hydronephrosis and hydroureter with perinephric fluid on the right, consistent with obstruction, large obstructing calculus in the low right ureter. The patient was subsequently taken to the OR by Urology this morning and the patient is status post right ureteral stent placement. The patient has been treated with Unasyn. I was asked to see the patient for recommendations regarding antibiotic therapy. She did receive a dose of Rocephin in the ER. Blood culture is now coming back positive with Gram- negative bacilli. REVIEW OF SYSTEMS: Positive points have been mentioned in the HPI. Rest of the systems are negative. PAST MEDICAL HISTORY: COPD, CVA, TIA, gastroesophageal reflux disease, osteoarthritis, history of migraine headache. PAST SURGICAL HISTORY: Bariatric surgery, cholecystectomy, hysterectomy, tonsillectomy and lap band. SOCIAL HISTORY: Current everyday smoker. No drinking or drug use. FAMILY HISTORY: Both parents with a history of cancer, though unknown type. ALLERGIES. ALLERGIES: Multiple, including OXYCODONE, PROPOXYPHENE, SALMETEROL, TRAMADOL, FLUTICASONE. MEDICATIONS: Currently the patient is on Unasyn 3 grams q.6 hours. She is on Desyrel, Topamax, IV fluid, Risperdal, Protonix, Narcan, morphine sulfate, Toradol, Ventolin, [place]. PHYSICAL EXAMINATION: Blood pressure is 80/51 with a pulse of 90, temperature of 97.7. She is 98% on 2 L nasal cannula. General description is a middle-aged female lying in bed in no distress. No tachypnea or accessory muscle of respiration use. HEENT examination shows no pallor or scleral icterus. Oral mucosa membrane is dry. No pharyngeal erythema or thrush. NECK: Trachea is central. No thyromegaly. LUNGS: Unlabored breathing with decreased breath sounds at the base. No wheeze. HEART: S1, S2. Regular rate and rhythm. ABDOMEN: Soft. No tenderness. No guarding or rigidity. EXTREMITIES: No edema of the feet. SKIN EXAMINATION: No rash or mass palpable. Neurologically, patient is awake, alert, oriented x3. Mood and affect normal. LABS: Hemoglobin 13.4, white count 15.7, BUN of 15, creatinine 0.84. Lactic acid is slightly elevated. Urine was positive. Blood culture now with Gram-negative bacilli. DIAGNOSTIC IMPRESSION AND PLAN: Patient presented to hospital with sepsis in this patient who did have a fever, tachycardia, elevated white count, now with evidence of hypotension, likely secondary to right-sided pyelonephritis, now with evidence of bacteremia in this patient who is status post right ureteral stent placement. We need to cover for the enteric Gram- negative pathogen; however, in view of significant hypotension on Unasyn we will need to cover for the resistant Gram-negative such as Pseudomonas. PLAN: 1. Discontinue Unasyn. 2. Start the patient on cefepime 2 grams q.12 hours along with IV fluid. 3. Will follow clinical condition and culture to further adjust medication if needed. Thank you for this consultation. Will follow this patient along with you. MMODL / IJN: [id number] / JEMAL
[2020-01-14] MEDS: risperiDONE 1 MG TAB PO SCH (22:21)
[2020-01-14] MEDS: traZODone HCL 100 MG TAB PO SCH (22:22)
[2020-01-15] MEDS ORDERED: ACETAMINOPHEN TAB 325 MG TAB PO PRN (05:01)
[2020-01-15] MEDS: CEFEPIME 2 GM in SODIUM CHLORIDE 0.9% 100 ML IVPB SCH ×2 (05:21→17:51)
[2020-01-15] MEDS: SODIUM CHLORIDE 0.9% 1,000 ML IV SCH ×2 (05:22→17:50)
[2020-01-15] MEDS: TOPIRAMATE 25 MG TAB PO SCH ×2 (09:20→22:19)
[2020-01-15] MEDS: PANTOPRAZOLE 40 MG TABLET PO SCH (09:21)
[2020-01-15 10:02] VITALS: BMI 23.8
[2020-01-15 10:54] LABS: ALT 41 U/L (4-34); AST 41 U/L (14-36); African American GFR (CKD) >90 (>60 ml/min/1.73 sqM); Albumin 3.2 g/dL (3.5-5.0); Alkaline Phosphatase 55 U/L (38-126); Anion Gap 3 mmol/L; Blood Urea Nitrogen 13 mg/dL (7-17); Calcium 8.5 mg/dL (8.4-10.2); Carbon Dioxide 20 mmol/L (22-30); Chloride 110 mmol/L (98-107); Glucose 95 mg/dL (74-99); Non-African American GFR(CKD) >90 (>60 ml/min/1.73 sqM); Potassium 3.3 mmol/L (3.5-5.1); Sodium 133 mmol/L (137-145); Total Bilirubin 0.7 mg/dL (0.2-1.3); Total Protein 5.6 g/dL (6.3-8.2)
[2020-01-15 11:22] LABS: Basophils % (A) 0 %; Eosinophils # (A) 0.1 k/uL (0-0.7); Eosinophils % (A) 0 %; HCT 38.8 % (34.0-46.0); HGB 12.2 gm/dL (11.4-16.0); Lymphocytes # (A) 1.1 k/uL (1.0-4.8); Lymphocytes % (A) 5 %; MCH 29.4 pg (25.0-35.0); MCHC 31.4 g/dL (31.0-37.0); MCV 93.8 fL (80.0-100.0); Mean Platelet Volume 8.5; Monocytes # (A) 0.7 k/uL (0-1.0); Monocytes % (A) 3 %; Neutrophils # (A) 21.4 k/uL (1.3-7.7); Neutrophils % (A) 91 %; Platelet Count 110 k/uL (150-450); RBC 4.14 m/uL (3.80-5.40); RDW 14.4 % (11.5-15.5); WBC 23.5 k/uL (3.8-10.6)
[2020-01-15 12:21] LABS: Poikilocytosis (M) Present; RBC Fragments Present
[2020-01-15 12:22] LABS: Dohle Bodies Present; Toxic Granulation Present
--- NOTE | 2020-01-15 13:56 | PN ---
PROGRESS NOTE CHIEF COMPLAINT: 1. Sepsis. 2. Left ureteral calculus with hydronephrosis. 3. Hypotension. 4. Chronic obstructive pulmonary disease. 5. Positive blood culture. HISTORY OF PRESENT ILLNESS: This lady is doing well. Temperature is down. She is not having any significant pain since the stent has been placed. She is putting out normal urine with no evidence of blood. Blood pressure is still low, but this is usual for her and she has no symptoms. PHYSICAL EXAMINATION: Color is improved. Hydration is good. Chest is clear. The cardiac exam is normal. The abdomen is soft, nontender. IMPRESSION: 1. Septicemia. 2. Urinary tract infection. 3. Left distal ureteral calculus with hydronephrosis. 4. Hypertension. 5. Chronic obstructive pulmonary disease. PLAN: Continue to monitor her blood pressure. Further studies need to be ordered. She could probably go home anytime that she is cleared by Urology or Infectious Disease. MMODL / IJN: [id number] /
--- NOTE | 2020-01-15 17:11 | PN ---
PROGRESS NOTE DATE OF SERVICE: 01/15/2020 REASON FOR FOLLOWUP: Pyelonephritis and bacteremia. INTERVAL HISTORY: The patient is currently afebrile. The patient is feeling better. Breathing comfortably. Denies having any chest pain or cough. No nausea, vomiting or diarrhea. PHYSICAL EXAMINATION: Blood pressure 135/66, pulse of 86, temperature 97.9. She is 92% on 2 L. General description is a middle-aged female, lying in bed in no distress. RESPIRATORY SYSTEM: Unlabored breathing, clear to auscultation anteriorly. HEART: S1, S2. Regular rate and rhythm. ABDOMEN: Soft, no tenderness. LABS: Hemoglobin is 12.1, white count 3.5, BUN of 13, creatinine 0.53. Blood and urine culture with gram-negative. DIAGNOSTIC IMPRESSION AND PLAN: Patient admitted to the hospital with sepsis, source of right-sided pyelonephritis. This patient did have a complicated UTI with hydronephrosis, status post cystoscopy with ureteral stent placement. Patient to continue with cefepime, adjusting metformin with blood culture report. Continue supportive care. MMODL / IJN: [id number] / MTDD
[2020-01-15] MEDS: VORTIOXETINE HYDROBROMIDE 20 MG TABLET PO SCH (17:51)
[2020-01-15] MEDS: risperiDONE 1 MG TAB PO SCH (22:19)
[2020-01-15] MEDS: traZODone HCL 100 MG TAB PO SCH (22:19)
[2020-01-16] MEDS: SODIUM CHLORIDE 0.9% 1,000 ML IV SCH ×3 (04:52→22:24)
[2020-01-16] MEDS: CEFEPIME 2 GM in SODIUM CHLORIDE 0.9% 100 ML IVPB SCH (06:01)
[2020-01-16] MEDS: TOPIRAMATE 25 MG TAB PO SCH ×2 (09:06→22:23)
[2020-01-16] MEDS: PANTOPRAZOLE 40 MG TABLET PO SCH (09:06)
--- NOTE | 2020-01-16 11:06 | P.PN ---
Subjective Progress Note Date: 01/15/20 Principal diagnosis: right ureteral calculi No acute overnight event. Pain controlled, denies any fever/chills Objective - Vital Signs Vital signs: Vital Signs Temp 98.1 F 01/16/20 05:00 Pulse 79 01/16/20 05:00 Resp 16 01/16/20 05:00 BP 103/58 01/16/20 05:00 Pulse Ox 92 L 01/16/20 05:00 Intake & Output 01/15/20 01/16/20 01/16/20 18:59 06:59 18:59 Intake Total 1000 590 Balance 1000 590 Weight 58.967 kg Intake: Intake, IV Titration 1000 Amount Cefepime 2 gm In Sodium 100 Chloride 0.9% 100 ml @ 200 mls/hr IVPB Q12H [facility] Rx#:[id number] Sodium Chloride 0.9% 1, 900 000 ml @ 100 mls/hr IV . Q10H [facility] Rx#:[id number] Oral 590 Other: Voiding Method Indwelling Catheter Toilet # Voids 2 - Constitutional General appearance: Present: no acute distress - Labs CBC & Chem 7: 01/15/20 10:29 01/15/20 10:29 Labs: Abnormal Lab Results - Last 24 Hours (Table) 01/15/20 Range/Units 10:29 WBC 23.5 H (3.8-10.6) k/uL Plt Count 110 L (150-450) k/uL Neutrophils # 21.4 H (1.3-7.7) k/uL Microbiology - Last 24 Hours (Table) 01/13/20 21:50 Urine Culture - Final Urine,Voided Proteus mirabilis 01/14/20 05:56 Blood Culture - Preliminary Blood No Growth after 48 hours 01/14/20 05:41 Blood Culture - Preliminary Blood No Growth after 48 hours 01/13/20 23:18 Blood Culture Gram Stain - Final Blood Blood Culture - Final Proteus mirabilis 01/14/20 10:57 Gram Stain - Preliminary Aspirate Body Fluid Culture - Preliminary Gram Neg Bacilli Assessment and Plan Assessment: S/P right ureteral stent for septic stone on right Plan: -D/c romeo -F/U on urine culture, Ok for discharge from urology standpoint once the culture susceptibility is available -F/U in 2 weeks
[2020-01-16 11:13] LABS: Basophils % (A) 0 %; Eosinophils # (A) 0.2 k/uL (0-0.7); Eosinophils % (A) 1 %; HCT 38.4 % (34.0-46.0); HGB 12.2 gm/dL (11.4-16.0); Hypochromasia Slight; Lymphocytes # (A) 1.1 k/uL (1.0-4.8); Lymphocytes % (A) 7 %; MCH 29.7 pg (25.0-35.0); MCHC 31.8 g/dL (31.0-37.0); MCV 93.4 fL (80.0-100.0); Mean Platelet Volume 8.2; Monocytes # (A) 0.4 k/uL (0-1.0); Monocytes % (A) 3 %; Neutrophils # (A) 14.9 k/uL (1.3-7.7); Neutrophils % (A) 88 %; Platelet Count 107 k/uL (150-450); RBC 4.11 m/uL (3.80-5.40); RDW 14.3 % (11.5-15.5); WBC 16.9 k/uL (3.8-10.6)
[2020-01-16] MEDS: ONDANSETRON 4 MG/2 ML VIAL IVP PRN (16:09)
--- NOTE | 2020-01-16 16:45 | PN ---
PROGRESS NOTE DATE OF SERVICE: 01/16/2020. CHIEF COMPLAINT: Status post stenting of the right ureter for right ureteral calculus with obstruction and sepsis. HISTORY OF PRESENT ILLNESS: This lady is doing well. Catheter has been removed and she can probably go home today. She denies any fever, chills, abdominal pain, dysuria, etc. PHYSICAL EXAMINATION: Her chest is clear. Cardiac exam is normal. Abdomen is soft, nontender. IMPRESSION: Status post right obstructing ureteral calculus with hydronephrosis and sepsis. PLAN: Repeat electrolytes and white count today and probably discharge later in the day. ADDENDUM: In the afternoon the patient developed some nausea. Zofran was prescribed. Infectious Disease wants her to stay in the hospital another day. MMODL / IJN: [id number] /
[2020-01-16] MEDS: VORTIOXETINE HYDROBROMIDE 20 MG TABLET PO SCH (17:33)
[2020-01-16] MEDS: traZODone HCL 100 MG TAB PO SCH (22:22)
[2020-01-16] MEDS: risperiDONE 1 MG TAB PO SCH (22:22)
--- NOTE | 2020-01-17 00:01 | P.PN ---
Progress Note - Text Progress Note Date: 01/16/20 REASON FOR FOLLOWUP: Pyelonephritis and bacteremia. INTERVAL HISTORY: The patient is afebrile. The patient is feeling better. The patient is breathing comfortably, the patient denies having any chest pain or cough. No nausea, vomiting or diarrhea. PHYSICAL EXAMINATION: Blood pressure 125/66, pulse of 80, temperature 97.9. She is 92% on 2 L. General description is a middle-aged female, lying in bed in no distress. RESPIRATORY SYSTEM: Unlabored breathing, clear to auscultation anteriorly. HEART: S1, S2. Regular rate and rhythm. ABDOMEN: Soft, no tenderness. LABS: Blood and urine culture finalized with Proteus ,white count down to 16,000 DIAGNOSTIC IMPRESSION AND PLAN: Patient admitted to the hospital with sepsis, source of right-sided pyelonephritis. Patient blood and urine culture has been finalized with Proteus antibiotic will be adjusted Rocephin 2 g daily to continue while waiting for the white count to normalize and continue supportive care
[2020-01-17] MEDS: PANTOPRAZOLE 40 MG TABLET PO SCH (08:07)
[2020-01-17] MEDS: TOPIRAMATE 25 MG TAB PO SCH ×2 (08:07→22:13)
--- NOTE | 2020-01-17 11:53 | ECHOF ---
Referral Reason:hypotension MEASUREMENTS -------- HEIGHT: 157.5 cm WEIGHT: 59.0 kg BP: 103/59 RVIDd: 3.9 cm (< 3.3) IVSd: 1.1 cm (0.6 - 1.1) LVIDd: 3.7 cm (3.9 - 5.3) LVPWd: 1.4 cm (0.6 - 1.1) IVSs: 1.2 cm LVIDs: 2.6 cm LVPWs: 1.8 cm LAESV Index (A-L): 20.98 ml/m Ao Diam: 3.0 cm (2.0 - 3.7) AV Cusp: 1.9 cm (1.5 - 2.6) MV EXCURSION: 15.618 mm (> 18.000) MV EF SLOPE: 110 mm/s (70 - 150) EPSS: 0.8 cm MV E Dean: 0.90 m/s MV DecT: 219 ms MV A Dean: 0.74 m/s MV E/A Ratio: 1.21 AV maxP.18 mmHg AV meanP.87 mmHg RAP: 20.00 mmHg RVSP: 44.49 mmHg FINDINGS -------- Sinus rhythm. This was a technically adequate study. The left ventricular size is normal. There is mild concentric left ventricular hypertrophy. Overa ll left ventricular systolic function is normal with, an EF between 55 - 60 %. The diastolic fillin g pattern is normal for the age of the patient 9.23. The right ventricle is moderately enlarged. Normal LA size by volume 22+/-6 ml/m2. The right atrium is mildly enlarged. Interatrial and interventricular septum intact. There is moderate aortic valve sclerosis. There is no evidence of aortic regurgitation. There is no evidence of aortic stenosis. Mild mitral regurgitation is present. Behq-tk-otfwahju tricuspid regurgitation present. There is moderate pulmonary hypertension. The r ight ventricular systolic pressure, as measured by Doppler, is 44.49mmHg. There is no pulmonic regurgitation present. The aortic root size is normal. The inferior vena cava is dilated with poor inspiratory collapse which is consistent with estimated r ight atrial pressure of 20 mmHg. There is no pericardial effusion. CONCLUSIONS -------- 1. Sinus rhythm. 2. This was a technically adequate study. 3. The left ventricular size is normal. 4. There is mild concentric left ventricular hypertrophy. 5. Overall left ventricular systolic function is normal with, an EF between 55 - 60 %. 6. The diastolic filling pattern is normal for the age of the patient 9.23 7. The right ventricle is moderately enlarged. 8. Normal LA size by volume 22+/-6 ml/m2. 9. The right atrium is mildly enlarged. 10. Interatrial and interventricular septum intact. 11. There is moderate aortic valve sclerosis. 12. There is no evidence of aortic regurgitation. 13. There is no evidence of aortic stenosis. 14. Mild mitral regurgitation is present. 15. Wpss-ic-hruovkuw tricuspid regurgitation present. 16. There is moderate pulmonary hypertension. 17. The right ventricular systolic pressure, as measured by Doppler, is 44.49mmHg. 18. There is no pulmonic regurgitation present. 19. The aortic root size is normal. 20. The inferior vena cava is dilated with poor inspiratory collapse which is consistent with estimat ed right atrial pressure of 20 mmHg. 21. There is no pericardial effusion. TRAY PACKER: Cassandra Cavazos RDCS
--- NOTE | 2020-01-17 15:23 | PN ---
PROGRESS NOTE DATE OF SERVICE: 01/17/2020 REASON FOR FOLLOWUP: Proteus mirabilis bacteremia secondary to complicated UTI. INTERVAL HISTORY: The patient is currently afebrile. The patient is breathing comfortably. The patient denies having any chest pain or shortness of breath or cough. No nausea, no vomiting. No abdominal pain or diarrhea. PHYSICAL EXAMINATION: Blood pressure is 122/63 with a pulse of 56, temperature 98. She is 95% on room air. General description is a middle-aged female lying in bed in no distress. RESPIRATORY SYSTEM: Unlabored breathing. Clear to auscultation anteriorly. HEART: S1, S2. Regular rate and rhythm. ABDOMEN: Soft. No tenderness. LABS: No new labs have been obtained today. DIAGNOSTIC IMPRESSION AND PLAN: Patient with Proteus mirabilis bacteremia secondary to urinary source. The patient seems to have shown overall improvement. The patient is currently on Rocephin 2 grams daily; to continue, finishing therapy with oral Ceftin. Ideally would have used Cipro, but it could not be used because of the medication she is on with drug interaction. Monitor her clinical course closely. MMODL / IJN: [id number] /
[2020-01-17] MEDS: SODIUM CHLORIDE 0.9% 1,000 ML IV SCH ×2 (15:44→19:19)
[2020-01-17] MEDS: ONDANSETRON 4 MG/2 ML VIAL IVP PRN (15:47)
[2020-01-17 16:31] LABS: Basophils % (A) 0 %; Eosinophils # (A) 0.1 k/uL (0-0.7); Eosinophils % (A) 1 %; HCT 38.9 % (34.0-46.0); HGB 12.2 gm/dL (11.4-16.0); Hypochromasia Marked; Lymphocytes # (A) 1.5 k/uL (1.0-4.8); Lymphocytes % (A) 12 %; MCH 29.9 pg (25.0-35.0); MCHC 31.3 g/dL (31.0-37.0); MCV 95.2 fL (80.0-100.0); Mean Platelet Volume 8.3; Monocytes # (A) 0.4 k/uL (0-1.0); Monocytes % (A) 3 %; Neutrophils % (A) 81 %; Platelet Count 136 k/uL (150-450); RBC 4.09 m/uL (3.80-5.40); RDW 14.1 % (11.5-15.5); WBC 12.4 k/uL (3.8-10.6)
[2020-01-17] MEDS: VORTIOXETINE HYDROBROMIDE 20 MG TABLET PO SCH (17:10)
[2020-01-17] MEDS: risperiDONE 1 MG TAB PO SCH (22:13)
[2020-01-17] MEDS: traZODone HCL 100 MG TAB PO SCH (22:14)
[2020-01-18 04:15] VITALS: BP 137/68; PULSE 62; RESP 17; TEMP 98.4
[2020-01-18] MEDS: SODIUM CHLORIDE 0.9% 1,000 ML IV SCH (04:16)
[2020-01-18] MEDS: ONDANSETRON 4 MG/2 ML VIAL IVP PRN (04:16)
[2020-01-18] MEDS: TOPIRAMATE 25 MG TAB PO SCH (09:48)
[2020-01-18] MEDS: PANTOPRAZOLE 40 MG TABLET PO SCH (09:48)
--- NOTE | 2020-01-18 15:39 | PN ---
PROGRESS NOTE DATE OF SERVICE: 01/18/2020 REASON FOR FOLLOWUP: Proteus mirabilis bacteremia secondary to complicated UTI. INTERVAL HISTORY: The patient is currently afebrile. The patient is breathing comfortably. Denies having any chest pain or any cough. No abdominal pain or any diarrhea. PHYSICAL EXAMINATION: Blood pressure 137/88 with a pulse of 52, temp 98.4. She is 95% on room air. General description is a middle-aged female lying in bed in no distress. RESPIRATORY SYSTEM: Unlabored breathing, clear to auscultation anteriorly. HEART: S1, S2. Regular rate and rhythm. ABDOMEN: Soft, no tenderness. LABS: Hemoglobin is 12.8, white count of 5.5 with yesterday blood culture repeat from 01/13 has been negative. DIAGNOSTIC IMPRESSION AND PLAN: Patient with Proteus mirabilis bacteremia secondary to complicated UTI in this patient, status post cystoscopy and ureteral stent placement. Patient is currently on Rocephin. We are not able to use Cipro because of the medication patient was on and discharge antibiotic will be Ceftin 500 mg twice a day for 10 days. Prescription has been sent to pharmacy. KARLO / IJN: [id number] /
--- NOTE | 2020-01-18 16:24 | PN ---
PROGRESS NOTE DATE OF SERVICE: 01/17/2020 CHIEF COMPLAINT: Pyelonephritis with sepsis. HISTORY OF PRESENT ILLNESS: This lady is doing well. Her temperature has been down. Krishnamurthy is out. She is urinating well without any dysuria, frequency, etc. We are waiting for clearance from Infectious Disease for discharge. White count is coming down. PHYSICAL EXAMINATION: Her chest is clear. The cardiac exam is normal and the abdomen is soft, nontender. Hydration and color are better. Blood pressure is up. IMPRESSION: 1. Septicemia secondary to right pyelonephritis. 2. Obstructing right distal ureteral calculus. 3. Chronic obstructive pulmonary disease. 4. Dehydration. 5. Hypotension. PLAN: Home whenever she is cleared by Infectious Disease. MMODL / IJN: [id number] /
--- NOTE | 2020-01-18 18:00 | DS ---
DISCHARGE SUMMARY CHIEF COMPLAINT: Right-sided flank and abdominal pain with fever and chills. HISTORY OF PRESENT ILLNESS AND PHYSICAL EXAMINATION: Details of this lady's history and physical can be found in the initial workup. LABORATORY STUDIES: While she was in the hospital she had laboratory studies, details of which can be found in the laboratory section of her chart. COURSE IN THE HOSPITAL: After admission she was placed on bedrest, started on intravenous fluids and IV antibiotics. She was seen by Urology and taken to the operating room, where she had a cystoscopy with stent placement, passed a stone in the right ureter. Postoperatively she did well. Her temperature slowly came down, as did her white count. She was doing well and it was felt that she could be discharged on January 17. She will go home on cefuroxime 500 mg orally twice a day and she will be seen in the office in several days. She will follow up with Urology in 2 weeks. FINAL DIAGNOSES: 1. Septicemia secondary to right-sided pyelonephritis. 2. Obstructing right ureteral calculus with hydronephrosis. 3. Chronic obstructive pulmonary disease. 4. Hypotension. 5. Dehydration. OPERATIONS: Cystoscopy and stent placement in the right ureter. CONSULTATIONS: 1. Infectious Disease. 2. Urology. She is improved. MMODL / IJN: [id number] /
== END 2020-01-18 17:45 | disposition home or self-care (01) | DRG 854 ==
LOC: EC 20:22 → 5NMEDONC 23:25
PROVIDERS: ADMIT Family Medicine; ATTEND Family Medicine
PROC: 0T768DZ Dilation of Right Ureter with Intraluminal Device, Via Natural or Artificial Opening Endoscopic (ICD-10-PCS; principal; 2020-01-14 10:25)
DX: A41.59 Other Gram-negative sepsis (principal); N13.6 Pyonephrosis; E87.2 Acidosis; N20.0 Calculus of kidney; R65.20 Severe sepsis without septic shock; E86.0 Dehydration; F17.210 Nicotine dependence, cigarettes, uncomplicated; I10 Essential (primary) hypertension; J44.9 Chronic obstructive pulmonary disease, unspecified; Z79.899 Other long term (current) drug therapy; Z86.73 Personal history of transient ischemic attack (TIA), and cerebral infarction without residual deficits; Z87.442 Personal history of urinary calculi; Z90.710 Acquired absence of both cervix and uterus; Z98.84 Bariatric surgery status; R32 Unspecified urinary incontinence; F32.9 Major depressive disorder, single episode, unspecified; Z90.49 Acquired absence of other specified parts of digestive tract; M19.90 Unspecified osteoarthritis, unspecified site
CPT/HCPCS: 36415; 74177; 80048; 80053; 81001; 82024; 82533; 83605; 83690; 84132; 85025; 85610; 85730; 87040; 87070; 87075; 87077; 87086; 87186; 87205; 93005; 93306; 96361; 96374; 96375; 99285

== ENCOUNTER → 2020-03-18 | Outpatient (CLI) | payer MEDICARE, OTHER ==
[2020-03-18 15:42] VITALS: BP 103/69; PULSE 94; TEMP 98.2; BMI 22.1
--- NOTE | 2020-03-18 16:00 | P.BASOAP ---
Subjective Progress Note Date: 03/18/20 Principal diagnosis: Vomiting Patient last seen in November. Since that time patient says she has lost more weight. She is down to 121 at this time. Patient says she has no appetite. Denies dysphagia. EGD performed last year was normal. Says she is due for a follow-up CT chest this Tuesday. We'll last 6 days she has had a few episodes of vomiting that is clear in color. Still refusing to see dietary. Recently hospitalized for kidney stone. CT abdomen at that time showed no evidence of malignancy. Objective - Vital Signs Vital signs: Vital Signs Temp 98.2 F 03/18/20 15:39 Pulse 94 03/18/20 15:39 Resp BP 103/69 03/18/20 15:39 Pulse Ox Intake & Output 03/17/20 03/18/20 03/18/20 18:59 06:59 18:59 Weight 54.885 kg - Exam Abdomen: Soft, nontender, nondistended Assessment/Plan (1) Anorexia Narrative/Plan: Patient with decreased appetite that is worsening again. Subsequent weight loss noted. Some intermittent vomiting recently. We'll check upper GI small bowel series. If that study is normal patient considering band removal. Previously the patient has had significant weight loss and anorexia with no restriction or vomiting. Plan: Date: 03/18/20 Initial Weight: 119.748 kg Initial BMI: 48.2 Current Weight: 54.885 kg Current BMI: 22.1 Type of Surgery: Total Volume in Band: Previous Volume: Volume Removed: Volume Added: Band Size:
== END | disposition home or self-care (01) ==
LOC: BARWHC3 14:37
PROVIDERS: ATTEND Surgery
DX: R63.0 Anorexia (principal); R11.10 Vomiting, unspecified
CPT/HCPCS: 99211

== ENCOUNTER → 2020-03-24 | Outpatient (CLI) | payer MEDICARE, OTHER ==
--- NOTE | 2020-03-24 16:53 | CTL ---
EXAMINATION TYPE: CT Low Dose Lung DATE OF EXAM ORDERED: 03/24/2020 HISTORY: Personal history tobacco use. Lung cancer screening CT DLP: [address] CTDI: 1.04 mGy Automated exposure control for dose reduction was used. SCREENING VISIT: 2 COMPARISON: Prior exam 06/28/2019 TECHNIQUE: Low dose computed tomography scan was performed through the chest at 1 mm thick sections a nd reconstructed images in the coronal plane at [address] DIAGNOSTIC QUALITY: Satisfactory FINDINGS: LUNG NODULES: Stable LUNGS: Unchanged There is no pleural effusion, no pneumothorax, no pericardial effusion. There are some scattered coronary artery calcifications. Heart is small. Patient is post lap band. IMPRESSION: Benign FOLLOW UP CT CHEST RECOMMENDATION: [address] LUNG RAD: 2
== END | disposition home or self-care (01) ==
LOC: RADCTMAIN 16:03
PROVIDERS: ATTEND Family Medicine
DX: Z12.2 Encounter for screening for malignant neoplasm of respiratory organs (principal); F17.210 Nicotine dependence, cigarettes, uncomplicated

== ENCOUNTER → 2020-03-31 | Outpatient (CLI) | payer MEDICARE, OTHER ==
--- NOTE | 2020-04-01 09:47 | FL ---
EXAMINATION TYPE: FL UGI air w small bowel DATE OF EXAM: 04/01/2020 COMPARISON: NONE HISTORY: Dysphagia, nausea and vomiting TECHNIQUE: A single contrast UGI study is performed with small bowel follow through. FINDINGS: There is a lap band in place. Esophagus shows normal motility. There is no obstruction to f low. At the level of the LAP-BAND there is a image showing passage across, widely patent orifice, add itional imaging shows more narrowed appearance. Lap band somewhat transverse in position. Stomach nancy ws no leak. Fold pattern is thought likely to be normal but is not well evaluated on this single cont rast study. Duodenal bulb and duodenal sweep are unremarkable. There is delay of passage of contrast into the colon. Despite 6 hours wait, contrast remains within the distal small bowel. Small bowel fol d pattern is normal. Patient returned following morning and overhead image shows the contrast within the colon. 3 minutes 33 seconds fluoroscopy time. 26 images. IMPRESSION: Postop changes. Delayed transit into the colon. Some limitations the exam. Transverse or ientation of the LAP-BAND. Difference in appearance of the contrast column through the lap band is in determinate.
== END | disposition home or self-care (01) ==
LOC: RADFLMAIN 08:45
PROVIDERS: ATTEND Surgery
DX: R13.10 Dysphagia, unspecified (principal); R11.2 Nausea with vomiting, unspecified
CPT/HCPCS: 74240; 74248

== ENCOUNTER → 2020-04-08 | Outpatient (CLI) | payer MEDICARE, OTHER ==
--- NOTE | 2020-04-08 16:42 | P.BASOAP ---
Subjective Progress Note Date: 04/08/20 Principal diagnosis: Anorexia Patient denies nausea or vomiting. No heartburn. Underwent recent CAT scan chest which was negative for malignancy. Underwent recent upper GI small bowel series showing no definite abnormalities. She did gain 2 pounds since her last visit. No pain. Objective - Exam Abdomen: Soft, nontender, nondistended Assessment/Plan (1) Anorexia Narrative/Plan: We'll keep the patient's band empty for now. No follow-up required at this point. Patient discuss ongoing anorexic issues with her primary care physician at her next appointment. Plan: Date: Initial Weight: 119.748 kg Initial BMI: Current Weight: Current BMI: Type of Surgery: Total Volume in Band: Previous Volume: Volume Removed: Volume Added: Band Size:
[2020-04-09 09:20] VITALS: BP 105/68; PULSE 69; TEMP 97.8; BMI 22.4
== END | disposition home or self-care (01) ==
LOC: BARWHC3 12:35
PROVIDERS: ATTEND Surgery
DX: R63.0 Anorexia (principal); Z98.84 Bariatric surgery status
CPT/HCPCS: 99211

== ENCOUNTER → 2020-07-22 | Outpatient (CLI) | payer MEDICARE, OTHER ==
[2020-07-22 13:09] VITALS: BP 96/64; PULSE 74; TEMP 98.1; BMI 23.0
--- NOTE | 2020-07-22 14:19 | P.BASOAP ---
Subjective Progress Note Date: 07/22/20 Principal diagnosis: Weight loss Patient returns for reevaluation. Last seen in March. She is eating more. She has gained 6 pounds. Still smoking daily. Denies pain. No nausea or vomiting. Objective - Vital Signs Vital signs: Vital Signs Temp 98.1 F 07/22/20 13:08 Pulse 74 07/22/20 13:08 Resp BP 96/64 07/22/20 13:08 Pulse Ox Intake & Output 07/21/20 07/22/20 07/22/20 18:59 06:59 18:59 Weight 57.153 kg - Exam Abdomen: Soft, nontender, nondistended Assessment/Plan (1) Morbid obesity Narrative/Plan: Patient doing better at this time. Continue encouraging increased caloric intake. Patient states she does not want to gain any more weight at this time and is happy at 130. Continue to follow-up with her primary care in addition to our office. Follow-up 4 months. Plan: Date: 07/22/20 Initial Weight: 119.748 kg Initial BMI: 48.2 Current Weight: 57.153 kg Current BMI: 23.0 Type of Surgery: Total Volume in Band: Previous Volume: Volume Removed: Volume Added: Band Size:
== END | disposition home or self-care (01) ==
LOC: BARWHC3 12:30
PROVIDERS: ATTEND Surgery
DX: E66.01 Morbid (severe) obesity due to excess calories (principal); Z68.23 Body mass index [BMI] 23.0-23.9, adult
CPT/HCPCS: 99211

== ENCOUNTER → 2020-10-28 | Outpatient (CLI) | payer MEDICARE, OTHER ==
[2020-10-28 12:16] VITALS: BP 111/67; PULSE 90; RESP 16; TEMP 98.4; BMI 25.2
--- NOTE | 2020-10-28 12:38 | P.BASOAP ---
Subjective Progress Note Date: 10/28/20 Principal diagnosis: Patient returns for follow-up. She has gained 9 pounds since her last visit. Appetite slightly increased. No change in her smoking status. No reflux, no nausea or vomiting, no pain. Objective - Vital Signs Vital signs: Vital Signs Temp 98.4 F 10/28/20 12:14 Pulse 90 10/28/20 12:14 Resp 16 10/28/20 12:14 BP 111/67 10/28/20 12:14 Pulse Ox Intake & Output 10/27/20 10/28/20 10/28/20 18:59 06:59 18:59 Weight 62.596 kg - Exam Abdomen: Soft, nontender, nondistended Assessment/Plan (1) Morbid obesity Narrative/Plan: Patient doing well at this time. Continue to monitor weight closely. Return visit for reevaluation for months. Plan: Date: 10/28/20 Initial Weight: 119.748 kg Initial BMI: 48.2 Current Weight: 62.596 kg Current BMI: 25.2 Type of Surgery: Total Volume in Band: Previous Volume: Volume Removed: Volume Added: Band Size:
== END | disposition home or self-care (01) ==
LOC: BARWHC3 11:30
PROVIDERS: ATTEND Surgery
DX: E66.01 Morbid (severe) obesity due to excess calories (principal); Z68.25 Body mass index [BMI] 25.0-25.9, adult
CPT/HCPCS: 99211

== ENCOUNTER → 2021-03-03 | Outpatient (CLI) | payer MEDICARE, OTHER ==
--- NOTE | 2021-03-03 13:43 | P.BASOAP ---
Subjective Progress Note Date: 03/03/21 Principal diagnosis: Morbid obesity Patient returns for recheck. Last seen 4 months ago. She has gained 4 pounds since then. Patient worried about gaining weight. Despite the patient's BMI still 25 and change. He feels well. No nausea or vomiting. No reflux while taking omeprazole. Down to 6 cigarettes per day. Patient wondering if fluid should be added to her band. Objective - Vital Signs Vital signs: Vital Signs Temp 98.3 F 03/03/21 12:58 Pulse 83 03/03/21 12:58 Resp 16 03/03/21 12:58 BP 117/74 03/03/21 12:58 Pulse Ox Intake & Output 03/02/21 03/03/21 03/03/21 18:59 06:59 18:59 Weight 64.41 kg - Exam Abdomen: Soft, nontender, nondistended Assessment/Plan (1) Morbid obesity Narrative/Plan: Patient doing well. No need for band adjustment at this time. We agreed that if her weight was 145 or higher we would add a small amount of fluid to her band. Continue working on smoking cessation. Follow-up evaluation 4 months. Plan: Date: 03/03/21 Initial Weight: 119.748 kg Initial BMI: 48.2 Current Weight: 64.41 kg Current BMI: 25.9 Type of Surgery: Total Volume in Band: Previous Volume: Volume Removed: Volume Added: Band Size:
== END ==
CPT/HCPCS: 99211

== ENCOUNTER → 2021-09-29 | Outpatient (CLI) | payer MEDICARE, OTHER ==
[2021-09-29 12:42] VITALS: BP 118/78; PULSE 68; TEMP 98.1; BMI 25.2
--- NOTE | 2021-09-29 13:31 | P.BASOAP ---
Subjective Progress Note Date: 09/29/21 Principal diagnosis: Morbid obesity Patient returns for reevaluation. Doing well since her last visit. She has lost 4 pounds. She feels comfortable. Denies nausea vomiting. No reflux. Objective - Vital Signs Vital signs: Vital Signs Temp 98.1 F 09/29/21 12:40 Pulse 68 09/29/21 12:40 Resp BP 118/78 09/29/21 12:40 Pulse Ox Intake & Output 09/28/21 09/29/21 09/29/21 18:59 06:59 18:59 Weight 62.596 kg - Exam Abdomen: Soft, nontender, nondistended Assessment/Plan (1) Morbid obesity Narrative/Plan: Patient doing well at this time. No further fills needed. Continue omeprazole when necessary. Follow-up in 3 months. Plan: Date: 09/29/21 Initial Weight: 119.748 kg Initial BMI: 48.2 Current Weight: 62.596 kg Current BMI: 25.2 Type of Surgery: Total Volume in Band: Previous Volume: Volume Removed: Volume Added: Band Size:
== END ==
LOC: BARWHC3 12:38
PROVIDERS: ATTEND Surgery
DX: E66.01 Morbid (severe) obesity due to excess calories (principal); Z68.25 Body mass index [BMI] 25.0-25.9, adult; F17.200 Nicotine dependence, unspecified, uncomplicated; Z88.5 Allergy status to narcotic agent; Z88.8 Allergy status to other drugs, medicaments and biological substances
CPT/HCPCS: 99211

== ENCOUNTER → 2022-06-22 | Outpatient (CLI) | payer MEDICARE, OTHER ==
[2022-06-22 12:53] VITALS: BP 105/69; PULSE 72; RESP 16; TEMP 98; BMI 24.8
--- NOTE | 2022-06-22 13:43 | P.BASOAP ---
Subjective Progress Note Date: 06/22/22 Principal diagnosis: Morbid obesity Patient returns for recheck. She was last seen 4 months ago. She has gained 2 pounds. No nausea or vomiting. No reflux. Patient takes omeprazole once daily. She is down to smoking 7 cigarettes per day. Objective - Vital Signs Vital signs: Vital Signs Temp 98 F 06/22/22 12:51 Pulse 72 06/22/22 12:51 Resp 16 06/22/22 12:51 BP 105/69 06/22/22 12:51 Pulse Ox FiO2 Intake & Output 06/21/22 06/22/22 06/22/22 18:59 06:59 18:59 Weight 61.689 kg - Exam Abdomen: Soft, nontender, nondistended Assessment/Plan (1) Morbid obesity Narrative/Plan: Patient doing well at this time. Continue dietary and weight loss regimen. Continue working on smoking cessation. Return visit 4 months per patient's request. Plan: Date: 06/22/22 Initial Weight: 119.748 kg Initial BMI: 48.2 Current Weight: 61.689 kg Current BMI: 24.8 Type of Surgery: Adjustable Gastric Banding Total Volume in Band: Previous Volume: Volume Removed: Volume Added: Band Size:
== END ==
LOC: BARWHC3 12:30
PROVIDERS: ATTEND Surgery
DX: E66.01 Morbid (severe) obesity due to excess calories (principal); Z98.84 Bariatric surgery status; Z68.24 Body mass index [BMI] 24.0-24.9, adult; Z88.5 Allergy status to narcotic agent; Z88.8 Allergy status to other drugs, medicaments and biological substances
CPT/HCPCS: 99211

== ENCOUNTER → 2022-10-19 | Outpatient (CLI) | payer MEDICARE, OTHER ==
[2022-10-19 13:16] VITALS: BP 111/69; PULSE 78; TEMP 98.1; BMI 23.3
--- NOTE | 2022-10-19 13:26 | P.BASOAP ---
Subjective Progress Note Date: 10/19/22 Principal diagnosis: Dysphagia Patient returns for reevaluation. Over the last 3 weeks she says she has had increased weight loss and early satiety. Patient states she eats 2 bites of food and then feels full and can no longer eat. Denies dysphagia. No GERD. She believes there is 1 mL of fluid in the band. Objective - Vital Signs Vital signs: Vital Signs Temp 98.1 F 10/19/22 13:07 Pulse 78 10/19/22 13:07 Resp BP 111/69 10/19/22 13:07 Pulse Ox FiO2 Intake & Output 10/18/22 10/19/22 10/19/22 18:59 06:59 18:59 Weight 58.06 kg - Exam Abdomen: Soft, nontender, nondistended Assessment/Plan (1) Morbid obesity Narrative/Plan: Patient with progressive weight loss. 8 pounds since her last visit. Will empty the band. Will check esophagogram. The patient's lap band port was palpated. The site was aseptically prepped. The Jarrett needle was advanced into the port. A total of 0.5 ml of fluid was evacuated. Band is empty. Pressure was held and a sterile dressing was applied. Plan: Date: 10/19/22 Initial Weight: 119.748 kg Initial BMI: 48.2 Current Weight: 58.06 kg Current BMI: 23.3 Type of Surgery: Total Volume in Band: Previous Volume: Volume Removed: Volume Added: Band Size:
== END ==
LOC: BARWHC3 12:30
PROVIDERS: ATTEND Surgery
DX: E66.01 Morbid (severe) obesity due to excess calories (principal); Z68.23 Body mass index [BMI] 23.0-23.9, adult; Z88.1 Allergy status to other antibiotic agents; Z88.5 Allergy status to narcotic agent; Z88.8 Allergy status to other drugs, medicaments and biological substances; F17.200 Nicotine dependence, unspecified, uncomplicated; Z46.51 Encounter for fitting and adjustment of gastric lap band
CPT/HCPCS: 99212

== ENCOUNTER → 2023-02-22 | Outpatient (CLI) | payer MEDICARE, OTHER ==
[2023-02-22 13:09] VITALS: BP 103/66; PULSE 116; TEMP 97.8; BMI 22.6
--- NOTE | 2023-02-22 14:21 | P.BASOAP ---
Subjective Progress Note Date: 02/22/23 Principal diagnosis: Malnutrition Patient well-known to our service. Patient's weight has dropped even further. Now she is at 124. She states that now recently she is actually having difficulty eating certain foods. Says she made a sandwich recently and she could only one quarter of it. This is despite the band being empty. Patient is now agreeable to band removal. Mild GERD symptoms. Last EGD and upper GI 3-4 years ago. Objective - Vital Signs Vital signs: Vital Signs Temp 97.8 F 02/22/23 13:05 Pulse 116 H 02/22/23 13:05 Resp BP 103/66 02/22/23 13:05 Pulse Ox FiO2 Intake & Output 02/21/23 02/22/23 02/22/23 18:59 06:59 18:59 Weight 56.245 kg - Exam Abdomen: Soft, nontender, nondistended Assessment/Plan (1) GERD (gastroesophageal reflux disease) Narrative/Plan: 67-year-old female with reflux and malnutrition. Patient having progressive weight loss with restriction. Agree with plans for band removal. Will need medical clearance from Dr. Mitchell in. We'll order a barium swallow as well. Plan: Date: 02/22/23 Initial Weight: 119.748 kg Initial BMI: 48.2 Current Weight: 56.245 kg Current BMI: 22.6 Type of Surgery: Total Volume in Band: Previous Volume: Volume Removed: Volume Added: Band Size:
== END ==
LOC: BARWHC3 12:41
PROVIDERS: ATTEND Surgery
DX: E66.01 Morbid (severe) obesity due to excess calories (principal); K21.9 Gastro-esophageal reflux disease without esophagitis; Z68.42 Body mass index [BMI] 45.0-49.9, adult; Z88.8 Allergy status to other drugs, medicaments and biological substances; Z88.5 Allergy status to narcotic agent; F17.200 Nicotine dependence, unspecified, uncomplicated; Z46.51 Encounter for fitting and adjustment of gastric lap band; E46 Unspecified protein-calorie malnutrition
CPT/HCPCS: 99211

== ENCOUNTER → 2023-03-04 | Outpatient (CLI) | payer MEDICARE, OTHER ==
[2023-03-04 15:51] LABS: Basophils # (A) 0.05 X 10*3/uL (0.00-0.10); Basophils % (A) 0.7 %; Eosinophils # (A) 0.23 X 10*3/uL (0.04-0.35); Eosinophils % (A) 3.3 %; HCT 49.5 % (37.2-46.3); HGB 15.6 d/dL (12.0-15.0); Lymphocytes % (A) 41.4 %; MCH 31.1 pg (27.0-32.0); MCHC 31.5 d/dL (32.0-37.0); MCV 98.8 FL (80.0-97.0); Monocytes # (A) 0.56 X 10*3/uL (0.20-1.00); NRBC Per 100 WBC 0 X 10*3/uL (0.00-0.01); Neutrophils # (A) 3.26 X 10*3/uL (1.80-7.70); Neutrophils % (A) 46.5 %; Platelet Count 236 X 10*3/uL (140-440); RBC 5.01 X 10*6/uL (4.10-5.20); RDW 13.8 % (11.5-14.5); WBC 7.01 X 10*3/uL (4.50-10.00)
[2023-03-04 15:52] LABS: ALT 30 U/L (8-44); AST 20 U/L (13-35); Albumin 4.4 d/dL (3.8-4.9); Albumin/Globulin Ratio 1.83 Ratio (1.60-3.17); Alkaline Phosphatase 54 U/L (41-126); BUN/Creat Ratio 11.43 Ratio (12.00-20.00); Chloride 105 mmol/L (96-109); Globulin 2.4 d/dL (1.6-3.3); Glucose 110 mg/dL (70-110); Sodium 144 mmol/L (135-145); Total Bilirubin 0.5 mg/dL (0.3-1.2); Total Protein 6.8 d/dL (6.2-8.2)
== END | disposition home or self-care (01) ==
LOC: LABWHC1 07:34
PROVIDERS: ATTEND Surgery
DX: Z01.812 Encounter for preprocedural laboratory examination (principal); R94.31 Abnormal electrocardiogram [ECG] [EKG]
CPT/HCPCS: 36415; 80053; 85025; 93005

== ENCOUNTER → 2023-03-23 | Outpatient (CLI) | payer MEDICARE, OTHER ==
--- NOTE | 2023-03-23 10:42 | FL ---
EXAMINATION TYPE: FL barium swallow DATE OF EXAM: 03/23/2023 10:15 AM COMPARISON: 12/05/2019 CLINICAL INDICATION:Female, 67 years old with history of R13.10 DYSPHAGIA, UNSPECIFIED; PHH, TECHNIQUE: The procedure was explained and patient history elicited. All patient questions were ans wered prior to start of procedure. Multiple spot fluoroscopic images of the esophagus were obtained a fter the oral ingestion of effervescent crystals and liquid barium as the contrast agent. Fluoroscopic time: 31 s Fluoroscopic images:0 Radiographs taken: 159 DAP: [id number] FINDINGS: Gastric lap band with delayed transit of contrast through the lap band. There is tertiary contraction s also present. No evidence of abnormal dilation or stricture. Density material projected over the co radha. Limited evaluation of the stomach did not demonstrate evidence of mass. There is flattening of the lap band with angle of 65 IMPRESSION: * Migration of lap band with a flattened angle. * Delayed contrast transit through the lap band. * Esophageal dysmotility.
== END | disposition home or self-care (01) ==
LOC: RADUSWWP 09:29
PROVIDERS: ATTEND Surgery
DX: R13.10 Dysphagia, unspecified (principal); K22.4 Dyskinesia of esophagus
CPT/HCPCS: 74220

== ENCOUNTER 2023-04-04 11:59 | Day surgery (SDC) | payer MEDICARE, OTHER ==
[2023-03-25 14:20] VITALS: BMI 22.6
[~2023-04-04 11:59] MED LIST changes: +DEXAMETHASONE SOD PHOSPHATE 4 MG/ML 1 ML VIAL IV ONE; -LIDOCAINE 1% 20 ML VIAL (10MG/ML) FOR IV START INTRADERMA PRN; +MIDAZOLAM 2 MG/2 ML VIAL IV PRN; +ONDANSETRON 4 MG/2 ML VIAL IVP ONE; +fentaNYL (PF) 50 MCG/ML 2 ML AMP IV PRN
[2023-04-04] MEDS ORDERED: LACTATED RINGERS 1,000 ML IV ONE ×2 (12:26→14:55)
[2023-04-04] MEDS ORDERED: HEPARIN SODIUM,PORCINE/PF 5,000 UNIT/0.5 ML SYRINGE SQ ONE (12:58)
--- NOTE | 2023-04-04 13:20 | P.GSHP ---
History of Present Illness H&P Date: 04/04/23 Chief Complaint: Dysphagia, lap band intolerance 67-year-old female known to our service. Patient had a laparoscopic gastric band placement many years ago. Patient has had some intermittent weight loss beyond what would be considered normal. Her band has been loosened int ermittently over the years. Recently her band was emptied and despite that she is having dysphagia symptoms. Recent upper GI showed that the band site was somewhat tight. No evidence of erosion seen. Patient has had a previous malignancy workup. She is a long-term smoker. She does have GERD symptoms as well. Past Medical History Past Medical History: Asthma, COPD, CVA/TIA, GERD/Reflux, Neurologic Disorder, Osteoarthritis (OA), Respiratory Disorder Additional Past Medical History / Comment(s): MIGRAINES, stroke & then TIA in 2018-intermittent dizziness, balance issues History of Any Multi-Drug Resistant Organisms: None Reported Past Surgical History: Bariatric Surgery, Cholecystectomy, Hysterectomy, Tonsillectomy Additional Past Surgical History / Comment(s): LAP BAND 2014 Past Anesthesia/Blood Transfusion Reactions: No Reported Reaction Past Psychological History: Anxiety, Depression Smoking Status: Current every day smoker Past Alcohol Use History: None Reported Additional Past Alcohol Use History / Comment(s): 8 cigs/day >40 yrs. Past Drug Use History: None Reported - Past Family History Mother Family Medical History: Cancer Father Family Medical History: Cancer Medications and Allergies Home Medications Medication Instructions Recorded Confirmed Type Albuterol Nebulized [Ventolin 2.5 mg INHALATION RT-QID PRN 01/28/14 03/25/23 History Nebulized] Albuterol Sulfate [Proair Hfa] 2 puff INHALATION RT-QID PRN 01/28/14 03/25/23 History Omeprazole [PriLOSEC] 20 mg PO DAILY 01/28/14 03/25/23 History Topiramate [Topamax] 50 mg PO BID 01/28/14 03/25/23 History Vortioxetine Hydrobromide 20 mg PO W/SUPPER 11/08/18 04/04/23 History [Trintellix] risperiDONE 3 mg PO HS 11/08/18 03/25/23 History traZODone HCL 100 mg PO HS 11/08/18 04/04/23 History Multivitamin,Therapeutic [Thera] 1 tab PO DAILY 12/21/18 03/25/23 History Ergocalciferol [Vitamin D2 (1250 1,250 mcg PO Q14D 03/25/23 03/25/23 History Mcg = 49874 Iu)] HYDROcodone/APAP 10-325MG [[facility] 1 tab PO BID PRN 03/25/23 03/25/23 History 10-325] Allergies Allergy/AdvReac Type Severity Reaction Status Date / Time fluticasone propionate Allergy Rash/Hives Verified 04/04/23 12:16 [From Advair Diskus] oxycodone HCl [From Percodan] Allergy Rash/Hives Verified 04/04/23 12:16 oxycodone terephthalate Allergy Rash/Hives Verified 04/04/23 12:16 [From Percodan] propoxyphene HCl Allergy Rash/Hives Verified 04/04/23 12:16 [From Darvon] salmeterol xinafoate Allergy Rash/Hives Verified 04/04/23 12:16 [From Advair Diskus] tramadol HCl [From Ultram] Allergy Rash/Hives Verified 04/04/23 12:16 Surgical - Exam Vital Signs Temp Pulse Resp BP Pulse Ox 98.2 F 104 H 18 122/84 93 L 04/04/23 12:32 04/04/23 12:32 04/04/23 12:32 04/04/23 12:32 04/04/23 12:32 Physical exam: General: Well-developed, somewhat malnourished appearing HEENT: Normocephalic, sclerae nonicteric Abdomen: Nontender, nondistended Extremities: No edema Neuro: Alert and oriented Assessment and Plan (1) Anorexia Narrative/Plan: 67-year-old female with dysphagia and GERD symptoms. Patient with progressive weight loss. We'll proceed with laparoscopic lap band removal at this time. The risks of bleeding, infection, stenosis, stricture, leak, abscess, fistula formation, peritonitis, poor weight loss, reflux, vomiting, conversion to an open procedure, [place], PE, DVT, and were discussed. The patient understands and wishes to proceed. Current Visit: No Status: Acute Code(s): R63.0 - ANOREXIA SNOMED Code(s): 88710593
[2023-04-04] MEDS ORDERED: SUCCINYLCHOLINE CHLORIDE 200 MG/10 ML VIAL IV ONE (13:38)
[2023-04-04] MEDS ORDERED: LIDOCAINE 2% INJ 20 MG/ML (2 ML VIAL) ONE (13:38)
[2023-04-04] MEDS ORDERED: KETOROLAC 15 MG/ML 1 ML VIAL ONE (13:38)
[2023-04-04] MEDS ORDERED: fentaNYL (PF) 50 MCG/ML 2 ML AMP ONE (13:38)
[2023-04-04] MEDS ORDERED: NEOSTIGMINE 1 MG/ML 10 ML VIAL ONE (13:38)
[2023-04-04] MEDS ORDERED: PHENYLEPHRINE-0.9% NACL SYG 1,000 MCG/10 ML SYRINGE ONE (13:38)
[2023-04-04] MEDS ORDERED: ROCURONIUM 10 MG/ML (5 ML VIAL) IV ONE (13:38)
[2023-04-04] MEDS ORDERED: PROPOFOL 10 MG/ML 20 ML VIAL IV ONE (13:38)
[2023-04-04] MEDS ORDERED: GLYCOPYRROLATE 0.2 MG/ML 2 ML VIAL ONE (13:38)
[2023-04-04] MEDS ORDERED: MIDAZOLAM 2 MG/2 ML VIAL ONE (13:38)
[2023-04-04] MEDS ORDERED: BUPIVACAINE (PF) 0.25% 30 ML VIAL SQ ONE ×2 (14:11→14:53)
[2023-04-04] MEDS ORDERED: NALOXONE 0.4 MG/ML 1 ML VIAL IV PRN (15:03)
[2023-04-04] MEDS ORDERED: HYDROcodone/APAP 5-325MG 1 EACH TAB PO PRN (15:03)
--- NOTE | 2023-04-04 15:11 | P.OP ---
Date of Procedure: 04/04/23 Procedure(s) Performed: PREOPERATIVE DIAGNOSIS: Band intolerance/abdominal pain POSTOPERATIVE DIAGNOSIS: Same PROCEDURE: Laparoscopic lap band removal SURGEON: Dinah EBL: Minimal ANESTHESIA: General COMPLICATIONS: None OPERATIVE PROCEDURE: The patient was brought and placed on the operating room table in the supine position. The patient was placed under general anesthesia at that time. The patient was then placed in lithotomy. The abdomen was prepped and draped in the usual sterile fashion. The previous port incision was localized and then incised using a scalpel. The port was easily excised using electrocautery. Entrance into the peritoneal cavity occurred using a 5 mm optical trocar through the old trocar entrance site. Insufflation took place to 15 mmHg. there were adhesions across the upper abdomen. I did have a window and I was able to visualize the left hemiabdomen nicely as well as the epigastrium. 25 mm trochars were placed in the left upper quadrant under direct visualization. I took down a few of the adhesions around the port entrance site. There was no bowel there. I was then able to place a right subxiphoid 5 mm trocar and a Jaycob liver retractor was utilized to elevate the left lobe of the liver. The initial 5 mm trocar was switched to a 15 mm. There were adhesions to the band in the buccal that were lysed using both the LigaSure and electrocautery. The band was then cut using the laparoscopic angélica. The band was then removed easily in 2 portions through the 15 mm trocar site. The stomach itself was inspected and revealed no evidence of erosion or prolapse. The trochars were removed. The fascia at the 15 mm site was closed using a [id number] 0 Vicryl stitch. The subcutaneous tissues at the port site was closed using a 3-0 Vicryl suture. The skin at all 4 incision sites were closed using 4-0 Monocryl sutures. Steri-Strips and sterile dressings were then applied. DISPOSITION: Stable to recovery room
[2023-04-04 15:22] VITALS: TEMP 96.9
[2023-04-04] MEDS ORDERED: HYDROcodone/APAP 10-325MG 1 EACH TAB ONE (16:51)
[2023-04-04 17:10] VITALS: RESP 16
[2023-04-04 17:41] VITALS: BP 100/60; PULSE 68
== END 2023-04-04 18:10 | disposition home or self-care (01) ==
LOC: OR 11:59
PROVIDERS: ATTEND Surgery
DX: E66.01 Morbid (severe) obesity due to excess calories (principal); K21.9 Gastro-esophageal reflux disease without esophagitis; J44.9 Chronic obstructive pulmonary disease, unspecified; F17.200 Nicotine dependence, unspecified, uncomplicated; Z68.22 Body mass index [BMI] 22.0-22.9, adult; Z86.73 Personal history of transient ischemic attack (TIA), and cerebral infarction without residual deficits; Z90.49 Acquired absence of other specified parts of digestive tract; Z90.89 Acquired absence of other organs; Z98.84 Bariatric surgery status; Z86.59 Personal history of other mental and behavioral disorders; Z79.51 Long term (current) use of inhaled steroids; Z88.5 Allergy status to narcotic agent; Z79.899 Other long term (current) drug therapy
CPT/HCPCS: 43772; J1100; J0690; J2405; J1644

== ENCOUNTER → 2023-09-20 | Outpatient (CLI) | payer MEDICARE, OTHER ==
--- NOTE | 2023-09-20 12:37 | CTL ---
EXAMINATION TYPE: CT Low Dose Lung DATE OF EXAM ORDERED: 09/20/2023 HISTORY: Lung cancer screening CT DLP: 48.[address] CTDI: 1.4 mGy Automated exposure control for dose reduction was used COMPARISON: 03/24/2020 TECHNIQUE: Low dose computed tomography scan was performed through the chest at 1 mm thick sections a nd reconstructed images in multiple planes at 1 mm and [address] DIAGNOSTIC QUALITY: Satisfactory FINDINGS: There is a new 8.7 mm ill-defined somewhat spiculated nodule in the superior segment of the left lowe r lobe. It is highly suspicious for neoplasm. There are multiple smaller sub-6 mm nodular densities. There is no airspace consolidation or abnormal interstitial density. There is no pleural effusion or pneumothorax The great vessels chest are normal is no mediastinal, hilar or axillary adenopathy. Limited scanning the upper abdomen reveals no gross abnormality. No focal osseous lesions are seen. IMPRESSION: 1. Lung RADS category 4X. Highly suspicious nodule in the left lower lobe as described above. PET sca n or CT-guided lung biopsy is recommended for further evaluation. 2. No acute cardiopulmonary disease.
== END | disposition home or self-care (01) ==
LOC: RADCTMAIN 08:29
PROVIDERS: ATTEND Family Medicine
DX: Z12.2 Encounter for screening for malignant neoplasm of respiratory organs (principal); F17.210 Nicotine dependence, cigarettes, uncomplicated
CPT/HCPCS: 71271

== ENCOUNTER → 2023-10-21 | Outpatient (CLI) | payer MEDICARE, OTHER ==
--- NOTE | 2023-10-21 09:46 | PE ---
EXAMINATION TYPE: PET CT fusion skull to thigh DATE OF EXAM: 10/21/2023 CLINICAL INDICATION:Female, 68 years old with history of R91.1 SPN; TECHNIQUE: Following the intravenous administration of 8.77 mCi of F-18 FDG, whole body images are performed from the skull base to the midthigh. Images are reviewed on the computer in the coronal, a xial, and sagittal planes. Reconstructed rotating images are created on independent workstation and reviewed on the computer. A non-contrast CT is performed in conjunction with the PET scan. Glucose level 97 mg/dL CT DLP: 238.26 mGycm, Automated exposure control for dose reduction was used. COMPARISON: CT 09/20/2023, 06/24/2023, PET/CT None, FINDINGS: Mediastinal SUV mean is 2.0. Hepatic parenchyma SUV mean is 2.5. SKULL BASE AND NECK: No suspicious radiotracer activity. CHEST, MEDIASTINUM, AND HILAR REGION: * Left lower lobe superior segment pulmonary nodule related appearance measuring up to 5 mm (previou sly measured 8.7 mm) Max SUV 0.4. * Other pulmonary nodules are below the sensitivity of PET/CT due to the size size. * No suspicious radiotracer activity. ABDOMEN AND PELVIS: No suspicious radiotracer activity. MUSCULOSKELETAL STRUCTURES: No suspicious radiotracer activity. OTHER CT: Atherosclerosis of the arterial vasculature including the coronary arteries. There is desic cation of aortic valve. Postsurgical changes at the gastroesophageal junction. Right lateral and left lateral suspected lipomas measuring up to 6.6 cm on the right and 8.3 cm on the left bilateral flank s. Multiple right-sided calculi in the renal sinus without evidence for hydronephrosis measuring up t o 8 mm. Right suspected angiomyolipoma fat-containing lesion in the right kidney measuring 12 mm. IMPRESSION: Left lower lobe superior segment nodule seen on prior with FDG activity below back on levels. Additio nal smaller nodules seen on prior CT chest or pelvis sensitivity of PET/CT. Surveillance imaging CT c hest recommended in 3-6 months.
== END | disposition home or self-care (01) ==
LOC: RADPETMAIN 07:49
PROVIDERS: ATTEND Family Medicine
DX: R91.1 Solitary pulmonary nodule (principal)
CPT/HCPCS: 78815; A9552

== ENCOUNTER → 2024-01-20 | Outpatient (CLI) | payer MEDICARE, OTHER ==
[2024-01-20 12:41] LABS: African American GFR (CKD) >90 (>60 ml/min/1.73 sqM); Blood Urea Nitrogen 6 mg/dL (7-17); Non-African American GFR(CKD) >90 (>60 ml/min/1.73 sqM)
--- NOTE | 2024-01-26 16:42 | CT ---
EXAMINATION TYPE: CT chest w con CT DLP: 305 mGycm, Automated exposure control for dose reduction was used. DATE OF EXAM: 01/20/2024 1:16 PM COMPARISON: No recent comparison chest protocol CT.There is a PET CT from 10/21/2023 CLINICAL INDICATION:Female, 68 years old with history of J98.4 PULMONARY NODULE; PHH, Pulmonary Nodul e. TECHNIQUE: Multiple axial images were obtained through the chest. Sagittal and coronal reformats were created for review. Contrast used:100 mL of Isovue 300 with IV Contrast (None if empty) Oral contrast used: (None if empty) FINDINGS: LUNGS/ PLEURA: The lung parenchyma appears unremarkable. Nodules:No sizable nodule is detected in the superior segment of the left lower lobe. There is questi onable pleural reflection nodule measuring 2 mm on series 4, image 18 AIRWAY: Patent and unremarkable. HEART: Size within normal limits. Minimal calcific coronary artery disease. MEDIASTINUM: No gross evidence of adenopathy. VASCULATURE: No aortic aneurysm. MUSCULOSKELETAL: No acute osseous abnormalities SOFT TISSUES/LYMPH NODES: Unremarkable. LOWER NECK: No significant findings. UPPER ABDOMEN: Fundoplication suspected with no evidence of dehiscence . Cholecystectomy clips in the gallbladder fossa. No acute process in the upper abdomen identified.11 IMPRESSION: No acute process detected. No sizable pulmonary nodules. No sizable nodule is detected in the superior segment of the left lower lobe. There is questionable p leural reflection nodule measuring 2 mm on series 4, image 18 Follow up recommendations for incidental pulmonary nodules, if there are any, are per [employer] or [employer]. https://radiopaedia.org/articles/tlweawwfxw-[email or web address]?lang=us
== END | disposition home or self-care (01) ==
LOC: RADCTMAIN 11:59
PROVIDERS: ATTEND Internal Medicine Hematology & Oncology
DX: J98.4 Other disorders of lung (principal); E78.5 Hyperlipidemia, unspecified; I67.89 Other cerebrovascular disease; J44.9 Chronic obstructive pulmonary disease, unspecified; R91.1 Solitary pulmonary nodule
CPT/HCPCS: 82565; 84520; 71260; 36415; Q9967

== ENCOUNTER → 2024-04-06 | Outpatient (CLI) | payer MEDICARE, OTHER ==
--- NOTE | 2024-04-06 15:41 | PE ---
EXAMINATION TYPE: PET CT fusion skull to thigh DATE OF EXAM: 04/06/2024 CLINICAL INDICATION:Female, 68 years old with history of R59.0 Lymphadenopathy; TECHNIQUE: Following the intravenous administration of 12.8 mCi of F-18 FDG, whole body images are performed from the skull base to the midthigh. Images are reviewed on the computer in the coronal, a xial, and sagittal planes. Reconstructed rotating images are created on independent workstation and reviewed on the computer. A non-contrast CT is performed in conjunction with the PET scan. Glucose level 103 mg/dL CT DLP: 184.90 mGycm, Automated exposure control for dose reduction was used. COMPARISON: CT chest 01/20/2024, 09/20/2023, 03/24/2020, CT abdomen and pelvis 06/24/2023, PET/CT 024, MRI: None FINDINGS: Mediastinal SUV mean is 2.48. Hepatic parenchyma SUV mean is 2.71. SKULL BASE AND NECK: No suspicious radiotracer activity. CHEST, MEDIASTINUM, AND HILAR REGION: No suspicious radiotracer activity. * Stable left lower lobe superior segment pulmonary nodular density measuring up to 5 mm. Stable max SUV 0.4. * Other pulmonary nodules are below the sensitivity of PET/CT due to size. * No suspicious radiotracer activity. ABDOMEN AND PELVIS: No suspicious radiotracer activity. MUSCULOSKELETAL STRUCTURES: No suspicious radiotracer activity. OTHER CT: Anterior cervical fusion. Atherosclerotic calcification of the aorta and its branches. Aort ic valvular calcifications. Mild coronary arterial calcifications. Postsurgical changes of the GE raven ction. Nonobstructive right renal calculi with largest measuring up to 6 mm. Additional nonobstructiv e left renal calculus. 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 Postcholecystectomy. Emphysematous changes. Bilateral lateral chest wall lipomas redemonstrated. Distal colonic diverticulosis. IMPRESSION: Stable left lower lobe superior segment pulmonary nodule density with FDG activity below background l evels. Additional smaller nodules seen on prior CT chest are below the sensitivity of PET/CT. Conside r surveillance CT chest imaging with follow-up in 6-12 months. No other suspicious radiotracer uptake .
== END | disposition home or self-care (01) ==
LOC: RADPETMAIN 09:22
PROVIDERS: ATTEND Family Medicine
DX: J98.4 Other disorders of lung (principal); R59.0 Localized enlarged lymph nodes; R91.8 Other nonspecific abnormal finding of lung field
CPT/HCPCS: 78815; A9552

== ENCOUNTER → 2024-07-27 | Outpatient (CLI) | payer MEDICARE, OTHER ==
[2024-07-27 10:41] LABS: African American GFR (CKD) >90 (>60 ml/min/1.73 sqM); Blood Urea Nitrogen 6 mg/dL (7-17); Non-African American GFR(CKD) >90 (>60 ml/min/1.73 sqM)
--- NOTE | 2024-07-27 11:36 | CT ---
EXAMINATION TYPE: CT chest w con DATE OF EXAM: 07/27/2024 COMPARISON: 01/20/2024 CLINICAL INDICATION: Female, 69 years old with history of J98.4 OTHER DISORDERS OF LUNG; PHH, f/u lan g nodule. TECHNIQUE: CT scan of the chest is performed with IV Contrast, patient injected with 75ml mL of Isovue 300. MIP Images are created on CT scanner and reviewed. 3D reconstructed images are created on an independent workstation and reviewed. CT DLP: 131.[address] CTDI: mGy Automated exposure control for dose reduction was used. FINDINGS: There are mild emphysematous changes with an upper lobe predominance there has been interval developm ent of some ill-defined subpleural parenchymal density in the right upper lobe laterally most of whic h does not appear masslike however there is a new focal 13 mm nodular density in the right upper lobe adjacent to the fissure. Neoplasm is not excluded. There is mild reticulonodular density in the right middle lobe which was not seen previously. The left lung displays few stable subpleural parenchymal densities less than 4 mm in size. There is no pleural effusion, pleural thickening or pneumothorax. The great vessels of the chest are normal there is no mediastinal, hilar or axillary adenopathy. Limited scanning through the upper abdomen reveals no gross abnormality. No focal osseous lesions are seen. IMPRESSION: 1. Mild emphysematous changes. 2. Interval development of reticular nodular densities in the right lung as described above. Neoplasm is not excluded particularly for the 13 mm nodular density in the right upper lobe adjacent to the f issure. PET scan is recommended for further evaluation. [facility], , 07/27/2024 11:34 AM
== END | disposition home or self-care (01) ==
LOC: RADCTMAIN 10:03
PROVIDERS: ATTEND Internal Medicine Hematology & Oncology
DX: J43.9 Emphysema, unspecified (principal); J98.4 Other disorders of lung
CPT/HCPCS: 82565; 84520; 71260; 36415; Q9967

== ENCOUNTER → 2024-09-20 | Outpatient (CLI) | payer MEDICARE, OTHER ==
--- NOTE | 2024-09-20 17:50 | PE ---
EXAMINATION TYPE: PET CT fusion skull to thigh DATE OF EXAM: 09/20/2024 CLINICAL INDICATION:Female, 69 years old with history of R91.1 SPN; TECHNIQUE: Following the intravenous administration of 9.21 mCi of F-18 FDG, whole body images are performed from the skull base to the midthigh. Images are reviewed on the computer in the coronal, a xial, and sagittal planes. Reconstructed rotating images are created on independent workstation and reviewed on the computer. A non-contrast CT is performed in conjunction with the PET scan. Glucose level 98 mg/dL CT DLP: 190.71 mGycm, Automated exposure control for dose reduction was used. COMPARISON: CT 07/27/2024, 01/20/2024, 09/20/2023, 06/24/2023, 03/24/2020, 01/13/2020, 12/05/2019, 9, PET/CT 04/06/2024, MRI: None FINDINGS: Mediastinal SUV mean is 1.9. Hepatic parenchyma SUV mean is 2.0. SKULL BASE AND NECK: No suspicious radiotracer activity. CHEST, MEDIASTINUM, AND HILAR REGION: No suspicious radiotracer activity. * Stable left lower lobe superior segment pulmonary nodule measuring up to 5 mm. No significant FDG activity identified. * Near complete resolution of posterior right upper lobe nodular consolidative opacity with a max ROJAS V of 1.0 which is below background levels. * Other pulmonary nodules are below the sensitivity of PET/CT due to size. * No suspicious radiotracer activity. ABDOMEN AND PELVIS: No suspicious radiotracer activity. MUSCULOSKELETAL STRUCTURES: No suspicious radiotracer activity. OTHER CT: Anterior cervical fusion. Atherosclerotic calcification of the aorta and its branches. Aort ic valvular calcifications. Mild coronary arterial calcifications. Trace pericardial effusion. Postsu rgical changes of the GE junction. Nonobstructive right renal calculi. Additional nonobstructive left renal calculus. Right renal 1.3 cm angiomyolipoma redemonstrated. Small amount of free fluid in the pelvis. Postcholecystectomy. Emphysematous changes. Bilateral lateral chest wall lipomas redemonstrat ed. Distal colonic diverticulosis. IMPRESSION: 1. Near complete resolution of previously seen right upper lobe nodular opacity from CT chest. No co rresponding suspicious radiotracer activity. Likely represents resolving infectious/inflammatory proc ess. 2. Stable left lower lobe superior segment pulmonary nodule density with FDG activity below backgrou nd levels. Additional smaller nodules seen on prior CT chest are below the sensitivity of PET/CT. Con general operations agent surveillance CT chest imaging with follow-up in 6-12 months. No other suspicious radiotracer up take. [facility], , 09/20/2024 5:47 PM
== END | disposition home or self-care (01) ==
LOC: RADPETMAIN 12:20
PROVIDERS: ATTEND Internal Medicine Hematology & Oncology
DX: R91.1 Solitary pulmonary nodule (principal); K57.30 Diverticulosis of large intestine without perforation or abscess without bleeding; N20.0 Calculus of kidney; I70.0 Atherosclerosis of aorta
CPT/HCPCS: 78815; A9552

== ENCOUNTER 2025-01-03 16:05 | Inpatient (IN) | payer MEDICARE, OTHER ==
--- NOTE | 2025-01-03 17:19 | ED ---
Abdominal Pain HPI - General Source: patient, RN notes reviewed Mode of arrival: wheelchair Limitations: no limitations <Edwin Marin - Last Filed: 01/03/25 18:57> <Mila Barrera - Last Filed: 01/06/25 23:27> - General Chief Complaint: Abdominal Pain Stated Complaint: right sided abdominal pain Time Seen by Provider: 01/03/25 16:23 - History of Present Illness Initial Comments: This is a 69-year-old female presenting with right upper quadrant mass x 7 days. Patient endorses some associated pain. Denies known cause for mass. Patient also mentions some swelling/pain on left black. Denies fever, chills, chest pain, dyspnea, N/V/D. (Edwin Marin) 69-year-old female presents to the emergency department for evaluation of right- sided abdominal pain and upper abdominal "mass ". Patient states that she noticed this about a week ago. She does admit to bilateral lower extremity edema, abdominal bloating. She denies chest pain. She notes that her oxygen is in the mid 80s typically she denies any significant shortness of breath. She denies fever, chills. Admits to normal bowel movements. (Mila Barrera) - Related Data Home Medications Medication Instructions Recorded Confirmed Albuterol Nebulized [Ventolin 2.5 mg INHALATION RT-QID PRN 01/28/14 01/04/25 Nebulized] Albuterol Sulfate [Proair Hfa] 2 puff INHALATION RT-QID PRN 01/28/14 01/04/25 Omeprazole [PriLOSEC] 20 mg PO DAILY 01/28/14 01/04/25 Topiramate [Topamax] 50 mg PO BID 01/28/14 01/04/25 risperiDONE 3 mg PO HS 11/08/18 01/04/25 Multivitamin,Therapeutic [Thera] 1 tab PO DAILY 12/21/18 01/04/25 Atorvastatin [Lipitor] 80 mg PO DAILY 01/04/25 01/04/25 Cholecalciferol (Vitamin D3) 1,250 mcg PO Q14D 01/04/25 01/04/25 [Vitamin D3 (1250 Mcg = 50,000 Iu)] Vortioxetine Hydrobromide 10 mg PO W/SUPPER 01/04/25 01/04/25 [Trintellix] oxyCODONE HCL/ACETAMINOPHEN 1 tab PO BID 01/04/25 01/04/25 [Percocet 2.5-325 mg] traZODone HCL 100 mg PO HS 01/04/25 01/04/25 Allergies Allergy/AdvReac Type Severity Reaction Status Date / Time fluticasone propionate Allergy Rash/Hives Verified 01/04/25 08:24 [From Advair Diskus] oxycodone HCl [From Percodan] Allergy Rash/Hives Verified 01/04/25 08:24 oxycodone terephthalate Allergy Rash/Hives Verified 01/04/25 08:24 [From Percodan] propoxyphene HCl Allergy Rash/Hives Verified 01/04/25 08:24 [From Darvon] salmeterol xinafoate Allergy Rash/Hives Verified 01/04/25 08:24 [From Advair Diskus] tramadol HCl [From Ultram] Allergy Rash/Hives Verified 01/04/25 08:24 Review of Systems ROS Other: All systems not noted in ROS Statement are negative. <Edwin Marin - Last Filed: 01/03/25 18:57> ROS Other: All systems not noted in ROS Statement are negative. <Mila Barrera - Last Filed: 01/06/25 23:27> ROS Statement: Those systems with pertinent positive or pertinent negative responses have been documented in the HPI. Past Medical History Past Medical History: Asthma, COPD, CVA/TIA, GERD/Reflux, Neurologic Disorder, Osteoarthritis (OA), Respiratory Disorder Additional Past Medical History / Comment(s): MIGRAINES, stroke & then TIA in 2018-intermittent dizziness, balance issues, can't eat much, gets full q uickly, states no fluid in lap band History of Any Multi-Drug Resistant Organisms: None Reported Past Surgical History: Bariatric Surgery, Cholecystectomy, Hysterectomy, Tonsillectomy Additional Past Surgical History / Comment(s): LAP BAND 2014. lap band removal 04-04-23 Past Anesthesia/Blood Transfusion Reactions: No Reported Reaction Past Psychological History: Anxiety, Depression Smoking Status: Current every day smoker Past Alcohol Use History: None Reported Past Drug Use History: None Reported - Past Family History Mother Family Medical History: Cancer Father Family Medical History: Cancer <Edwin Marin [facility] Filed: 01/03/25 18:57> General Exam Limitations: no limitations General appearance: alert, in no apparent distress Head exam: Present: atraumatic, normocephalic, normal inspection Eye exam: Present: normal appearance, PERRL, EOMI. Absent: scleral icterus, conjunctival injection, periorbital swelling ENT exam: Present: normal exam, mucous membranes moist Neck exam: Present: normal inspection. Absent: tenderness, meningismus, lymphadenopathy Respiratory exam: Present: normal lung sounds bilaterally. Absent: respiratory distress, wheezes, rales, rhonchi, stridor Cardiovascular Exam: Present: regular rate, normal rhythm, normal heart sounds. Absent: systolic murmur, diastolic murmur, rubs, gallop, clicks GI/Abdominal exam: Present: soft, tenderness (Positive right upper quadrant tenderness without guarding), normal bowel sounds, mass (Right upper quadrant). Absent: distended, guarding, rebound, rigid Extremities exam: Present: normal inspection, full ROM, normal capillary refill. Absent: tenderness, pedal edema, joint swelling, calf tenderness Back exam: Present: normal inspection Neurological exam: Present: alert, oriented X3, CN II-XII intact Psychiatric exam: Present: normal affect, normal mood Skin exam: Present: warm, dry, intact, normal color. Absent: rash <Edwin Marin [facility] Filed: 01/03/25 18:57> Course Vital Signs 01/03/25 01/03/25 01/04/25 16:26 18:42 01:11 Temperature 97.7 F 98.5 F Pulse Rate 88 78 83 Respiratory 18 20 19 Rate Blood Pressure 92/60 109/74 113/73 O2 Sat by Pulse 86 L 85 L 98 Oximetry 01/04/25 01/04/25 01/04/25 07:04 09:33 12:25 Temperature 97.9 F Pulse Rate 74 71 97 Respiratory 18 18 18 Rate Blood Pressure 101/63 122/77 111/75 O2 Sat by Pulse 93 L 90 L 94 L Oximetry 01/04/25 01/04/25 01/04/25 14:00 17:11 21:46 Temperature 98.1 F Pulse Rate 73 68 73 Respiratory 20 18 18 Rate Blood Pressure 104/62 103/64 105/76 O2 Sat by Pulse 92 L 94 L 93 L Oximetry 01/05/25 01/05/25 00:40 01:27 Temperature 98.3 F Pulse Rate 88 73 Respiratory 18 17 Rate Blood Pressure 116/74 96/67 O2 Sat by Pulse 93 L 94 L Oximetry Medical Decision Making - Lab Data Result diagrams: 01/03/25 18:25 <Edwin Marin - Last Filed: 01/03/25 18:57> - Lab Data Result diagrams: 01/03/25 18:25 01/06/25 05:24 <Mila Barrera - Last Filed: 01/06/25 23:27> - Medical Decision Making Was pt. sent in by a medical professional or institution (, PA, FOREST FIRE MANAGEMENT OFFICER, urgent care, hospital, or custodial...) When possible be specific @ -[No] Did you speak to anyone other than the patient for history (EMS, parent, family, police, friend...)? What history was obtained from this source @ -[No] Did you review nursing and triage notes (agree or disagree)? Why? @ -[I reviewed and agree with nursing and triage notes] Were old charts reviewed (outside hosp., previous admission, EMS record, old EKG, old radiological studies, urgent care reports/EKG's, custodial records)? Report findings @ -[No old charts were reviewed] Differential Diagnosis (chest pain, altered mental status, abdominal pain women, abdominal pain men, vaginal bleeding, weakness, fever, dyspnea, syncope, headache, dizziness, GI bleed, back pain, seizure, CVA, palpatations, mental health, musculoskeletal)? @ -Differential Abdominal Pain Women: Appendicitis, Cholecystitis, diverticulosis, ischemic bowel, pancreatitis, hepatitis, UTI, gastroenteritis, AAA, incarcerated hernia, bowel obstruction, constipation, inflammatory bowel, hepatitis, peptic ulcer disease, splenic infarction, perforated viscus, vulvitis, ovarian torsion, PID, kidney stone, placenta abruption, this is not meant to be an all-inclusive list EKG interpreted by me (3pts min.). @ -Not done X-rays interpreted by me (1pt min.). @ -[None done] CT interpreted by me (1pt min.). @ -[None done] U/S interpreted by me (1pt. min.). @ -[None done] What testing was considered but not performed or refused? (CT, X-rays, U/S, labs)? Why? @ -[None] What meds were considered but not given or refused? Why? @ -[None] Did you discuss the management of the patient with other professionals (professionals i.e. , PA, FOREST FIRE MANAGEMENT OFFICER, lab, RT, psych nurse, drug abuse social worker, laundry agent, teacher, protection officer, immigration case manager)? Give summary @ -[No] Was smoking cessation discussed for >3mins.? @ -[No] Was critical care preformed (if so, how long)? @ -[No] Were there social determinants of health that impacted care today? How? (Homelessness, low income, unemployed, alcoholism, drug addiction, transportation, low edu. Level, literacy, decrease access to med. care, mcc, rehab)? @ -[No] Was there de-escalation of care discussed even if they declined (Discuss DNR or withdrawal of care, Hospice)? DNR status @ -[No] What co-morbidities impacted this encounter? (DM, HTN, Smoking, COPD, CAD, Cancer, CVA, ARF, Chemo, Hep., AIDS, mental health diagnosis, sleep apnea, morbid obesity)? @ -[None] Was patient admitted / discharged? Hospital course, mention meds given and route, prescriptions, significant lab abnormalities, going to OR and other pertinent info. @ -[hospital course] Undiagnosed new problem with uncertain prognosis? @ -[No] Drug Therapy requiring intensive monitoring for toxicity (Heparin, Nitro, Insulin, Cardizem)? @ -[No] Were any procedures done? @ -[No] Diagnosis/symptom? @ -[default] Acute, or Chronic, or Acute on Chronic? @ -Acute Uncomplicated (without systemic symptoms) or Complicated (systemic symptoms)? @ -Uncomplicated Side effects of treatment? @ -[No] Exacerbation, Progression, or Severe Exacerbation? @ -[No] Poses a threat to life or bodily function? How? (Chest pain, [place], PR, pneumonia, PE, COPD, DKA, ARF, appy, cholecystitis, CVA, Diverticulitis, Homicidal, Suicidal, threat to staff... and all critical care pts) @ -[No] (Edwin Marin) I took over the patient's case from Edwin Marin PA-C pending the results of her CT scan of the abdomen and pelvis. Laboratory studies obtained revealing no significant leukocytosis, hemoglobin 15.7; CMP is essentially nonactionable at this time. CT abdomen pelvis revealed diffuse anasarca most prominent along the right lateral upper abdominal wall, v small volume ascites with diffuse mesenteric edema, small right sided pleural effusion small to moderate size pericardial effusion. Stable bilateral upper abdominal subcutaneous tissue flank fat-containing masses most consistent with lipomas, diverticulosis without diverticulitis. An EKG was obtained because of these findings revealing sinus rhythm with a rate of 68, SD 140, QRS 80, QTQTc 386/403. The patient will be admitted with cardiology on consultation for the pericardial effusion. The case was discussed with Dr. De La O who is accepting of the admission. Case was discussed with Dr. Hess physician (Mila Barrera) - Lab Data Lab Results 01/03/25 01/03/25 01/03/25 Range/Units 18:25 18:25 22:31 WBC 7.55 (4.50-10.00) 10*3/uL RBC 5.15 (4.10-5.20) 10*6/uL Hgb 15.7 H (12.0-15.0) g/dL Hct 49.6 H (37.2-46.3) % MCV 96.3 (80.0-97.0) fL MCH 30.5 (27.0-32.0) pg MCHC 31.7 L (32.0-37.0) g/dL Plt Count 184 (140-440) 10*3/uL MPV 9.1 L (9.5-12.2) fL Immature Gran % (Auto) 0.3 % Neutrophils % 63.5 % Lymphocytes % 24.4 % Monocytes % 10.3 % Eosinophils % 1.2 % Basophils % 0.3 % Immature Gran # 0.02 (0.00-0.04) 10*3/uL Neutrophils # 4.80 (1.80-7.70) 10*3/uL Lymphocytes # 1.84 (0.90-5.00) 10*3/uL Monocytes # 0.78 (0.20-1.00) 10*3/uL Eosinophils # 0.09 (0.04-0.35) 10*3/uL Basophils # 0.02 (0.00-0.10) 10*3/uL Sodium 134 L (137-145) mmol/L Potassium 4.4 (3.5-5.1) mmol/L Chloride 100 (98-107) mmol/L Carbon Dioxide 28 (22-30) mmol/L Anion Gap 6 mmol/L BUN 10 (7-17) mg/dL Creatinine 0.51 L (0.52-1.04) mg/dL Est GFR (CKD-EPI)AfAm >90 (>60 ml/min/1.73 sqM) Est GFR (CKD-EPI)NonAf >90 (>60 ml/min/1.73 sqM) Glucose 100 H (74-99) mg/dL Calcium 9.2 (8.4-10.2) mg/dL Total Bilirubin 1.0 (0.2-1.3) mg/dL AST 37 H (14-36) U/L ALT 16 (4-34) U/L Alkaline Phosphatase 79 (38-126) U/L NT-Pro-B Natriuret Pep 6770 pg/mL Total Protein 6.3 (6.3-8.2) g/dL Albumin 3.6 (3.5-5.0) g/dL Lipase 63 (23-300) U/L Disposition <Edwin Marin - Last Filed: 01/03/25 18:57> Is patient prescribed a controlled substance at d/c from ED?: No <Mila Barrera - Last Filed: 01/06/25 23:27> Clinical Impression: Pericardial effusion Disposition: ADMITTED IP TO THIS HOSP Condition: Stable
[2025-01-03 18:33] LABS: Basophils # (A) 0.02 10*3/uL (0.00-0.10); Basophils % (A) 0.3 %; Eosinophils # (A) 0.09 10*3/uL (0.04-0.35); Eosinophils % (A) 1.2 %; HCT 49.6 % (37.2-46.3); HGB 15.7 g/dL (12.0-15.0); Lymphocytes # (A) 1.84 10*3/uL (0.90-5.00); Lymphocytes % (A) 24.4 %; MCH 30.5 pg (27.0-32.0); MCHC 31.7 g/dL (32.0-37.0); MCV 96.3 fL (80.0-97.0); Mean Platelet Volume 9.1 fL (9.5-12.2); Monocytes # (A) 0.78 10*3/uL (0.20-1.00); Monocytes % (A) 10.3 %; Neutrophils % (A) 63.5 %; Platelet Count 184 10*3/uL (140-440); RBC 5.15 10*6/uL (4.10-5.20); RDW 14.7 % (11.5-14.5); WBC 7.55 10*3/uL (4.50-10.00)
[2025-01-03 19:16] LABS: ALT 16 U/L (4-34); African American GFR (CKD) >90 (>60 ml/min/1.73 sqM); Anion Gap 6 mmol/L; Blood Urea Nitrogen 10 mg/dL (7-17); Calcium 9.2 mg/dL (8.4-10.2); Carbon Dioxide 28 mmol/L (22-30); Chloride 100 mmol/L (98-107); Glucose 100 mg/dL (74-99); Lipase 63 U/L (23-300); Non-African American GFR(CKD) >90 (>60 ml/min/1.73 sqM); Sodium 134 mmol/L (137-145)
[2025-01-03 19:23] LABS: AST 37 U/L (14-36); Albumin 3.6 g/dL (3.5-5.0); Alkaline Phosphatase 79 U/L (38-126); Potassium 4.4 mmol/L (3.5-5.1); Total Protein 6.3 g/dL (6.3-8.2)
--- NOTE | 2025-01-03 20:10 | CT ---
EXAMINATION TYPE: CT abdomen pelvis w con CT DLP: 745.2 mGycm, Automated exposure control for dose reduction was used. DATE OF EXAM: 01/03/2025 7:43 PM COMPARISON: PET CT 09/20/2024, 04/06/2024, 10/21/2023, CT abdomen and pelvis 01/13/2020, 12/05/2019 CLINICAL INDICATION:Female, 69 years old with history of RUQ mass, pain; Lower abdomen pain and swell ing, RUQ mass TECHNIQUE: Standard CT of the abdomen and pelvis following the administration of 100 cc of Isovue 3 00 IV contrast material. Coronal and sagittal reformats were performed. FINDINGS: LOWER CHEST: Increased small to moderate sized pericardial effusion. Small right pleural effusion wit h associated atelectasis. Stable left lower lobe subpleural 5.6 mm pulmonary nodule (series 24, serie s 13). ABDOMEN LIVER: Unremarkable GALLBLADDER AND BILE DUCTS: The gallbladder is surgically absent. No biliary ductal dilatation. PANCREAS: Unremarkable. SPLEEN: Unremarkable. ADRENAL GLANDS: Unremarkable. KIDNEYS AND URETERS: No evidence of hydronephrosis. The kidneys enhance symmetrically. No left renal calculi. Approximately 6 nonobstructive right renal calculi largest in the inferior pole measuring up to 9 mm. Contrast is demonstrated within both collecting systems on the delayed phase. PELVIS BLADDER: Underdistended which limits evaluation. REPRODUCTIVE: The uterus is surgically absent. ABDOMEN & PELVIS STOMACH AND BOWEL: Postsurgical changes at the GE junction from hernia repair.Sigmoid diverticulosis without evidence for acute diverticulitis. No evidence of bowel obstruction. PERITONEUM: No evidence of pneumoperitoneum. Small ascites within the pelvis. Mesenteric edema identi fied. VASCULATURE: Mild to moderate atherosclerotic calcifications are present throughout the abdominal aor ta and its branches. No evidence of aortic aneurysm. MUSCULOSKELETAL: No acute osseous abnormalities. Mild disc degeneration changes are present throughou t the thoracolumbar spine. LYMPH NODES: No gross evidence for lymphadenopathy. SOFT TISSUE/ABDOMINAL WALL: Anasarca which is most prominent along the right lateral abdominal wall. Redemonstration of 2 fat-containing lesions along the right upper lateral abdominal wall measuring 2. 9 x 1.3 x 2.5 cm and 5.4 x 3.9 x 6.5 cm. Additional anterior right flank 1.7 cm soft tissue nodule. A dditional left lateral upper abdominal wall fat-containing lesion measuring 10.8 x 3.3 x 8.4 cm. Thes e are most consistent with lipomas anterior stable from prior PET/CT. No organized rim-enhancing flui d collection to suggest abscess. IMPRESSION: 1. Diffuse anasarca which is most prominent along the right lateral upper abdominal wall. Small volu me ascites with diffuse mesenteric edema and small right pleural effusion. Increased small to moderat e sized pericardial effusion. Correlate for volume overload. 2. Stable bilateral upper abdominal subcutaneous tissue flank fat-containing masses most consistent w ith lipomas. 3. Distal colonic diverticulosis without evidence for acute diverticulitis. 4. Nonobstructive right renal calculi. 5. Stable left lower lobe subpleural 5.6 moment or pulmonary nodule. Attention on follow-up CT chest. [facility], , 01/03/2025 8:08 PM
[2025-01-03] MEDS ORDERED: ONDANSETRON 4 MG/2 ML VIAL IVP PRN (22:31)
[2025-01-03] MEDS ORDERED: NALOXONE 0.4 MG/ML 1 ML VIAL IV PRN (22:31)
--- NOTE | 2025-01-04 01:58 | XR ---
EXAM: XR Chest, 2 Views CLINICAL HISTORY: ITS.REASON XR Reason: dyspnea TECHNIQUE: Frontal and lateral views of the chest. COMPARISON: No relevant prior studies available. FINDINGS: Lungs: No consolidation or mass. Pleural space: Trace pleural effusion on the right. Heart: cardiomegaly. Bones/joints: No acute findings. IMPRESSION: Trace pleural effusion on the right.
[2025-01-04] MEDS: MORPHINE SULFATE 4 MG/ML SYRINGE IV PRN (07:01)
[2025-01-04] MEDS: ATORVASTATIN 80 MG TAB PO SCH (09:28)
[2025-01-04] MEDS: FUROSEMIDE 10 MG/ML 4 ML VIAL IV SCH (09:28)
--- NOTE | 2025-01-04 12:37 | P.CRDCN ---
History of Present Illness Consult date: 01/04/25 Reason for Consult (text): Pericardial effusion History of present illness: This is a 69-year-old female patient with past medical history of h yperlipidemia, COPD, tobacco use and dependence, self-reported stroke 3 years ago, lung nodules. We have been asked to evaluate the patient for pericardial effusion. Patient states that she came into the hospital due to severe abdominal pain in the right upper quadrant which she states was distended. It been going on for about a week. She denies dyspnea on exertion. No chest pain. She states that she has edema to the lower extremities and the left leg is always larger. She states that she has been tested before for blood clot and has been negative. She states she occasionally gets dizziness. No palpitations. She denies history of hypertension or diabetes. She states she did gain 10 pounds over the past month. She denies any blood in her stools or urine. She is an active smoker of a half a pack per day but quit 4 days ago. She drinks 2 to 3 cups of coffee per day. She denies alcohol use. She does not have a lung doctor but she follows with Dr. Hoffman. She states she has had syncopal episode in the past about 6 months ago. She denies any palpitations at that time. She does not follow with a body engineer and denies any previous cardiac history. Blood pressure 122/77, heart rate 71, pulse ox 90% on 3 L nasal cannula. Patient is seen today in the emergency center waiting for a bed on the cardiac stepdown unit. PET scan performed 09/20/2024: Near complete resolution of previously seen right upper lobe nodule opacity. Likely represents resolving infectious or inflammatory process. Stable left lower lobe superior segment pulmonary nodule density with FDG activity below background levels. -EKG: Sinus rhythm with no acute changes -Chest x-ray: Trace pleural effusion on the right. -CT of the abdomen pelvis with contrast revealed diffuse anasarca most prominent along the right lateral upper abdominal wall. Small volume ascites with diffuse mesenteric edema and small right pleural effusion. Increased small to moderate- sized pericardial effusion. Correlate for volume overload. Lipomatous. Diverticulosis without diverticulitis. Nonobstructive renal calculi. Stable left lower lobe subpleural pulmonary nodule. -Laboratory studies: WBC 7.5, hemoglobin 15.7, platelet count 184. Sodium 134, potassium 4.4, BUN 10 and creatinine 0.5. AST 37, proBNP 6770. -Home cardiac medications: Atorvastatin 80 mg daily. -Echocardiogram performed 01/16/2020 revealed EF 55 to 60% mild concentric left ventricular hypertrophy, moderate aortic valve sclerosis, mild to moderate tricuspid regurgitation, mild mitral regurgitation, moderate pulmonary hypertension. - Exercise stress test performed in 2019 was negative with limited exercise capacity, no arrhythmias. Review Of Systems: At the time of my exam: CONSTITUTIONAL: Denies fever or chills. HEENT: Denies blurred vision, vision changes, or eye pain. Denies hemoptysis CARDIOVASCULAR: Denies chest pain. Denies orthopnea. Denies PND. Denies palpitations RESPIRATORY: Denies shortness of breath. GASTROINTESTINAL: Reports upper right abdominal distention. Denies nausea or vomiting. HEMATOLOGIC: Denies bleeding disorders. GENITOURINARY: Denies any blood in urine. SKIN: Denies puritis. Denies rash. Physical examination: Gen: This is 69-year-old female in no acute distress. VS: reviewed HEENT: Head is atraumatic, normocephalic. Pupils equal, round. Sclerae is anicteric. NECK: Supple. No JVD. LUNGS: Bilateral wheeze, decreased air exchange in the bases. No intercostal retractions. HEART: Regular rate and rhythm. 2/6 systolic ejection murmur at the base. ABDOMEN: Soft No tenderness. EXTREMITIES: 1+ right lower extremity edema, 2+ left lower extremity edema. No calf tenderness. NEUROLOGICAL: Patient is awake, alert and oriented x3. Assessment: Right upper abdominal distention with anasarca on CT Pericardial effusion found on CT with no evidence of tamponade. This is most likely an incidental finding Acute heart failure unknown type with normal EF in the past Hyperlipidemia COPD Tobacco use and dependence, patient quit 4 days ago Pulmonary nodule followed by Dr. Velazquez History of CVA Plan: Resume atorvastatin Start patient on IV Lasix 40 mg every 12 hours Monitor ESE, daily weights, electrolytes and renal function Obtain 2-D echocardiogram and Doppler study to assess cardiac structure and function Recommend evaluation of etiology of anasarca Further recommendations to follow based upon clinical course Thank you kindly for this consultation. Nurse practitioner note has been reviewed, I agree with documented findings and plan of care. Patient was seen and examined. Past Medical History Past Medical History: Asthma, COPD, CVA/TIA, GERD/Reflux, Neurologic Disorder, Osteoarthritis (OA), Respiratory Disorder Additional Past Medical History / Comment(s): MIGRAINES, stroke & then TIA in 2018-intermittent dizziness, balance issues, can't eat much, gets full quickly, states no fluid in lap band History of Any Multi-Drug Resistant Organisms: None Reported Past Surgical History: Bariatric Surgery, Cholecystectomy, Hysterectomy, Tonsillectomy Additional Past Surgical History / Comment(s): LAP BAND 2014. lap band removal 04-04-23 Past Anesthesia/Blood Transfusion Reactions: No Reported Reaction Past Psychological History: Anxiety, Depression Smoking Status: Current every day smoker Past Alcohol Use History: None Reported Past Drug Use History: None Reported - Past Family History Mother Family Medical History: Cancer Father Family Medical History: Cancer Medications and Allergies Home Medications Medication Instructions Recorded Confirmed Type Albuterol Nebulized [Ventolin 2.5 mg INHALATION RT-QID PRN 01/28/14 01/04/25 History Nebulized] Albuterol Sulfate [Proair Hfa] 2 puff INHALATION RT-QID PRN 01/28/14 01/04/25 History Omeprazole [PriLOSEC] 20 mg PO DAILY 01/28/14 01/04/25 History Topiramate [Topamax] 50 mg PO BID 01/28/14 01/04/25 History risperiDONE 3 mg PO HS 11/08/18 01/04/25 History Multivitamin,Therapeutic [Thera] 1 tab PO DAILY 12/21/18 01/04/25 History Atorvastatin [Lipitor] 80 mg PO DAILY 01/04/25 01/04/25 History Cholecalciferol (Vitamin D3) 1,250 mcg PO Q14D 01/04/25 01/04/25 History [Vitamin D3 (1250 Mcg = 50,000 Iu)] Vortioxetine Hydrobromide 10 mg PO W/SUPPER 01/04/25 01/04/25 History [Trintellix] oxyCODONE HCL/ACETAMINOPHEN 1 tab PO BID 01/04/25 01/04/25 History [Percocet 2.5-325 mg] traZODone HCL 100 mg PO HS 01/04/25 01/04/25 History Allergies Allergy/AdvReac Type Severity Reaction Status Date / Time fluticasone propionate Allergy Rash/Hives Verified 01/04/25 08:24 [From Advair Diskus] oxycodone HCl [From Percodan] Allergy Rash/Hives Verified 01/04/25 08:24 oxycodone terephthalate Allergy Rash/Hives Verified 01/04/25 08:24 [From Percodan] propoxyphene HCl Allergy Rash/Hives Verified 01/04/25 08:24 [From Darvon] salmeterol xinafoate Allergy Rash/Hives Verified 01/04/25 08:24 [From Advair Diskus] tramadol HCl [From Ultram] Allergy Rash/Hives Verified 01/04/25 08:24 Physical Exam Vitals: Vital Signs Temp Pulse Resp BP Pulse Ox 01/04/25 07:04 74 18 101/63 93 L 01/04/25 01:11 98.5 F 83 19 113/73 98 01/03/25 18:42 78 20 109/74 85 L 01/03/25 16:26 97.7 F 88 18 92/60 86 L Intake and Output 01/03/25 01/04/25 01/04/25 22:59 06:59 14:59 Other: Weight 58.513 kg Results 01/03/25 18:25 01/03/25 18:25 Cardiac Enzymes 01/03/25 Range/Units 18:25 AST 37 H (14-36) U/L CBC 01/03/25 Range/Units 18:25 WBC 7.55 (4.50-10.00) 10*3/uL RBC 5.15 (4.10-5.20) 10*6/uL Hgb 15.7 H (12.0-15.0) g/dL Hct 49.6 H (37.2-46.3) % Plt Count 184 (140-440) 10*3/uL Comprehensive Metabolic Panel 01/03/25 Range/Units 18:25 Sodium 134 L (137-145) mmol/L Potassium 4.4 (3.5-5.1) mmol/L Chloride 100 (98-107) mmol/L Carbon Dioxide 28 (22-30) mmol/L BUN 10 (7-17) mg/dL Creatinine 0.51 L (0.52-1.04) mg/dL Glucose 100 H (74-99) mg/dL Calcium 9.2 (8.4-10.2) mg/dL AST 37 H (14-36) U/L ALT 16 (4-34) U/L Alkaline Phosphatase 79 (38-126) U/L Total Protein 6.3 (6.3-8.2) g/dL Albumin 3.6 (3.5-5.0) g/dL Current Medications Generic Name Dose Route Start Last Admin Trade Name Freq PRN Reason Stop Dose Admin Morphine Sulfate 4 mg 01/03/25 22:31 01/04/25 07:01 Morphine Sulfate 4 Mg/Ml Syringe IV 4 mg Q4HR PRN Administration Severe Pain (Scale 7 to 10) Naloxone HCl 0.2 mg 01/03/25 22:31 Naloxone 0.4 Mg/Ml 1 Ml Vial IV Q2M PRN Opioid Reversal Ondansetron HCl 4 mg 01/03/25 22:31 Ondansetron 4 Mg/2 Ml Vial IVP Q8HR PRN Nausea And Vomiting Intake and Output 01/03/25 01/04/25 01/04/25 22:59 06:59 14:59 Other: Weight 58.513 kg 01/03/25 18:25 01/03/25 18:25
--- NOTE | 2025-01-04 12:46 | CA ---
Transthoracic Echo Report Name: Jessy Hollingsworth Age: 69 Gender: F : 1955 Exam Date: 01/04/2025 08:50 Exam Location: [place] [facility] Ht (in): 62 Wt (lb): 129 Ordering Physician: Mila Barrera Attending/Referring Phys: Legal Examiner Anjelica Goodwin RDCS Procedure CPT: Indications: pericardial effusion Cardiac Hx: Technical Quality: Good Contrast 1: Total Dose (mL): Contrast 2: Total Dose (mL): MEASUREMENTS (Male / Female) Normal Values 2D ECHO LV Diastolic Diameter PLAX 4.4 cm 4.2 - 5.9 / 3.9 - 5.3 cm LV Systolic Diameter PLAX 2.9 cm IVS Diastolic Thickness 0.8 cm 0.6 - 1.0 / 0.6 - 0.9 cm LVPW Diastolic Thickness 0.9 cm 0.6 - 1.0 / 0.6 - 0.9 cm LV Relative Wall Thickness 0.4 RV Internal Dim ED PLAX 3.2 cm LA Systolic Diameter LX 2.8 cm 3.0 - 4.0 / 2.7 - 3.8 cm LV Diastolic Volume MOD BP 74.7 cm??? 67 - 155 / 56 - 104 cm??? LV Systolic Volume MOD BP 35.7 cm??? 22 - 58 / 19 - 49 cm??? LV Ejection Fraction MOD BP 52.3 % >= 55 % LV Cardiac Index MOD BP 1311.7 cm???/min???m??? LV Diastolic Volume MOD 4C 60.9 cm??? LV Systolic Volume MOD 4C 31.3 cm??? LV Ejection Fraction MOD 4C 48.6 % LV Cardiac Index MOD 4C 992.5 cm???/min???m??? LV Diastolic Length 4C 6.2 cm LV Systolic Length 4C 4.9 cm LV Diastolic Volume MOD 2C 73.8 cm??? LV Systolic Volume MOD 2C 41.5 cm??? LV Ejection Fraction MOD 2C 43.7 % LV Cardiac Index MOD 2C 1082.8 cm???/min???m??? LV Diastolic Length 2C 7.1 cm LV Systolic Length 2C 5.2 cm DOPPLER AV Peak Velocity 170.6 cm/s AV Peak Gradient 11.6 mmHg Mitral E Point Velocity 71.3 cm/s Mitral A Point Velocity 100.9 cm/s Mitral E to A Ratio 0.7 MV Deceleration Time 353.8 ms TR Peak Velocity 244.4 cm/s TR Peak Gradient 23.9 mmHg Right Ventricular Systolic Press 46.0 mmHg FINDINGS Left Ventricle Left ventricular ejection fraction is estimated at 50-55 %. Left ventricular cavity size normal. Left ventricular wall thickness normal. Mildly decreased left ventricular ejection fraction. Flattening of atrial septum Right Ventricle Normal right ventricular size. Moderate pulmonary hypertension. Right ventricular systolic pressure estimated at 46 mm hg. Right Atrium Normal right atrial size. No right atrial thrombus or mass seen. Left Atrium Normal left atrial size. No left atrial thrombus or mass present. Mitral Valve Structurally normal mitral valve. No mitral stenosis, regurgitation or prolapse. Aortic Valve Trileaflet aortic valve. Thickened aortic valve without stenosis. Trace to mild aortic regurgitation. Tricuspid Valve Structurally normal tricuspid valve. Mild tricuspid regurgitation. Pulmonic Valve Pulmonic valve not well visualized. Pericardium Moderate pericardial effusion. Aorta Normal size aortic root and proximal ascending aorta. CONCLUSIONS Normal LV systolic function Moderate pulmonary hypertension Moderate pericardial effusion with no tamponade physiology Previewed by: Dr. Reynold Warren MD (Electronically Signed) Final Date: 04 January 2025 12:45
--- NOTE | 2025-01-05 01:57 | HP ---
HISTORY AND PHYSICAL CHIEF COMPLAINT: Difficulty breathing and swelling in the left leg. HISTORY OF PRESENTING ILLNESS: This is another admission for this 69-year-old white female, heavy smoker. She presented to the emergency room with shortness of breath. Her workup revealed small pleural effusion as well as a small pericardial effusion and swelling of the left leg. She was complaining of a right upper quadrant mass, but CT suggested that this was a lipoma in the abdominal wall. REVIEW OF SYSTEMS: She has had no anorexia, nausea, vomiting, fever and chills, cough, hemoptysis, chest pain, fever, or chills, etc. Past medical history, family history, personal and social histories reveal that she cannot take Percocet, Ultram, or Advair. MEDICATIONS: Include atorvastatin 80 once a day, Risperdal 3 mg at bedtime, omeprazole 20 mg once a day, albuterol HFA, oxycodone 2.5 twice a day p.r.n., Trintellix 10 mg once a day, topiramate 50 mg twice a day, and trazodone 100 mg at bedtime. SOCIAL HISTORY: She continues to smoke everyday. PAST SURGICAL HISTORY: She has had hysterectomy, cholecystectomy and T and A. She had a colonoscopy in 2018. PHYSICAL EXAMINATION: GENERAL: Normal. HEAD, EARS, EYES, NOSE, MOUTH AND THROAT: Normal. She is pale. CHEST: Clear. CARDIAC: Sounds like normal sinus rhythm. ABDOMEN: Soft and nontender. There does seem to be a fullness in the right upper quadrant. The bowel sounds are present. EXTREMITIES: Normal except for the left leg which is edematous, but not the right. NEUROLOGICAL: She is intact. She is admitted to the hospital with diagnoses of: 1. Shortness of breath. 2. Chronic obstructive pulmonary disease. 3. Right upper quadrant mass. 4. Edema of the left leg. 5. Pericardial effusion. 6. Chronic obstructive pulmonary disease. PLAN: 1. Bedrest. 2. IV fluids. 3. Cardiology consult. 4. Look for etiology of her various signs and symptoms. MMODL / IJN: [id number] /
--- NOTE | 2025-01-05 03:54 | PN ---
PROGRESS NOTE CHIEF COMPLAINT: Shortness of breath, COPD, pericardial effusion, pleural effusion, right upper quadrant pain, and left leg edema. HISTORY OF PRESENT ILLNESS: This lady's symptoms are unchanged. Workup will be starting today. She has had no chest pain, fever, chills, etc. PHYSICAL EXAMINATION: LUNGS: She has good breath sounds bilaterally, although they are somewhat diminished due to her COPD. ABDOMEN: Still a little bit tender in the right upper quadrant. EXTREMITIES: Left leg edematous. IMPRESSION: Edema of the left leg with right upper quadrant pain, pericardial effusion, and pleural effusion. PLAN: Increase activity and continue workup. MMODL / IJN: [id number] /
[2025-01-05 07:09] LABS: African American GFR (CKD) >90 (>60 ml/min/1.73 sqM); Anion Gap 4 mmol/L; Blood Urea Nitrogen 10 mg/dL (7-17); Calcium 8.7 mg/dL (8.4-10.2); Chloride 91 mmol/L (98-107); Glucose 115 mg/dL (74-99); Non-African American GFR(CKD) >90 (>60 ml/min/1.73 sqM); Potassium 3.2 mmol/L (3.5-5.1); Sodium 135 mmol/L (137-145)
[2025-01-05 07:34] LABS: Carbon Dioxide 40 mmol/L (22-30)
[2025-01-05] MEDS: POTASSIUM CHLORIDE ER 20 MEQ TAB.ER PO SCH ×2 (12:09→20:33)
[2025-01-05] MEDS: TOPIRAMATE 25 MG TAB PO SCH (12:09)
[2025-01-05] MEDS: DAPAGLIFLOZIN PROPANEDIOL 10 MG TABLET PO SCH (12:09)
[2025-01-05] MEDS: METOPROLOL SUCCINATE (ER) 25 MG TAB.ER.24H PO SCH (12:09)
--- NOTE | 2025-01-05 13:37 | P.PN ---
Subjective HISTORY OF PRESENT ILLNESS: This is a 69-year-old female patient with past medical history of hyperlipidemia, COPD, tobacco use and dependence, self-reported stroke 3 years ago, lung nodules. We have been asked to evaluate the patient for pericardial effusion. Patient states that she came into the hospital due to severe abdominal pain in the right upper quadrant which she states was distended. It been going on for about a week. She denies dyspnea on exertion. No chest pain. She states that she has edema to the lower extremities and the left leg is always larger. She states that she has been tested before for blood clot and has been negative. She states she occasionally gets dizziness. No palpitations. She denies history of hypertension or diabetes. She states she did gain 10 pounds over the past month. She denies any blood in her stools or urine. She is an active smoker of a half a pack per day but quit 4 days ago. She drinks 2 to 3 cups of coffee per day. She denies alcohol use. She does not have a lung doctor but she follows with Dr. Hoffman. She states she has had syncopal episode in the past about 6 months ago. She denies any palpitations at that time. She does not follow with a senior java architect and denies any previous cardiac history. Blood pressure 122/77, heart rate 71, pulse ox 90% on 3 L nasal cannula. Patient is seen today in the emergency center waiting for a bed on the cardiac stepdown unit. PET scan performed 09/20/2024: Near complete resolution of previously seen right upper lobe nodule opacity. Likely represents resolving infectious or inflammatory process. Stable left lower lobe superior segment pulmonary nodule density with FDG activity below background levels. -EKG: Sinus rhythm with no acute changes -Chest x-ray: Trace pleural effusion on the right. -CT of the abdomen pelvis with contrast revealed diffuse anasarca most prominent along the right lateral upper abdominal wall. Small volume ascites with diffuse mesenteric edema and small right pleural effusion. Increased small to moderate- sized pericardial effusion. Correlate for volume overload. Lipomatous. Diverticulosis without diverticulitis. Nonobstructive renal calculi. Stable left lower lobe subpleural pulmonary nodule. -Laboratory studies: WBC 7.5, hemoglobin 15.7, platelet count 184. Sodium 134, potassium 4.4, BUN 10 and creatinine 0.5. AST 37, proBNP 6770. -Home cardiac medications: Atorvastatin 80 mg daily. -Echocardiogram performed 01/16/2020 revealed EF 55 to 60% mild concentric left ventricular hypertrophy, moderate aortic valve sclerosis, mild to moderate tricuspid regurgitation, mild mitral regurgitation, moderate pulmonary hypertension. - Exercise stress test performed in 2019 was negative with limited exercise capacity, no arrhythmias. 01/05/2025 Patient examined this morning at the bedside. Patient is currently sitting on the side of the bed. Patient denies any chest pain or pressure. She reports her shortness of breath is improving. She remains on IV Lasix 40 mg every 12 hours. Echocardiogram completed revealing ejection fraction 50 to 55%, moderate pulmonary hypertension, RVSP 46 mmHg, moderate pericardial effusion with no tamponade physiology. Potassium today 3.2. PHYSICAL EXAM: VITAL SIGNS: Reviewed. GENERAL: Well-developed in no acute distress. NECK: Supple. No JVD or thyromegaly LUNGS: Respirations even and unlabored. Lungs essentially clear to auscultation bilaterally, diminished. HEART: Regular rate and rhythm. S1 and S2 heard. EXTREMITIES: Normal range of motion. No clubbing or cyanosis. Peripheral pulses intact. 1+ bilateral lower extremity edema lower extremity edema ASSESSMENT: Right upper abdominal distention with anasarca and diffuse mesenteric edema on CT Pericardial effusion found on CT with no evidence of tamponade. This is most likely an incidental finding Acute heart failure with preserved EF 50 to 55% Moderate pulmonary hypertension Hyperlipidemia COPD Tobacco use and dependence, patient quit 4 days ago Pulmonary nodule followed by Dr. Velazquez History of CVA PLAN: Continue current cardiac medications including Lipitor Continue IV Lasix 40 mg every 12 hours Add Farxiga 10 mg daily Add metoprolol succinate 25 mg daily Daily weights, accurate intake and output, and monitoring of kidney function Replace potassium Recommend further evaluation of abnormal CT revealing abdominal distention with anasarca and diffuse mesenteric edema. Defer to admitting physician Repeat BNP Further recommendations pending patient course Nurse practitioner note has been reviewed by physician. Signing provider agrees with the documented findings, assessment, and plan of care documented by MANAGER COSMETIC as a scribe. Objective - Vital Signs Vital signs: Vital Signs Temp 97.9 F 01/05/25 08:25 Pulse 90 01/05/25 11:30 Resp 17 01/05/25 11:30 BP 114/71 01/05/25 11:30 Pulse Ox 93 L 01/05/25 11:30 FiO2 Intake & Output 04/11/25 04/12/25 04/12/25 18:59 06:59 18:59 Intake Total 0 Output Total 500 Balance -500 Weight 64 kg Intake: Oral 0 Output: Urine 500 - Labs CBC & Chem 7: 01/03/25 18:25 01/05/25 05:34 Labs: Abnormal Lab Results - Last 24 Hours (Table) 01/05/25 Range/Units 05:34 Sodium 135 L (137-145) mmol/L Potassium 3.2 L (3.5-5.1) mmol/L Chloride 91 L (98-107) mmol/L Carbon Dioxide 40 H (22-30) mmol/L Creatinine 0.46 L (0.52-1.04) mg/dL Glucose 115 H (74-99) mg/dL
[2025-01-05] MEDS: VORTIOXETINE HYDROBROMIDE 20 MG TABLET PO SCH (17:20)
[2025-01-05] MEDS: traZODone HCL 100 MG TAB PO SCH (20:33)
[2025-01-05] MEDS: risperiDONE 1 MG TAB PO SCH (20:33)
[2025-01-05] MEDS: oxyCODONE-APAP 5-325MG 1 EACH TAB PO SCH (20:33)
[2025-01-06] MEDS: PANTOPRAZOLE 40 MG TABLET PO SCH (06:04)
[2025-01-06 06:22] LABS: African American GFR (CKD) >90 (>60 ml/min/1.73 sqM); Blood Urea Nitrogen 9 mg/dL (7-17); Calcium 8.7 mg/dL (8.4-10.2); Chloride 89 mmol/L (98-107); Glucose 93 mg/dL (74-99); Non-African American GFR(CKD) >90 (>60 ml/min/1.73 sqM); Potassium 3.6 mmol/L (3.5-5.1); Sodium 136 mmol/L (137-145)
[2025-01-06 06:28] LABS: NT-Pro-B-Type Natriuretic Pept 2510 pg/mL
[2025-01-06 06:29] LABS: Anion Gap 4 mmol/L
--- NOTE | 2025-01-06 12:11 | P.PN ---
Subjective HISTORY OF PRESENT ILLNESS: This is a 69-year-old female patient with past medical history of hyperlipidemia, COPD, tobacco use and dependence, self-reported stroke 3 years ago, lung nodules. We have been asked to evaluate the patient for pericardial effusion. Patient states that she came into the hospital due to severe abdominal pain in the right upper quadrant which she states was distended. It been going on for about a week. She denies dyspnea on exertion. No chest pain. She states that she has edema to the lower extremities and the left leg is always larger. She states that she has been tested before for blood clot and has been negative. She states she occasionally gets dizziness. No palpitations. She denies history of hypertension or diabetes. She states she did gain 10 pounds over the past month. She denies any blood in her stools or urine. She is an active smoker of a half a pack per day but quit 4 days ago. She drinks 2 to 3 cups of coffee per day. She denies alcohol use. She does not have a lung doctor but she follows with Dr. Hoffman. She states she has had syncopal episode in the past about 6 months ago. She denies any palpitations at that time. She does not follow with a gaming dealer and denies any previous cardiac history. Blood pressure 122/77, heart rate 71, pulse ox 90% on 3 L nasal cannula. Patient is seen today in the emergency center waiting for a bed on the cardiac stepdown unit. PET scan performed 09/20/2024: Near complete resolution of previously seen right upper lobe nodule opacity. Likely represents resolving infectious or inflammatory process. Stable left lower lobe superior segment pulmonary nodule density with FDG activity below background levels. -EKG: Sinus rhythm with no acute changes -Chest x-ray: Trace pleural effusion on the right. -CT of the abdomen pelvis with contrast revealed diffuse anasarca most prominent along the right lateral upper abdominal wall. Small volume ascites with diffuse mesenteric edema and small right pleural effusion. Increased small to moderate- sized pericardial effusion. Correlate for volume overload. Lipomatous. Diverticulosis without diverticulitis. Nonobstructive renal calculi. Stable left lower lobe subpleural pulmonary nodule. -Laboratory studies: WBC 7.5, hemoglobin 15.7, platelet count 184. Sodium 134, potassium 4.4, BUN 10 and creatinine 0.5. AST 37, proBNP 6770. -Home cardiac medications: Atorvastatin 80 mg daily. -Echocardiogram performed 01/16/2020 revealed EF 55 to 60% mild concentric left ventricular hypertrophy, moderate aortic valve sclerosis, mild to moderate tricuspid regurgitation, mild mitral regurgitation, moderate pulmonary hypertension. - Exercise stress test performed in 2019 was negative with limited exercise capacity, no arrhythmias. 01/05/2025 Patient examined this morning at the bedside. Patient is currently sitting on the side of the bed. Patient denies any chest pain or pressure. She reports her shortness of breath is improving. She remains on IV Lasix 40 mg every 12 hours. Echocardiogram completed revealing ejection fraction 50 to 55%, moderate pulmonary hypertension, RVSP 46 mmHg, moderate pericardial effusion with no tamponade physiology. Potassium today 3.2. 01/06/2025 Patient examined this morning. She is sitting up in the chair. Patient remains on IV Lasix 40 mg every 12 hours. CO2 increased today to 43. BNP improved from 6770 down to 2510. She currently denies any chest pain or pressure. She reports improvement in her shortness of breath. PHYSICAL EXAM: VITAL SIGNS: Reviewed. GENERAL: Well-developed in no acute distress. NECK: Supple. No JVD or thyromegaly LUNGS: Respirations even and unlabored. Lungs with bilateral rhonchi HEART: Regular rate and rhythm. S1 and S2 heard. EXTREMITIES: Normal range of motion. No clubbing or cyanosis. Peripheral pulses intact. 1+ bilateral lower extremity edema ASSESSMENT: Right upper abdominal distention with anasarca and diffuse mesenteric edema on CT Pericardial effusion found on CT with no evidence of tamponade. This is most likely an incidental finding Acute heart failure with preserved EF 50 to 55% Moderate pulmonary hypertension Hyperlipidemia COPD Tobacco use and dependence, patient quit 4 days ago Pulmonary nodule followed by Dr. Velazquez History of CVA PLAN: Continue current cardiac medications including Lipitor metoprolol succinate and Farxiga Discontinue IV Lasix. Begin oral Lasix 40 mg twice a day Add Diamox 250 mg twice a day Daily weights, accurate intake and output, and monitoring of kidney function Recommend further evaluation of abnormal CT revealing abdominal distention with anasarca and diffuse mesenteric edema. Defer to admitting physician Further recommendations pending patient course Nurse practitioner note has been reviewed by physician. Signing provider agrees with the documented findings, assessment, and plan of care documented by OVEN TENDER as a scribe. Objective - Vital Signs Vital signs: Vital Signs Temp 98.3 F 01/06/25 08:20 Pulse 85 01/06/25 08:20 Resp 18 01/06/25 08:20 BP 117/69 01/06/25 08:20 Pulse Ox 97 01/06/25 08:20 FiO2 Intake & Output 01/05/25 01/06/25 01/06/25 18:59 06:59 18:59 Intake Total 120 240 Output Total 1000 1300 Balance -880 -1300 240 Weight 58.5 kg Intake: Oral 120 240 Output: Urine 1000 1300 Other: # Voids 1 - Labs CBC & Chem 7: 01/03/25 18:25 01/06/25 05:24 Labs: Abnormal Lab Results - Last 24 Hours (Table) 01/06/25 Range/Units 05:24 Sodium 136 L (137-145) mmol/L Chloride 89 L (98-107) mmol/L Carbon Dioxide 43 H* (22-30) mmol/L Creatinine 0.48 L (0.52-1.04) mg/dL
[2025-01-06] MEDS: acetaZOLAMIDE 250 MG TAB PO SCH (12:45)
[2025-01-06] MEDS: FUROSEMIDE 40 MG TAB PO SCH (16:46)
--- NOTE | 2025-01-06 22:51 | PN ---
PROGRESS NOTE DATE OF SERVICE: 01/05/2025 CHIEF COMPLAINT: Shortness of breath, left leg edema, ascites, and pericardial effusion. HISTORY OF PRESENT ILLNESS: This lady seems stable. So far, very little has been identified and is being significantly abnormal. She has a small pericardial effusion. Echocardiogram reveals preserved ejection fraction with pulmonary hypertension. PHYSICAL EXAMINATION: GENERAL: She seems quite lethargic. She appears to be chronically ill. She is pale. VITAL SIGNS: Normal. CHEST: Clear. CARDIAC: Normal. ABDOMEN: Seems soft, nontender. EXTREMITIES: Reveal less edema in the left leg. IMPRESSION: 1. Shortness of breath. 2. Right upper quadrant pain. 3. Left leg edema. 4. Ascites. 5. Pericardial effusion. PLAN: Continue evaluation looking for etiology of her issues. MMODL / IJN: [id number] /
--- NOTE | 2025-01-06 23:03 | PN ---
PROGRESS NOTE DATE OF SERVICE: 01/06/2025 CHIEF COMPLAINT: Shortness of breath. HISTORY OF PRESENT ILLNESS: This lady is doing fairly well. She is quite lethargic, however. PHYSICAL EXAMINATION: GENERAL: She is pale and difficult to arouse. VITAL SIGNS: Normal. LUNGS: Reveal somewhat poor breath sounds due to her COPD. CARDIAC: Normal. ABDOMEN: Soft, nontender. EXTREMITIES: Left leg is less edematous. IMPRESSION: 1. Shortness of breath. 2. Chronic obstructive pulmonary disease. 3. Pericardial effusion. 4. Right upper quadrant pain. 5. Edema of the left leg. PLAN: 1. Stop trazodone and Vicodin, which may be making her drowsy. 2. PT and OT as well as discharge planning. MMODL / IJN: [id number] /
[2025-01-07 05:23] LABS: Potassium 3.4 mmol/L (3.5-5.1)
[2025-01-07 05:24] LABS: African American GFR (CKD) >90 (>60 ml/min/1.73 sqM); Blood Urea Nitrogen 10 mg/dL (7-17); Chloride 90 mmol/L (98-107); Glucose 92 mg/dL (74-99); Non-African American GFR(CKD) >90 (>60 ml/min/1.73 sqM); Sodium 136 mmol/L (137-145)
[2025-01-07 05:31] LABS: Anion Gap 1 mmol/L
--- NOTE | 2025-01-07 10:08 | P.PN ---
Subjective HISTORY OF PRESENT ILLNESS: This is a 69-year-old female patient with past medical history of hyperlipidemia, COPD, tobacco use and dependence, self-reported stroke 3 years ago, lung nodules. We have been asked to evaluate the patient for pericardial effusion. Patient states that she came into the hospital due to severe abdominal pain in the right upper quadrant which she states was distended. It been going on for about a week. She denies dyspnea on exertion. No chest pain. She states that she has edema to the lower extremities and the left leg is always larger. She states that she has been tested before for blood clot and has been negative. She states she occasionally gets dizziness. No palpitations. She denies history of hypertension or diabetes. She states she did gain 10 pounds over the past month. She denies any blood in her stools or urine. She is an active smoker of a half a pack per day but quit 4 days ago. She drinks 2 to 3 cups of coffee per day. She denies alcohol use. She does not have a lung doctor but she follows with Dr. Hoffman. She states she has had syncopal episode in the past about 6 months ago. She denies any palpitations at that time. She does not follow with a ornamental iron erector and denies any previous cardiac history. Blood pressure 122/77, heart rate 71, pulse ox 90% on 3 L nasal cannula. Patient is seen today in the emergency center waiting for a bed on the cardiac stepdown unit. PET scan performed 09/20/2024: Near complete resolution of previously seen right upper lobe nodule opacity. Likely represents resolving infectious or inflammatory process. Stable left lower lobe superior segment pulmonary nodule density with FDG activity below background levels. -EKG: Sinus rhythm with no acute changes -Chest x-ray: Trace pleural effusion on the right. -CT of the abdomen pelvis with contrast revealed diffuse anasarca most prominent along the right lateral upper abdominal wall. Small volume ascites with diffuse mesenteric edema and small right pleural effusion. Increased small to moderate- sized pericardial effusion. Correlate for volume overload. Lipomatous. Diverticulosis without diverticulitis. Nonobstructive renal calculi. Stable left lower lobe subpleural pulmonary nodule. -Laboratory studies: WBC 7.5, hemoglobin 15.7, platelet count 184. Sodium 134, potassium 4.4, BUN 10 and creatinine 0.5. AST 37, proBNP 6770. -Home cardiac medications: Atorvastatin 80 mg daily. -Echocardiogram performed 01/16/2020 revealed EF 55 to 60% mild concentric left ventricular hypertrophy, moderate aortic valve sclerosis, mild to moderate tricuspid regurgitation, mild mitral regurgitation, moderate pulmonary hypertension. - Exercise stress test performed in 2019 was negative with limited exercise capacity, no arrhythmias. 01/05/2025 Patient examined this morning at the bedside. Patient is currently sitting on the side of the bed. Patient denies any chest pain or pressure. She reports her shortness of breath is improving. She remains on IV Lasix 40 mg every 12 hours. Echocardiogram completed revealing ejection fraction 50 to 55%, moderate pulmonary hypertension, RVSP 46 mmHg, moderate pericardial effusion with no tamponade physiology. Potassium today 3.2. 01/06/2025 Patient examined this morning. She is sitting up in the chair. Patient remains on IV Lasix 40 mg every 12 hours. CO2 increased today to 43. BNP improved from 6770 down to 2510. She currently denies any chest pain or pressure. She reports improvement in her shortness of breath. 01/07/2025 Patient examined this morning. Patient currently denies chest pain or pressure. She denies shortness of breath. Patient was transitioned to oral Lasix yesterday. Sodium 136. Potassium 3.4. BUN 10. Creatinine 0.49. PHYSICAL EXAM: VITAL SIGNS: Reviewed. GENERAL: Well-developed in no acute distress. NECK: Supple. No JVD or thyromegaly LUNGS: Respirations even and unlabored. Lungs diminished bilaterally HEART: Regular rate and rhythm. S1 and S2 heard. EXTREMITIES: Normal range of motion. No clubbing or cyanosis. Peripheral pulses intact. 1+ bilateral lower extremity edema ASSESSMENT: Right upper abdominal distention with anasarca and diffuse mesenteric edema on CT Pericardial effusion found on CT with no evidence of tamponade. This is most likely an incidental finding Acute heart failure with preserved EF 50 to 55% Moderate pulmonary hypertension Hyperlipidemia COPD Tobacco use and dependence, patient quit 4 days ago Pulmonary nodule followed by Dr. Velazquez History of CVA PLAN: Continue current cardiac medications including Lipitor metoprolol succinate Farxiga and Diamox Decrease Lasix to 40 mg daily Daily weights, accurate intake and output, and monitoring of kidney function Recommend further evaluation of abnormal CT revealing abdominal distention with anasarca and diffuse mesenteric edema. Defer to admitting physician Patient is stable for discharge from a cardiac standpoint Further recommendations pending patient course Nurse practitioner note has been reviewed by physician. Signing provider agrees with the documented findings, assessment, and plan of care documented by PIT HAND as a scribe. Objective - Vital Signs Vital signs: Vital Signs Temp 98.4 F 01/07/25 04:40 Pulse 73 01/07/25 04:40 Resp 16 01/07/25 04:40 BP 96/59 01/07/25 04:40 Pulse Ox 94 L 01/07/25 04:40 FiO2 Intake & Output 01/06/25 01/07/25 01/07/25 18:59 06:59 18:59 Intake Total 582 20 Output Total 800 300 300 Balance -218 -280 -300 Weight 58.5 kg Intake: IV 20 Invasive Line 2 20 Oral 582 Output: Urine 800 300 300 Other: Voiding Method External Catheter # Voids 1 - Labs CBC & Chem 7: 01/03/25 18:25 01/07/25 04:37 Labs: Abnormal Lab Results - Last 24 Hours (Table) 01/07/25 Range/Units 04:37 Sodium 136 L (137-145) mmol/L Potassium 3.4 L (3.5-5.1) mmol/L Chloride 90 L (98-107) mmol/L Carbon Dioxide 45 H* (22-30) mmol/L Creatinine 0.49 L (0.52-1.04) mg/dL
--- NOTE | 2025-01-07 11:52 | XR ---
EXAMINATION TYPE: XR chest 1V portable DATE OF EXAM: 01/07/2025 11:49 AM COMPARISON: 01/04/2025 CLINICAL INDICATION: Female, 69 years old with history of SOB, lethargy, inc. CO2, , FINDINGS: Heart mildly enlarged. Hyperinflation. Interstitial density. Trace bilateral pleural effusions. Overa ll similar appearance to prior. ACF hardware. IMPRESSION: COPD and suspected superimposed mild CHF with pulmonary vascular congestion. Trace pleural effusions. [facility], Workstation: [facility], 01/07/2025 11:50 AM
--- NOTE | 2025-01-07 13:18 | CT ---
EXAMINATION TYPE: CT angio head neck DATE OF EXAM: 01/07/2025 1:05 PM COMPARISON: None. CLINICAL INDICATION: Female, 69 years old with history of lethargy, Lethargy. TECHNIQUE: CTA scan is performed with axial images are obtained, coronal and sagittal reformatted luanne ges are reviewed. MIP images created on a separate workstation and submitted for review. 3-D reconstr ucted images are created on an independent workstation and reviewed. Source images are reviewed. LARRY CET criteria was used in interpretation of this exam? Contrast used:65 ml mL of Isovue 370 with IV Contrast, (none if empty) Oral contrast used: (none if empty) CT DLP: 1399.1 mGycm, Automated exposure control for dose reduction was used. FINDINGS: Carotid/Vascular Structures: There is a 3 vessel arch. Common carotid arteries bifurcate into internal and external carotid arteries without significant john w limiting stenosis. Vertebral arteries are codominant. Internal carotid arteries and vertebral arteries are patent to the skull base. Cervical of [place]: Vertebral basilar system appears normal. Posterior cerebral vasculature is unrema rkable. Internal carotid arteries bifurcate normally into A1 and M1 segments. A2 segments are normal. The anterior communicating artery is patent. The right posterior communicating artery is patent. The left posterior communicating artery is patent. IMPRESSION: 1. No flow-limiting stenosis bilateral carotid bifurcations. 2. Normal [place] [facility], , 01/07/2025 1:15 PM
[2025-01-07 15:38] LABS: ALT 17 U/L (4-34); AST 24 U/L (14-36); African American GFR (CKD) >90 (>60 ml/min/1.73 sqM); Albumin 3.6 g/dL (3.5-5.0); Alkaline Phosphatase 57 U/L (38-126); Blood Urea Nitrogen 10 mg/dL (7-17); Calcium 9.3 mg/dL (8.4-10.2); Chloride 88 mmol/L (98-107); Glucose 127 mg/dL (74-99); Non-African American GFR(CKD) >90 (>60 ml/min/1.73 sqM); Potassium 3.4 mmol/L (3.5-5.1); Sodium 135 mmol/L (137-145); Total Bilirubin 1.5 mg/dL (0.2-1.3); Total Protein 6.6 g/dL (6.3-8.2)
[2025-01-07 15:40] LABS: Basophils # (A) 0.03 10*3/uL (0.00-0.10); Basophils % (A) 0.2 %; Eosinophils # (A) 0.03 10*3/uL (0.04-0.35); Eosinophils % (A) 0.2 %; HCT 51.7 % (37.2-46.3); HGB 15.3 g/dL (12.0-15.0); Lymphocytes # (A) 1.35 10*3/uL (0.90-5.00); Lymphocytes % (A) 9.5 %; MCH 30.1 pg (27.0-32.0); MCHC 29.6 g/dL (32.0-37.0); Mean Platelet Volume 9.4 fL (9.5-12.2); Monocytes # (A) 1.06 10*3/uL (0.20-1.00); Monocytes % (A) 7.4 %; Neutrophils # (A) 11.72 10*3/uL (1.80-7.70); Neutrophils % (A) 82.3 %; Platelet Count 157 10*3/uL (140-440); RBC 5.09 10*6/uL (4.10-5.20); RDW 14.7 % (11.5-14.5); WBC 14.25 10*3/uL (4.50-10.00)
[2025-01-07 15:42] LABS: MCV 101.6 fL (80.0-97.0)
[2025-01-07 15:44] LABS: Anion Gap 5 mmol/L
[2025-01-07 15:51] LABS: Carbon Dioxide 42 mmol/L (22-30)
[2025-01-07 19:52] LABS: Glucose,Whole Blood 113 mg/dL (70-110)
--- NOTE | 2025-01-07 21:51 | PN ---
PROGRESS NOTE DATE OF SERVICE: 01/07/2025 CHIEF COMPLAINT: Lethargy. HISTORY OF PRESENT ILLNESS: This lady is getting more and more lethargic. There is no obvious reason. She is not febrile. Vital signs have been normal. She has not complained of pain, focal neurologic symptoms, etc. PHYSICAL EXAMINATION: GENERAL: She remains pale and chronically ill in appearance. LUNGS: Breath sounds are heard bilaterally, but she does have a productive cough. CARDIAC: Normal. ABDOMEN: Soft and nontender. EXTREMITIES: Normal. NEUROLOGICAL: She is very lethargic and barely arousable. This is getting worse. IMPRESSION: 1. Progressive lethargy. 2. Possible cerebrovascular accident. 3. Chronic obstructive pulmonary disease. PLAN: 1. Stop all of her medications. 2. CTA of the neck and head. 3. Consult Neurology. MMODL / IJN: [id number] /
[2025-01-08 06:26] LABS: African American GFR (CKD) >90 (>60 ml/min/1.73 sqM); Anion Gap 0 mmol/L; Blood Urea Nitrogen 9 mg/dL (7-17); Calcium 9.1 mg/dL (8.4-10.2); Carbon Dioxide 38 mmol/L (22-30); Chloride 95 mmol/L (98-107); Glucose 97 mg/dL (74-99); Non-African American GFR(CKD) >90 (>60 ml/min/1.73 sqM); Potassium 3.4 mmol/L (3.5-5.1); Sodium 133 mmol/L (137-145)
[2025-01-08] MEDS ORDERED: FUROSEMIDE 40 MG TAB PO SCH (09:00)
--- NOTE | 2025-01-08 10:36 | CDI ---
Documentation Clarification Form Date: 01/08/2025 09:02:38 AM From: Ryann Yuan RN CCDS Phone: [phone] Admit Date: 01/03/2025 10:34:00 PM Patient Name: Jessy Hollingsworth Visit Number: [id number] Discharge Date: ATTENTION: The Clinical Documentation Specialists (CDI) and [facility] Coding Staff appreciate your assistance in clarifying documentation. Please respond to the clarification below the line at the bottom and electronically sign. The CDI & [facility] Coding staff will review the response and follow-up if needed. Please note: Queries are made part of the Legal Health Record. If you have any questions, please contact the author of this message via ITS. Doctor/Provider: Ky De La O Your patient has Acute Heart Failure with preserved EF 50 to 55%, documented 01/05, Cardiology note. Based on this information and the findings below, is there an additional diagnosis that is clinically appropriate for this patient? Patient history/risk factors: 69 y/o female presents to the ED with right upper quadrant mass x 7 days. The patient also mentioned some swelling, pain on left black. She notes that her oxygen is in the mid 80s typically she denies any significant shortness of breath. Medical history: Asthma, COPD, CVA, GERD, and Anxiety/depression. 01/03 ED note Clinical Indicators: Vss, 01/03: B/P 92/60, HR 88, Temp 97.7F Oral, RR 18, BNP, 01/03: 6770 CT ABD PELVIS, 01/03: Diffuse which is most prominent along the right lateral upper abdominal wall. Small volume ascites with diffuse mesenteric edema and small right pleural effusion. Increased small to moderate sized pericardial effusion. HP, 01/05: Shortness of breath, edema of the left leg. Cardiology Consult 01/04: Pericardial effusion found on CT with no evidence of tamponade. This is most likely an incidental finding. Acute heart failure unknown type with normal EF in the past. ECHO, 01/04: Normal LV systolic function 50-55% moderate pulmonary hypertension. Moderate pericardial effusion with no tamponade Treatment: 01/04 - 01/06 Lasix iv q12h 01/05 Farxiga 41/2 Toprolxl , 01/06 - 01/07 Diamox 01/06 - 01/07 Laisx po bid , Echo above Is there an additional diagnosis that is clinically appropriate for this patient? [ ] Acute Diastolic Heart Failure with Preserved EF [ ] Unable to determine [ ] Other, please specify (Template Last Reviewed: October 2022) MTDD
--- NOTE | 2025-01-08 10:52 | CDI ---
Documentation Clarification Form Date: 01/08/2025 09:45:42 AM From: Ryann Yuan RN CCDS Phone: [phone] Admit Date: 01/03/2025 10:34:00 PM Patient Name: Jessy Hollingsworth Visit Number: [id number] Discharge Date: ATTENTION: The Clinical Documentation Specialists (CDI) and [facility] Coding Staff appreciate your assistance in clarifying documentation. Please respond to the clarification below the line at the bottom and electronically sign. The CDI & [facility] Coding staff will review the response and follow-up if needed. Please note: Queries are made part of the Legal Health Record. If you have any questions, please contact the author of this message via ITS. Doctor: Ky De La O Your patient is receiving the following: Oxygen via nasal cannula 3L 5L nasal cannula Please clarify what condition/diagnosis is being treated. Patient history/risk factors: 69 y/o female presents to the ED with right upper quadrant mass x 7 days. The patient also mentioned some swelling, pain on left black. She notes that her oxygen is in the mid 80s typically she denies any significant shortness of breath. Medical history: Asthma, COPD, CVA, GERD, and Anxiety/depression. 01/03 ED note Clinical indicators: Vss, 01/03 16:26 B/P 92/60, HR 88, Temp 97.7F Oral, RR 18, SpO2 86% room air 01/04 01:11 SpO2 98% 4.5L nc 01/04 09:33 SpO2 90% 3L nc 01/04 17:11 SpO2 94% 5L nc 01/05 SpO2 97% 4L nc 01/08 SpO2 92% 3L nc 01/03 ED Respiratory exam: Present normal lung sounds bilaterally. 01/04 HP: Chest exam: Clear 01/04 Cardiology: Lung exam: Bilateral wheeze, decreased air exchange in the bases. No intercostal retractions. CT ABD PELVIS, 01/03: Diffuse which is most prominent along the right lateral upper abdominal wall. Small volume ascites with diffuse mesenteric edema and small right pleural effusion. Increased small to moderate sized pericardial effusion. Treatment: 01/03 - current: Oxygen 3L to 5L nc ; 01/04 - 01/06 Lasix iv q12h 01/05 Farxiga 41/2 Toprolxl , 4/01/07 Diamox 01/06 Laisx po bid, What diagnosis are you treating with oxygen ? [ ] Respiratory Insufficiency [ ] Chronic Respiratory Failure [ ] Other, please specify [ ] Unable to determine (Template Last Reviewed: October 2020) JEMAL
--- NOTE | 2025-01-08 12:47 | MISC ---
MISCELLANOUS REPORT Unable to determine. Again, chronic respiratory failure and COPD. MMODL / IJN: [id number] /
--- NOTE | 2025-01-08 13:06 | P.PN ---
Subjective HISTORY OF PRESENT ILLNESS: This is a 69-year-old female patient with past medical history of hyperlipidemia, COPD, tobacco use and dependence, self-reported stroke 3 years ago, lung nodules. We have been asked to evaluate the patient for pericardial effusion. Patient states that she came into the hospital due to severe abdominal pain in the right upper quadrant which she states was distended. It been going on for about a week. She denies dyspnea on exertion. No chest pain. She states that she has edema to the lower extremities and the left leg is always larger. She states that she has been tested before for blood clot and has been negative. She states she occasionally gets dizziness. No palpitations. She denies history of hypertension or diabetes. She states she did gain 10 pounds over the past month. She denies any blood in her stools or urine. She is an active smoker of a half a pack per day but quit 4 days ago. She drinks 2 to 3 cups of coffee per day. She denies alcohol use. She does not have a lung doctor but she follows with Dr. Hoffman. She states she has had syncopal episode in the past about 6 months ago. She denies any palpitations at that time. She does not follow with a evaluation manager and denies any previous cardiac history. Blood pressure 122/77, heart rate 71, pulse ox 90% on 3 L nasal cannula. Patient is seen today in the emergency center waiting for a bed on the cardiac stepdown unit. PET scan performed 09/20/2024: Near complete resolution of previously seen right upper lobe nodule opacity. Likely represents resolving infectious or inflammatory process. Stable left lower lobe superior segment pulmonary nodule density with FDG activity below background levels. -EKG: Sinus rhythm with no acute changes -Chest x-ray: Trace pleural effusion on the right. -CT of the abdomen pelvis with contrast revealed diffuse anasarca most prominent along the right lateral upper abdominal wall. Small volume ascites with diffuse mesenteric edema and small right pleural effusion. Increased small to moderate- sized pericardial effusion. Correlate for volume overload. Lipomatous. Diverticulosis without diverticulitis. Nonobstructive renal calculi. Stable left lower lobe subpleural pulmonary nodule. -Laboratory studies: WBC 7.5, hemoglobin 15.7, platelet count 184. Sodium 134, potassium 4.4, BUN 10 and creatinine 0.5. AST 37, proBNP 6770. -Home cardiac medications: Atorvastatin 80 mg daily. -Echocardiogram performed 01/16/2020 revealed EF 55 to 60% mild concentric left ventricular hypertrophy, moderate aortic valve sclerosis, mild to moderate tricuspid regurgitation, mild mitral regurgitation, moderate pulmonary hypertension. - Exercise stress test performed in 2019 was negative with limited exercise capacity, no arrhythmias. 01/05/2025 Patient examined this morning at the bedside. Patient is currently sitting on the side of the bed. Patient denies any chest pain or pressure. She reports her shortness of breath is improving. She remains on IV Lasix 40 mg every 12 hours. Echocardiogram completed revealing ejection fraction 50 to 55%, moderate pulmonary hypertension, RVSP 46 mmHg, moderate pericardial effusion with no tamponade physiology. Potassium today 3.2. 01/06/2025 Patient examined this morning. She is sitting up in the chair. Patient remains on IV Lasix 40 mg every 12 hours. CO2 increased today to 43. BNP improved from 6770 down to 2510. She currently denies any chest pain or pressure. She reports improvement in her shortness of breath. 01/07/2025 Patient examined this morning. Patient currently denies chest pain or pressure. She denies shortness of breath. Patient was transitioned to oral Lasix yesterday. Sodium 136. Potassium 3.4. BUN 10. Creatinine 0.49. 01/08/2025 Patient examined this morning at the bedside. Patient currently denies chest pain or pressure. She denies shortness of breath. Apparently, Dr. De La O thought the patient was lethargic yesterday and discontinued all of her medications including Lipitor, Lasix, metoprolol, Farxiga, and Diamox. She is currently not receiving any cardiac medications. PHYSICAL EXAM: VITAL SIGNS: Reviewed. GENERAL: Well-developed in no acute distress. NECK: Supple. No JVD or thyromegaly LUNGS: Respirations even and unlabored. Lungs diminished bilaterally HEART: Regular rate and rhythm. S1 and S2 heard. EXTREMITIES: Normal range of motion. No clubbing or cyanosis. Peripheral pulses intact. 1+ bilateral lower extremity edema ASSESSMENT: Right upper abdominal distention with anasarca and diffuse mesenteric edema on CT Pericardial effusion found on CT with no evidence of tamponade. This is most likely an incidental finding Acute heart failure with preserved EF 50 to 55% Moderate pulmonary hypertension Hyperlipidemia COPD Tobacco use and dependence, patient quit 4 days ago Pulmonary nodule followed by Dr. Velazquez History of CVA PLAN: Apparently, Dr. De La O thought the patient was lethargic yesterday and discontinued all of her medications including Lipitor, Lasix, metoprolol, Farxiga, and Diamox. She is currently not receiving any cardiac medications as her primary physician discontinued them all. Recommend further evaluation of abnormal CT revealing abdominal distention with anasarca and diffuse mesenteric edema. Defer to admitting physician No further inpatient recommendations from a cardiac standpoint. Will defer further management to her primary physician, Dr. De La O We will sign off. Please reconsult if needed. Nurse practitioner note has been reviewed by physician. Signing provider agrees with the documented findings, assessment, and plan of care documented by PRECISION CROP MANAGER as a scribe. Objective - Vital Signs Vital signs: Vital Signs Temp 98.4 F 01/08/25 11:37 Pulse 71 01/08/25 11:37 Resp 18 01/08/25 11:37 BP 104/66 01/08/25 11:37 Pulse Ox 91 L 01/08/25 08:34 FiO2 Intake & Output 01/07/25 01/08/25 01/08/25 18:59 06:59 18:59 Intake Total 540 10 Output Total 3000 1100 Balance -2460 -1090 Weight 58 kg Intake: IV 10 Invasive Line 2 10 Oral 540 Output: Urine 3000 1100 Other: Voiding Method External Catheter External Catheter External Catheter - Labs CBC & Chem 7: 01/07/25 15:18 01/08/25 05:50 Labs: Abnormal Lab Results - Last 24 Hours (Table) 01/07/25 01/07/25 01/07/25 Range/Units 15:18 15:18 19:50 WBC 14.25 H (4.50-10.00) 10*3/uL Hgb 15.3 H (12.0-15.0) g/dL Hct 51.7 H (37.2-46.3) % MCV 101.6 H D (80.0-97.0) fL MCHC 29.6 L (32.0-37.0) g/dL MPV 9.4 L (9.5-12.2) fL Immature Gran # 0.06 H (0.00-0.04) 10*3/uL Neutrophils # 11.72 H (1.80-7.70) 10*3/uL Monocytes # 1.06 H (0.20-1.00) 10*3/uL Eosinophils # 0.03 L (0.04-0.35) 10*3/uL Sodium 135 L (137-145) mmol/L Potassium 3.4 L (3.5-5.1) mmol/L Chloride 88 L (98-107) mmol/L Carbon Dioxide 42 H* (22-30) mmol/L Creatinine (0.52-1.04) mg/dL Glucose 127 H (74-99) mg/dL POC Glucose (mg/dL) 113 H (70-110) mg/dL Total Bilirubin 1.5 H (0.2-1.3) mg/dL 01/08/25 Range/Units 05:50 WBC (4.50-10.00) 10*3/uL Hgb (12.0-15.0) g/dL Hct (37.2-46.3) % MCV (80.0-97.0) fL MCHC (32.0-37.0) g/dL MPV (9.5-12.2) fL Immature Gran # (0.00-0.04) 10*3/uL Neutrophils # (1.80-7.70) 10*3/uL Monocytes # (0.20-1.00) 10*3/uL Eosinophils # (0.04-0.35) 10*3/uL Sodium 133 L (137-145) mmol/L Potassium 3.4 L (3.5-5.1) mmol/L Chloride 95 L (98-107) mmol/L Carbon Dioxide 38 H (22-30) mmol/L Creatinine 0.42 L (0.52-1.04) mg/dL Glucose (74-99) mg/dL POC Glucose (mg/dL) (70-110) mg/dL Total Bilirubin (0.2-1.3) mg/dL
--- NOTE | 2025-01-08 16:13 | P.PN ---
Progress Note - Text Progress Note Date: 01/08/25 Came to see patient, but she has already been discharged, left the floor.
[2025-01-08 18:28] VITALS: BP 98/61; PULSE 79; RESP 16; TEMP 98
[2025-01-08 19:02] LABS: Carbon Dioxide 43 mmol/L (22-30)
[2025-01-08 19:03] LABS: Carbon Dioxide 45 mmol/L (22-30)
--- NOTE | 2025-01-09 02:00 | DS ---
DISCHARGE SUMMARY CHIEF COMPLAINT: Shortness of breath, edema, pericardial effusion, and left leg edema. HISTORY OF PRESENT ILLNESS AND PHYSICAL EXAMINATION: Details of this lady's history and physical can be found in the initial workup. COURSE IN THE HOSPITAL: After admission, she was placed on bedrest, started on intravenous fluids and workup for various findings on admission. She was seen and followed by Cardiology. Echocardiogram failed to demonstrate any significant pathology and a minimal pleural effusion. Left leg edema resolved. While she was in the hospital, she became a little bit more short of breath and progressively congested. There was concern for a period of time that she was failing and she was becoming more lethargic and less oriented. However, this cleared when some of her medications were stopped. She is doing well and was anxious to be discharged on the and she will be sent home on her usual activity, diet, medication, and follow up in the office in several days. FINAL DIAGNOSES: 1. Shortness of breath. 2. Chronic obstructive pulmonary disease. 3. Pericardial effusion. 4. Right upper quadrant pain. 5. Left leg edema. 6. Lethargy. 7. Delirium. 8. Bronchitis. OPERATIONS: None. CONSULTATIONS: Cardiology. She is improved. MMODL / IJN: [id number] /
== END 2025-01-08 16:02 | disposition home health service (06) | DRG 292 ==
LOC: EC 16:05 → 3SCARD 22:33 → OBSVTOIN 22:34 → 3SCARD 01-04 00:08
PROVIDERS: ADMIT Family Medicine; ATTEND Family Medicine
DX: I50.31 Acute diastolic (congestive) heart failure (principal); I31.39 Other pericardial effusion (noninflammatory); I27.20 Pulmonary hypertension, unspecified; J44.89 Other specified chronic obstructive pulmonary disease; J96.10 Chronic respiratory failure, unspecified whether with hypoxia or hypercapnia; R18.8 Other ascites; R41.0 Disorientation, unspecified; F17.200 Nicotine dependence, unspecified, uncomplicated; E78.5 Hyperlipidemia, unspecified; D17.5 Benign lipomatous neoplasm of intra-abdominal organs; R91.1 Solitary pulmonary nodule; Z88.5 Allergy status to narcotic agent; Z88.8 Allergy status to other drugs, medicaments and biological substances; Z79.899 Other long term (current) drug therapy; Z86.73 Personal history of transient ischemic attack (TIA), and cerebral infarction without residual deficits; Z90.710 Acquired absence of both cervix and uterus; Z98.84 Bariatric surgery status
CPT/HCPCS: 36415; 70496; 70498; 71045; 71046; 74177; 80048; 80053; 83690; 83880; 85025; 93005; 93306; 96374; 96375; 96376; 99285

== ENCOUNTER → 2025-01-25 | Outpatient (CLI) | payer MEDICARE, OTHER ==
--- NOTE | 2025-01-26 14:17 | CT ---
EXAMINATION TYPE: CT chest wo con DATE OF EXAM: 01/25/2025 11:34 AM COMPARISON: 07/27/2024 , 04/06/2024 CLINICAL INDICATION: Female, 69 years old with history of J98.4 OTHER DISORDERS OF LUNG; PHH, smoker, quit 3 days ago. H/O COPD and fluid build up around heart TECHNIQUE: Noncontrast CT of the chest with coronal and sagittal reconstructions. CT DLP: 317 mGycm, Automated exposure control for dose reduction was used. FINDINGS: The heart is borderline enlarged now with a small to moderate pericardial effusion measuring up to 1. 2 cm thick, increased from prior. LAD coronary artery calcifications. Mild aortic valve calcification s. Aorta normal caliber with mild atherosclerotic arch calcifications and a much larger vessel branching anatomy. Borderline to mildly enlarged caliber main right and left pulmonary arteries up to 2.5 cm may reflect underlying pulmonary arterial hypertension. No thoracic lymphadenopathy by size criteria. Scattered patchy pleural parenchymal scarring at the lower lungs. Mild diffuse bronchial wall thicken ing. Mild emphysematous change. No consolidation or pleural effusion. A few tiny 4 mm and smaller nod ules remain unchanged. The previous 1.3 cm lateral right midlung pulmonary nodule has resolved. There are minimal tree-in-bu d opacity suggested lateral right midlung, axial image 22 Postsurgical change at the GE junction, probably previous Rashi fundoplication. Partially visualized 5 mm right renal stone. Mild to moderate atherosclerotic calcifications visualized abdominal aorta. Cholecystectomy clips. Mild diffuse low-density thickening of the bilateral adrenal glands appear Generalized anasarca change. There appear to be large subcutaneous lipomas along the lateral aspect o f the thoracoabdominal junctions measuring up to 9.2 cm on the left and 6.1 cm on the right, not sign ificantly changed. There is minimal strandy density within both fatty tumors and they should be monit ored clinically. Generalized anasarca changes noted, particularly along the right flank probably related to dependent edema. Bones: Accentuated lower thoracic kyphosis. Moderate to severe degenerative disc disease visualized u pper lumbar spine and moderate within the lower thoracic spine. ACDF hardware. Disc osteophyte comple x at L1-L2 contributing to mild spinal canal stenosis. IMPRESSION: 1. COPD with mild emphysema and possible underlying pulmonary hypertension. 2. Scattered pleural parenchymal scarring in the lower lungs. The previous 1.3 cm nodule on the right has resolved suggesting resolution of infectious/inflammatory etiology. 3. Minimal tree-in-bud opacity lateral right midlung suggests a small area of bronchiolitis. Correlat e with symptoms. 4. Increased now [id number] sized pericardial effusion measuring up to 1.2 cm thick. [facility], Workstation: RJ, 01/26/2025 2:15 PM
== END | disposition home or self-care (01) ==
LOC: RADCTMAIN 10:55
PROVIDERS: ATTEND Internal Medicine Hematology & Oncology
DX: J98.4 Other disorders of lung (principal); I67.89 Other cerebrovascular disease; E78.5 Hyperlipidemia, unspecified; M12.9 Arthropathy, unspecified; J44.9 Chronic obstructive pulmonary disease, unspecified; J43.9 Emphysema, unspecified; I31.39 Other pericardial effusion (noninflammatory)
CPT/HCPCS: 71250

== ENCOUNTER 2025-01-29 10:02 | Inpatient (IN) | payer MEDICARE, OTHER ==
[2025-01-29 10:27] LABS: Basophils # (A) 0.04 10*3/uL (0.00-0.10); Basophils % (A) 0.3 %; HCT 49.9 % (37.2-46.3); HGB 15.2 g/dL (12.0-15.0); Lymphocytes # (A) 1.28 10*3/uL (0.90-5.00); Lymphocytes % (A) 8.5 %; MCH 30.3 pg (27.0-32.0); MCHC 30.5 g/dL (32.0-37.0); MCV 99.6 fL (80.0-97.0); Mean Platelet Volume 9.8 fL (9.5-12.2); Neutrophils # (A) 12.71 10*3/uL (1.80-7.70); Neutrophils % (A) 84.7 %; Platelet Count 163 10*3/uL (140-440); RBC 5.01 10*6/uL (4.10-5.20); RDW 16.6 % (11.5-14.5)
[2025-01-29 10:40] LABS: INR 1.1 (<1.2); Partial Thromboplastin Time 24.7 sec (22.0-30.0)
--- NOTE | 2025-01-29 10:40 | ED ---
General Adult HPI - General Chief complaint: Shortness of Breath Stated complaint: SOB Time Seen by Provider: 01/29/25 10:06 Source: EMS Mode of arrival: EMS Limitations: no limitations - History of Present Illness Initial comments: Dictation was produced using [employer] dictation software. please excuse any grammatical, word or spelling errors. Chief Complaint: 69-year-old female presents to the emergency department dyspnea History of Present Illness: Patient 69-year-old female presents to the ER for dyspnea. Patient brought in from home by EMS. According to EMS patient was brought in after she had called for dyspneic episodes. Patient has history of reported heart failure and COPD. Was placed on noninvasive ventilation by EMS. EMS reports that patient was breathing at a rate of 40s. Was placed on CPAP with improvement of her symptoms after breathing treatments. Patient Nuys any chest pain. Denies any fever, chills or night sweats. The ROS documented in this emergency department record has been reviewed and confirmed by me. Those systems with pertinent positive or negative responses have been documented in the HPI. All other systems are other negative and/or noncontributory. - Related Data Home Medications Medication Instructions Recorded Confirmed Albuterol Nebulized [Ventolin 2.5 mg INHALATION RT-QID PRN 01/28/14 01/29/25 Nebulized] Albuterol Sulfate [Proair Hfa] 2 puff INHALATION RT-QID PRN 01/28/14 01/29/25 Omeprazole [PriLOSEC] 20 mg PO DAILY 01/28/14 01/29/25 Topiramate [Topamax] 50 mg PO BID 01/28/14 01/29/25 risperiDONE 3 mg PO HS 11/08/18 01/29/25 Multivitamin,Therapeutic [Thera] 1 tab PO DAILY 12/21/18 01/29/25 Atorvastatin [Lipitor] 80 mg PO DAILY 01/04/25 01/29/25 Cholecalciferol (Vitamin D3) 1,250 mcg PO Q14D 01/04/25 01/29/25 [Vitamin D3 (1250 Mcg = 50,000 Iu)] Vortioxetine Hydrobromide 10 mg PO W/SUPPER 01/04/25 01/29/25 [Trintellix] oxyCODONE HCL [OxyIR] 5 mg PO DAILY 01/29/25 01/29/25 Previous Rx's Medication Instructions Recorded Potassium Chloride ER [K-Dur 20] 20 meq PO BID #60 tab 01/08/25 Allergies Allergy/AdvReac Type Severity Reaction Status Date / Time fluticasone propionate Allergy Rash/Hives Verified 01/29/25 11:33 [From Advair Diskus] oxycodone HCl [From Percodan] Allergy Rash/Hives Verified 01/29/25 11:33 oxycodone terephthalate Allergy Rash/Hives Verified 01/29/25 11:33 [From Percodan] propoxyphene HCl Allergy Rash/Hives Verified 01/29/25 11:33 [From Darvon] salmeterol xinafoate Allergy Rash/Hives Verified 01/29/25 11:33 [From Advair Diskus] tramadol HCl [From Ultram] Allergy Rash/Hives Verified 01/29/25 11:33 Review of Systems ROS Statement: Those systems with pertinent positive or pertinent negative responses have been documented in the HPI. ROS Other: All systems not noted in ROS Statement are negative. Past Medical History Past Medical History: Asthma, COPD, CVA/TIA, GERD/Reflux, Neurologic Disorder, Osteoarthritis (OA), Respiratory Disorder Additional Past Medical History / Comment(s): MIGRAINES, stroke & then TIA in 2018-intermittent dizziness, balance issues, can't eat much, gets full quickly, states no fluid in lap band History of Any Multi-Drug Resistant Organisms: None Reported Past Surgical History: Bariatric Surgery, Cholecystectomy, Hysterectomy, Tonsillectomy Additional Past Surgical History / Comment(s): LAP BAND 2014. lap band removal 04-04-23 Past Anesthesia/Blood Transfusion Reactions: No Reported Reaction Past Psychological History: Anxiety, Depression Smoking Status: Current every day smoker Past Alcohol Use History: None Reported Past Drug Use History: None Reported - Past Family History Mother Family Medical History: Cancer Father Family Medical History: Cancer General Exam - General Exam Comments Initial Comments: PHYSICAL EXAM: General Impression: Alert and oriented x3, dyspneic, CPAP in place HEENT: Normocephalic atraumatic, extra-ocular movements intact, pupils equal and reactive to light bilaterally, mucous membranes moist. Cardiovascular: Heart regular rate and rhythm Chest: Diffuse wheezing Abdomen: abdomen soft, non-tender, non-distended, no organomegaly Musculoskeletal: Pulses present and equal in all extremities, no peripheral edema Motor: no focal deficits noted Neurological: CN II-XII grossly intact, no focal motor or sensory deficits noted Skin: Intact with no visualized rashes Psych: Normal affect and mood Limitations: no limitations Course Vital Signs 01/29/25 01/29/25 01/29/25 10:04 10:11 10:13 Temperature 97.8 F Pulse Rate 107 H Respiratory 29 H 35 H Rate Blood Pressure 106/83 O2 Sat by Pulse 97 Oximetry Fraction of 50 Inspired Oxygen (FIO2) 01/29/25 01/29/25 01/29/25 11:07 11:15 11:40 Temperature 97.8 F Pulse Rate 96 100 87 Respiratory 24 Rate Blood Pressure 110/68 O2 Sat by Pulse 95 Oximetry Fraction of Inspired Oxygen (FIO2) EKG Findings - EKG Comments: EKG Findings:: My EKG interpretation: Ventricular rate 107, sinus tachycardia, WA 130, cures 126, QTc 3 5. No WA prolongation, no QTC prolongation, no ST or T- wave changes noted. Overall, this EKG is unremarkable Medical Decision Making - Medical Decision Making Was pt. sent in by a medical professional or institution (, PA, CHILD CARE COOK, urgent care, hospital, or long-term...) When possible be specific @ -No Did you speak to anyone other than the patient for history (EMS, parent, family, police, friend...)? What history was obtained from this source @ -EMS as described above Did you review nursing and triage notes (agree or disagree)? Why? @ -I reviewed and agree with nursing and triage notes Were old charts reviewed (outside hosp., previous admission, EMS record, old EKG, old radiological studies, urgent care reports/EKG's, long-term records)? Report findings @ -No old charts were reviewed Differential Diagnosis (chest pain, altered mental status, abdominal pain women, abdominal pain men, vaginal bleeding, musculoskeletal, weakness, fever, dyspnea, syncope, headache, dizziness, GI bleed, back pain, seizure, CVA, palpatations, mental health)? @ -Differential Dyspnea: Coronary syndrome, arrhythmia, tamponade, asthma, COPD, pulmonary embolism, pneumonia, pneumothorax, pulmonary effusion, anaphylaxis, diabetic ketoacidosis, flailed chest, pulmonary contusion, diaphragmatic rupture, anemia, neuromuscular, this is not meant to be an all-inclusive list. EKG interpreted by me (3pts min.). @ -See above X-rays interpreted by me (1pt min.). @ -Chest x-ray shows COPD and CHF CT interpreted by me (1pt min.). @ -None done U/S interpreted by me (1pt. min.). @ -None done What testing was considered but not performed or refused? (CT, X-rays, U/S, labs)? Why? @ -None What meds were considered but not given or refused? Why? @ -None Was smoking cessation discussed for >3mins.? @ -No Were there social determinants of health that impacted care today? How? (Homelessness, low income, unemployed, alcoholism, drug addiction, transportation, low edu. Level, literacy, decrease access to med. care, halfway, rehab)? @ -No Was there de-escalation of care discussed even if they declined (Discuss DNR or withdrawal of care, Hospice)? DNR status @ -No What co-morbidities impacted this encounter? (DM, HTN, Smoking, COPD, CAD, Ca ncer, CVA, ARF, Chemo, Hep., AIDS, mental health diagnosis, sleep apnea, morbid obesity)? @ -COPD, CHF Was patient admitted / discharged? Hospital course, mention meds given and route, prescriptions, significant lab abnormalities, going to OR and other pertinent info. @ -69-year-old female presents to the emergency department for respiratory failure. According to EMS their initial evaluation showed female in significant respiratory distress. She improved after breathing treatment and noninvasive ventilation. Patient mildly dyspneic at the bedside however overall feeling better. Vital signs shows tachypnea of 29, nonhypoxic. Laboratory evaluation obtained. Mild leukocytosis of 15. Coag panel is negative. Metabolic panel shows slight hypomagnesemia 1.4. Cardiac enzymes negative. BNP 4000. X-ray shows CHF and COPD. Patient given Lasix and started on COPD protocol. Case discussed with hospitalist for admission pulmonology consulted. Did you discuss the management of the patient with other professionals (professionals i.e. , PA, CHILD CARE COOK, lab, RT, psych nurse, social work supervisor, photo graphics librarian, teacher, staff combat information center officer, child welfare caseworker)? Give summary @ -See above Was critical care preformed (if so, how long)? @ -Yes, 33 minutes Undiagnosed new problem with uncertain prognosis? @ -No Drug Therapy requiring intensive monitoring for toxicity (Heparin, Nitro, Insulin, Cardizem)? @ -No Were any procedures done? @ -No Diagnosis/symptom? Acute, or Chronic, or Acute on Chronic? Uncomplicated (without systemic symptoms) or Complicated (systemic symptoms)? @ -Respiratory failure Side effects of treatment? @ -No Exacerbation, Progression, or Severe Exacerbation? @ -No Poses a threat to life or bodily function? How? (Chest pain, USA, CO, pneumonia, PE, COPD, DKA, ARF, appy, cholecystitis, CVA, Diverticulitis, Homicidal, Suicidal, threat to staff... and all critical care pts) @ -No - Lab Data Result diagrams: 01/29/25 10:16 01/29/25 10:16 Lab Results 01/29/25 01/29/25 01/29/25 Range/Units 10:16 10:16 10:16 WBC 15.00 H (4.50-10.00) 10*3/uL RBC 5.01 (4.10-5.20) 10*6/uL Hgb 15.2 H (12.0-15.0) g/dL Hct 49.9 H (37.2-46.3) % MCV 99.6 H (80.0-97.0) fL MCH 30.3 (27.0-32.0) pg MCHC 30.5 L (32.0-37.0) g/dL Plt Count 163 (140-440) 10*3/uL MPV 9.8 (9.5-12.2) fL Immature Gran % (Auto) 0.5 % Neutrophils % 84.7 % Lymphocytes % 8.5 % Monocytes % 6.0 % Eosinophils % 0.0 % Basophils % 0.3 % Immature Gran # 0.07 H (0.00-0.04) 10*3/uL Neutrophils # 12.71 H (1.80-7.70) 10*3/uL Lymphocytes # 1.28 (0.90-5.00) 10*3/uL Monocytes # 0.90 (0.20-1.00) 10*3/uL Eosinophils # 0.00 L (0.04-0.35) 10*3/uL Basophils # 0.04 (0.00-0.10) 10*3/uL PT 12.0 (10.0-12.5) sec INR 1.1 (<1.2) APTT 24.7 (22.0-30.0) sec Sodium 137 (137-145) mmol/L Potassium 4.1 (3.5-5.1) mmol/L Chloride 105 (98-107) mmol/L Carbon Dioxide 26 (22-30) mmol/L Anion Gap 6 mmol/L BUN 8 (7-17) mg/dL Creatinine 0.40 L (0.52-1.04) mg/dL Est GFR (CKD-EPI)AfAm >90 (>60 ml/min/1.73 sqM) Est GFR (CKD-EPI)NonAf >90 (>60 ml/min/1.73 sqM) Glucose 159 H (74-99) mg/dL Plasma Lactic Acid Nehemias (0.7-2.0) mmol/L Calcium 9.1 (8.4-10.2) mg/dL Magnesium 1.4 L (1.6-2.3) mg/dL Total Bilirubin 1.2 (0.2-1.3) mg/dL AST 29 (14-36) U/L ALT 20 (4-34) U/L Alkaline Phosphatase 57 (38-126) U/L Troponin I (0.000-0.034) ng/mL NT-Pro-B Natriuret Pep 4280 pg/mL Total Protein 7.0 (6.3-8.2) g/dL Albumin 4.0 (3.5-5.0) g/dL 01/29/25 01/29/25 Range/Units 10:16 10:16 WBC (4.50-10.00) 10*3/uL RBC (4.10-5.20) 10*6/uL Hgb (12.0-15.0) g/dL Hct (37.2-46.3) % MCV (80.0-97.0) fL MCH (27.0-32.0) pg MCHC (32.0-37.0) g/dL Plt Count (140-440) 10*3/uL MPV (9.5-12.2) fL Immature Gran % (Auto) % Neutrophils % % Lymphocytes % % Monocytes % % Eosinophils % % Basophils % % Immature Gran # (0.00-0.04) 10*3/uL Neutrophils # (1.80-7.70) 10*3/uL Lymphocytes # (0.90-5.00) 10*3/uL Monocytes # (0.20-1.00) 10*3/uL Eosinophils # (0.04-0.35) 10*3/uL Basophils # (0.00-0.10) 10*3/uL PT (10.0-12.5) sec INR (<1.2) APTT (22.0-30.0) sec Sodium (137-145) mmol/L Potassium (3.5-5.1) mmol/L Chloride (98-107) mmol/L Carbon Dioxide (22-30) mmol/L Anion Gap mmol/L BUN (7-17) mg/dL Creatinine (0.52-1.04) mg/dL Est GFR (CKD-EPI)AfAm (>60 ml/min/1.73 sqM) Est GFR (CKD-EPI)NonAf (>60 ml/min/1.73 sqM) Glucose (74-99) mg/dL Plasma Lactic Acid Nehemias 1.2 (0.7-2.0) mmol/L Calcium (8.4-10.2) mg/dL Magnesium (1.6-2.3) mg/dL Total Bilirubin (0.2-1.3) mg/dL AST (14-36) U/L ALT (4-34) U/L Alkaline Phosphatase (38-126) U/L Troponin I <0.012 (0.000-0.034) ng/mL NT-Pro-B Natriuret Pep pg/mL Total Protein (6.3-8.2) g/dL Albumin (3.5-5.0) g/dL Disposition Clinical Impression: Respiratory failure Disposition: ADMITTED IP TO THIS HOSP Condition: Fair Referrals: Ky De La O MD [Primary Care Provider] - 1-2 days Decision Time: 11:00
[2025-01-29 10:41] LABS: ALT 20 U/L (4-34); African American GFR (CKD) >90 (>60 ml/min/1.73 sqM); Anion Gap 6 mmol/L; Blood Urea Nitrogen 8 mg/dL (7-17); Calcium 9.1 mg/dL (8.4-10.2); Carbon Dioxide 26 mmol/L (22-30); Chloride 105 mmol/L (98-107); Glucose 159 mg/dL (74-99); Non-African American GFR(CKD) >90 (>60 ml/min/1.73 sqM); Sodium 137 mmol/L (137-145); Total Bilirubin 1.2 mg/dL (0.2-1.3)
--- NOTE | 2025-01-29 10:48 | XR ---
EXAMINATION TYPE: XR chest 1V portable DATE OF EXAM: 01/29/2025 10:40 AM COMPARISON: 01/07/2025 CLINICAL INDICATION: Female, 69 years old with history of dyspnea, shortness of breath FINDINGS: ACF hardware. Heart mildly enlarged. Interstitial prominence is noted, slightly increased. Hyperinfla tion. No consolidation or pleural effusion. IMPRESSION: COPD. Correlate for superimposed mild CHF with pulmonary vascular congestion. [facility], Workstation: RJ, 01/29/2025 10:46 AM
[2025-01-29 10:49] LABS: NT-Pro-B-Type Natriuretic Pept 4280 pg/mL
[2025-01-29 10:53] LABS: AST 29 U/L (14-36); Magnesium 1.4 mg/dL (1.6-2.3); Potassium 4.1 mmol/L (3.5-5.1)
[2025-01-29 10:54] LABS: Alkaline Phosphatase 57 U/L (38-126)
[2025-01-29] MEDS: IPRATROPIUM-ALBUTEROL 3 ML NEB INHALATION STA (11:06)
[2025-01-29] MEDS ORDERED: NALOXONE 0.4 MG/ML 1 ML VIAL IVP PRN (11:45)
[2025-01-29] MEDS: FUROSEMIDE 10 MG/ML 4 ML VIAL IV STA (12:03)
[2025-01-29] MEDS: predniSONE 20 MG TAB PO SCH (12:06)
[2025-01-29] MEDS: AZITHROMYCIN 500 MG TAB PO SCH (12:06)
[2025-01-29] MEDS: MAGNESIUM OXIDE 400 MG TAB PO STA (12:06)
[2025-01-29] MEDS: IPRATROPIUM-ALBUTEROL 3 ML NEB INHALATION SCH (13:43)
--- NOTE | 2025-01-29 15:06 | P.CNPUL ---
History of Present Illness Consult date: 01/29/25 Requesting physician: Ky De La O Reason for consult: dyspnea, cough, COPD, hypoxemia Chief complaint: Shortness of breath, COPD exacerbation. History of present illness: Pulmonary consultation dated January 29, 2025. 69-year-old female seen in the emergency department, room #4. The patient was initially seen by one of the ER physicians, for shortness of breath. The patient was brought in to the ER, by EMS. She apparently was quite short of breath, and, was placed on noninvasive ventilation by EMS. Respiratory rate was in the 40s. The patient was seen in the emergency department, and is currently on BiPAP, with settings of 12/5, and 50%. She is in normal sinus rhythm. Her saturations are 95%. He can speak in partial sentences. There is no IV fluids running. When asked about when she quit smoking, she states that she quit "today". In addition to COPD, she has a history of CVA, GERD, osteoarthritis, migraine cephalgia, anxiety/depression, and ongoing tobacco use with nicotine addiction. Current laboratory data includes a white count of 15, hemoglobin 15.2, hematocrit 49.9, and a platelet count of 163,000. Sodium 137, potassium 4.1, chlorides 105, CO2 26, BUN 8, and creatinine 0.4. The patient's troponin was less than 0.012. The N-terminal proBNP was elevated at 4280. In addition to COPD, the patient's chest x-ray may show some mild fluid overload. Review of Systems REVIEW OF SYSTEMS: CONSTITUTIONAL: [Negative.] NEUROLOGIC: [ Negative.] HEENT: [ Negative.] CARDIAC: [Negative.] PULMONARY: Shortness of breath. GI: [Negative.] : [Negative.] RHEUMATOLOGIC: [ Negative.] IMMUNOLOGIC: [ Negative.] ENDOCRINE: [Negative. ] DERMATOLOGIC: [Negative.] Past Medical History Past Medical History: Asthma, COPD, CVA/TIA, GERD/Reflux, Neurologic Disorder, Osteoarthritis (OA), Respiratory Disorder Additional Past Medical History / Comment(s): MIGRAINES, stroke & then TIA in 2018-intermittent dizziness, balance issues, can't eat much, gets full quickly, states no fluid in lap band History of Any Multi-Drug Resistant Organisms: None Reported Past Surgical History: Bariatric Surgery, Cholecystectomy, Hysterectomy, Tonsillectomy Additional Past Surgical History / Comment(s): LAP BAND 2015. lap band removal 04-04-23 Past Anesthesia/Blood Transfusion Reactions: No Reported Reaction Past Psychological History: Anxiety, Depression Smoking Status: Current every day smoker Past Alcohol Use History: None Reported Past Drug Use History: None Reported - Past Family History Mother Family Medical History: Cancer Father Family Medical History: Cancer Medications and Allergies Home Medications Medication Instructions Recorded Confirmed Type Albuterol Nebulized [Ventolin 2.5 mg INHALATION RT-QID PRN 01/28/14 01/29/25 History Nebulized] Albuterol Sulfate [Proair Hfa] 2 puff INHALATION RT-QID PRN 01/28/14 01/29/25 History Omeprazole [PriLOSEC] 20 mg PO DAILY 01/28/14 01/29/25 History Topiramate [Topamax] 50 mg PO BID 01/28/14 01/29/25 History risperiDONE 3 mg PO HS 11/08/18 01/29/25 History Multivitamin,Therapeutic [Thera] 1 tab PO DAILY 12/21/18 01/29/25 History Atorvastatin [Lipitor] 80 mg PO DAILY 01/04/25 01/29/25 History Cholecalciferol (Vitamin D3) 1,250 mcg PO Q14D 01/04/25 01/29/25 History [Vitamin D3 (1250 Mcg = 50,000 Iu)] Vortioxetine Hydrobromide 10 mg PO W/SUPPER 01/04/25 01/29/25 History [Trintellix] Potassium Chloride ER [K-Dur 20] 20 meq PO BID #60 tab 01/08/25 01/29/25 Rx oxyCODONE HCL [OxyIR] 5 mg PO DAILY 01/29/25 01/29/25 History Allergies Allergy/AdvReac Type Severity Reaction Status Date / Time fluticasone propionate Allergy Rash/Hives Verified 01/29/25 11:33 [From Advair Diskus] oxycodone HCl [From Percodan] Allergy Rash/Hives Verified 01/29/25 11:33 oxycodone terephthalate Allergy Rash/Hives Verified 01/29/25 11:33 [From Percodan] propoxyphene HCl Allergy Rash/Hives Verified 01/29/25 11:33 [From Darvon] salmeterol xinafoate Allergy Rash/Hives Verified 01/29/25 11:33 [From Advair Diskus] tramadol HCl [From Ultram] Allergy Rash/Hives Verified 01/29/25 11:33 Physical Exam Osteopathic Statement: *. No significant issues noted on an osteopathic structural exam other than those noted in the History and Physical/Consult. Vitals: Vital Signs Temp Pulse Resp BP Pulse Ox FiO2 01/29/25 14:00 84 20 108/61 99 01/29/25 13:51 83 01/29/25 13:44 83 50 01/29/25 13:20 97.8 F 87 24 111/64 94 L 01/29/25 12:00 92 20 107/60 97 01/29/25 11:40 97.8 F 87 24 110/68 95 01/29/25 11:15 100 01/29/25 11:07 96 01/29/25 10:13 50 01/29/25 10:11 35 H 01/29/25 10:04 97.8 F 107 H 29 H 106/83 97 Intake and Output 01/28/25 01/29/25 01/29/25 22:59 06:59 14:59 Other: Weight 52.163 kg Oriented x 3, mild respiratory distress, currently on BiPAP. Able to speak in partial sentences. HEENT examination is grossly unremarkable. Neck supple. Full range of motion. No adenopathy thyromegaly or neck vein distention. Cardiovascular examination reveals regular rhythm rate. S1-S2 normal. No S3 or S4. No discernible murmur noted. Heart sounds are distant. Lungs reveal severely diminished bilateral breath sounds. Scattered rhonchi and wheezes. No crackles. Breath sounds equal bilaterally. Abdomen soft bowel sounds are heard. No masses or tenderness. Extremities are intact. No cyanosis clubbing or edema. Skin is without rash or lesion. Neurologic examination is brief but nonfocal. Results - Laboratory Findings CBC and BMP: 01/29/25 10:16 01/29/25 10:16 PT/INR, D-dimer PT 12.0 sec (10.0-12.5) 01/29/25 10:16 INR 1.1 (<1.2) 01/29/25 10:16 Abnormal lab findings: Abnormal Labs 01/29/25 01/29/25 10:16 10:16 WBC 15.00 H Hgb 15.2 H Hct 49.9 H MCV 99.6 H MCHC 30.5 L Immature Gran # 0.07 H Neutrophils # 12.71 H Eosinophils # 0.00 L Creatinine 0.40 L Glucose 159 H Magnesium 1.4 L - Diagnostic Findings Chest x-ray: image reviewed Assessment and Plan Assessment: Acute hypoxemic respiratory failure, secondary to COPD exacerbation. Possible fluid overload/CHF. Ongoing tobacco use with nicotine addiction. History of CVA. History of gastroesophageal reflux disease. History of osteoarthritis. History of migraine cephalgia. History of anxiety/depression. Plan: Plan dated January 29, 2025. The patient should be on updrafts, with albuterol sulfate ipratropium bromide, 4 times daily and as needed. In addition, the patient should be on Symbicort 160/4.5, 2 puffs twice a day, or budesonide 1 mg, mixed with formoterol 20 mcg, twice a day. In addition, the patient should be receiving Solu-Medrol, 60 mg every 6 hours. A nicotine patch would be also very helpful. Labs, x-rays, and medications are reviewed. We will continue to follow the patient, make recommendations along the way. Prognosis is guarded. Time with Patient: Greater than 30
[2025-01-29] MEDS: methylPREDNISolone SOD SUCCI 125 MG/2 ML VIAL IV SCH (17:31)
[2025-01-29] MEDS: MAGNESIUM SULFATE-D5W PMX 1 GM in DEXTROSE/WATER 1 100ML.BAG IVPB ONE (19:18)
[2025-01-29] MEDS: BUDESONIDE 1 MG/2 ML NEBU INHALATION SCH (19:21)
[2025-01-29] MEDS: FORMOTEROL FUMARATE 20 MCG/2 ML NEBU INHALATION SCH (19:21)
[2025-01-29] MEDS: risperiDONE 1 MG TAB PO SCH (20:26)
[2025-01-29] MEDS: HEPARIN SODIUM,PORCINE 5,000 UNIT/ML 1 ML VIAL SQ SCH (20:26)
[2025-01-29] MEDS: TOPIRAMATE 25 MG TAB PO SCH (20:26)
--- NOTE | 2025-01-29 22:42 | P.HPIM ---
History of Present Illness H&P Date: 01/29/25 Chief Complaint: Difficulty in breathing Patient is a 69-year-old female with known history of CVA/TIA, migraine headaches, intermittent dizziness and balance issues, COPD/asthma, anxiety/depression and currently everyday smoker presents to ER with complaints of shortness of breath. Patient was tachycardic and tachypneic with respiratory at went up to 35 and was placed on BiPAP in the ER. Denied any complaints of chest pain. Does have cough without much sputum production. No fever no chills. Chest x-ray showed COPD. Correlate for superimposed mild CHF with pulmonary vascular congestion. EKG showed sinus tachycardia possible left atrial enlargement. Laboratory did show WBC 15 hemoglobin 15.2 MCV 99.6 and platelets 163 sodium 137 potassium 4.1 chloride 105 bicarb is 26 BUN 8 and creatinine 0.4 and blood sugar 159 and magnesium 1.4, proBNP 4280 troponin x 1 negative and albumin 4.0 Review of Systems Constitutional: Patient denies any fever or chills . No generalized weakness or weight loss. Abdomen: Patient denied nausea vomiting and diarrhea and abdominal pain. Cardiovascular: Patient denies any chest pain or short of breath no palpitations. Respiratory: Patient does have cough without sputum production. Worsening short ness of breath Neurologic: Patient denied any numbness or tingling. no headache. Musculoskeletal: Patient denies any complaints of joint swelling or deformity. Skin: Negative Psychiatric: Negative Endocrine: No heat or cold intolerance. No recent weight gain. Genitourinary: No dysuria or hematuria. All other 14 point ROS negative except the above Past Medical History Past Medical History: Asthma, COPD, CVA/TIA, GERD/Reflux, Neurologic Disorder, Osteoarthritis (OA), Respiratory Disorder Additional Past Medical History / Comment(s): MIGRAINES, stroke & then TIA in 2018-intermittent dizziness, balance issues, can't eat much, gets full quickly, states no fluid in lap band History of Any Multi-Drug Resistant Organisms: None Reported Past Surgical History: Bariatric Surgery, Cholecystectomy, Hysterectomy, Tonsillectomy Additional Past Surgical History / Comment(s): LAP BAND 2014. lap band removal 04-04-23 Past Anesthesia/Blood Transfusion Reactions: No Reported Reaction Past Psychological History: Anxiety, Depression Smoking Status: Current every day smoker Past Alcohol Use History: None Reported Past Drug Use History: None Reported - Past Family History Mother Family Medical History: Cancer Father Family Medical History: Cancer Medications and Allergies Home Medications Medication Instructions Recorded Confirmed Type Albuterol Nebulized [Ventolin 2.5 mg INHALATION RT-QID PRN 01/28/14 01/29/25 History Nebulized] Albuterol Sulfate [Proair Hfa] 2 puff INHALATION RT-QID PRN 01/28/14 01/29/25 History Omeprazole [PriLOSEC] 20 mg PO DAILY 01/28/14 01/29/25 History Topiramate [Topamax] 50 mg PO BID 01/28/14 01/29/25 History risperiDONE 3 mg PO HS 11/08/18 01/29/25 History Multivitamin,Therapeutic [Thera] 1 tab PO DAILY 12/21/18 01/29/25 History Atorvastatin [Lipitor] 80 mg PO DAILY 01/04/25 01/29/25 History Cholecalciferol (Vitamin D3) 1,250 mcg PO Q14D 01/04/25 01/29/25 History [Vitamin D3 (1250 Mcg = 50,000 Iu)] Vortioxetine Hydrobromide 10 mg PO W/SUPPER 01/04/25 01/29/25 History [Trintellix] Potassium Chloride ER [K-Dur 20] 20 meq PO BID #60 tab 01/08/25 01/29/25 Rx oxyCODONE HCL [OxyIR] 5 mg PO DAILY 01/29/25 01/29/25 History Allergies Allergy/AdvReac Type Severity Reaction Status Date / Time fluticasone propionate Allergy Rash/Hives Verified 01/29/25 11:33 [From Advair Diskus] oxycodone HCl [From Percodan] Allergy Rash/Hives Verified 01/29/25 11:33 oxycodone terephthalate Allergy Rash/Hives Verified 01/29/25 11:33 [From Percodan] propoxyphene HCl Allergy Rash/Hives Verified 01/29/25 11:33 [From Darvon] salmeterol xinafoate Allergy Rash/Hives Verified 01/29/25 11:33 [From Advair Diskus] tramadol HCl [From Ultram] Allergy Rash/Hives Verified 01/29/25 11:33 Physical Exam Vitals: Vital Signs Temp Pulse Resp BP Pulse Ox FiO2 01/29/25 18:17 97.8 F 66 20 113/65 94 L 01/29/25 17:29 66 24 102/67 95 01/29/25 16:50 68 24 103/64 95 01/29/25 16:29 50 01/29/25 16:25 62 18 125/42 96 01/29/25 14:00 84 20 108/61 99 01/29/25 13:51 83 01/29/25 13:44 83 50 01/29/25 13:20 97.8 F 87 24 111/64 94 L 01/29/25 12:00 92 20 107/60 97 01/29/25 11:40 97.8 F 87 24 110/68 95 01/29/25 11:15 100 01/29/25 11:07 96 01/29/25 10:13 50 01/29/25 10:11 35 H 01/29/25 10:04 97.8 F 107 H 29 H 106/83 97 Intake and Output 01/29/25 01/29/25 01/29/25 06:59 14:59 22:59 Other: Weight 52.163 kg PHYSICAL EXAMINATION: Patient is lying in the bed, no acute distress., awake alert and oriented. On BiPAP. HEENT: Normocephalic. Neck is supple. Pupils reactive. Nostrils clear. Oral cavity is moist. Neck reveals no JVD, carotid bruits, or thyromegaly. CHEST EXAMINATION: Trachea is central. Symmetrical expansion. Bilateral diminished air entry and expiratory wheezing and occasional rhonchi. Nonlabored breathing CARDIAC: Normal S1, S2 with no gallops. No murmurs ABDOMEN: Soft. Bowel sounds normal. No organomegaly. No abdominal bruits. Extremities: reveal no edema. No clubbing or cyanosis Neurologically awake, alert, oriented x3 with well-coordinated movements. No focal deficits noted Skin: No rash or skin lesions. Psychiatric: Coperative. Nonsuicidal Musculoskeletal: No joint swelling or deformity. Normal range of motion. Results CBC & Chem 7: 01/30/25 06:20 01/30/25 06:20 Labs: Abnormal Lab Results - Last 24 Hours (Table) 01/29/25 01/29/25 Range/Units 10:16 10:16 WBC 15.00 H (4.50-10.00) 10*3/uL Hgb 15.2 H (12.0-15.0) g/dL Hct 49.9 H (37.2-46.3) % MCV 99.6 H (80.0-97.0) fL MCHC 30.5 L (32.0-37.0) g/dL Immature Gran # 0.07 H (0.00-0.04) 10*3/uL Neutrophils # 12.71 H (1.80-7.70) 10*3/uL Eosinophils # 0.00 L (0.04-0.35) 10*3/uL Creatinine 0.40 L (0.52-1.04) mg/dL Glucose 159 H (74-99) mg/dL Magnesium 1.4 L (1.6-2.3) mg/dL Thrombosis Risk Factor Assmnt - DVT/VTE Prophylaxis DVT/VTE Prophylaxis: Pharmacologic Prophylaxis ordered Assessment and Plan Assessment: Acute hypoxic respiratory failure secondary COPD exacerbation Possible acute CHF. Ejection fraction not known. Elevated BNP and pulmonary vascular congestion on chest x-ray Ongoing nicotine addiction History of CVA/TIA with intermittent dizziness and balance issues Anxiety/depression Migraine headaches DVT prophylax with heparin subcu Plan: Patient will be continued on BiPAP and oxygen supplementation. Continue with DuoNebs and started on Symbicort 2 puffs twice daily. Continue with IV Solu- Medrol 60 mg Q6 hourly. Patient is on antibiotics at home of azithromycin. 2D echocardiogram was ordered. Follow-up repeat CBC with BMP tomorrow. Pulmonary is on board. Time with Patient: Greater than 30
[2025-01-30 06:19] LABS: Glucose,Whole Blood 136 mg/dL (70-110)
[2025-01-30 07:13] LABS: Basophils # (A) 0.01 10*3/uL (0.00-0.10); Basophils % (A) 0.1 %; HCT 47.8 % (37.2-46.3); HGB 14.1 g/dL (12.0-15.0); Lymphocytes # (A) 0.86 10*3/uL (0.90-5.00); Lymphocytes % (A) 5.3 %; MCH 29.3 pg (27.0-32.0); MCHC 29.5 g/dL (32.0-37.0); MCV 99.4 fL (80.0-97.0); Mean Platelet Volume 10.1 fL (9.5-12.2); Monocytes # (A) 0.79 10*3/uL (0.20-1.00); Monocytes % (A) 4.9 %; Neutrophils # (A) 14.46 10*3/uL (1.80-7.70); Neutrophils % (A) 89.1 %; Platelet Count 142 10*3/uL (140-440); RBC 4.81 10*6/uL (4.10-5.20); RDW 16.9 % (11.5-14.5); WBC 16.22 10*3/uL (4.50-10.00)
[2025-01-30 07:27] LABS: African American GFR (CKD) >90 (>60 ml/min/1.73 sqM); Anion Gap 5 mmol/L; Blood Urea Nitrogen 15 mg/dL (7-17); Calcium 9.2 mg/dL (8.4-10.2); Carbon Dioxide 33 mmol/L (22-30); Chloride 99 mmol/L (98-107); Glucose 140 mg/dL (74-99); Non-African American GFR(CKD) >90 (>60 ml/min/1.73 sqM); Potassium 4.1 mmol/L (3.5-5.1); Sodium 137 mmol/L (137-145)
[2025-01-30] MEDS: ATORVASTATIN 80 MG TAB PO SCH (08:53)
[2025-01-30] MEDS: PANTOPRAZOLE 40 MG TABLET PO SCH (08:53)
[2025-01-30 11:12] LABS: Glucose,Whole Blood 167 mg/dL (70-110)
--- NOTE | 2025-01-30 11:41 | P.PN ---
Subjective Progress Note Date: 01/30/25 Principal diagnosis: COPD exacerbation. Pulmonary consultation dated January 29, 2025. 69-year-old female seen in the emergency department, room #4. The patient was initially seen by one of the ER physicians, for shortness of breath. The patient was brought in to the ER, by EMS. She apparently was quite short of breath, and, was placed on noninvasive ventilation by EMS. Respiratory rate was in the 40s. The patient was seen in the emergency department, and is currently on BiPAP, with settings of 12/5, and 50%. She is in normal sinus rhythm. Her saturations are 95%. He can speak in partial sentences. There is no IV fluids running. When asked about when she quit smoking, she states that she quit "today". In addition to COPD, she has a history of CVA, GERD, osteoarthritis, migraine cephalgia, anxiety/depression, and ongoing tobacco use with nicotine addiction. Current laboratory data includes a white count of 15, hemoglobin 15.2, hematocrit 49.9, and a platelet count of 163,000. Sodium 137, potassium 4.1, chlorides 105, CO2 26, BUN 8, and creatinine 0.4. The patient's troponin was less than 0.012. The N-terminal proBNP was elevated at 4280. In addition to COPD, the patient's chest x-ray may show some mild fluid overload. Progress note dated January 30, 2025. 69-year-old female seen in consultation yesterday. She did use BiPAP last night, with settings of 12/5, 50%. She is on 8 L high flow nasal cannula. Procalcitonin level was 0.20. Azithromycin is discontinued. The patient was admitted with a diagnosis of COPD exacerbation. She has a history of heavy tobacco use as mentioned previously. Current laboratory data includes a white count of 16.2, hemoglobin 14.1, hematocrit 47.8, platelet count 142,000. Sodium 137, potassium 4.1, chloride 99, CO2 33, BUN 15, creatinine 0.47. Glucose is 167. Objective - Vital Signs Vital signs: Vital Signs Temp 97.8 F 01/30/25 08:30 Pulse 74 01/30/25 11:34 Resp 16 01/30/25 08:30 BP 108/65 01/30/25 08:30 Pulse Ox 94 L 01/30/25 08:30 FiO2 52 05/07/25 07:52 Intake & Output 01/29/25 01/30/25 01/30/25 18:59 06:59 18:59 Intake Total 1080 180 Balance 1080 180 Weight 52.163 kg 56 kg Intake: Oral 1080 180 Other: Voiding Method External Catheter External Catheter - Exam Oriented x 3, mild respiratory distress, currently on nasal O2. Able to speak in partial sentences. HEENT examination is grossly unremarkable. Neck supple. Full range of motion. No adenopathy thyromegaly or neck vein distention. Cardiovascular examination reveals regular rhythm rate. S1-S2 normal. No S3 or S4. No discernible murmur noted. Heart sounds are distant. Lungs reveal severely diminished bilateral breath sounds. Scattered rhonchi and wheezes. No crackles. Breath sounds equal bilaterally. Abdomen soft bowel sounds are heard. No masses or tenderness. Extremities are intact. No cyanosis clubbing or edema. Skin is without rash or lesion. Neurologic examination is brief but nonfocal. - Labs CBC & Chem 7: 01/30/25 06:20 01/30/25 06:20 Labs: Abnormal Lab Results - Last 24 Hours (Table) 01/30/25 01/30/25 01/30/25 Range/Units 06:18 06:20 06:20 WBC 16.22 H (4.50-10.00) 10*3/uL Hct 47.8 H (37.2-46.3) % MCV 99.4 H (80.0-97.0) fL MCHC 29.5 L (32.0-37.0) g/dL Immature Gran # 0.10 H (0.00-0.04) 10*3/uL Neutrophils # 14.46 H (1.80-7.70) 10*3/uL Lymphocytes # 0.86 L (0.90-5.00) 10*3/uL Eosinophils # 0.00 L (0.04-0.35) 10*3/uL Carbon Dioxide 33 H (22-30) mmol/L Creatinine 0.47 L (0.52-1.04) mg/dL Glucose 140 H (74-99) mg/dL POC Glucose (mg/dL) 136 H (70-110) mg/dL 01/30/25 Range/Units 11:11 WBC (4.50-10.00) 10*3/uL Hct (37.2-46.3) % MCV (80.0-97.0) fL MCHC (32.0-37.0) g/dL Immature Gran # (0.00-0.04) 10*3/uL Neutrophils # (1.80-7.70) 10*3/uL Lymphocytes # (0.90-5.00) 10*3/uL Eosinophils # (0.04-0.35) 10*3/uL Carbon Dioxide (22-30) mmol/L Creatinine (0.52-1.04) mg/dL Glucose (74-99) mg/dL POC Glucose (mg/dL) 167 H (70-110) mg/dL Assessment and Plan Assessment: Acute hypoxemic respiratory failure, secondary to COPD exacerbation. Possible fluid overload/CHF. Ongoing tobacco use with nicotine addiction. History of CVA. History of gastroesophageal reflux disease. History of osteoarthritis. History of migraine cephalgia. History of anxiety/depression. Plan: Plan dated January 29, 2025. The patient should be on updrafts, with albuterol sulfate ipratropium bromide, 4 times daily and as needed. In addition, the patient should be on Symbicort 160/4.5, 2 puffs twice a day, or budesonide 1 mg, mixed with formoterol 20 mcg, twice a day. In addition, the patient should be receiving Solu-Medrol, 60 mg every 6 hours. A nicotine patch would be also very helpful. Labs, x-rays, and medications are reviewed. We will continue to follow the patient, make recommendations along the way. Prognosis is guarded. Plan dated January 30, 2021. The patient is currently being treated for a COPD exacerbation. Her procalcitonin level was 0.20. Antibiotics were discontinued. She did use BiPAP last night, with settings of 12/5, 50%. Patient is not receiving any IV fluids. Currently, the patient is on 8 L high flow nasal O2. All labs, x-rays, and medications are reviewed. We will continue to follow the patient, make recommendations along the way. Prognosis is guarded. Dictation was produced using [employer] software. Please excuse any grammatical, word or spelling errors. Time with Patient: Less than 30
[2025-01-30 16:18] LABS: Glucose,Whole Blood 147 mg/dL (70-110)
[2025-01-30] MEDS: VORTIOXETINE HYDROBROMIDE 20 MG TABLET PO SCH (18:25)
[2025-01-30 20:10] LABS: Glucose,Whole Blood 176 mg/dL (70-110)
[2025-01-30] MEDS: POTASSIUM CHLORIDE ER 20 MEQ TAB.ER PO SCH (20:38)
--- NOTE | 2025-01-31 00:12 | HP ---
HISTORY AND PHYSICAL CHIEF COMPLAINT: Shortness of breath. HISTORY OF PRESENT ILLNESS: This is another recent admission for this 69-year-old white female with advanced COPD, who continues to smoke. She came back into the emergency room extremely short of breath and was admitted with exacerbation of COPD stating that "I need oxygen." REVIEW OF SYSTEMS: She denies chest pain, confusion, or syncope, etc. Past medical history, family history, and personal and social histories are all unremarkable and unchanged from her recent admitting and discharge summaries. She is allergic to Percocet and Ultram. She cannot take Advair. MEDICATIONS: Include; 1. Oxycodone. 2. Atorvastatin. 3. Omeprazole. 4. Albuterol. 5. Trintellix. 6. Topiramate. 7. Vitamin D. She continues to smoke. PHYSICAL EXAMINATION: VITAL SIGNS: Respirations are 38, blood pressure is 110/70, and pulse is 110. GENERAL: She appeared to be pale and chronically ill. She was dyspneic. SKIN: Dry. HEAD, EARS, EYES, NOSE, MOUTH AND THROAT: Unremarkable, otherwise. CHEST: Revealed very poor breath sounds throughout with scattered rales. CARDIAC: Demonstrated sinus tachycardia. ABDOMEN: Soft, nontender. EXTREMITIES: Normal. NEUROLOGICAL: She is intact. IMPRESSION: She is admitted to the hospital with diagnosis; exacerbation of chronic obstructive pulmonary disease. PLAN: 1. Bed rest. 2. IV fluids. 3. Nasal O2. 4. Updrafts. 5. Pulmonology consult. MMODL / IJN: [id number] /
[2025-01-31 06:21] LABS: Glucose,Whole Blood 140 mg/dL (70-110)
--- NOTE | 2025-01-31 09:59 | CA ---
Transthoracic Echo Report Name: Jessy Hollingsworth Age: 69 Gender: F : 1955 Exam Date: 01/30/2025 11:51 Exam Location: [facility] Ht (in): 63 Wt (lb): 123 Ordering Physician: Kai Portillo MD Attending/Referring Phys: Medical Record Transcriber Jessica Vargas RDCS Procedure CPT: Indications: chf Cardiac Hx: Limited, last prior 01/04/24. Eleonora effusion Technical Quality: Good Contrast 1: Total Dose (mL): Contrast 2: Total Dose (mL): MEASUREMENTS (Male / Female) Normal Values 2D ECHO LV Diastolic Diameter PLAX 5.1 cm 4.2 - 5.9 / 3.9 - 5.3 cm LV Systolic Diameter PLAX 3.5 cm IVS Diastolic Thickness 0.6 cm 0.6 - 1.0 / 0.6 - 0.9 cm LVPW Diastolic Thickness 0.9 cm 0.6 - 1.0 / 0.6 - 0.9 cm LV Relative Wall Thickness 0.3 LV Diastolic Volume MOD BP 92.1 cm??? 67 - 155 / 56 - 104 cm??? LV Systolic Volume MOD BP 31.2 cm??? 22 - 58 / 19 - 49 cm??? LV Ejection Fraction MOD BP 66.1 % >= 55 % LV Cardiac Index MOD BP 2431.9 cm???/min???m??? LV Diastolic Volume MOD 4C 70.4 cm??? LV Systolic Volume MOD 4C 28.3 cm??? LV Ejection Fraction MOD 4C 59.8 % LV Cardiac Index MOD 4C 1680.5 cm???/min???m??? LV Diastolic Length 4C 6.6 cm LV Systolic Length 4C 5.8 cm LV Diastolic Volume MOD 2C 104.0 cm??? LV Systolic Volume MOD 2C 33.6 cm??? LV Ejection Fraction MOD 2C 67.7 % LV Cardiac Index MOD 2C 2812.6 cm???/min???m??? LV Diastolic Length 2C 7.7 cm LV Systolic Length 2C 6.0 cm DOPPLER TR Peak Velocity 221.4 cm/s TR Peak Gradient 19.6 mmHg Right Atrial Pressure 15.0 mmHg Pulmonary Artery Systolic Pressu 34.6 mmHg Right Ventricular Systolic Press 34.6 mmHg PV Peak Velocity 87.0 cm/s PV Peak Gradient 3.0 mmHg FINDINGS Left Ventricle Left ventricular ejection fraction is estimated at 55-60 %. Left ventricular cavity size normal. Left ventricular wall thickness normal. No obvious regional wall motion abnormalities. Right Ventricle Moderate right ventricular dilatation. Normal right ventricular global systolic function. Mild pulmonary hypertension. Heavily trabeculated chamber Right Atrium Left Atrium Mitral Valve Structurally normal mitral valve. No mitral stenosis. No mitral regurgitation. Aortic Valve Trileaflet aortic valve. Focal thickening of the aortic valve cusps. No aortic stenosis. Trace aortic regurgitation. Tricuspid Valve Structurally normal tricuspid valve. Mild tricuspid regurgitation. Pulmonic Valve Pulmonic valve not well visualized. No pulmonic stenosis. No pulmonic regurgitation. Pericardium Small pericardial effusion. Aorta CONCLUSIONS Normal LV size and systolic function. Moderate dilatation of the right ventricle. Mild pulmonary hypertension. Mild mitral and tricuspid regurgitation cannot exclude small pericardial effusion Previewed by: Dr. Gerber Hammer MD (Electronically Signed) Final Date: 31 Jan 2025 09:58
[2025-01-31 11:10] LABS: Glucose,Whole Blood 130 mg/dL (70-110)
--- NOTE | 2025-01-31 11:57 | P.PN ---
Subjective Progress Note Date: 01/31/25 Principal diagnosis: COPD exacerbation. Pulmonary consultation dated January 29, 2025. 69-year-old female seen in the emergency department, room #4. The patient was initially seen by one of the ER physicians, for shortness of breath. The patient was brought in to the ER, by EMS. She apparently was quite short of breath, and, was placed on noninvasive ventilation by EMS. Respiratory rate was in the 40s. The patient was seen in the emergency department, and is currently on BiPAP, with settings of 12/5, and 50%. She is in normal sinus rhythm. Her saturations are 95%. He can speak in partial sentences. There is no IV fluids running. When asked about when she quit smoking, she states that she quit "today". In addition to COPD, she has a history of CVA, GERD, osteoarthritis, migraine cephalgia, anxiety/depression, and ongoing tobacco use with nicotine addiction. Current laboratory data includes a white count of 15, hemoglobin 15.2, hematocrit 49.9, and a platelet count of 163,000. Sodium 137, potassium 4.1, chlorides 105, CO2 26, BUN 8, and creatinine 0.4. The patient's troponin was less than 0.012. The N-terminal proBNP was elevated at 4280. In addition to COPD, the patient's chest x-ray may show some mild fluid overload. Progress note dated January 30, 2025. 69-year-old female seen in consultation yesterday. She did use BiPAP last night, with settings of 12/5, 50%. She is on 8 L high flow nasal cannula. Procalcitonin level was 0.20. Azithromycin is discontinued. The patient was admitted with a diagnosis of COPD exacerbation. She has a history of heavy tobacco use as mentioned previously. Current laboratory data includes a white count of 16.2, hemoglobin 14.1, hematocrit 47.8, platelet count 142,000. Sodium 137, potassium 4.1, chloride 99, CO2 33, BUN 15, creatinine 0.47. Glucose is 167. Progress note dated January 31, 2025. 69-year-old female who looks much older than her stated age. The patient is currently on nasal O2 at 8 L. She did not use the BiPAP last night. The patient is feeling better. She is not receiving any IV fluids. No new labs today, other than a glucose of 130. Labs from yesterday have been reviewed. Microbiologic sampling is negative. No chest x-ray today. Objective - Vital Signs Vital signs: Vital Signs Temp 97.5 F L 01/31/25 11:46 Pulse 64 01/31/25 11:46 Resp 14 01/31/25 11:46 BP 109/63 01/31/25 11:46 Pulse Ox 94 L 01/31/25 11:46 FiO2 50 01/31/25 03:31 Intake & Output 01/30/25 01/31/25 01/31/25 18:59 06:59 18:59 Intake Total 540 480 Output Total 950 Balance -410 480 Weight 56.1 kg Intake: Oral 540 480 Output: Urine 950 Other: Voiding Method External Catheter Toilet Toilet Diaper Diaper # Voids 1 1 1 - Exam Oriented x 3, mild respiratory distress, currently on nasal O2. Able to speak in partial sentences. HEENT examination is grossly unremarkable. Neck supple. Full range of motion. No adenopathy thyromegaly or neck vein distention. Cardiovascular examination reveals regular rhythm rate. S1-S2 normal. No S3 or S4. No discernible murmur noted. Heart sounds are distant. Lungs reveal severely diminished bilateral breath sounds. Scattered rhonchi and wheezes. No crackles. Breath sounds equal bilaterally. Abdomen soft bowel sounds are heard. No masses or tenderness. Extremities are intact. No cyanosis clubbing or edema. Skin is without rash or lesion. Neurologic examination is brief but nonfocal. - Labs CBC & Chem 7: 01/30/25 06:20 01/30/25 06:20 Labs: Abnormal Lab Results - Last 24 Hours (Table) 01/30/25 01/30/25 01/31/25 Range/Units 16:16 20:08 06:20 POC Glucose (mg/dL) 147 H 176 H 140 H (70-110) mg/dL 01/31/25 Range/Units 11:08 POC Glucose (mg/dL) 130 H (70-110) mg/dL Assessment and Plan Assessment: Acute hypoxemic respiratory failure, secondary to COPD exacerbation. Possible fluid overload/CHF. Ongoing tobacco use with nicotine addiction. History of CVA. History of gastroesophageal reflux disease. History of osteoarthritis. History of migraine cephalgia. History of anxiety/depression. Plan: Plan dated January 29, 2025. The patient should be on updrafts, with albuterol sulfate ipratropium bromide, 4 times daily and as needed. In addition, the patient should be on Symbicort 160/4.5, 2 puffs twice a day, or budesonide 1 mg, mixed with formoterol 20 mcg, twice a day. In addition, the patient should be receiving Solu-Medrol, 60 mg every 6 hours. A nicotine patch would be also very helpful. Labs, x-rays, and medications are reviewed. We will continue to follow the patient, make recommendations along the way. Prognosis is guarded. Plan dated January 30, 2021. The patient is currently being treated for a COPD exacerbation. Her procalcitonin level was 0.20. Antibiotics were discontinued. She did use BiPAP last night, with settings of 12/5, 50%. Patient is not receiving any IV fluids. Currently, the patient is on 8 L high flow nasal O2. All labs, x-rays, and medications are reviewed. We will continue to follow the patient, make recommendations along the way. Prognosis is guarded. Dictation was produced using [employer] software. Please excuse any grammatical, word or spelling errors. Plan dated 06/03/2025. The patient is seen today in room 360. She continues on nasal O2 at 8 L. She did not use BiPAP last night. Clinically, she is feeling better. She has been a heavy smoker for many many years. Her procalcitonin level was normal. Antibiotics were discontinued. We will continue to follow the patient, make recommendations along the way. The patient's overall prognosis remains guarded. Dictation was produced using [employer] software. Please excuse any grammatical, word or spelling errors. Time with Patient: Less than 30
[2025-01-31 16:19] LABS: Glucose,Whole Blood 163 mg/dL (70-110)
[2025-01-31 20:11] LABS: Glucose,Whole Blood 153 mg/dL (70-110)
[2025-01-31 23:21] VITALS: RESP 16
[2025-02-01 06:03] LABS: Glucose,Whole Blood 137 mg/dL (70-110)
--- NOTE | 2025-02-01 06:42 | PN ---
PROGRESS NOTE CHIEF COMPLAINT: Advancing COPD. HISTORY OF PRESENT ILLNESS: This lady is doing well, but she is complaining of shortness of breath, but she is doing well when she is at rest. PHYSICAL EXAMINATION: LUNGS: Breath sounds are extremely poor. There are scattered rales. CARDIAC: Normal. ABDOMEN: Soft, nontender. IMPRESSION: Exacerbation of chronic obstructive pulmonary disease. PLAN: Continue with pulmonary management and look into discharge planning. She is also getting physical therapy. MMODL / IJN: [id number] /
--- NOTE | 2025-02-01 07:04 | PN ---
PROGRESS NOTE CHIEF COMPLAINT: COPD. HISTORY OF PRESENT ILLNESS: This lady is doing little bit better. During the night she had some pain, which is her usual neck and back arthritis. PHYSICAL EXAMINATION: LUNGS: Breath sounds are poor and there are scattered rhonchi and rales. CARDIAC: Normal. ABDOMEN: Soft, nontender. IMPRESSION: Chronic obstructive pulmonary disease. PLAN: 1. Repeat laboratory studies. 2. Physical therapy. 3. Start to consider discharge plan. MMODL / IJN: [id number] /
[2025-02-01 08:49] VITALS: BP 115/69; TEMP 97.5
[2025-02-01 11:21] LABS: Glucose,Whole Blood 119 mg/dL (70-110)
[2025-02-01 11:36] VITALS: PULSE 76
--- NOTE | 2025-02-01 11:39 | P.PN ---
Subjective Progress Note Date: 02/01/25 Principal diagnosis: COPD exacerbation. Pulmonary consultation dated January 29, 2025. 69-year-old female seen in the emergency department, room #4. The patient was initially seen by one of the ER physicians, for shortness of breath. The patient was brought in to the ER, by EMS. She apparently was quite short of breath, and, was placed on noninvasive ventilation by EMS. Respiratory rate was in the 40s. The patient was seen in the emergency department, and is currently on BiPAP, with settings of 12/5, and 50%. She is in normal sinus rhythm. Her saturations are 95%. He can speak in partial sentences. There is no IV fluids running. When asked about when she quit smoking, she states that she quit "today". In addition to COPD, she has a history of CVA, GERD, osteoarthritis, migraine cephalgia, anxiety/depression, and ongoing tobacco use with nicotine addiction. Current laboratory data includes a white count of 15, hemoglobin 15.2, hematocrit 49.9, and a platelet count of 163,000. Sodium 137, potassium 4.1, chlorides 105, CO2 26, BUN 8, and creatinine 0.4. The patient's troponin was less than 0.012. The N-terminal proBNP was elevated at 4280. In addition to COPD, the patient's chest x-ray may show some mild fluid overload. Progress note dated January 30, 2025. 69-year-old female seen in consultation yesterday. She did use BiPAP last night, with settings of 12/5, 50%. She is on 8 L high flow nasal cannula. Procalcitonin level was 0.20. Azithromycin is discontinued. The patient was admitted with a diagnosis of COPD exacerbation. She has a history of heavy tobacco use as mentioned previously. Current laboratory data includes a white count of 16.2, hemoglobin 14.1, hematocrit 47.8, platelet count 142,000. Sodium 137, potassium 4.1, chloride 99, CO2 33, BUN 15, creatinine 0.47. Glucose is 167. Progress note dated January 31, 2025. 69-year-old female who looks much older than her stated age. The patient is currently on nasal O2 at 8 L. She did not use the BiPAP last night. The patient is feeling better. She is not receiving any IV fluids. No new labs today, other than a glucose of 130. Labs from yesterday have been reviewed. Microbiologic sampling is negative. No chest x-ray today. Progress note dated February 01, 2025. 69-year-old female, who was seen today in room 360. She remains on nasal O2 at 7 L. No IV fluids. She was actually walking in the halls, with the help of physical therapy. No new labs today, other than a glucose of 119. Her major complaint is shortness of breath on exertion. Objective - Vital Signs Vital signs: Vital Signs Temp 97.5 F L 02/01/25 08:45 Pulse 76 02/01/25 11:35 Resp 16 02/01/25 08:45 BP 115/69 02/01/25 08:45 Pulse Ox 92 L 02/01/25 11:16 FiO2 50 01/31/25 03:31 Intake & Output 01/31/25 02/01/25 02/01/25 18:59 06:59 18:59 Intake Total 440 120 Balance 440 120 Weight 55.1 kg Intake: Oral 440 120 Other: Voiding Method Toilet Toilet Toilet Diaper Diaper Diaper # Voids 3 1 - Exam Oriented x 3, mild respiratory distress, currently on nasal O2. Able to speak in partial sentences. Currently on 7 L. HEENT examination is grossly unremarkable. Neck supple. Full range of motion. No adenopathy thyromegaly or neck vein distention. Cardiovascular examination reveals regular rhythm rate. S1-S2 normal. No S3 or S4. No discernible murmur noted. Heart sounds are distant. Lungs reveal severely diminished bilateral breath sounds. Scattered rhonchi and wheezes. No crackles. Breath sounds equal bilaterally. Abdomen soft bowel sounds are heard. No masses or tenderness. Extremities are intact. No cyanosis clubbing or edema. Skin is without rash or lesion. Neurologic examination is brief but nonfocal. - Labs CBC & Chem 7: 01/30/25 06:20 01/30/25 06:20 Labs: Abnormal Lab Results - Last 24 Hours (Table) 01/31/25 01/31/25 02/01/25 Range/Units 16:18 20:09 06:02 POC Glucose (mg/dL) 163 H 153 H 137 H (70-110) mg/dL 02/01/25 Range/Units 11:20 POC Glucose (mg/dL) 119 H (70-110) mg/dL Assessment and Plan Assessment: Acute hypoxemic respiratory failure, secondary to COPD exacerbation. Possible fluid overload/CHF. Ongoing tobacco use with nicotine addiction. History of CVA. History of gastroesophageal reflux disease. History of osteoarthritis. History of migraine cephalgia. History of anxiety/depression. Plan: Plan dated January 29, 2025. The patient should be on updrafts, with albuterol sulfate ipratropium bromide, 4 times daily and as needed. In addition, the patient should be on Symbicort 160/4.5, 2 puffs twice a day, or budesonide 1 mg, mixed with formoterol 20 mcg, twice a day. In addition, the patient should be receiving Solu-Medrol, 60 mg every 6 hours. A nicotine patch would be also very helpful. Labs, x-rays, and medications are reviewed. We will continue to follow the patient, make recommendations along the way. Prognosis is guarded. Plan dated January 30, 2021. The patient is currently being treated for a COPD exacerbation. Her procalcitonin level was 0.20. Antibiotics were discontinued. She did use BiPAP last night, with settings of 12/5, 50%. Patient is not receiving any IV fluids. Currently, the patient is on 8 L high flow nasal O2. All labs, x-rays, and medications are reviewed. We will continue to follow the patient, make recommendations along the way. Prognosis is guarded. Dictation was produced using [employer] software. Please excuse any grammatical, word or spelling errors. Plan dated 01/31/2025. The patient is seen today in room 360. She continues on nasal O2 at 8 L. She did not use BiPAP last night. Clinically, she is feeling better. She has been a heavy smoker for many many years. Her procalcitonin level was normal. Antibiotics were discontinued. We will continue to follow the patient, make recommendations along the way. The patient's overall prognosis remains guarded. Dictation was produced using [employer] software. Please excuse any grammatical, word or spelling errors. Plan dated February 01, 2025. The patient is seen today in room 360. She continues on nasal O2 at 7 L. Clinically, she was admitted with COPD exacerbation. Procalcitonin level was normal. Antibiotics were discontinued. She has a history of heavy tobacco use. Labs, x-rays, and all medications are reviewed. We will continue to follow the patient, and make recommendations along the way. Prognosis is guarded. She is on appropriate medications. Dictation was produced using [employer] dictation software. Please excuse any grammatical, word or spelling errors. Time with Patient: Less than 30
--- NOTE | 2025-02-01 13:00 | DS ---
DISCHARGE SUMMARY CHIEF COMPLAINT: Difficulty breathing. HISTORY OF PRESENT ILLNESS AND PHYSICAL EXAMINATION: Details of this lady's history and physical can be found in the initial workup. LABORATORY STUDIES: While she is in hospital, she had laboratory studies, details of which can be found in the laboratory section of her chart. COURSE IN THE HOSPITAL: After admission, she was placed on bedrest, started on intravenous fluids, nasal O2, updrafts, and steroids. Her breathing improved significantly. However, it was felt that she could benefit from having nasal O2 available at home. She was admonished not to keep smoking. She will go home on light activity and usual diet and medications. FINAL DIAGNOSIS: Exacerbation of chronic obstructive pulmonary disease. OPERATIONS: None. CONSULTATIONS: Pulmonology. MMODL / IJN: [id number] /
--- NOTE | 2025-02-04 12:20 | CDI ---
Documentation Clarification Form Date: 02/04/25 From: Guera Hutchinson Admit Date: 01/29/2025 11:45:00 AM Patient Name: Jessy Hollingsworth Visit Number: [id number] Discharge Date: 02/01/2025 01:06:00 PM ATTENTION: The Clinical Documentation Specialists (CDI) and [facility] Coding Staff appreciate your assistance in clarifying documentation. Please respond to the clarification below the line at the bottom and electronically sign. The CDI & [facility] Coding staff will review the response and follow-up if needed. Please note: Queries are made part of the Legal Health Record. If you have any questions, please contact the author of this message via ITS. Doctor/Provider: Ky De La O, Heart failure is documented in the ED Note which may lack sufficient clinical evidence/support in the medical record. Additional clarification is requested. History/Risk Factors: acute exacerbation of COPD with acute hypoxic respiratory failure, depression, smoker Clinical Indicators: Patient 69-year-old female presents to the ER for dyspnea History of heart failure and COPD. Possible acute CHF. Ejection fraction not known. Elevated BNP and pulmonary vascular congestion on chest x-ray CXR: COPD. Correlate for superimposed mildCHFwith pulmonary vascularcongestion. ECHO: Normal LV size and systolic function.Moderatedilatation of the right ventricle. Mildpulmonary hypertension. Mildmitral and tricuspid regurgitationcannot excludesmallpericardial effusion. Treatment: IV Lasix 40 mg Please clarify if heart failure is a valid diagnosis? [ ] No, heart failure is ruled out [ ] Yes, heart failure is present as evidence by (additional clinical support) (please specify type and acuity): [ ] Other (please specify diagnosis) [ ] Unable to determine MTDD
--- NOTE | 2025-02-04 23:03 | MISC ---
MISCELLANOUS REPORT Heart failure is ruled out. MMODL / IJN: [id number] /
== END 2025-02-01 13:06 | disposition home health service (06) | DRG 190 ==
LOC: EC 10:02 → 3SCARD 11:45
PROVIDERS: ADMIT Family Medicine; ATTEND Family Medicine
PROC: 5A09357 Assistance with Respiratory Ventilation, Less than 24 Consecutive Hours, Continuous Positive Airway Pressure (ICD-10-PCS; principal; 2025-01-29)
DX: J44.1 Chronic obstructive pulmonary disease with (acute) exacerbation (principal); J96.01 Acute respiratory failure with hypoxia; F32.A Depression, unspecified; F41.9 Anxiety disorder, unspecified; G43.909 Migraine, unspecified, not intractable, without status migrainosus; M47.9 Spondylosis, unspecified; K21.9 Gastro-esophageal reflux disease without esophagitis; F17.210 Nicotine dependence, cigarettes, uncomplicated; Z79.891 Long term (current) use of opiate analgesic; Z79.899 Other long term (current) drug therapy; Z86.73 Personal history of transient ischemic attack (TIA), and cerebral infarction without residual deficits; Z88.5 Allergy status to narcotic agent; Z88.8 Allergy status to other drugs, medicaments and biological substances
CPT/HCPCS: 36415; 71045; 80048; 80053; 83605; 83735; 83880; 84145; 84484; 85025; 85610; 85730; 93005; 93308; 94640; 94660; 94760; 96365; 96372; 96375; 99291

== ENCOUNTER → 2025-04-19 | Outpatient (CLI) | payer MEDICARE, OTHER ==
--- NOTE | 2025-04-19 13:51 | CT ---
EXAMINATION TYPE: CT chest wo con CT DLP: 138.30 mGycm, Automated exposure control for dose reduction was used. DATE OF EXAM: 04/19/2025 1:31 PM COMPARISON: CT chest 01/25/2025, 07/27/2024, 01/20/2024, PET/CT 09/20/2024, 04/06/2024, 10/21/2023, CT low- dose lung 09/20/2023 CLINICAL INDICATION:Female, 69 years old with history of J44.9 COPD; PHH, pulmonary nodule TECHNIQUE: Multiple axial images were obtained through the chest without IV contrast. Lack of IV or o ral contrast limits evaluation of solid and hollow organ viscera. . Coronal and sagittal reformats re viewed. FINDINGS: LUNGS/ PLEURA: No pleural effusion, pneumothorax, or focal consolidation. Minimal bilateral lower lob e subsegmental atelectasis. Mild centrilobular emphysematous changes. Stable left lower lobe subpleur al 5.8 mm groundglass pulmonary nodule (series 4, image 53). Additional few 4 mm smaller nodules paulina in unchanged. AIRWAY: Patent and unremarkable.. HEART: Size within normal limits.Small aortic valvular calcifications. Trace pericardial effusion. Mi ld coronary artery calcifications present. MEDIASTINUM: No gross evidence of adenopathy. VASCULATURE: No aortic aneurysm. Atherosclerotic calcification of the aorta and its branches. Four-v essel aortic arch. MUSCULOSKELETAL: Mild disc degeneration changes are present throughout the thoracolumbar spine. No ac vida osseous abnormality. Partial visualization of anterior cervical fusion hardware. SOFT TISSUES/LYMPH NODES: Calcified granulomas within the left posterior back subcutaneous tissues. LOWER NECK: No significant findings. UPPER ABDOMEN: The gallbladder is surgically absent. Couple nonobstructing right renal calculi with l argest visualized measuring up to 4 mm. Postsurgical changes of the GE junction from hernia repair, p robable Rashi fundoplication. IMPRESSION: 1. No acute thoracic process. 2. Few stable pulmonary nodules as described above. These are stable from multiple exams considered b enign. No new or enlarging pulmonary nodule. 3. Mild emphysematous changes. 4. Decrease now trace pericardial effusion. [facility], , 04/19/2025 1:48 PM
== END | disposition home or self-care (01) ==
LOC: RADCTMAIN 12:53
PROVIDERS: ATTEND Internal Medicine Hematology & Oncology
DX: J98.4 Other disorders of lung (principal); I67.89 Other cerebrovascular disease; E78.5 Hyperlipidemia, unspecified; M12.9 Arthropathy, unspecified; I31.39 Other pericardial effusion (noninflammatory); R91.8 Other nonspecific abnormal finding of lung field; J43.9 Emphysema, unspecified
CPT/HCPCS: 71250